=== PATIENT | female | born 2000 | race Caucasian/White ===

== ENCOUNTER 2022-11-22 10:01 | Outpatient (AMB) | payer BC, SELFPAY ==
--- NOTE | 2022-11-22 10:08 | A.OFFPC_ITS ---
Vital Signs 11/22/22 10:09 Height 5 ft 8 in Weight 186 lb BMI 28.3 BP 106/70 Blood Pressure Location Rt brachial Position Sitting Pulse 112 H Pulse Source Pulse Oximeter Pulse Oximetry (%) 98 Oxygen Delivery Method Room Air Intake Visit Reasons: npv/requesting phy Intake Note: Pt is here today as a New Patient to [facility] and for a PE Allergies No Known Allergies Allergy (Verified 11/22/22 10:24) Medication List - Last Reconciled 11/22/22 by Lisa Rodriguez MD clindamycin-benzoyl peroxide 1-5 % 1 appl topical QAM levonorgestrel-ethinyl estrad 0.15 mg-30 mcg (91) 1 tab PO DAILY Tobacco use date assessed: 11/22/22 Dental Screening Dental Screen Date: 11/22/22 Did you have a dental visit in the last 12 months?: Yes Did you have a dental problem in the last 6 months where you did not have access to dental care?: No Was dental information given to patient?: Patient has dentist HPI npv/requesting phy HPI Details 22-year-old lady, new to practice, here to establish care with new PCP and for physical exam. She currently is being seen by [facility], sees Phyllis Ashton who recently did some blood work, which showed elevated TSH at 4.73 IU per mL with normal free T4 at 1.16 ng/ dL, serum electrolytes were drawn with slightly elevation in her potassium at 5.4 , and CBC which showed normal hemoglobin/ hematocrit / WBC, but platelets are high at 523. Complains of feeling more tired than usual, has intermittent episodes of tingling in extremities , and intermittent palpitations. [facility] Medical History (Updated 11/25/22 @ 10:16 by Lisa Rodriguez MD) Chronic fatigue Family history of diabetes mellitus Family history of Rogers thyroiditis Hyperkalemia Intermittent palpitations Tingling in extremities Surgical History (Updated 11/22/22 @ 10:39 by Lisa Rodriguez MD) No pertinent past surgical history Family History (Updated 11/22/22 @ 10:41 by Lisa Rodriguez MD) Maternal Aunt Breast cancer Mother Hypothyroidism due to Rogers's thyroiditis Type 1 diabetes mellitus Social History Housing: House Patient Tobacco Use Status: Never used Tobacco e-Cigarette/Vaping Use: Never Used service: No Current occupational status: employed Cognitive needs: No Hearing needs: No Vision needs: No Female Reproductive History Menstrual Age of Menarche: 12 control method: pills Other: sees Melida Ashton Questionnaire PHQ-9 Over the last 2 weeks, how often have you been bothered by any of the following problems? 1. Little interest or pleasure in doing things: not at all 2. Feeling down, depressed, or hopeless: not at all 3. Trouble falling or staying asleep, or sleeping too much: several days 4. Feeling tired or having little energy: several days 5. Poor appetite or overeating: not at all 6. Feeling bad about yourself - or that you are a failure or have let yourself or your family down: not at all 7. Trouble concentrating on things, such as reading the newspaper or watching television: not at all 8. Moving or speaking so slowly that other people could have noticed. Or the opposite - being so fidgety or restless that you have been moving around a lot more than usual: not at all 9. Thoughts that you would be better off or of hurting yourself in some way: not at all Total score: 2 Depression Screening Interpretation: Negative 95265 - PHQ-9 Billing: Yes Source: Developed by Drs. Cal Trejo, Petrona Felix, Ranjit Guillory and colleagues, with an educational helder from [email or web address]. Thrive Questionnaire Date Thrive assessed: 11/22/22 I am a: Patient What is your living situation today?: I have a steady place to live Within the past 12 months, did the food you bought not last and you didn't have the money to get more?: Never true Within the past 12 months, did you worry whether your food would run out before you got money to buy more?: Never true Do you have trouble paying for medicines?: No Do you have trouble getting transportation to medical appointments?: No Do you have trouble paying your heating and electricity bill?: No Do you have trouble taking care of your child, family member or friend?: No Do you have trouble with day-to-day activities such as bathing, preparing meals, shopping, managing finances, etc.?: No Are you currently unemployed and looking for a job?: No Are you interested in more education?: No AUDIT C Alcohol Use Questionnaire (AUDIT-C) 1. How often do you have a drink containing alcohol?: Monthly or less 2. How many drinks containing alcohol do you have on a typical day when you are drinking?: 1 or 2 3. How often do you have six or more drinks on one occasion?: Never Total Score: 1 Score Reviewed/Action Taken: Yes CRISTIANO-7 AMB Questionnaire CRISTIANO-7 Date CRISTIANO - 7 assessed: 11/22/22 Feeling nervous, anxious, or on edge: 1 = Several days Not being able to stop or control worryin = Not at all Worrying too much about different things: 0 = Not at all Trouble relaxin = Not at all Being so restless that it is hard to sit still: 0 = Not at all Becoming easily annoyed or irritable: 0 = Not at all Feeling afraid as if something awful might happen: 0 = Not at all Total CRISTIANO-7 score (0-4 normal; 5-9 mild; 10-14 moderate; 15-21 severe): 1 Source: Developed by Drs. Cal Trejo, Petrona Felix, Ranjit Guillory and colleagues, with an educational helder from [email or web address]. CRISTIANO-7 Assessment Billing CRISTIANO-7 Assessment Tool: CRISTIANO-7 Assessment 30696 Review of Systems Const Reports as per HPI, Reports fatigue, Denies fever(s), Denies headache(s) and Denies weakness Eyes Denies change in vision, Denies eye discharge and Denies itchy eyes ENT Reports as per HPI, Reports Normal hearing present, Reports dizziness (intermittent ), Denies headache(s), Denies nasal congestion, Denies nasal discharge, Denies sinus pain and Denies sore throat Card Denies chest pain, Denies chest pain with activity, Reports syncope (history of syncope , seen and evaluated by cardiology, echo/holter negative), Denies irreg ular heart rhythm and Denies dyspnea Resp Denies chest congestion, Denies cough, Denies dyspnea and Denies wheezing GI Denies abdominal pain, Denies bloating, Denies hematochezia, Denies change in bowel habits and Denies heartburn Details: Has dysmenorrhea Denies hematuria, Denies urinary frequency, Denies dysuria and Denies urinary urgency Musc Details: Chronic low back pain, sees a chiropractor for adjustment. Been seen at [facility] and received physical therapy with minimal relief Skin/Breast Denies breast pain, Denies breast mass, Denies lesions, Denies nail changes, Denies rash and Denies unusual bruising Neuro Reports as per HPI, Reports Normal hearing present, Reports dizziness (intermittent ), Reports syncope (history of syncope , seen and evaluated by cardiology, echo/holter negative), Denies headache(s) and Denies weakness Psych Reports no additional complaints Endo Reports fatigue, Denies polydipsia and Denies polyuria Des/Lymph Reports no additional complaints and Denies easy bruising Aller/Immun Reports no additional complaints, Denies itchy eyes, Denies seasonal rhinorrhea and Denies wheezing Physical exam (Primary Care) Vital Signs: Last Vital Signs Pulse 112 H 11/22/22 10:09 BP 106/70 11/22/22 10:09 Pulse Ox 98 11/22/22 10:09 Oxygen Delivery Method Room Air 11/22/22 10:09 BMI result Body Mass Index 28.3 Tobacco/Smoking Status: Tobacco use Status Tobacco use date assessed 11/22/22 11/22/22 10:13 Patient Tobacco Use Status Never used Tobacco 11/22/22 10:13 e-Cigarette/Vaping Use Never Used 11/22/22 10:13 PHQ-9: PHQ-9 Score PHQ-9: Total score 2 11/22/22 10:50 Depression Screening Interpretation: Negative Thrive Assessment: Date of Thrive Assessment Date Thrive assessed 11/22/22 11/22/22 10:50 Const General: comfortable, no acute distress, alert and Physically active Nutritional Appearance: overweight Orientation/consciousness: patient oriented x3 Limitations: no limitations HENMT Head: Yes normocephalic Ears: hearing grossly normal bilaterally, external ears normal, TM's normal bilaterally and EAC's normal General nose exam: Normal external nose present Face and sinus: Yes face symmetric Mouth: Normal oral and palatal mucosa present, tongue normal, oropharynx normal and moist mucous membranes Eyes General: appearance normal, both eyes and all related structures Alignment and Position: alignment normal Periorbital: periorbital findings normal Eyelids: Yes eyelids normal Conjunctivae: conjunctivae normal Sclerae: sclerae normal Pupils: Equal, round and reactive pupils present EOM: EOMs intact bilaterally Neck Neck: Yes full ROM, Yes no lymphadenopathy and Yes supple Thyroid: other (Nonpalpable thyroid gland) Chest Chest palpation & inspection: normal inspection of the chest and normal palpation of entire chest wall Breast/axilla palpation: normal palpation of the breasts Resp Effort & Inspection: normal respiratory effort and able to speak in complete sentences Auscultation: clear to auscultation bilaterally Cardio Rate: tachycardic Heart sounds: S1 normal heart sound present and S2 normal heart sound present GI Palpation (GI): Soft to palpation, nontender, no guarding and no masses Auscultation: normal bowel sounds General: Yes no CVA tenderness and Yes deferred (Currently sees [facility]) Back/Spine/Pelvis Back: no CVA tenderness and No back tenderness Skin General skin exam: no rashes or lesions noted Neuro General: patient oriented x3, gait normal, moves all extremities, Normal light touch and pain sensation, no focal motor deficits and CN's II-XI intact bilaterally Cranial nerves: Yes CN's II-XII intact bilaterally, Yes Equal, round and reactive pupils present and Yes Normal hearing present Gait exam (Neuro): Normal gait present Extrem General: Yes normal to inspection, Yes full ROM, Yes no joint enlargement, Yes no clubbing, cyanosis or edema and Yes normal gait Psych Appearance: grossly normal Speech and movement: Normal speech and movement present Affect: normal affect Attitude: cooperative Thought process: Normal thought process present Thought content: Normal thought content present Assessment and Plan Assessment & Plan (1) Intermittent palpitations: Code(s): R00.2 - Palpitations (2) Fatigue: Code(s): R53.83 - Other fatigue (3) Family history of diabetes mellitus: Code(s): Z83.3 - Family history of diabetes mellitus (4) Family history of Rogers thyroiditis: Code(s): Z83.49 - Family history of other endocrine, nutritional and metabolic diseases (5) Annual visit for general adult medical examination with abnormal findings: Code(s): Z00.01 - Encounter for general adult medical examination with abnormal findings Plan: Will check appropriate labs. Recommended dental visit every 6 months and regular eye exams, at least every 2 years. Take adequate calcium in diet and vitamin-D 3 at 2000 IU per cap once a day, in addition to weight-bearing exercises to help maintain good muscle tone and weight control. Instructed to do self-breast exam, and get yearly mammogram, starting at age 40. She is up-to-date with all her vaccinations including her COVID bivalent booster (6) Tingling in extremities: Code(s): R20.2 - Paresthesia of skin (7) Hyperkalemia: Code(s): E87.5 - Hyperkalemia Orders: Orders Vitamin B12 and Folate 11/22/22 E87.5 - Hyperkalemia, R00.2 - Palpitations, R20.2 - Paresthesia of skin, R53.83 - Other fatigue, Z00.01 - Encounter for general adult medical examination with abnormal findings, Z83.3 - Family history of diabetes mellitus, Z83.49 - Family history of other endocrine, nutritional and metabolic diseases Glucose Fasting 11/22/22 E87.5 - Hyperkalemia, R00.2 - Palpitations, R20.2 - Paresthesia of skin, R53.83 - Other fatigue, Z00.01 - Encounter for general adult medical examination with abnormal findings, Z83.3 - Family history of diabetes mellitus, Z83.49 - Family history of other endocrine, nutritional and metabolic diseases Potassium 11/22/22 E87.5 - Hyperkalemia, R00.2 - Palpitations, R20.2 - Paresthesia of skin, R53.83 - Other fatigue, Z00.01 - Encounter for general adult medical examination with abnormal findings, Z83.3 - Family history of diabetes mellitus, Z83.49 - Family history of other endocrine, nutritional and metabolic diseases Magnesium 11/22/22 E87.5 - Hyperkalemia, R00.2 - Palpitations, R20.2 - Paresthesia of skin, R53.83 - Other fatigue, Z00.01 - Encounter for general adult medical examination with abnormal findings, Z83.3 - Family history of diabetes mellitus, Z83.49 - Family history of other endocrine, nutritional and metabolic diseases TSH reflex Free T4 11/22/22 E87.5 - Hyperkalemia, R00.2 - Palpitations, R20.2 - Paresthesia of skin, R53.83 - Other fatigue, Z00.01 - Encounter for general adult medical examination with abnormal findings, Z83.3 - Family history of diabetes mellitus, Z83.49 - Family history of other endocrine, nutritional and metabolic diseases Vitamin D 25-OH Total 11/22/22 E87.5 - Hyperkalemia, R00.2 - Palpitations, R20.2 - Paresthesia of skin, R53.83 - Other fatigue, Z00.01 - Encounter for general adult medical examination with abnormal findings, Z83.3 - Family history of diabetes mellitus, Z83.49 - Family history of other endocrine, nutritional and metabolic diseases Thyroid Peroxidase Antibodies 11/22/22 E87.5 - Hyperkalemia, R00.2 - Palpitations, R20.2 - Paresthesia of skin, R53.83 - Other fatigue, Z00.01 - Encounter for general adult medical examination with abnormal findings, Z83.3 - Family history of diabetes mellitus, Z83.49 - Family history of other endocrine, nutritional and metabolic diseases Coding Level of Care Code New Pt Prev Care 18-39yr([id number] Diagnoses Intermittent palpitations R00.2 Fatigue R53.83 Family history of diabetes mellitus Z83.3 Family history of Rogers thyroiditis Z83.49 Annual visit for general adult medical examination with abnormal findings Z00.01 Tingling in extremities R20.2 Hyperkalemia E87.5 Additional Codes CRISTIANO-7 Assessment Billing - CRISTIANO-7 Assessment Tool: CRISTIANO-7 Assessment 64759 ([id number])
[2022-11-22 10:09] VITALS: BP 106/70; PULSE 112; O2SAT 98; BMI 28.3
== END 2022-11-22 10:52 | disposition home or self-care (01) ==
PROVIDERS: PCP Hospitalist; Visit Provider Internal Medicine
DX: Z00.01 Encounter for general adult medical examination with abnormal findings (principal); Z83.3 Family history of diabetes mellitus; Z83.49 Family history of other endocrine, nutritional and metabolic diseases; R00.2 Palpitations; R53.83 Other fatigue; R20.2 Paresthesia of skin; E87.5 Hyperkalemia
CPT/HCPCS: 99385

== ENCOUNTER 2022-11-22 10:52 | Outpatient (REF) | payer BC, SELFPAY ==
[2022-11-22 14:18] LABS: Glucose Fasting 92 mg/dL (60-99); Magnesium 1.9 mg/dL (1.6-2.6)
[2022-11-22 14:35] LABS: TSH reflex Free T4 2.94 uIU/mL (0.32-4.0); Vitamin D 25-OH Total 54.2 ng/mL (>30)
[2022-11-22 14:39] LABS: Folate 9.9 ng/mL (> or = 4.0); Vitamin B12 212 pg/mL (200-900)
[2022-11-23 10:02] LABS: Thyroid Peroxidase Antibodies 640 IU/mL (<9)
== END 2022-11-22 10:53 | disposition home or self-care (01) ==
LOC: HO.HMGCLDS 10:52
PROVIDERS: PCP Internal Medicine; Visit Provider Internal Medicine
DX: Z00.01 Encounter for general adult medical examination with abnormal findings (principal); E87.5 Hyperkalemia; R00.2 Palpitations; R20.2 Paresthesia of skin; R53.83 Other fatigue; Z83.3 Family history of diabetes mellitus; Z83.49 Family history of other endocrine, nutritional and metabolic diseases
CPT/HCPCS: 36415; 82306; 82607; 82746; 82947; 83735; 84132; 84443; 86376

== ENCOUNTER 2022-11-25 10:24 | Outpatient (REF) | payer BC, SELFPAY ==
[2022-11-25 13:29] LABS: MANUAL DIFF FLAG NO
[2022-11-25 13:47] LABS: Basophils Absolute Auto 0.1 X10*3/uL (0.0-0.2); Basophils Percent Auto 0.7 % (0-2); Eosinophils Absolute Auto 0.1 X10*3/uL (0.0-0.4); Eosinophils Percent Auto 1.8 % (0-4); Hematocrit 39.8 % (37.0-47.0); Hemoglobin 13.2 g/dl (12.0-16.0); Imm Gran Abs Auto 0.02 X10*3/uL (0.00-0.03); Imm Gran Pct Auto 0.3 % (0.0-0.4); Lymphocytes Percent Auto 28.3 % (20-40); Mean Corpuscular HGB Conc 33.2 g/dl (31.0-35.0); Mean Corpuscular Hemoglobin 27.9 pg (27.0-33.0); Mean Corpuscular Volume 84.1 fL (80.0-98.0); Mean Platelet Volume 9.2 fL (9.4-12.3); Monocytes Absolute Auto 0.4 X10*3/uL (0.1-1.2); Monocytes Percent Auto 5.9 % (2-11); Neutrophils Absolute Auto 4.5 x10*3/uL (2.0-8.3); Platelet Count 493 X10*3/uL (160-400); Red Blood Count 4.73 X10*6/uL (4.20-5.50); Red Cell Distribution Width 13.5 % (11.0-16.0); White Blood Count 7.1 X10*3/uL (4.8-10.8)
== END 2022-11-25 10:25 | disposition home or self-care (01) ==
LOC: HO.HMGCLDS 10:24
PROVIDERS: PCP Internal Medicine; Visit Provider Internal Medicine
DX: R53.82 Chronic fatigue, unspecified (principal)
CPT/HCPCS: 36415; 84481; 85025

== ENCOUNTER 2023-02-18 11:16 | Outpatient (REF) | payer BC, SELFPAY ==
[2023-02-18 13:33] LABS: Hematocrit 37.5 % (37.0-47.0); Hemoglobin 12.5 g/dl (12.0-16.0); Mean Corpuscular HGB Conc 33.3 g/dl (31.0-35.0); Mean Corpuscular Hemoglobin 27.7 pg (27.0-33.0); Mean Corpuscular Volume 83.1 fL (80.0-98.0); Mean Platelet Volume 8.9 fL (9.4-12.3); Platelet Count 513 X10*3/uL (160-400); Red Blood Count 4.51 X10*6/uL (4.20-5.50); Red Cell Distribution Width 13.6 % (11.0-16.0); White Blood Count 6.7 X10*3/uL (4.8-10.8)
[2023-02-18 13:59] LABS: Thyroid Stimulating Hormone 2.98 uIU/mL (0.32-4.0)
[2023-02-18 14:04] LABS: Vitamin B12 355 pg/mL (200-900)
[2023-02-19 17:28] LABS: Triiodothyronine T3 Free 3.5 pg/mL (2.3-4.2)
[2023-02-21 20:28] LABS: Thyroid Peroxidase Antibodies 825 IU/mL (<9)
== END 2023-02-18 11:17 | disposition home or self-care (01) ==
LOC: HO.HMGCLDS 11:16
PROVIDERS: PCP Internal Medicine; Visit Provider Internal Medicine
DX: E06.3 Autoimmune thyroiditis (principal); R53.82 Chronic fatigue, unspecified; R00.2 Palpitations; E03.9 Hypothyroidism, unspecified; Z83.49 Family history of other endocrine, nutritional and metabolic diseases
CPT/HCPCS: 36415; 82607; 84439; 84443; 84481; 85027; 86376

== ENCOUNTER 2023-07-30 09:11 | Outpatient (AMB) | payer OTHER, BC, SELFPAY ==
[2023-07-30 09:46] VITALS: BP 110/66; PULSE 91; O2SAT 99; BMI 26.8
--- NOTE | 2023-07-30 09:46 | AM.OFFWIN_ITS ---
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 Patient Tobacco Use Status: Never used Tobacco Accompanied by: Mother Allergies No Known Allergies Allergy (Verified 07/30/23 09:49) Medication List - Last Reconciled 07/30/23 by Kei Martino MD clindamycin-benzoyl peroxide 1-5 % 1 appl topical QAM levonorgestrel-ethinyl estrad 0.15 mg-30 mcg (91) 1 tab PO DAILY magnesium 250 mg PO DAILY Do you need a note to return to daycare/school/sports/work: No HPI EP Fell back injury WC HPI Details Patient fell back/sat back from a standing position onto buttocks and felt severe pain at left lower back. Having difficulty standing and walking due to pain.. No bowel or bladder dysfunction. No weakness at foot or ankle. [facility] Medical History (Updated 07/30/23 @ 10:36 by Kei Martino MD) Rogers's disease Chronic fatigue Hyperkalemia Tingling in extremities Family history of Rogers thyroiditis Family history of diabetes mellitus Intermittent palpitations Surgical History (Updated 11/22/22 @ 10:39 by Lisa Rodriguez MD) No pertinent past surgical history Family History (Updated 11/22/22 @ 10:41 by Lisa Rodriguez MD) Maternal Aunt Breast cancer Mother Hypothyroidism due to Rogers's thyroiditis Type 1 diabetes mellitus Social History Housing: House Patient Tobacco Use Status: Never used Tobacco e-Cigarette/Vaping Use: Never Used service: No Current occupational status: employed Cognitive needs: No Hearing needs: No Vision needs: No Female Reproductive History Menstrual Age of Menarche: 12 Review of Systems Const Denies chills, Denies fatigue, Denies fever(s), Denies headache(s) and Denies weakness ENT Denies dizziness and Denies headache(s) Card Denies chest pain, Denies lightheadedness, Denies dyspnea and Denies other (Palpitations) Resp Denies cough, Denies dyspnea, Denies wheezing and Denies other ( shortness of breath) Musc Details: Moderately severe pain at left lower back and upper posterior pelvis. Denies numbness and Denies tingling Neuro Denies dizziness, Denies headache(s), Denies numbness, Denies tingling, Denies paresthesias and Denies weakness Psych Denies anxiety and Denies depression Endo Denies fatigue Aller/Immun Denies wheezing Physical Exam Vital Signs: Last Vital Signs Pulse 91 07/30/23 09:46 BP 110/66 07/30/23 09:46 Pulse Ox 99 07/30/23 09:46 Oxygen Delivery Method Room Air 07/30/23 09:46 BMI result Body Mass Index 26.8 Const Other: Patient appears in moderately severe pain. General: no acute distress and well developed Nutritional Appearance: well nourished Orientation/consciousness: patient oriented x3 HEENT Head: Yes normocephalic and Yes atraumatic Eyes General: appearance normal, both eyes and all related structures Pupils: Equal, round and reactive pupils present EOM: EOMs intact bilaterally Resp Effort & Inspection: normal respiratory effort Auscultation: clear to auscultation bilaterally Cardio Rate: regular rate Rhythm: regular rhythm Heart sounds: S1 normal heart sound present, S2 normal heart sound present, no gallops, no murmurs and no rubs Back/Spine/Pelvis Other: Mild tenderness at left lower back and left posterior pelvis. Pain in back at straight leg raise beyond 15 degrees bilaterally. Pain with standing straight and walking. Neuro Other: Normal dorsiflexion and plantar flexion of bilateral feet. Patellar tendon Reflexes 1+ bilaterally - patient says this is always the case for her and baseline. General: patient oriented x3 and gait normal Cranial nerves: Yes Equal, round and reactive pupils present Psych Affect: normal affect Assessment & Plan Assessment & Plan (1) Back pain: Code(s): M54.9 - Dorsalgia, unspecified Plan: Moderately severe back pain X-ray of lumbar spine and pelvis: Reviewed myself and I do not see any disc height changes, fractures or deformities. Likely severe contusion and muscle strain. Will give her a note to be out of work for the next 10 days. Pain control with Meloxicam and Percocet b.i.d. p.r.n. x3 days for severe pain. Will also give her a muscle relaxant ice/heat Risks/benefits of medication were discussed with the patient. Go to the ED if pain is worsening despite above treatment. Go to the ED if unable to walk or for any bowel or bladder dysfunction or numbness. Or for any other new, concerning symptoms. Orders: Orders XR pelvis 1-2V Today M54.9 - Dorsalgia, unspecified XR lumbar spine 2-3V Today M54.9 - Dorsalgia, unspecified Coding Level of Care Code Est Pt Level 4 (71077) Diagnoses Back pain M54.9
== END 2023-07-30 11:59 | disposition home or self-care (01) ==
PROVIDERS: PCP Internal Medicine; Visit Provider Family Medicine
DX: M54.9 Dorsalgia, unspecified (principal)
CPT/HCPCS: 99214

== ENCOUNTER 2023-07-30 10:38 | Outpatient (REF) | payer BC, SELFPAY ==
--- NOTE | ~2023-07-30 | XR_ITS ---
EXAMINATION: XR PELVIS CLINICAL INFORMATION: Pain COMPARISON: None available. TECHNIQUE: AP view of the pelvis. FINDINGS: No fracture. Hip joint spaces are maintained. Alignment is anatomic. Sacroiliac joints and pubic symphysis are normal. No abnormal soft tissue calcifications. Excess amount of stool in the colon suggests possible constipation. XR/XR pelvis 1-2V IMPRESSION: Excess amount of stool in the colon possible constipation otherwise Normal radiograph.
--- NOTE | ~2023-07-30 | XR_ITS ---
EXAMINATION: XR LUMBAR SPINE CLINICAL INFORMATION: Reason for Exam M54.9 - Dorsalgia, unspecified COMPARISON: None TECHNIQUE: Frontal lateral and coned-down L5-S1 frontal lateral, total of 3 views FINDINGS: Five [id number] lumbar vertebrae were identified maintaining normal height and alignments. Narrowing of disc space at L1-L2 suggest possible underlying degenerative disc disease. Paravertebral soft tissues are unremarkable. There are radiolucencies, most likely superimposed bowel gas.. No radiographic evidence of osteolytic or osteoblastic lesions. XR/XR lumbar spine 2-3V IMPRESSION: 1. No fracture. 2. Bone alignments are satisfactory. 3. Narrowing of intervertebral disc space at L1-L2 suggest underlying degenerative disc disease.
== END 2023-07-30 10:39 | disposition home or self-care (01) ==
LOC: HO.HMGCX 10:38
PROVIDERS: PCP Internal Medicine; Visit Provider Family Medicine
DX: M48.061 Spinal stenosis, lumbar region without neurogenic claudication (principal)
CPT/HCPCS: 72100; 72170

== ENCOUNTER 2023-08-04 08:08 | Outpatient (AMB) | payer BC, SELFPAY ==
[2023-08-04 09:00] VITALS: BP 120/78; PULSE 103; TEMP 36.3; O2SAT 98; BMI 27.4
--- NOTE | 2023-08-04 09:00 | AM.OFFWIN_ITS ---
Intake Vital Signs 08/04/23 09:00 Height 5 ft 8 in Weight 180 lb BMI 27.4 BP 120/78 Blood Pressure Location Lt brachial Position Sitting Pulse 103 H Pulse Source Pulse Oximeter Temp 97.3 F Temp Source Temporal Artery Scan Pulse Oximetry (%) 98 Oxygen Delivery Method Room Air Intake Visit Reasons: EP lower lft back pain Intake Note: pt is here today for lower lft back pain started tuesday Patient Tobacco Use Status: Never used Tobacco Allergies No Known Allergies Allergy (Verified 08/04/23 09:11) Do you need a note to return to daycare/school/sports/work: No HPI HPI Comments History of Present Illness Details 22 y/o female patient who presents to [facility] in clinic with c/o left sided back pain(Lumbar region) since Tuesday. Pt was seen and evaluated at [facility] then, Xrays WNL. [facility] Medical History (Updated 08/04/23 @ 09:19 by Isela Bishop NP) Rogers's disease Chronic fatigue Hyperkalemia Tingling in extremities Family history of Rogers thyroiditis Family history of diabetes mellitus Intermittent palpitations Surgical History (Updated 11/22/22 @ 10:39 by Lisa Rodriguez MD) No pertinent past surgical history Family History (Updated 11/22/22 @ 10:41 by Lisa Rodriguez MD) Maternal Aunt Breast cancer Mother Hypothyroidism due to Rogers's thyroiditis Type 1 diabetes mellitus Social History Housing: House Patient Tobacco Use Status: Never used Tobacco e-Cigarette/Vaping Use: Never Used service: No Current occupational status: employed Cognitive needs: No Hearing needs: No Vision needs: No Female Reproductive History Menstrual Age of Menarche: 12 Review of Systems Const All systems reviewed & are unremarkable except as noted in HPI and below Physical Exam Vital Signs: Last Vital Signs Temp 97.3 F 08/04/23 09:00 Pulse 103 H 08/04/23 09:00 BP 120/78 08/04/23 09:00 Pulse Ox 98 08/04/23 09:00 Oxygen Delivery Method Room Air 08/04/23 09:00 BMI result Body Mass Index 27.4 Const General: comfortable Orientation/consciousness: patient oriented x3 Back/Spine/Pelvis Back: back tenderness Cervical Spine: normal cervical lordosis and cervical ROM normal Thoracic/Lumbar Spine: thoraco-lumbar ROM normal and lumbar spinal tenderness at L5 Neuro General: patient oriented x3, gait normal and moves all extremities Psych Speech and movement: Normal speech and movement present Results AMB Urinalysis, Automated UA Leukoctes 0 Nori/uL Last Edit by Tez Mcgrath CMA on 08/04/23 09:36 UA Nitrite Negative Last Edit by Tez Mcgrath CMA on 08/04/23 09:36 UA Urobilinogen 0.2 mg/dL Last Edit by Tez Mcgrath CMA on 08/04/23 09 :36 UA Protein 0 mg/dL Last Edit by Tez Mcgrath CMA on 08/04/23 09:36 UA pH 6.0 Last Edit by Tez Mcgrath CMA on 08/04/23 09:36 UA Blood 25 Carlos/uL Last Edit by Tez Mcgrath CMA on 08/04/23 09:36 UA Specific Troy 1.025 Last Edit by Tez Mcgrath CMA on 08/04/23 09:36 UA Ketone Negative Last Edit by Tez Mcgrath CMA on 08/04/23 09:36 UA Bilirubin 0 mg/dL Last Edit by Tez Mcgrath CMA on 08/04/23 09:36 UA Glucose 0 mg/dL Last Edit by Tez Mcgrath CMA on 08/04/23 09:36 Results Reviewed Results Reviewed: Laboratory Last Values Urine pH (Auto) 6.0 08/04/23 09:36 Specific Troy (Auto) 1.025 08/04/23 09:36 Urine Protein (Auto) 0 mg/dL 08/04/23 09:36 Glucose (UA)(Auto) 0 mg/dL 08/04/23 09:36 Urine Ketones (Auto) Negative 08/04/23 09:36 Urine Blood (Auto) 25 Carlos/uL 08/04/23 09:36 Urine Nitrite (Auto) Negative 08/04/23 09:36 Urine Bilirubin (Auto) 0 mg/dL 08/04/23 09:36 Urine Urobilinogen (Auto) 0.2 mg/dL 08/04/23 09:36 Leukocyte Esterase (Auto) 0 Nori/uL 08/04/23 09:36 Assessment & Plan Assessment & Plan (1) Back pain: Code(s): M54.9 - Dorsalgia, unspecified Qualifiers: Back pain laterality: left Back pain location: low back pain Chronicity: acute Sciatica presence: without sciatica Qualified Code(s): M54.50 - Low back pain, unspecified Plan: - Continue on meds prescribed - F/U with PCP - ED visit if pain continues to be worse. Orders: Orders AMB Urinalysis Automated Today Z13.9 - Encounter for screening, unspecified Coding Level of Care Code Est Pt Level 3 (46581) Diagnoses Acute left-sided low back pain without sciatica M54.50 Back pain laterality: left Back pain location: low back pain Chronicity: acute Sciatica presence: without sciatica Time Spent (min) 15
== END 2023-08-04 11:21 | disposition home or self-care (01) ==
PROVIDERS: PCP Internal Medicine; Visit Provider Nurse Practitioner Family
DX: M54.50 Low back pain, unspecified (principal)
CPT/HCPCS: 81003; 99213

== ENCOUNTER 2023-08-11 08:22 | Outpatient (AMB) | payer BC, SELFPAY ==
[2023-08-11 08:32] VITALS: BP 104/62; PULSE 98; O2SAT 99; BMI 27.2
--- NOTE | 2023-08-11 08:32 | A.OFFPC_ITS ---
Vital Signs 08/11/23 08:32 Height 5 ft 8 in Weight 179 lb BMI 27.2 BP 104/62 Blood Pressure Location Rt brachial Position Sitting Pulse 98 Pulse Source Pulse Oximeter Pulse Oximetry (%) 99 Oxygen Delivery Method Room Air Intake Visit Reasons: F/u Back Injury/an ok Return to work Allergies No Known Allergies Allergy (Verified 08/11/23 08:33) Tobacco use date assessed: 08/11/23 Dental Screening Dental Screen Date: 08/11/23 Did you have a dental visit in the last 12 months?: Yes Did you have a dental problem in the last 6 months where you did not have access to dental care?: No Was dental information given to patient?: Patient has dentist HPI HPI Comments History of Present Illness Details Patient is a 22-year-old female in today for a follow-up for lower back injury. 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 She was seen in our walk-in clinic 12 days prior to this appointment, she had lumbar and pelvis x-ray. Lumbar x-ray demonstrated degenerative disc disease, pelvis x-ray demonstrated constipation. Patient was given meloxicam and cyclobenzaprine, she states that has given her mild to moderate relief. Patient states she is no longer having issues with constipation. But she is still feeling discomfort in her lower back. Most notably she has limitations to range of movement with flexion and extension. Denies radiculopathy. Denies any saddle numbness. Denies any chest pain shortness a breath. She states she did go to the chiropractor which gave moderate relief. Patient has no C-spine or L-spine tenderness, however on physical exam she does have limited range of motion to flexion extension. Patient is able to flex forward no more than 45 degrees. Will give patient referral to physical therapy. Will also give patient Salonpas in addition to her current regimen of cyclobenzaprine and meloxicam. [facility] Medical History Rogers's disease Chronic fatigue Hyperkalemia Tingling in extremities Family history of Rogers thyroiditis Family history of diabetes mellitus Intermittent palpitations Surgical History No pertinent past surgical history Family History Maternal Aunt Breast cancer Mother Hypothyroidism due to Rogers's thyroiditis Type 1 diabetes mellitus Social History Housing: House Patient Tobacco Use Status: Never used Tobacco e-Cigarette/Vaping Use: Never Used service: No Current occupational status: employed Cognitive needs: No Hearing needs: No Vision needs: No Female Reproductive History Menstrual Age of Menarche: 12 Questionnaire PHQ-9 Over the last 2 weeks, how often have you been bothered by any of the following problems? 1. Little interest or pleasure in doing things: not at all 2. Feeling down, depressed, or hopeless: not at all 3. Trouble falling or staying asleep, or sleeping too much: not at all 4. Feeling tired or having little energy: not at all 5. Poor appetite or overeating: not at all 6. Feeling bad about yourself - or that you are a failure or have let yourself or your family down: not at all 7. Trouble concentrating on things, such as reading the newspaper or watching television: not at all 8. Moving or speaking so slowly that other people could have noticed. Or the opposite - being so fidgety or restless that you have been moving around a lot more than usual: not at all 9. Thoughts that you would be better off or of hurting yourself in some way: not at all Total score: 0 Depression Screening Interpretation: Negative Depression Screening Done: Yes 69502 - PHQ-9 Billing: Yes Source: Developed by Drs. Cal Trejo, Petrona Felix, Ranjit Guillory and colleagues, with an educational helder from [employer]. Thrive Questionnaire Date Thrive assessed: 08/11/23 I am a: Patient What is your living situation today?: I have a steady place to live Within the past 12 months, did the food you bought not last and you didn't have the money to get more?: Never true Within the past 12 months, did you worry whether your food would run out before you got money to buy more?: Never true Do you have trouble paying for medicines?: No Do you have trouble getting transportation to medical appointments?: No Do you have trouble paying your heating and electricity bill?: No Do you have trouble taking care of your child, family member or friend?: No Do you have trouble with day-to-day activities such as bathing, preparing meals, shopping, managing finances, etc.?: No Are you currently unemployed and looking for a job?: Yes Are you interested in more education?: No Please select the resources that you would like help with: None Currently or been in a relationship where the following occur: no concerns rep orted THRIVE Score: 0 AUDIT C Alcohol Use Questionnaire (AUDIT-C) 1. How often do you have a drink containing alcohol?: Monthly or less 2. How many drinks containing alcohol do you have on a typical day when you are drinking?: 1 or 2 3. How often do you have six or more drinks on one occasion?: Never Total Score: 1 CRISTIANO-7 AMB Questionnaire CRISTIANO-7 Date CRISTIANO - 7 assessed: 11/22/22 Feeling nervous, anxious, or on edge: 0 = Not at all Not being able to stop or control worryin = Not at all Worrying too much about different things: 0 = Not at all Trouble relaxin = Not at all Being so restless that it is hard to sit still: 0 = Not at all Becoming easily annoyed or irritable: 0 = Not at all Feeling afraid as if something awful might happen: 0 = Not at all Total CRISTIANO-7 score (0-4 normal; 5-9 mild; 10-14 moderate; 15-21 severe): 0 Source: Developed by Drs. Cal Trejo, Petrona Felix, Ranjit Guillory and colleagues, with an educational helder from [employer]. CRISTIANO-7 Assessment Billing CRISTIANO-7 Assessment Tool: CRISTIANO-7 Assessment 04011 Review of Systems Const All systems reviewed & are unremarkable except as noted in HPI and below ENT Denies dizziness and Denies disequilibrium Card Denies chest pain and Denies dyspnea Resp Denies dyspnea GI Denies change in bowel habits, Denies diarrhea, Denies nausea and Denies vomiting Musc Reports back pain (lower back), Denies numbness and Denies radiating pain into limb Skin/Breast Denies wounds Neuro Denies dizziness, Denies numbness and Denies disequilibrium Physical exam (Primary Care) Vital Signs: Last Vital Signs Pulse 98 08/11/23 08:32 BP 104/62 08/11/23 08:32 Pulse Ox 99 08/11/23 08:32 Oxygen Delivery Method Room Air 08/11/23 08:32 Care Plan Goal for BP management: Patient's blood pressure under control. BMI result Body Mass Index 27.2 Tobacco/Smoking Status: Tobacco use Status Tobacco use date assessed 08/11/23 08/11/23 08:37 Patient Tobacco Use Status Never used Tobacco 08/11/23 08:37 e-Cigarette/Vaping Use Never Used 08/11/23 08:37 PHQ-9: PHQ-9 Score PHQ-9: Total score 0 08/11/23 09:16 Depression Screening Interpretation: Negative Thrive Assessment: Date of Thrive Assessment Date Thrive assessed 11/22/22 08/11/23 08:37 Currently or been in a relationship where the following occur: no concerns reported Const Other: Appearance: Alert.? Oriented X3.? No acute distress.? Head: Normocephalic, atraumatic Neck: Normal inspection.? Neck supple.? CVS: Normal heart rate and rhythm.? Pulses normal.? Respiratory: No respiratory distress.? Breath sounds normal.? Back: No midline tenderness, no C-spine tenderness, Limited range of motion to flexion and extesnion, no CVA tenderness bilaterally Neuro: Oriented X 3.? Results Reviewed Results Reviewed: XR/XR lumbar spine 2-3V IMPRESSION: 1. No fracture. 2. Bone alignments are satisfactory. 3. Narrowing of intervertebral disc space at L1-L2 suggest underlying degenerative disc disease. Assessment and Plan Assessment & Plan (1) Lumbar pain: Comment: Patient has been educated to continue her regimen of meloxicam cyclobenzaprine. She has also been educated that she can start using Salonpas directly over the area of discomfort. Will refer patient to physical therapy. Code(s): M54.50 - Low back pain, unspecified Plan: Take your medications as prescribed. If you were prescribed antibiotics today, it is important that you take your medication to their entirety, do not skip any doses, do not finish them early. Follow-up with your primary care provider. Return to the emergency department with new or worsening symptoms. Such as fevers, chills, chest pain, shortness of breath, nausea, vomiting, dizziness, headache, vision changes, lethargy In case of emergency call 911 Orders: Orders PT Evaluation and Treatment Today M54.50 - Low back pain, unspecified Coding Level of Care Code Est Pt Level 3 (69970) Diagnoses Lumbar pain M54.50 Additional Codes CRISTIANO-7 Assessment Billing - CRISTIANO-7 Assessment Tool: CRISTIANO-7 Assessment 52841 ([id number]) Time Spent (min) 22
== END 2023-08-11 09:49 | disposition home or self-care (01) ==
PROVIDERS: PCP Internal Medicine; Visit Provider Nurse Practitioner Primary Care
DX: M54.50 Low back pain, unspecified (principal)
CPT/HCPCS: 99213

== ENCOUNTER 2023-10-26 13:00 | Outpatient (RCR) | payer BC, SELFPAY ==
--- NOTE | 2023-08-29 12:32 | MHC.PT.EP ---
[facility] [place] [facility] [place] Office [place] Office [address] Katiuska Delgado [address] [phone] F: [phone] F: [phone] F: [phone] F: [phone] Physical Therapy Plan of Care Date of Evaluation: 08/29/23 Date of Surgery: n/a Diagnosis: Low back pain Assessment: Patient is a 22 year old female presenting to PT with complaints of pain in her low back. Pt reports onset of pain began about 1 month ago due to landing on her buttocks when demonstrating gymnastics move. She presents today with impairments in pain, lumbar ROM, hip strength, posture. 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 Pt expresses alf goal of reducing pain, and is motivated to work towards this in PT. Clinical presentation today is most consistent with signs and sx associated with low back pain and pt will benefit from skilled PT 2 week x 4 weeks to address the following problems and impairments noted upon evaluation: pain, lumbar ROM, hip strength, posture. These problems limit the patient with the following functional activities: sitting, lifting, ADLs, work, ambulating . The prescribed treatment plan of care is medically necessary. Co-morbidities of none were identified and taken into considerations of plan of care. Pt was educated on HEP, role of PT, prognosis, POC. Frequency and Duration: The patient will be seen 2 x week x 4 weeks Short Term Goals: Pt will demonstrate no pain at rest in 2 weeks. Pt will demonstrate ability to move through lumber ROM with min to no pain in 2 weeks. Pt will demonstrate improved hip MMT strength to at least 4/5 in 4 weeks for improved lumbopelvic stability. Music Supervisor Goals: Pt will demonstrate improved Carlos score by 9 points in 4 weeks for improved functional mobility. Pt will demonstrate ability to complete all ADLs with min to no pain in 4 weeks for return to PLOF. Pt will demonstrate ability to bend and lift with min to no pain in 4 weeks for return to PLOF. Treatment Plan: Modalities to reduce pain, spasms and effusion. Manual therapy to restore motion and function. Therapeutic exercise to improve strength and flexibility. Neuromuscular re-education for posture and balance. Therapeutic activities to return to functional activities of daily living. Electronically signed by: Lis Remy PT, DPT, ATC Please sign and return to therapist. Thank you for your referral.
--- NOTE | 2023-10-26 13:58 | MHC.PT.DC ---
[facility] [place] Office [place] Office [place] Office [address] [phone] F: [phone] F: [phone] F: [phone] F: [phone] Physical Therapy Discharge Report Diagnosis: Low back pain Date of Surgery: n/a Date of Evaluation: 08/29/23 Date of Discharge: 10/26/23 Treatments to Date: 18 Cancellations to Date: 0 No Shows to Date: 0 Discharge Status: Improved Function Independent with HEP Discharge Summary: 10/26/2023: Pt is demonstrating some improvements in her pain since start of care. She is able to move with less hesitation however she does still get pain when doing certain activities like lifting or sitting in a position for too long. At this point we have maximized skilled PT and it is no longer indicted to continue. Advise pt if pain continues to limit her then I would recommend following up with her provider for more imaging and evaluation. She is in agreement with d/c today and plan. Electronically signed by: Lis Remy, PT, DPT, ATC Please sign and return to therapist. Thank you for your referral.
== END 2023-10-26 13:58 | disposition home or self-care (01) ==
LOC: HO.PTCHIC 13:00
PROVIDERS: PCP Internal Medicine; Visit Provider Nurse Practitioner Primary Care
DX: M54.50 Low back pain, unspecified (principal)
CPT/HCPCS: 97110; 97140; 97161

== ENCOUNTER 2023-12-13 17:52 | Outpatient (REF) | payer BC, SELFPAY ==
--- NOTE | ~2023-12-13 | MR_ITS ---
EXAMINATION: MR LUMBAR SPINE WITHOUT CONTRAST CLINICAL INFORMATION: Back pain. COMPARISON: None. TECHNIQUE: Multiplanar, multisequence imaging was obtained. FINDINGS: VERTEBRAL BODIES AND PARASPINAL STRUCTURES: The marrow signal is homogeneous. There is reduced intradiscal signal L5-S1 level with mild disc space narrowing. No compression fractures or subluxations are identified. The paraspinal soft tissues appear normal. CONUS MEDULLARIS AND CAUDA EQUINE: The distal cord, conus tip, and cauda equina nerve roots are normal. SPINAL LEVELS: L1-L2, L2-L3, and L3-L4: Well-hydrated normal appearance of the discs without central canal stenosis or foraminal narrowing. L4-L5: Very mild disc bulge and mild hypertrophic facet arthropathy without central canal stenosis or foraminal narrowing. L5-S1: Reduced intradiscal signal and broad-based central to left subarticular zone disc protrusion distorts the ventral thecal sac and mildly impresses upon the left S1 nerve root. Hypertrophic facet arthropathy without central canal stenosis. Very mild left foraminal narrowing. MR/MR lumbar spine wo con IMPRESSION: Broad-based central to left subarticular zone disc protrusion and disc degeneration at the L5-S1 level with mild mass effect upon the left S1 nerve root. Electronically signed by: Nilson Jama MD 12/21/2023 02:43 PM EDT
== END 2023-12-13 17:53 | disposition home or self-care (01) ==
LOC: HO.MRI 17:52
PROVIDERS: PCP Internal Medicine; Visit Provider Internal Medicine
DX: M54.50 Low back pain, unspecified (principal); G89.29 Other chronic pain
CPT/HCPCS: 72148

== ENCOUNTER 2023-12-28 09:51 | Outpatient (AMB) | payer BC, SELFPAY ==
[2023-12-28 10:01] VITALS: BP 102/60; PULSE 94; O2SAT 98; BMI 28.0
--- NOTE | 2023-12-28 10:01 | A.OFFPC_ITS ---
Vital Signs 12/28/23 10:01 Height 5 ft 8 in Weight 184 lb BMI 28.0 BP 102/60 Blood Pressure Location Rt brachial Position Sitting Pulse 94 Pulse Source Pulse Oximeter Pulse Oximetry (%) 98 Oxygen Delivery Method Room Air Intake Visit Reasons: Annual Physical Appt Re 12/22 Intake Note: Pt is here today for her PE Allergies No Known Allergies Allergy (Verified 12/28/23 10:28) Medication List - Last Reconciled 12/28/23 by Lisa Rodriguez MD B.coagulans-digestive enzym 10 2 billion cell (Digestive Advantage Probiotics Plus Gas) caps PO clindamycin-benzoyl peroxide 1-5 % 1 appl topical QAM levonorgestrel-ethinyl estrad 0.15 mg-30 mcg (91) 1 tab PO DAILY magnesium 250 mg PO DAILY Tobacco use date assessed: 12/28/23 Dental Screening Dental Screen Date: 12/28/23 Did you have a dental visit in the last 12 months?: Yes Did you have a dental problem in the last 6 months where you did not have access to dental care?: No Was dental information given to patient?: Patient has dentist HPI Annual Physical Appt Re 12/22 HPI Details 23-year-old lady here today for physical exam. She has been seeing Dr. Franklyn Almeida, diagnosed with Rogers's thyroiditis with subclinical hypothyroidism, and she sees [facility], Phyllis Ashton for her routine Pap and pelvic exam. She has been feeling but has been having recurrent pain and stiffness in her right hamstrings, would like a referral back again to [facility] who she has seen in the past Also complaining of pain in her lower back accompanied by numbness tingling going down legs. This occurred after she fell and landed on her buttocks several months ago. She had an MRI of the lumbar spine done 12/13/2023 which showed Broad-based central to left subarticular zone disc protrusion and disc , degeneration at the L5-S1 level with mild mass effect upon the left S1 nerve root.. She has tried physical therapy, taken [id number] NSAIDs and even chiropractic adjustments which has afforded only temporary relief [facility] Medical History (Updated 12/28/23 @ 10:53 by Lisa Rodriguez MD) Uses control Rogers's thyroiditis Protrusion of intervertebral disc of lumbosacral region Hamstring muscle strain Chronic lumbosacral pain Chronic fatigue Hyperkalemia Tingling in extremities Family history of Rogers thyroiditis Family history of diabetes mellitus Intermittent palpitations Surgical History No pertinent past surgical history Family History Maternal Aunt Breast cancer Mother Hypothyroidism due to Rogers's thyroiditis Type 1 diabetes mellitus Social History Housing: House Patient Tobacco Use Status: Never used Tobacco e-Cigarette/Vaping Use: Never Used service: No Current occupational status: employed Cognitive needs: No Hearing needs: No Vision needs: No Female Reproductive History Menstrual Age of Menarche: 12 Questionnaire PHQ-9 Over the last 2 weeks, how often have you been bothered by any of the following problems? 1. Little interest or pleasure in doing things: not at all 2. Feeling down, depressed, or hopeless: not at all 3. Trouble falling or staying asleep, or sleeping too much: not at all 4. Feeling tired or having little energy: not at all 5. Poor appetite or overeating: not at all 6. Feeling bad about yourself - or that you are a failure or have let yourself or your family down: not at all 7. Trouble concentrating on things, such as reading the newspaper or watching television: not at all 8. Moving or speaking so slowly that other people could have noticed. Or the opposite - being so fidgety or restless that you have been moving around a lot more than usual: not at all 9. Thoughts that you would be better off or of hurting yourself in some way: not at all Total score: 0 Depression Screening Interpretation: Negative Depression Screening Done: Yes 94657 - PHQ-9 Billing: Yes Source: Developed by Drs. Cal Trejo, Petrona Felix, Ranjit Guillory and colleagues, with an educational helder from [employer]. Thrive Questionnaire Date Thrive assessed: 12/28/23 I am a: Patient What is your living situation today?: I have a steady place to live Within the past 12 months, did the food you bought not last and you didn't have the money to get more?: Never true Within the past 12 months, did you worry whether your food would run out before you got money to buy more?: Never true Do you have trouble paying for medicines?: No Do you have trouble getting transportation to medical appointments?: No Do you have trouble paying your heating and electricity bill?: No Do you have trouble taking care of your child, family member or friend?: No Do you have trouble with day-to-day activities such as bathing, preparing meals, shopping, managing finances, etc.?: No Are you currently unemployed and looking for a job?: No Are you interested in more education?: No Please select the resources that you would like help with: None Currently or been in a relationship where the following occur: No concerns reported THRIVE Score: 0 CRISTIANO-7 AMB Questionnaire CRISTIANO-7 Date CRISTIANO - 7 assessed: 12/28/23 Feeling nervous, anxious, or on edge: 0 = Not at all Not being able to stop or control worryin = Not at all Worrying too much about different things: 0 = Not at all Trouble relaxin = Not at all Being so restless that it is hard to sit still: 0 = Not at all Becoming easily annoyed or irritable: 0 = Not at all Feeling afraid as if something awful might happen: 0 = Not at all Total CRISTIANO-7 score (0-4 normal; 5-9 mild; 10-14 moderate; 15-21 severe): 0 Source: Developed by Drs. Cal Trejo, Petrona Felix, Ranjit Guillory and colleagues, with an educational helder from [employer]. CRISTIANO-7 Assessment Billing CRISTIANO-7 Assessment Tool: CRISTIANO-7 Assessment 14103 Review of Systems Const All systems reviewed & are unremarkable except as noted in HPI and below Eyes Denies change in vision ENT Reports Normal hearing present, Denies dizziness and Denies disequilibrium Card Denies chest pain and Denies dyspnea Resp Denies dyspnea GI Denies change in bowel habits, Denies diarrhea, Denies nausea and Denies vomiting Reports no additional complaints Musc Reports back pain (lower back), Denies numbness and Denies radiating pain into limb Skin/Breast Denies wounds Neuro Reports Normal hearing present, Denies dizziness, Denies numbness and Denies disequilibrium Psych Reports no additional complaints Endo Reports no additional complaints Des/Lymph Reports no additional complaints Aller/Immun Reports no additional complaints Physical exam (Primary Care) Vital Signs: Last Vital Signs Pulse 94 12/28/23 10:01 BP 102/60 12/28/23 10:01 Pulse Ox 98 12/28/23 10:01 Oxygen Delivery Method Room Air 12/28/23 10:01 BMI result Body Mass Index 28.0 Tobacco/Smoking Status: Tobacco use Status Tobacco use date assessed 12/28/23 12/28/23 10:02 Patient Tobacco Use Status Never used Tobacco 12/28/23 10:02 e-Cigarette/Vaping Use Never Used 12/28/23 10:02 PHQ-9: PHQ-9 Score PHQ-9: Total score 0 12/28/23 10:31 Depression Screening Interpretation: Negative Thrive Assessment: Date of Thrive Assessment Date Thrive assessed 12/28/23 12/28/23 10:02 Currently or been in a relationship where the following occur: No concerns reported Advance Care Planning discussion: Completed/Scanned Date of discussion: 12/28/23 Who was present: Patient Forms completed: Health Care Proxy Time spent: 16-45 minutes Actual minutes spent: 16 Const General: no acute distress, alert and Physically active Nutritional Appearance: overweight Orientation/consciousness: patient oriented x3 HENMT Head: Yes normocephalic Ears: hearing grossly normal bilaterally, external ears normal, TM's normal bilaterally and EAC's normal General nose exam: Normal external nose present Face and sinus: Yes face symmetric Mouth: Normal oral and palatal mucosa present, tongue normal, oropharynx normal and moist mucous membranes Eyes General: appearance normal, both eyes and all related structures Alignment and Position: alignment normal Periorbital: periorbital findings normal Eyelids: Yes eyelids normal Conjunctivae: conjunctivae normal Sclerae: sclerae normal Pupils: Equal, round and reactive pupils present EOM: EOMs intact bilaterally Neck Neck: Yes full ROM, Yes no lymphadenopathy and Yes supple Thyroid: other (Nonpalpable thyroid gland) Chest Chest palpation & inspection: normal inspection of the chest and normal palpation of entire chest wall Breast/axilla palpation: normal palpation of the breasts Resp Effort & Inspection: normal respiratory effort and able to speak in complete sentences Auscultation: clear to auscultation bilaterally Cardio Rate: tachycardic Heart sounds: S1 normal heart sound present and S2 normal heart sound present GI Palpation (GI): Soft to palpation, nontender, no guarding and no masses Auscultation: normal bowel sounds General: Yes no CVA tenderness and Yes deferred (Currently sees [facility]) Back/Spine/Pelvis Back: no CVA tenderness Thoracic/Lumbar Spine: straight leg raise negative bilaterally and paraspinal muscle tenderness bilaterally in the lower lumbar Skin General skin exam: no rashes or lesions noted Neuro General: patient oriented x3, gait normal, moves all extremities, Normal light touch and pain sensation, no focal motor deficits and CN's II-XI intact bilaterally Cranial nerves: Yes CN's II-XII intact bilaterally, Yes Equal, round and reactive pupils present and Yes Normal hearing present Gait exam (Neuro): Normal gait present Extrem General: Yes normal to inspection, Yes full ROM, Yes no joint enlargement, Yes no clubbing, cyanosis or edema and Yes normal gait Psych Appearance: grossly normal Speech and movement: Normal speech and movement present Affect: normal affect Attitude: cooperative Thought process: Normal thought process present Thought content: Normal thought content present Assessment and Plan Assessment & Plan (1) Annual visit for general adult medical examination with abnormal findings: Code(s): Z00.01 - Encounter for general adult medical examination with abnormal findings Plan: Will check appropriate labs. Recommended dental visit every 6 months and regular eye exams, at least every 2 years. Take adequate calcium in diet and vitamin-D 3 at 2000 IU per cap once a day, in addition to weight-bearing exercises to help maintain good muscle tone and weight control. Instructed to do self-breast exam, and recommended to get yearly mammogram, starting at age 40.. Reminded to get her yearly flu shot and COVID booster. (2) Hamstring muscle strain: Comment: Had treatment at [facility] approximately 3 years ago, for right hamstring strain Code(s): S76.319A - Strain of muscle, fascia and tendon of the posterior muscle group at thigh level, unspecified thigh, initial encounter Plan: Referral ordered for her to see [facility] for further treatment (3) Chronic lumbosacral pain: Comment: Since she fell and landed on her buttocks in 07/2023 Code(s): M54.50 - Low back pain, unspecified; G89.29 - Other chronic pain Plan: Neurospine referral ordered (4) Protrusion of intervertebral disc of lumbosacral region: Code(s): M51.27 - Other intervertebral disc displacement, lumbosacral region Plan: Neurospine referral ordered (5) Rogers's thyroiditis: Comment: Followed by chief of party, Dr. Almeida Code(s): E06.3 - Autoimmune thyroiditis Plan: Followed by endocrine clinic (6) Uses control: Comment: Sees Phyllis Ashton at [facility] Code(s): Z78.9 - Other specified health status Plan: Currently followed by her OBGYN at [facility] (7) Advanced directives, counseling/discussion: Code(s): Z71.89 - Other specified counseling Plan: Initiated the conversation about Advanced Directives. Advanced Directives help patients prepare for current and future decisions about their medical treatment and place of care. Discussed with patient that it is a process where a patients current condition and prognosis are reviewed, their wishes for information regarding their illness are elicited, and likely medical dilemmas are presented and options discussed. Healthcare proxy form completed The form can be amended as needed, reviewed yearly and make changes as needed Orders: Orders Vitamin D 25-OH Total 12/29/23 E06.3 - Autoimmune thyroiditis, Z13.1 - Encounter for screening for diabetes mellitus, Z13.220 - Encounter for screening for lipoid disorders Glucose Fasting 12/29/23 E06.3 - Autoimmune thyroiditis, Z13.1 - Encounter for screening for diabetes mellitus, Z13.220 - Encounter for screening for lipoid disorders Alanine Aminotransferase 12/29/23 E06.3 - Autoimmune thyroiditis, Z13.1 - Encounter for screening for diabetes mellitus, Z13.220 - Encounter for screening for lipoid disorders Aspartate Amino Transferase 12/29/23 E06.3 - Autoimmune thyroiditis, Z13.1 - Encounter for screening for diabetes mellitus, Z13.220 - Encounter for screening for lipoid disorders Lipid Panel 12/29/23 E06.3 - Autoimmune thyroiditis, Z13.1 - Encounter for screening for diabetes mellitus, Z13.220 - Encounter for screening for lipoid disorders Referrals Orthopedics Referral S76.319A - Strain of muscle, fascia and tendon of the posterior muscle group at thigh level, unspecified thigh, initial encounter Neuro Spine Referral G89.29 - Other chronic pain, M51.27 - Other intervertebral disc displacement, lumbosacral region, M54.50 - Low back pain, unspecified Coding Level of Care Code Est Pt Prev Care 18-39y(57640) Diagnoses Annual visit for general adult medical examination with abnormal findings Z00.01 Hamstring muscle strain S76.319A Chronic lumbosacral pain M54.50; G89.29 Protrusion of intervertebral disc of lumbosacral region M51.27 Rogers's thyroiditis E06.3 Uses control Z78.9 Advanced directives, counseling/discussion Z71.89 Additional Codes CRISTIANO-7 Assessment Billing - CRISTIANO-7 Assessment Tool: CRISTIANO-7 Assessment 19427 ([id number]) Vital Signs *Quality* - Advance Care Planning discussion: Completed/Scanned ([id number]) Vital Signs *Quality* - Time spent: 16-45 minutes ([id number])
== END 2023-12-28 10:57 | disposition home or self-care (01) ==
PROVIDERS: PCP Internal Medicine; Visit Provider Internal Medicine
DX: Z00.01 Encounter for general adult medical examination with abnormal findings (principal); S76.319A Strain of muscle, fascia and tendon of the posterior muscle group at thigh level, unspecified thigh, initial encounter; M54.50 Low back pain, unspecified; G89.29 Other chronic pain; M51.27 Other intervertebral disc displacement, lumbosacral region; E06.3 Autoimmune thyroiditis; Z78.9 Other specified health status; Z71.89 Other specified counseling; Z00.00 Encounter for general adult medical examination without abnormal findings

== ENCOUNTER → 2023-12-28 09:51 | Outpatient (BNVA) | payer BC, SELFPAY | PROVIDERS: PCP Internal Medicine; Visit Provider Internal Medicine | DX: Z00.01 Encounter for general adult medical examination with abnormal findings (principal); S76.311D Strain of muscle, fascia and tendon of the posterior muscle group at thigh level, right thigh, subsequent encounter; G89.29 Other chronic pain; M51.27 Other intervertebral disc displacement, lumbosacral region; E06.3 Autoimmune thyroiditis; Z71.89 Other specified counseling | CPT/HCPCS: 96127 ==

== ENCOUNTER 2023-12-29 10:48 | Outpatient (REF) | payer BC, SELFPAY ==
[2023-12-29 14:00] LABS: Alanine Aminotransferase 10 U/L (0-31); Aspartate Amino Transferase 13 U/L (5-31); Cholesterol 160 mg/dL (<200); Glucose Fasting 91 mg/dL (60-99); HDL Cholesterol 44 mg/dL (>40); LDL Cholesterol Calculated 107 mg/dL (<100); Triglycerides 49 mg/dL (<150)
[2023-12-29 14:19] LABS: Vitamin D 25-OH Total 57.1 ng/mL (>30)
== END 2023-12-29 10:49 | disposition home or self-care (01) ==
LOC: HO.HMGCLDS 10:48
PROVIDERS: PCP Internal Medicine; Visit Provider Internal Medicine
DX: E06.3 Autoimmune thyroiditis (principal); Z13.1 Encounter for screening for diabetes mellitus; Z13.220 Encounter for screening for lipoid disorders
CPT/HCPCS: 36415; 80061; 82306; 82947; 84450; 84460

== ENCOUNTER 2024-01-09 12:45 | Outpatient (AMB) | payer BC, SELFPAY ==
--- NOTE | 2024-01-09 12:57 | HO.SPINEOV ---
Intake Visit Reasons: LBP Intake Note: Ms. Garvey is here today c/o low back pain. Weeder Thinner Required: No Allergies No Known Allergies Allergy (Verified 12/28/23 10:28) Assessment & Plan Assessment & Plan (1) Lumbar radiculopathy: Code(s): M54.16 - Radiculopathy, lumbar region Category: Medical Plan Dear Dr. Rodriguez, Thank you for referring Essence to our office today. She is a pleasant 23-year-old female who comes in today with a chief complaint of predominantly low back pain. She does report a history of left-sided leg pain that was fleeting directly after a gymnastics injury back in July. 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 Since the incident she has had persistent low back pain. She felt her was beginning to improve shortly around the time that she completed physical therapy in September, however she feels as though she may have re-injured doing exercises / at home stretching. Now she is to the point where she has daily low back pain but predominantly has been utilizing at-home stretching/walking to help alleviate the pain. She denies any numbness/tingling/weakness associated with the pain. She has tried seeing a chiropractor but has not been evaluated for cortisone injections. PMH: None reported. Social hx: Patient does not smoke, reports no substance use. Medications: Estrogen based contraceptive. Allergies: NKDA. Physical exam: The patient has 5/5 strength in her upper and lower extremities. She has no sensational deficits on exam. Her reflexes are 1+ hypoactive in the bilateral patella, but are 2+ elsewhere. She reports this is her baseline. She is able to ambulate well and rises from a seated position without difficulty. She walks without an antalgic gait. (-) bilateral straight leg raise, (-) Lewis's, (-) clonus. Imaging review: MRI of the lumbar spine completed here at [facility] shows a small left-sided L5-S1 paracentral disc herniation causing mass effect on the left-sided S1 nerve root. Impression: Essence is a pleasant 23-year-old female who comes in today with a chief complaint of low back pain that is longstanding after a disc herniation back in July. Based on the history she provided it sounds like she may have had some resorption of a acute disc herniation, which may have become exacerbated by continued activity as her symptoms began to subside. She has no concerning signs/symptoms for anything cauda equina related. There is no evidence of a significant nerve root impingement on examination. Her back pain is likely due to the paracentral nature of the herniation. 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 If her back pain intensifies or persists beyond the next 3-6 months, or she develops any new neurological symptoms I encouraged her to make a follow-up appointment with our office. We discussed red flag symptoms of disc herniations which she is aware of. Thank you for allowing us to care for your patient. The total time spent with this visit with this patient was 45 minutes reviewing history, physical exam, MRI imaging review, and implementation of treatment plan or further diagnostic testing Jan Rajan MD,PhD [facility] Coding Level of Care Code New Pt Level 4 (30108) Diagnoses Lumbar radiculopathy M54.16
== END 2024-01-09 13:25 | disposition home or self-care (01) ==
PROVIDERS: PCP Internal Medicine; Referring Provider Internal Medicine; Visit Provider Physician Assistant
DX: M54.16 Radiculopathy, lumbar region (principal)
CPT/HCPCS: 99204

== ENCOUNTER → 2024-01-09 12:45 | Outpatient (BNVA) | payer BC, SELFPAY | PROVIDERS: PCP Internal Medicine; Visit Provider Physician Assistant ==

== ENCOUNTER 2024-05-24 10:21 | Outpatient (AMB) | payer BC, SELFPAY ==
[2024-05-24 10:33] VITALS: BP 104/60; PULSE 108; TEMP 37.7; O2SAT 98
--- NOTE | 2024-05-24 10:33 | AM.OFFWIN_ITS ---
Intake Vital Signs 05/24/24 10:33 Weight 171 lb BP 104/60 Blood Pressure Location Lt brachial Position Sitting Pulse 108 H Pulse Source Pulse Oximeter Temp 99.8 F Temp Source Oral Pulse Oximetry (%) 98 Oxygen Delivery Method Room Air Intake Visit Reasons: EP flu symptoms Intake Note: Patient here for headache, body aches, difficulty swallowing and cough that started Tuesday. Patient Tobacco Use Status: Never used Tobacco Allergies No Known Allergies Allergy (Verified 05/24/24 10:39) Do you need a note to return to daycare/school/sports/work: No HPI HPI Comments History of Present Illness Details History - The patient is a 23-year-old female pr esenting with symptoms of sore throat. - One week history of sore throat and ma laise without fever or respiratory distress. - No history of asthma; denies nausea, v omiting, or diarrhea. - Home treatment attempted under the ass umption of flu; no flu vaccination this year. - Reports fatigue, without sinus or ear pain. - Taking tylenol at home Physical Exam General: Cooperative, healthy appearing, comfortable and no acute distress Orientation/consciousness: Patient oriented x3 Limitations: No limitations Head: Normal to inspection Ears: Hearing grossly normal bilaterally, external ears normal and TM's normal bilaterally Nose: Normal external nose present, Normal nares present and No nasal discharge present Face and sinus: Normal facial exam and Yes sinuses nontender Mouth: Normal oral and palatal mucosa present and moist mucous membranes Throat: Yes tonsils normal, Yes uvula midline. Posterior oropharynx erythema, looks red but no exudates Eyes: Appearance normal, both eyes and all related structures Neck: Normal visual inspection Respiratory: Clear to auscultation bilaterally. Normal respiratory effort, able to speak in complete sentences, Actively coughing, no respiratory distress, not tachypneic, no tripod positioning and no use of accessory muscles Cardiovascular: Tachycardic rate andregular rhythm. Normal S1 and S2 Skin: No rashes or lesions noted Neuro: Patient oriented x3 Extremities: Normal to inspection and Yes no clubbing, cyanosis or edema [facility] Medical History (Updated 05/24/24 @ 11:00 by Katarina Gallegos PA-C) Uses control Rogers's thyroiditis Protrusion of intervertebral disc of lumbosacral region Hamstring muscle strain Chronic lumbosacral pain Chronic fatigue Hyperkalemia Tingling in extremities Family history of Rogers thyroiditis Family history of diabetes mellitus Intermittent palpitations Surgical History No pertinent past surgical history Family History Maternal Aunt Breast cancer Mother Hypothyroidism due to Rogers's thyroiditis Type 1 diabetes mellitus Social History Housing: House Patient Tobacco Use Status: Never used Tobacco e-Cigarette/Vaping Use: Never Used service: No Current occupational status: employed Cognitive needs: No Hearing needs: No Vision needs: No Female Reproductive History Menstrual Age of Menarche: 12 Review of Systems Const All systems reviewed & are unremarkable except as noted in HPI and below Physical Exam Vital Signs: Last Vital Signs Temp 99.8 F 05/24/24 10:33 Pulse 108 H 05/24/24 10:33 BP 104/60 05/24/24 10:33 Pulse Ox 98 05/24/24 10:33 Oxygen Delivery Method Room Air 05/24/24 10:33 Assessment & Plan Assessment & Plan (1) URI, acute: Code(s): J06.9 - Acute upper respiratory infection, unspecified Plan: Testing for influenza, COVID-19, and RSV is conducted to identify the underlying cause of the symptoms. Increased fluid intake is advised to address potential dehydration, which may contribute to the observed tachycardia. No immediate antibiotic use is warranted as there is no evidence of bacterial pharyngitis. The patient will be updated with the test results and is advised to monitor symptom evolution with specific attention to hydration and any symptom progression. Patient was informed and verbally consented to the use of an ambient scribe for clinic note documentation during this visit Orders: Orders SARS-CoV2/FLU/RSV Today J06.9 - Acute upper respiratory infection, unspecified Coding Level of Care Code Est Pt Level 3 (66371) Diagnoses URI, acute J06.9
--- OUTSIDE RECORDS SUMMARY | 2024-05-24 11:06 | XMS_ITS | Encounter Summary ---
Author Organization [facility] Address [address] [place] [address] Phone Care Team Providers Care Furniture Designer Name Role Phone Provider, Danette BEST Primary Care Provider [phone] Encounter Details Date Type Department Care Team (Late st Contact Info) Description 06/07/2016 Documentation [facility] [address] [place] [address] Family Medicine, Physician [address] [place], [place] [id number] Social History Tobacco Use Types Packs/Day Years Used Date Smoking Tobacco: Never Assessed Comments Unknown Sex and Gender Information Value Date Recorded Sex Assigned at Female 10/28/2019 11:22 PM EDT Legal Sex Female 5:21 PM EDT Gender Identity Female 10/28/2019 11:22 PM EDT Sexual Orientation Straight 10/28/2019 11 :22 PM EDT documented as of this encounter Plan of Treatment Not on file documented as of this encounter Visit Diagnoses Not on filedocumented in this encounter Care Teams Furniture Designer Relationship Specialty Start Date End Date Provider, MD Danette [address] [place] [phone] PCP - General Pediatrics 10/22/21 08/15/22 documented as of this encounter
--- OUTSIDE RECORDS SUMMARY | 2024-05-24 11:06 | XMS_ITS ---
Author Name [facility] Organization Unknown Problems Problem Status Onset Date Problem Type Date of Resoluti on Source Sore throat active EncounterDiagnosisAct HHCCT Viral URI active EncounterDiagnosisAct CCT
--- OUTSIDE RECORDS SUMMARY | 2024-05-24 11:06 | XMS_ITS | Encounter Summary ---
Author Organization [facility] Address [address] [place] [address] Phone Care Team Providers Care Test Center Administrator Name Role Phone Provider, Danette BEST Primary Care Provider [phone] Encounter Details Date Type Department Care Team (Late st Contact Info) Description 11/25/2016 Conversion Encounter [facility] [address] [id number] Social History Tobacco Use Types Packs/Day Years Used Date Smoking Tobacco: Never Comments:Never smoker Comments Unknown Sex and Gender Information Value [...] on filedocumented in this encounter Care Teams Test Center Administrator Relationship Specialty Start Date End Date Provider, MD Danette [address] [place] [address] PCP - General Pediatrics 10/22/21 08/15/22 documented as of this encounter
--- OUTSIDE RECORDS SUMMARY | 2024-05-24 11:06 | XMS_ITS | Encounter Summary ---
Author Organization [facility] Address [address] [place] [address] Phone Care Team Providers Care Mud Car Worker Name Role Phone Provider, Danette BEST Primary Care Provider [phone] Reason for Visit * Reason Comments Med Refill Encounter Details Date Type Department Care Team (Late st Contact Info) Description 07/23/2017 Refill [facility] - [address] [address] Dalila Suárez NP Encounter for other contraceptive management (Primary Dx) Social History Tobacco Use Types Packs/Day Years Used Date Smoking Tobacco: Never Comments:Never smoker Comments Unknown Sex and Gender Information Value Date Recorded Sex Assigned at Female 10/28/2019 11:22 PM EDT Legal Sex Female 5:21 PM EDT Gender Identity Female 10/28/2019 11:22 PM EDT Sexual Orientation Straight 10/28/2019 11 :22 PM EDT documented as of this encounter Miscellaneous Notes * Telephone Encounter - Dalila Suárez NP - 07/26/2017 7:02 PM EDT Thank you - JMT * Telephone Encounter - Hilda Johnson MA - 07/25/2017 6:22 PM EDT Sasha stone has an apt for PE at the end of September. * Telephone Encounter - Dalila Suárez NP - 07/24/2017 12:29 PM EDT Hilda - can you call the family to schedule a PE 10/2017 if this is not already scheduled, I refilled the OCPs (mom is aware she is on these). - JMT * Telephone Encounter - Dalila Suárez NP - 07/24/2017 12:26 PM EDT I did a chart review because at my last visit with Essence I had written that ASSISTANT MANAGER TRAINEE was writing her OCPs - but in speaking with the pharmacist at [facility] we have been prescribing her OCPs. Last visit with ASSISTANT MANAGER TRAINEE was 03/2017 - they discussed longer cycling of pills likely to cause breakthrough bleeding, recommended better pain management for menses dysmenorrhea. No new Rx for OCPs from that visit noted. Pharmacy reports that they have been filling Rx from our office for apri, with sig to take 1 tab daily without any special directions to skip any pills or inactive weeks. Pt is able to get 2 months at a time through her insurance. Will Refill rx for Apri, 1 tab daily, refill 2 packs/time (56 tabs) and plan to have pt seen for PEover the summer - due 10/2017. If this has not yet been booked, please call family to schedule - thanks - GUILHERME * Telephone Encounter - Hilda Johnson MA - 07/24/2017 10:50 AM EDT PE current. Will need a PE in October. Has not had a BC check. No noted follow up plan in the last PE. documented in this encounter Plan of Treatment Not on file documented as of this encounter Visit Diagnoses Diagnosis Encounter for other contraceptive management- Primary documented in this encounter Care Teams Mud Car Worker Relationship Specialty Start Date End Date Provider, MD Danette [address] [place] [address] PCP - General Pediatrics 10/22/21 08/15/22 documented as of this encounter
--- OUTSIDE RECORDS SUMMARY | 2024-05-24 11:06 | XMS_ITS | Encounter Summary ---
Author Organization [facility] Address [address] [place] [address] Phone Care Team Providers Care Tunnel Kiln Repairer Name Role Phone Provider, Danette BEST Primary Care Provider [phone] Encounter Details Date Type Department Care Team (Late st Contact Info) Description 06/03/2016 Documentation [facility] [place] [facility] [address] [place] [address] Family Medicine, Physician [address] [place], [place] [id number] Social History Tobacco Use Types Packs/Day Years [...] on filedocumented in this encounter Care Teams Tunnel Kiln Repairer Relationship Specialty Start Date End Date Provider, MD Danette [address] [place] [phone] PCP - General Pediatrics 10/22/21 08/15/22 documented as of this encounter
--- OUTSIDE RECORDS SUMMARY | 2024-05-24 11:06 | XMS_ITS | Clinical Summary ---
Author Organization [facility] Address [address] [place] [address] Care Team Providers Care Hemodialysis Technician Name Role Phone Lisa Rodriguez MD Primary Care Provider Allergies No known active allergies Medications No known medications Active Problems No known active problems Social History Tobacco Use Types Packs/Day Years Used Date Smoking Tobacco: Never Assessed Sex and Gender Information Value Date Recorded Sex Assigned at Not on file Gender Identity Not on file Sexual Orientation Not on file Last Filed Vital Signs Vital Sign Reading Time Taken Comments Blood Pressure 126/78 03/04/2023 2:44 PM EST Pulse 100 03/04/2023 2:44 PM EST Temperature 36.7 ??C (98 ??F) 03/04/2023 2:44 PM EST Respiratory Rate - - Oxygen Saturation 100% 03/04/2023 2:44 PM EST Inhaled Oxygen Concentration - - Weight 81.6 kg (180 lb) 03/04/2023 2:44 PM EST Height 172.7 cm (5' 8 ) 03/04/2023 2:44 PM EST Body Mass Index 27.37 03/04/2023 2:44 PM EST Plan of Treatment Health Maintenance Due Date Last Done Comments Hepatitis C Virus Screening 2000 HIV Screening 2013 HPV Vaccines (1 - 3-dose series) 10/02/2015 DTaP/Tdap/Td Vaccines (1 - Tdap) 10/02/2019 Hepatitis B Vaccines (1 of 3 - 19+ 3-dose series) 10/02/2019 Pap Smear (Ages 21-65) 2021 Influenza Vaccine 11/10/2023 COVID-19 Vaccine ( - 2023-2 5 season) 2023 Pneumococcal Vaccine: Pediat chasidy (0-5 Years) and At-Risk Patients (6 to 49 Years) Aged Out No longer eligible b ased on patient's age to complete this topic Care Teams Hemodialysis Technician Relationship Specialty Start Date End Date Lisa Rodriguez MD [address] [place] [address] PCP - General Internal Medicine 03/04/23
--- OUTSIDE RECORDS SUMMARY | 2024-05-24 11:06 | XMS_ITS | Encounter Summary ---
Author Organization [facility] Address [address] [place] [address] Phone Care Team Providers Care Tablet Tester Name Role Phone Provider, Danette BEST Primary Care Provider [phone] Encounter Details Date Type Department Care Team (Late st Contact Info) Description 07/25/2009 Documentation [facility] [place] [facility] [address] [place] [address] Family Medicine, Physician [address] [place], [place] [phone] Social History Tobacco Use Types Packs/Day Years [...] on filedocumented in this encounter Care Teams Tablet Tester Relationship Specialty Start Date End Date Provider, MD Danette [address] [place] [phone] PCP - General Pediatrics 10/22/21 08/15/22 documented as of this encounter
--- OUTSIDE RECORDS SUMMARY | 2024-05-24 11:06 | XMS_ITS | Clinical Summary ---
Author Organization [facility] Address [address] [place] [address] Phone Care Team Providers Care Social Science Teacher Name Role Phone Unavailable Primary Care Provider Unavailabl e Allergies No known active allergies Medications loratadine (CLARITIN) 10 MG tabletIndicatio ns:Allergic reaction, initial encounter Take 1 tablet (10 mg total) by mouth daily. 30 tablet 5 02/01/2019 Active levonorgestrel- ethinyl estradiol 0.15-0.03 MG per tablet 09/25/2020 Active clindamycin-ramon zoyl peroxide 1-5% gelIndications: Acne vulgaris APPLY TO AFFECTED AREA EVERY DAY 50 g 6 10/04/2021 Active ibuprofen 600 MG tablet Take 600 mg by mouth as needed in the morning and 600 mg as needed at noon and 600 mg as needed in the evening. 10/07/2021 Active Probiotic Product (PROBIOTIC-10 PO) Take by mouth. Active Active Problems Problem Noted Date Diagnosed Date Dizziness 10/28/2021 Overview (12/04/2021): And palpitations Seeing Cards/[facility] 2021 Last FU - KardiaMobile ordered, consider meds; FU 3w 7d Holter OK Assessment & Plan (10/29/2021 9:54 AM EDT): She still c/o intermittent dizzy spells FH POTS- mom just learned of this Will contact Cards to discuss Palpitations 08/03/2021 Overview (10/27/2021): Saw Cards/[facility] 2021 7d Holter OK Last FU - palp better; no FU unless worse again Acne vulgaris 10/04/2017 Overview (10/02/2020): On benzaclin and OCPs, doing well overall but noticing more acne along jawline and upper back, asking what she can add in or do differently for this change. Assessment & Plan (10/02/2020 6:48 PM EDT): Continue on OCPs, on benzaclin, and add in spironolactone to see if it will better address the new acne along jawline/back - proper use and stressed need to be on OCPs at the same time, not SA but important still, and if not improving consider use of retin-A as well in these areas. Assessment & Plan (10/28/2019 11:13 PM EDT): Refilled benzaclin, routine skin care reviewed. Assessment & Plan (10/05/2018 7:02 PM EDT): Continue on benzaclin and OCPs, topical refilled, OCPs prescribed by DIGITAL SPECIALIST. Assessment & Plan (10/04/2017 4:40 PM EDT): Improved on OCPs and with benzaclin, refilled with proper use reviewed, follow up with additional changes or concerns. Not SA, no risky behaviors, follow up with additional changes or concerns. Axillary hyperhidrosis 10/04/2017 Overview (10/02/2020): On hypercare (as drysol was hard to find) doing well - Uses it every other night. No other concerns. 09/2020 - uses it every other day or so because if using too often it cortez, but would like to stay on this. No other concerns with this. Assessment & Plan (10/02/2020 9:06 AM EDT): Will refill hypercare 15% solution as this has been helpful, proper use reviewed, when to follow up PRN. Assessment & Plan (10/28/2019 8:54 AM EDT): Continue use of the hypercare, Rx refilled. Assessment & Plan (10/05/2018 7:02 PM EDT): Refilled drysol, f/u if sx change/worsen. Assessment & Plan (10/04/2017 4:40 PM EDT): Refilled today, proper use reviewed, f/u as needed. Chronic seasonal allergic rhinitis due to pollen 10/04/2017 Overview (10/02/2020): Did not need flonase spring 2017 or 2018 - but has used in the past. No issues in the spring of 2019, has had years that were bad but this was not one of them, did not use loratadine. Nothing concerning at 10/2019 - spring, winter and fall allergies in the last year - so stayed on the medication, when tried to come off was sneezing and other sx so went back with good effect, plans to continue Assessment & Plan (10/02/2020 9:08 AM EDT): Use OTC loratadine year round if it helps, and occ using a nasal spray in the fall and spring. When to follow up PRN. Assessment & Plan (10/28/2019 8:53 AM EDT): Use PRN if having symptoms, f/u if not helpful or with other concerns. Assessment & Plan (10/05/2018 7:05 PM EDT): Proper use reviewed, f/u PRN with concerns that OTC meds not helping with. Assessment & Plan (10/04/2017 4:41 PM EDT): Can use OTC allergy medications if needed, proper use reviewed if needed in the future. Dysmenorrhea treated with oral contraceptive Overview (10/29/2021): Followed by adult DIGITAL SPECIALIST Pt with hx of severe cramping and long menses treated successfully after several OCP attempts and visit to DIGITAL SPECIALIST with long cycling apri (spitting 1st and 2nd inactive weeks) with improvement in cramping and normally no breakthrough bleeding. Continue f/u with DIGITAL SPECIALIST. Followed by adult DIGITAL SPECIALIST. Pt was put on refrigerated probiotic that was about $100/3 mo supply Stopped taking it once sx resolved Wondering if she should take it proactively - DIGITAL SPECIALIST hadn't specifically said Assessment & Plan (10/29/2021 9:57 AM EDT): Seeing Domestic Violence Counselor now- on OCP Assessment & Plan (10/28/2019 11:13 PM EDT): Continue to follow with DIGITAL SPECIALIST Did not repeat urine GC/Chlamydia testing today due to recent testing at DIGITAL SPECIALIST Not SA so low risk Discussed could try another refrigerated probiotic, typically I recommend a single organism Follow up with DIGITAL SPECIALIST if needed if any issues with menses/discharge Assessment & Plan (10/04/2017 4:41 PM EDT): Refilled with the prolonged cycling, proper use, no risky behaviors, no further testing needed. Resolved Problems Problem Noted Date Diagnosed Date Resolved Date Vaginal discharge 03/12/2020 10/27/2021 Overview (03/12/2020): Chronic complaints, pt has been treated for BV and then had ongoing concerns with neg vag swab. Was referred to DIGITAL SPECIALIST for further evaluation after 10/2018 recurrent sx Has been pt of [facility] and at last visit (virtual) they recommended Boric Acid 600mg per vagina nightly x 3 weeks, then f/u with [facility] for recheck. Cough 03/30/2018 10/28/2019 Assessment & Plan (04/07/2018 12:55 PM EST): Cough for 2.[address] Seen at [facility] and had Neg strept and neg mono. CXR ordered today. Discussed trial of daily zyrtec 10. Occasional sinus pain. Not bad today. Can also try sinus rinse available over the counter. Ibuprofen every 6 hrs for pain. Immunizations Immunization Administration Dates Next Due COVID-19 Pfizer, monovalent, 12+ years 1 DTaP 5 10/15/2004, 3,03/31/2001,01/27,2000 H1N1 04/25/2009,02/07/2009 HPV Vaccine 9 Valent 04/07/2016,12/05/2015,10/06 Hep A, ped/adol 05/06/2015,10/08/2014 Hep B, ped/adol 10/05/2018, 2,2000,10/02 Hib (PRP-T) 01/12/2002, 1,01/27/2001,11/25 IPV 10/15/2004, 1,01/27/2001,11/25 Influenza, injectable, MDCK, preservative free, quadrivalent 04/08/2022 Influenza, injectable, quadr ivalent, preservative free 02/17/2021,02/12/2020,01/05/2019,01/23,01/20/2017,12/05/2015,01/02/2015 Influenza, injectable, trivalent 03/05/2009,1109/2007,03/24/2006 Influenza, intranasal, quadrivalent 01/15/2014,1 Influenza, intranasal, trivalent 01/18/2012,01/10,01/07/2010 MMR 10/15/2004,10/06/2001 Meningococcal B Trumenba 04/10/2019,10/05/2018 Meningococcal Conj (Menactra) MCV4P 10/14/2016,0 10/05/2011 Pneumococcal Conjugate 10/02/2002,2000,01/27/2001,11/25 Tdap 10/28/2021,10/05/2011 Varicella 10/05/2007,01/12/2002 Family History Medical History Relation Name Comments Diabetes Mother Donna Relation Name Status Comments Brother Alive Brother: Alive and well Father Alive Father: Multipl e sclerosis Mother Donna Alive type 1 Other No family histo ry of Thrombophilia, No family history of Sudden /ID under age 55, No family history of Dental caries, No family history of CVA (Stroke) Paternal Grandmother Paterna l aunt: Asthma Social History Tobacco Use Types Packs/Day Years Used Date Smoking Tobacco: Never Smokeless Tobacco: Never Tobacco Cessation:Counseling Given: Yes Comments:Never smoker Alcohol Use Standard Drinks/Week Comments No 0 (1 standard drink = 0.6 oz pur e alcohol) Hunger/Food Answer Date Recorded In the last 12 months, did y ou or your family ever eat less than you felt you should because there wasn't enough money for food? No 10/28/2021 Stable Housing Answer Date Recorded Are you worried that in the next 2 months you may not have stable housing? No 10/28/2021 Transportation Concerns Answer Date Rec orded In the last 12 months, have you or your family ever had to go without healthcare because you didn't have a way to get there? No 10/28/2021 Hazards in Home Answer Date Recorded Think about the place you li ve. Do you have problems with any of the following? Pests (mice or roaches), mold, no/not working smoke detectors, water leaks, no window guards. No 2021 Financing Utilities Answer Date Recorde d In the last 12 months, has t he electric, gas, oil, or water company threatened to shut off your services in your home? No 10/28/2021 Safety at Home Answer Date Recorded Are you or your family worried about feeling saf e in your home? No 10/28/2021 Outside Support Answer Date Recorded Do you feel that you need mo re support from other people or programs to help you care for yourself or your family? No 10/28/2021 Understanding Health Concerns Answer Da te Recorded Do you need help understandi ng your or your child's healthcare needs (diagnosis, medications, plan, etc.)? No 10/28/2021 Financing Health Concerns Answer Date R ecorded In the last 12 months, was t here a time when your child needed to see a doctor or get medications or supplies but could not because of cost? No 10/28/2021 Missing School or Work Answer Date Elias rded Did you or your child miss s chool or work because of a health problem that could have been avoided? No 10/28/2021 Comments No Sex and Gender Information Value Date Recorded Sex Assigned at Female 10/28/2019 11:22 PM EDT Legal Sex Female 5:21 PM EDT Gender Identity Female 10/28/2019 11:22 PM EDT Sexual Orientation Straight 10/28/2019 11 :22 PM EDT Last Filed Vital Signs Vital Sign Reading Time Taken Comments Blood Pressure 118/76 05/10/2022 4:31 PM EST Pulse 84 05/10/2022 4:31 PM EST Temperature 36.8 ??C (98.3 ??F) 05/10/2022 4:31 PM ES T Respiratory Rate 16 02/22/2019 8:54 AM EST Oxygen Saturation 99% 09/01/2012 12:00 AM EDT Inhaled Oxygen Concentration - - Weight 82.1 kg (181 lb) 05/10/2022 4:31 PM EST Height 172.7 cm (5' 8 ) 10/28/2021 1:49 PM EDT Body Mass Index 27.52 10/28/2021 1:49 PM EDT Plan of Treatment Health Maintenance Due Date Last Done Comments Influenza Vaccines (#1) 2023 04/08/20, 02/17/2021, 02/12/2020, Additional history exists COVID-19 Vaccine (5 - 2023-2 5 season) 2023 04/15/2021, 08/22/2020, 08/01/2020, Additional history exists DTaP,Tdap,and Td Vaccines (8 - Td or Tdap) 10/29/2031 10/28/2021, 10/05/2011, 10/15/2004, Additional history exists HIB Vaccines Completed 01/12/2002, 03/12, 01/27/2001, Additional history exists Pneumococcal Vaccine Completed 10/02/2002, 03/31/2001, 01/27/2001, Additional history exists IPV Vaccines Completed 10/15/2004, 03/12, 01/27/2001, Additional history exists MMR Vaccines Completed 10/15/2004, 10/06/2001 Varicella Vaccines Completed 10/05/2007, 01/12/2002 Hepatitis A Vaccines Completed 05/06/2015, 10/09/19 15 HPV Vaccines Completed 04/07/2016, 11/10, 10/07/2015 Meningococcal Vaccine Completed 10/14/2016, 012 Hepatitis B Vaccines Completed 10/05/2018, 06/30/2001, 2000, Additional history exists Men B Vaccine Completed 04/10/2019, 10/05/2018 Procedures * Due to [facility] law, this organization might not be sharing sensitive test results. Procedure Name Priority Date/Time Associated Diagnosis Comments CHLAMYDIA AND GONORRHEA, AMPLIFIED Routine 10/28/2021 1:51 PM EDT Encounter for screening examination for chlamydial infection from Last 3 Months or Most Recently Relevant to Health Maintenance Results * Due to [facility] law, this organization might not be sharing sensitive test results. * Chlamydia and Gonorrhoea, Amplified (10/28/2021 1:51 PM EDT) Chlamydia Trachomatis, DNA Probe NEGATIVE (NEG) [facility] Comment: No Chlamydia Trachomatis RNA detected in this patient's sample ? (REFERENCE RANGE/NORMAL VALUE: NOT DETECTED) ? Note: This test uses bark skinner- mediated amplification method to detect rRNA from C. Trachomatis URINE GC AMP PROBE NEGATIVE (NEG) [facility] Comment: No Neisseria Gonorrhoeae RNA detected in this patient's sample ? (REFERENCE RANGE/NORMAL VALUE: NOT DETECTED) ? NOTE: This test uses bark skinner-mediated amplification method to detect rRNA from N.Gonorrhoeae. A negative result does not preclude infection. In the case of a negative urine result, testing of an endocervical(female) or urethral (male) specimen is recommended if there is high clinical suspicion of infection. Due to very high sensitivity of Nucleic Acid Amplification Test, false positive results may occur. Therefore, specimen handling is extremely important. In patients in whom the disease is unlikely, additional sample for testing should be considered after an initial positive result. The performance characteristics of this test have not been evaluated in children. The Aptima Combo2 assay is not intended for the evaluation of suspected sexual abuse or for other medico-legal indications. The ordering provider should assess if the patient had consensual sex without risk of sexual abuse. Consult the [facility] if needed. Contact phone number . Therapeutic failure or success cannot be determined with the Aptima Combo2 assay since nucleic acid may persist following appropriate antimicrobial therapy. The Centers for Disease Control and Prevention (CDC) recommends confirmatory retesting using culture or a different nucleic acid amplification test when positive results occur, if indicated. Testing performed or reported by [facility], a Service of [facility], [address], [place] [address] Javier Garcia MD, Beauty Culturist Apprentice [facility]# [id number] Urine (Urine) 10/28/2021 1:5 1 PM EDT 10/28/2021 10:22 PM EDT us Anni Zavaleta DO LAB MICROBIOLOGY - GENERAL ORDER EMILY Final Result [facility] from Last 3 Months or Most Recently Relevant to Health Maintenance
== END 2024-05-24 11:11 | disposition home or self-care (01) ==
PROVIDERS: PCP Internal Medicine; Visit Provider Physician Assistant
DX: J06.9 Acute upper respiratory infection, unspecified (principal)

== ENCOUNTER 2024-05-24 10:21 | Outpatient (REF) | payer BC, SELFPAY ==
--- OUTSIDE RECORDS SUMMARY | 2024-05-24 11:42 | XMS_ITS | Clinical Summary ---
Author Organization [facility] Address [address] [place] [address] Care Team Providers Care Automatic Teller Machine Servicer Name Role Phone Lisa Rodriguez MD Primary Care Provider [phone] Allergies No known active allergies Medications No [...] age to complete this topic Care Teams Automatic Teller Machine Servicer Relationship Specialty Start Date End Date Lisa Rodriguez MD [address] [place] [address] PCP - General Internal Medicine 03/04/23
--- OUTSIDE RECORDS SUMMARY | 2024-05-24 11:42 | XMS_ITS | Encounter Summary ---
Author Organization [facility] Address [address] [place] [address] Phone Care Team Providers Care Research Nurse Practitioner Name Role Phone Provider, Danette BEST Primary Care Provider [phone] Encounter Details Date Type Department Care Team (Late st Contact Info) Description 06/07/[address] [facility] [place] Family Medicine [address] [place] [address] Family Medicine, Physician [address] [place], [place] [phone] Social History Tobacco Use Types Packs/Day Years [...] on filedocumented in this encounter Care Teams Research Nurse Practitioner Relationship Specialty Start Date End Date Provider, MD Danette [address] [place] [phone] PCP - General Pediatrics 10/22/21 08/15/22 documented as of this encounter
--- OUTSIDE RECORDS SUMMARY | 2024-05-24 11:42 | XMS_ITS | Encounter Summary ---
Author Organization [facility] Address [address] [place] [address] Phone Care Team Providers Care Adult Psychiatrist Name Role Phone Provider, Danette BEST Primary Care Provider [phone] Encounter Details Date Type Department Care Team (Late st Contact Info) Description 11/25/2016 Conversion Encounter [facility] [address] [phone] Social History Tobacco Use Types Packs/Day Years [...] on filedocumented in this encounter Care Teams Adult Psychiatrist Relationship Specialty Start Date End Date Provider, MD Danette [address] [place] [phone] PCP - General Pediatrics 10/22/21 08/15/22 documented as of this encounter
--- OUTSIDE RECORDS SUMMARY | 2024-05-24 11:42 | XMS_ITS | Clinical Summary ---
Author Organization [facility] Address [address] [place] [address] Phone Care Team Providers Care Cryptanalyst Name Role Phone Unavailable Primary Care Provider [...] and OCPs, topical refilled, OCPs prescribed by GROUP WORK PROGRAM DIRECTOR. Assessment & Plan (10/04/2017 4:40 PM EDT): [...] oral contraceptive Overview (10/29/2021): Followed by adult GROUP WORK PROGRAM DIRECTOR Pt with hx of severe cramping and long menses treated successfully after several OCP attempts and visit to GROUP WORK PROGRAM DIRECTOR with long cycling apri (spitting 1st and 2nd inactive weeks) with improvement in cramping and normally no breakthrough bleeding. Continue f/u with GROUP WORK PROGRAM DIRECTOR. Followed by adult GROUP WORK PROGRAM DIRECTOR. Pt was put on refrigerated probiotic that was about $100/3 mo supply Stopped taking it once sx resolved Wondering if she should take it proactively - GROUP WORK PROGRAM DIRECTOR hadn't specifically said Assessment & Plan (10/29/2021 9:57 AM EDT): Seeing Fire Hydrant Operator now- on OCP Assessment & Plan (10/28/2019 11:13 PM EDT): Continue to follow with GROUP WORK PROGRAM DIRECTOR Did not repeat urine GC/Chlamydia testing today due to recent testing at GROUP WORK PROGRAM DIRECTOR Not SA so low risk Discussed could try another refrigerated probiotic, typically I recommend a single organism Follow up with GROUP WORK PROGRAM DIRECTOR if needed if any issues with menses/discharge Assessment & Plan (10/04/2017 4:41 PM EDT): Refilled with the prolonged cycling, proper use, no risky behaviors, no further testing needed. Resolved Problems Problem Noted Date Diagnosed Date Resolved Date Vaginal discharge 03/12/2020 10/27/2021 Overview (03/12/2020): Chronic complaints, pt has been treated for BV and then had ongoing concerns with neg vag swab. Was referred to GROUP WORK PROGRAM DIRECTOR for further evaluation after 10/2018 recurrent sx Has been pt of [facility] and at last visit (virtual) they recommended Boric Acid 600mg per vagina nightly x 3 weeks, then f/u with [facility] for recheck. Cough 03/30/2018 10/28/2019 Assessment & Plan (04/07/2018 12:55 PM EST): Cough for 2.[address] Seen at [facility] [employer] and had Neg strept and neg mono. [...] of Thrombophilia, No family history of Sudden /DC under age 55, No family history of [...] Completed 04/10/2019, 10/05/2018 Procedures * Due to [facility] law, this organization might not be sharing sensitive test results. Procedure Name Priority Date/Time Associated Diagnosis Comments CHLAMYDIA AND GONORRHEA, AMPLIFIED Routine 10/28/2021 1:51 PM EDT Encounter for screening examination for chlamydial infection from Last 3 Months or Most Recently Relevant to Health Maintenance Results * Due to [facility] law, this organization might not be sharing sensitive test results. * Chlamydia and Gonorrhoea, Amplified (10/28/2021 1:51 PM EDT) Chlamydia Trachomatis, DNA Probe NEGATIVE (NEG) [facility] Comment: No Chlamydia Trachomatis RNA detected in this patient's sample ? (REFERENCE RANGE/NORMAL VALUE: NOT DETECTED) ? Note: This test uses assistant fitness manager- mediated amplification method to detect rRNA from C. Trachomatis URINE GC AMP PROBE NEGATIVE (NEG) [facility] Comment: No Neisseria Gonorrhoeae RNA detected in this patient's sample ? (REFERENCE RANGE/NORMAL VALUE: NOT DETECTED) ? NOTE: This test uses assistant fitness manager-mediated amplification method to detect rRNA from N.Gonorrhoeae. [...] without risk of sexual abuse. Consult the [facility] if needed. Contact phone number . Therapeutic failure or success cannot be determined with the Aptima Combo2 assay since nucleic acid may persist following appropriate antimicrobial therapy. The Centers for Disease Control and Prevention (CDC) recommends confirmatory retesting using culture or a different nucleic acid amplification test when positive results occur, if indicated. Testing performed or reported by [facility], a Service of [facility], [address], [place] [address] Javier Garcia MD, Foot Specialist [facility]# [id number] Urine (Urine) 10/28/2021 1:5 1 PM EDT 10/28/2021 10:22 PM EDT us Anni Zavaleta DO LAB MICROBIOLOGY - GENERAL ORDER EMILY Final Result [facility] from Last 3 Months or Most Recently Relevant to Health Maintenance
--- OUTSIDE RECORDS SUMMARY | 2024-05-24 11:42 | XMS_ITS | Encounter Summary ---
Author Organization [facility] Address [address] [place] [address] Phone Care Team Providers Care High School Academic Coach Name Role Phone Provider, Danette BEST Primary Care Provider [phone] Reason for Visit * Reason Comments Med Refill Encounter Details Date Type Department Care Team (Late st Contact Info) Description 07/23/2017 Refill [facility] - [address] [address] Dalila Suárez NP Encounter for other contraceptive [...] visit with Essence I had written that FINANCIAL INVESTMENT ADVISER was writing her OCPs - but in speaking with the pharmacist at [facility] we have been prescribing her OCPs. Last visit with FINANCIAL INVESTMENT ADVISER was 03/2017 - they discussed longer cycling [...] Primary documented in this encounter Care Teams High School Academic Coach Relationship Specialty Start Date End Date Provider, MD Danette [address] [place] [address] PCP - General Pediatrics 10/22/21 08/15/22 documented as of this encounter
--- OUTSIDE RECORDS SUMMARY | 2024-05-24 11:42 | XMS_ITS | Encounter Summary ---
Author Organization [facility] Address [address] [place] [address] Phone Care Team Providers Care Securities Dealer Name Role Phone Provider, Danette BEST Primary Care Provider [phone] Encounter Details Date Type Department Care Team (Late st Contact Info) Description 06/03/2016 Documentation [facility] [place] Family Medicine [address] [place] [address] Family Medicine, Physician [address] [place], [place] [phone] Social History Tobacco Use Types Packs/Day Years [...] on filedocumented in this encounter Care Teams Securities Dealer Relationship Specialty Start Date End Date Provider, MD [place]ette [address] [place] [phone] PCP - General Pediatrics 10/22/21 08/15/22 documented as of this encounter
--- OUTSIDE RECORDS SUMMARY | 2024-05-24 11:42 | XMS_ITS | Encounter Summary ---
Author Organization [facility] Address [address] [place] [address] Phone Care Team Providers Care Ends Breakage Clerk Name Role Phone Provider, Danette BEST Primary Care Provider [phone] Encounter Details Date Type Department Care Team (Late st Contact Info) Description 07/25/2009 Documentation [facility] Family Medicine [address] [place] [address] Family Medicine, Physician [address] [place], [place] [phone] Social History Tobacco Use Types Packs/Day Years [...] on filedocumented in this encounter Care Teams Ends Breakage Clerk Relationship Specialty Start Date End Date Provider, MD [place]ette [address] [place] [phone] PCP - General Pediatrics 10/22/21 08/15/22 documented as of this encounter
[2024-05-24 14:18] LABS: Influenza A PCR POSITIVE (Negative); Influenza B PCR NEGATIVE (Negative); Resp Syncy Virus RNA Qual PCR NEGATIVE (Negative); SARS COV2 PCR INHOUSE NEGATIVE (Negative)
== END 2024-05-24 10:22 | disposition home or self-care (01) ==
LOC: HO.LAB 10:21
PROVIDERS: PCP Internal Medicine; Visit Provider Physician Assistant
DX: J06.9 Acute upper respiratory infection, unspecified (principal)
CPT/HCPCS: 0241U

== ENCOUNTER 2024-07-24 10:37 | Outpatient (AMB) | payer BC, SELFPAY ==
--- NOTE | 2024-07-24 12:09 | MHC.PC.OV ---
Vital Signs 07/24/24 12:11 Height 5 ft 8 in Weight 166 lb BMI 25.2 BP 100/70 Blood Pressure Location Rt brachial Position Sitting Respiration 16 Pulse 119 H Pulse Source Pulse Oximeter Temp 98.8 F Temp Source Oral Pulse Oximetry (%) 99 Oxygen Delivery Method Room Air Intake Visit Reasons: request referral oncology/hematology Allergies No Known Allergies Allergy (Verified 08/05/24 18:14) Medication List - Last Reconciled 08/05/24 by Lisa Rodriguez MD drospirenone (contraceptive) (Slynd) 4 mg PO DAILY rivaroxaban (Xarelto) 20 mg PO DAILY Tobacco use date assessed: 07/24/24 Dental Screening Dental Screen Date: 07/24/24 Did you have a dental visit in the last 12 months?: Yes Did you have a dental problem in the last 6 months where you did not have access to dental care?: No Was dental information given to patient?: Patient has dentist HPI request referral oncology/hematology HPI Details 23-year-old lady with 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 She has been feeling well, but has been having intermittent episodes of palpitations and feeling lightheaded , swelling and pain in right leg has diminished. Recently seen by her [facility], for evaluation and treatment of dysmenorrhea and was started on Slynd which she has estrogen free. [facility] Medical History (Updated 07/24/24 @ 12:41 by iLsa Rodriguez MD) Syncope and collapse History of pulmonary embolus (PE) History of DVT (deep vein thrombosis) Uses control Rogers's thyroiditis Protrusion of intervertebral disc of lumbosacral region Hamstring muscle strain Chronic lumbosacral pain Chronic fatigue Hyperkalemia Tingling in extremities Family history of Rogers thyroiditis Family history of diabetes mellitus Intermittent palpitations Surgical History No pertinent past surgical history Family History Maternal Aunt Breast cancer Mother Hypothyroidism due to Rogers's thyroiditis Type 1 diabetes mellitus Social History Housing: House Patient Tobacco Use Status: Never used Tobacco e-Cigarette/Vaping Use: Never Used service: No Current occupational status: employed Cognitive needs: No Hearing needs: No Vision needs: No Female Reproductive History Menstrual Age of Menarche: 12 Questionnaire Thrive Questionnaire Date Thrive assessed: 12/18/23 CRISTIANO-7 AMB Questionnaire CRISTIANO-7 Date CRISTIANO - 7 assessed: 12/28/23 Source: Developed by Drs. Cal Trejo, Petrona Felix, Ranjit Guillory and colleagues, with an educational helder from [employer]. Review of Systems Const All systems reviewed & are unremarkable except as noted in HPI and below ENT Reports Normal hearing present Neuro Details: Has had episodes of near-syncope in the past Reports Normal hearing present Physical exam (Primary Care) Vital Signs: Last Vital Signs Temp 98.8 F 07/24/24 12:11 Pulse 119 H 07/24/24 12:11 Resp 16 07/24/24 12:11 BP 100/70 07/24/24 12:11 Pulse Ox 99 07/24/24 12:11 Oxygen Delivery Method Room Air 07/24/24 12:11 BMI result Body Mass Index 25.2 Tobacco/Smoking Status: Tobacco use Status Tobacco use date assessed 07/24/24 07/24/24 12:17 Patient Tobacco Use Status Never used Tobacco 07/24/24 12:17 e-Cigarette/Vaping Use Never Used 07/24/24 12:17 Thrive Assessment: Date of Thrive Assessment Date Thrive assessed 12/18/23 07/24/24 12:17 Const General: no acute distress Nutritional Appearance: overweight Orientation/consciousness: patient oriented x3 HENMT Head: Yes normocephalic Ears: external ears normal General nose exam: Normal external nose present Face and sinus: Yes face symmetric Mouth: Normal oral and palatal mucosa present and moist mucous membranes Eyes General: appearance normal, both eyes and all related structures Neck Neck: Yes full ROM, Yes no lymphadenopathy and Yes supple Thyroid: other (Nonpalpable thyroid gland) Resp Effort & Inspection: normal respiratory effort and able to speak in complete sentences Auscultation: clear to auscultation bilaterally Cardio Rate: tachycardic Heart sounds: S1 normal heart sound present and S2 normal heart sound present GI Palpation (GI): Soft to palpation, nontender, no guarding and no masses Auscultation: normal bowel sounds General: Yes no CVA tenderness and Yes deferred (Currently sees [facility]) Back/Spine/Pelvis Back: no CVA tenderness Skin General skin exam: no rashes or lesions noted Neuro General: patient oriented x3, gait normal, moves all extremities, Normal light touch and pain sensation, no focal motor deficits and CN's II-XI intact bilaterally Cranial nerves: Yes CN's II-XII intact bilaterally and Yes Normal hearing present Gait exam (Neuro): Normal gait present Extrem General: Yes normal to inspection, Yes full ROM, Yes no joint enlargement, Yes no clubbing, cyanosis or edema and Yes normal gait Coding Level of Care Code Est Pt Level 4 (64920) Complex EM visit Add On G2211 Diagnoses Syncope and collapse R55 History of pulmonary embolus (PE) Z86.711 History of DVT (deep vein thrombosis) Z86.718 Assessment & Plan Assessment & Plan (1) Syncope and collapse: Code(s): R55 - Syncope and collapse Category: Medical Plan: Patient also with intermittent episodes of tachycardia,? POTS, referred to cardiology for further evaluation and management (2) History of pulmonary embolus (PE): Code(s): Z86.711 - Personal history of pulmonary embolism Category: Medical Plan: Continued on rivaroxaban 20 mg daily, referred to hematology oncology for further evaluation management (3) History of DVT (deep vein thrombosis): Code(s): Z86.718 - Personal history of other venous thrombosis and embolism Category: Medical Plan: Continued on rivaroxaban Orders: Referrals Cardiology Referral R55 - Syncope and collapse, Z86.711 - Personal history of pulmonary embolism, Z86.718 - Personal history of other venous thrombosis and embolism Pulmonology Referral Z86.711 - Personal history of pulmonary embolism, Z86.718 - Personal history of other venous thrombosis and embolism
[2024-07-24 12:11] VITALS: BP 100/70; PULSE 119; RESP 16; TEMP 37.1; O2SAT 99; BMI 25.2
--- OUTSIDE RECORDS SUMMARY | 2024-07-24 12:48 | XMS_ITS | Encounter Summary ---
Author Organization [facility] Address [address] [place] [address] Phone Care Team Providers Care Computer Forensics Investigator Name Role Phone Provider, Danette BEST Primary Care Provider [phone] Encounter Details Date Type Department Care Team (Late st Contact Info) Description 06/03/2016 Documentation [facility] [place] Family Medicine [address] [place] [address] Family Medicine, Physician [address] [place], [place] [phone] Social History Tobacco Use Types Packs/Day Years [...] on filedocumented in this encounter Care Teams Computer Forensics Investigator Relationship Specialty Start Date End Date Provider, MD Danette [address] [place] [phone] PCP - General Pediatrics 10/22/21 08/15/22 documented as of this encounter
--- OUTSIDE RECORDS SUMMARY | 2024-07-24 12:48 | XMS_ITS | Clinical Summary ---
Author Organization [facility] Address [address] [place] [address] Phone Care Team Providers Care Ocular Care Technician Name Role Phone Unavailable Primary Care Provider [...] and OCPs, topical refilled, OCPs prescribed by LEAD WELDER. Assessment & Plan (10/04/2017 4:40 PM EDT): [...] oral contraceptive Overview (10/29/2021): Followed by adult LEAD WELDER Pt with hx of severe cramping and long menses treated successfully after several OCP attempts and visit to LEAD WELDER with long cycling apri (spitting 1st and 2nd inactive weeks) with improvement in cramping and normally no breakthrough bleeding. Continue f/u with LEAD WELDER. Followed by adult LEAD WELDER. Pt was put on refrigerated probiotic that was about $100/3 mo supply Stopped taking it once sx resolved Wondering if she should take it proactively - LEAD WELDER hadn't specifically said Assessment & Plan (10/29/2021 9:57 AM EDT): Seeing Military Personnel Specialist now- on OCP Assessment & Plan (10/28/2019 11:13 PM EDT): Continue to follow with LEAD WELDER Did not repeat urine GC/Chlamydia testing today due to recent testing at LEAD WELDER Not SA so low risk Discussed could try another refrigerated probiotic, typically I recommend a single organism Follow up with LEAD WELDER if needed if any issues with menses/discharge Assessment & Plan (10/04/2017 4:41 PM EDT): Refilled with the prolonged cycling, proper use, no risky behaviors, no further testing needed. Resolved Problems Problem Noted Date Diagnosed Date Resolved Date Vaginal discharge 03/12/2020 10/27/2021 Overview (03/12/2020): Chronic complaints, pt has been treated for BV and then had ongoing concerns with neg vag swab. Was referred to LEAD WELDER for further evaluation after 10/2018 recurrent sx Has been pt of [facility] and at last visit (virtual) they recommended Boric Acid 600mg per vagina nightly x 3 weeks, then f/u with [facility] for recheck. Cough 03/30/2018 10/28/2019 Assessment & Plan (04/07/2018 12:55 PM EST): Cough for 2.[address] Seen at [facility] and had Neg strept and neg mono. [...] of Thrombophilia, No family history of Sudden /VT under age 55, No family history of [...] Completed 04/10/2019, 10/05/2018 Procedures * Due to [facility] law, this organization might not be sharing sensitive test results. Procedure Name Priority Date/Time Associated Diagnosis Comments CHLAMYDIA AND GONORRHEA, AMPLIFIED Routine 10/28/2021 1:51 PM EDT Encounter for screening examination for chlamydial infection from Last 3 Months or Most Recently Relevant to Health Maintenance Results * Due to [facility] law, this organization might not be sharing sensitive test results. * Chlamydia and Gonorrhoea, Amplified (10/28/2021 1:51 PM EDT) Chlamydia Trachomatis, DNA Probe NEGATIVE (NEG) [facility] Comment: No Chlamydia Trachomatis RNA detected in this patient's sample ? (REFERENCE RANGE/NORMAL VALUE: NOT DETECTED) ? Note: This test uses semiconductor wafers etch operator- mediated amplification method to detect rRNA from C. Trachomatis URINE GC AMP PROBE NEGATIVE (NEG) [facility] Comment: No Neisseria Gonorrhoeae RNA detected in this patient's sample ? (REFERENCE RANGE/NORMAL VALUE: NOT DETECTED) ? NOTE: This test uses semiconductor wafers etch operator-mediated amplification method to detect rRNA from N.Gonorrhoeae. [...] without risk of sexual abuse. Consult the [facility] if needed. Contact phone number . Therapeutic failure or success cannot be determined with the Aptima Combo2 assay since nucleic acid may persist following appropriate antimicrobial therapy. The Centers for Disease Control and Prevention (CDC) recommends confirmatory retesting using culture or a different nucleic acid amplification test when positive results occur, if indicated. Testing performed or reported by [facility], a Service of [facility], [address], [place] [address] Javier Garcia MD, Cryolite Recovery Operator [facility]# [id number] Urine (Urine) 10/28/2021 1:5 1 PM EDT 10/28/2021 10:22 PM EDT us Anni Zavaleta DO LAB MICROBIOLOGY - GENERAL ORDER EMILY Final Result [facility] from Last 3 Months or Most Recently Relevant to Health Maintenance
--- OUTSIDE RECORDS SUMMARY | 2024-07-24 12:48 | XMS_ITS | Continuity of Care Document ---
Author Organization [facility] [address] [place] [address] Phone [phone] Care Team Providers Care Director Of Cardiac Cath Lab Name Role Phone Lisa Rodriguez Care Team Information Content Administrator [phone] Problems Active Problems Provider Date Rogers thyroiditis Cl Almeida M.D. On set: 02/28/2023 Hypothyroidism Cl Almeida M.D. Onset: 1 04/30/2022 Social History Type Date Description Comments Sex Unknown Tobacco Use Start: Unknown Never Smoked Cigarettes Smoking Status Reviewed: 02/28/23 Never Smoked Cigaret viviane ETOH Use Occasionally consumes alcoho l Allergies and adverse reactions Description No Known Drug Allergies Medications Active Medications SIG Qnty Indications Ordering Provider Date Levonorgestrel/Ethinyl Estradiol0.15-0.03mg Tablets Take 1 Tablet By Mouth Every Day Melida Ashton Vital Signs Date Vital Result Comment 02/29/2024 9:25am BP Systolic 120 mmHg BP Diastolic 80 mmHg Heart Rate 72 /min Height 68 inches 5'8 Weight 175.00 lb BMI (Body Mass Index) 26.6 kg/m2 Results Test Acquired Date Facility Test Result H/L Range N ote TSH Rfx on Abnormal to Free T4 02/29/2024 [facility] TSH Rfx on Abnormal to Free T4 3.470 uIU/mL 0.450-4.50 0 TSH+Free T4 08/25/2023 [facility] TSH 3.400 uIU/mL 0.450-4.50 0 T4,Free(Direc t) 1.41 ng/dL 0.82-1.77 TSH With Reflex To FT4 02/28/2023 [facility] TSH With Reflex To FT4 3.65 uIU/mL (0.4-4.2) Cortisol 02/28/2023 [facility] Cortisol 26.0 g /dL 1 1 Reference Range: 6-10 am: 6.0-18.4 ug/dL 4-8 pm: 2.7-10.5 ug/dL Medical Devices Description No Information Available Encounters Type Date Location Provider Dx Diagnosis Office Visit 02/29/2024 9:15a Main Office Cl Almeida M.D. 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 02/29/2024 E02 Subclinical hypothyroidism Mindi Almeida M.D. Plan of Treatment Future Appointment(s):* 02/28/2025 10:00 am - Cl Almeida M.D. 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 Created [address] [place] [address] [address] [place] [phone] Cl Almeida M.D. Closed [address] [place] [address] [address] [place] [phone] Cl Almeida M.D. Closed [address] [place] [address] [address] [place] [phone]
--- OUTSIDE RECORDS SUMMARY | 2024-07-24 12:48 | XMS_ITS | Encounter Summary ---
Author Organization [facility] Address [address] [place] [address] Phone Care Team Providers Care Gas Producer Name Role Phone Provider, Danette BEST Primary Care Provider Encounter Details Date Type Department Care Team (Late st Contact Info) Description 06/07/2016 Documentation [facility] [address] [place] [address] Family Medicine, Physician [address] [place], [place] [phone] Social History Tobacco Use Types Packs/Day Years [...] on filedocumented in this encounter Care Teams Gas Producer Relationship Specialty Start Date End Date Provider, MD Danette [address] [place] [phone] PCP - General Pediatrics 10/22/21 08/15/22 documented as of this encounter
--- OUTSIDE RECORDS SUMMARY | 2024-07-24 12:48 | XMS_ITS | Encounter Summary ---
Author Organization [facility] Address [address] [place] [address] Phone Care Team Providers Care Membership Secretary Name Role Phone Provider, Danette BEST Primary Care Provider [phone] Encounter Details Date Type Department Care Team (Late st Contact Info) Description 07/25/2009 Documentation [facility] [place] [address] [place] [address] Family Medicine, Physician [address] [place], [place] [phone] Social History Tobacco Use Types Packs/Day Years [...] on filedocumented in this encounter Care Teams Membership Secretary Relationship Specialty Start Date End Date Provider, MD Danette [address] [place] [phone] PCP - General Pediatrics 10/22/21 08/15/22 documented as of this encounter
--- OUTSIDE RECORDS SUMMARY | 2024-07-24 12:48 | XMS_ITS | Clinical Summary ---
Author Organization [facility] Address [address] [place] [address] Care Team Providers Care Home Energy Rater Name Role Phone Lisa Rodriguez MD Primary [...] age to complete this topic Care Teams Home Energy Rater Relationship Specialty Start Date End Date Lisa Rodriguez MD [address] [place] [address] PCP - General Internal Medicine 03/04/23
--- OUTSIDE RECORDS SUMMARY | 2024-07-24 12:48 | XMS_ITS | Encounter Summary ---
Author Organization [facility] Address [address] [place] [address] Phone Care Team Providers Care Senior Manager Quality Assurance Name Role Phone Provider, Danette BEST Primary Care Provider [phone] Encounter Details Date Type Department Care Team (Late st Contact Info) Description 11/25/2016 Conversion Encounter [facility] [address] [id number] Social History Tobacco Use Types Packs/Day Years [...] on filedocumented in this encounter Care Teams Senior Manager Quality Assurance Relationship Specialty Start Date End Date Provider, MD Danette [address] [place] [address] PCP - General Pediatrics 10/22/21 08/15/22 documented as of this encounter
--- OUTSIDE RECORDS SUMMARY | 2024-07-24 12:48 | XMS_ITS | Encounter Summary ---
Author Organization [facility] Address [address] [place] [id number] Phone Care Team Providers Care Sound Installation Worker Name Role Phone Provider, Danette BEST Primary Care Provider [phone] Reason for Visit * Reason Comments Med Refill Encounter Details Date Type Department Care Team (Late st Contact Info) Description 07/23/2017 Refill [facility] - [address] [address] Dalila Suárez NP Encounter for other contraceptive [...] visit with Essence I had written that DISTRIBUTION ESTIMATOR was writing her OCPs - but in speaking with the pharmacist at [facility] we have been prescribing her OCPs. Last visit with DISTRIBUTION ESTIMATOR was 03/2017 - they discussed longer cycling [...] Primary documented in this encounter Care Teams Sound Installation Worker Relationship Specialty Start Date End Date Provider, MD Danette [address] [place] [address] PCP - General Pediatrics 10/22/21 08/15/22 documented as of this encounter
--- OUTSIDE RECORDS SUMMARY | 2024-07-24 12:49 | XMS_ITS | Encounter Summary ---
Author Organization [facility] Address [address] [place] [address] Care Team Providers Care Clinic Office Coordinator Name Role Phone Lisa Rodriguez MD Primary Care Provider [phone] Reason for Visit * Reason Comments Syncope Patient comes from [facility] with two syncopal episodes + head/facial strike + thinners. C-collar applied, denies neck pain at this time. Patient states she had hip surgery on july 09, with complcations of a PE, recently admitted for pr, heparin drip. * Auth/Cert (Routine) Specialty Diagnoses / Procedures Referred By Nichol hutchinson Referred To Contact Diagnoses Syncope and collapse Procedures [facility]BS CARE ADMIT/DISCHARGE SAME DATE MODERATE LEVEL . Esteban Lara MD [address] [place] [address] Phone: tel: fax: [facility] [address] [place] [address] Phone: tel: Referral ID Status Reason Start Date Expiration Date Visits Re quested Visits Authorized [id number] 1 1 Encounter Details Date Type Department Care Team (Latest Contact Info) Description 07/22/2024 7:43 AM EDT - 07/23/2024 1:44 PM EDT Hospital Encounter [facility] [address] [place] [address] Esteban Lara MD [address] [place] [address] Carlos Delaney MD [address] [place] [address] Lj Rodney MD [address] [place] [address] Syncope and collapse (Primary Dx) Discharge Disposition: Home or Self Care Social History Tobacco Use Types Packs/Day Years Used Date Smoking Tobacco: Never Smokeless Tobacco: Never Alcohol Use Standard Drinks/Week Comments Yes 0 (1 standard drink = 0.6 oz pur e alcohol) rare Interpersonal Safety Answer Date Record ed Physical Abuse 07/22/2024 Verbal Abuse 07/22/2024 Comments Unknown Sex and Gender Information Value Date Recorded Sex Assigned at Female 07/11/2024 11:06 AM EDT Legal Sex Female 10:12 AM EDT Gender Identity Female 07/11/2024 11:06 AM EDT Sexual Orientation Straight 07/11/2024 11 :06 AM EDT documented as of this encounter Last Filed Vital Signs Vital Sign Reading Time Taken Comments Blood Pressure 118/79 07/23/2024 10:33 AM EDT Pulse 140 07/23/2024 10:33 AM EDT Temperature 36.7 ??C (98 ??F) 07/23/2024 8:06 AM EDT Respiratory Rate 16 07/23/2024 8:06 AM EDT Oxygen Saturation 100% 07/23/2024 10:31 AM EDT Inhaled Oxygen Concentration - - Weight 75.8 kg (167 lb) 07/22/2024 8:19 AM EDT Height 167.6 cm (5' 6 ) 07/22/2024 8:19 AM EDT Body Mass Index 26.95 07/22/2024 8:19 AM EDT documented in this encounter Discharge Summaries * Lj Rodney MD - 07/23/2024 12:38 PM EDT Images from the original note were not included. [facility] DISCHARGE SUMMARY Patient Information Essence Garvey : 2000 [23 y.o.] Admitting Provider Esteban Lara MD Discharge Provider Lj Rodney MD, Lj Rodney MD Primary Care Physician Lisa Rodriguez MD Admission Date 07/22/2024 Discharge Date 07/23/2024 Primary/Secondary Diagnosis Syncope Possible vasovagal syncope versus POTS Elevated TSH Recent diagnosis of PE Hospital Course Summary 23-year-old female with recent right hip labrum surgery on June 21. Postoperatively patient was oncouple weeks of prophylaxis with aspirin but still developed DVT and PE. She was admitted with dyspnea and diagnosed with VTE. Patient was started on Xarelto and discharged in stable condition. She does not smoke cigarettes and her OCP had been changed to progressed around only. Now patient presents with 2 episodes of syncope. At night she wanted to go to the bathroom and was going fast and woke up on the floor. She believes that she passed out before she even started to urinate. Then she was having nausea and was sweating and clammy. Did not develop any chest pain or obvious palpitations butshe ended up passing out the second time. Then she called for help and was brought to the hospital.She remembers that when EMS checked on her her blood pressure was in 70s. In the ED she was no longer hypotensive but reportedly her heart rate was in 140s. She was given IV fluids. CT brain and maxillofacial CT demonstrated no fractures. CT chest demonstrated resolution of PE. EKG demonstrated no ischemic changes and high sensitive troponin was less than 3 x2. - Syncope See presentation above. Patient passed out twice at home. Etiology could be vasovagal syncope but POTS also high on the differential. She had multiple bags of IV fluids and when checked today she is not orthostatic in terms of BP butheart rate still goes to 140s when she stands up. Nevertheless she is asymptomatic and denies dizziness, palpitations, chest pain or lightheadedness although reports that she is aware that heart ratemay be going fast when she stands up. On further questioning appears that this is longstanding issue and she has had lightheadedness and tachycardia with standing for a while and had even seen pediatric registered nurse at [place] couple years ago. At the time no specific diagnosis was made as per patient and her mother. Vasovagal syncope is possible considering nausea and diaphoresis before second syncopal episode although first episode was not preceded by any symptoms. No preceding RVR vomiting, fevers or chills orpoor oral intake either. At this time patient is hemodynamically stable and asymptomatic. Her heart rate goes to 130s and 140s when up and walking but once again with no symptoms. Echocardiogram obtained and demonstrates normal findings including normal EF. No acute abnormalities on echo to account for syncope or tachycardia. There is no bleeding and hemoglobin was 13.3 on admission. She has mild pyuria with urine WBCs 13 and few bacteria but she does not have any urinary symptoms. She may have asymptomatic bacteriuriaand cultures are pending but no indication for antibiotics as she has no symptoms. TSH also elevated at 9.8 although FT3 is slightly high at 455 with normal FT4 1.45. Patient is followed by endocrinol ogist and there is no indication for thyroid replacement treatment at this time. Suggested to follow-up with thyroid function test in 4 to 6 weeks. In any rate she is not hyperthyroid to account for tachycardia. Suggested compression stockings, hydration and salt tablets (prescribed) as well as to follow-up with PCP and get referral to specialist for the possibility of POTS syndrome. Findings and recommendations were discussed with patient and her mother at bedside. They both voiced understanding and she will be discharged home in a stable condition. - Recent diagnosis of VTE. Remains on Xarelto and CT chest demonstrates resolution of PE. Patient does not have any new leg swelling or pain issues. She still has limited weightbearing in right lower extremity and to some degree deconditioned whichcould be contributing to tachycardia with minimal exertion. See other details above. >30 min spent on DC Follow-Up Instructions and Recommendations PCP in 1 week Follow Ups: No follow-up provider specified. Urine cultures pending. Keep in mind that if no symptoms this could be asymptomatic bacteriuria. TSH elevated at 9.8. Will need follow-up thyroid function test in 4 to 6 weeks. Test Results Pending At Discharge: Pending Labs Order Current Status Culture urine Preliminary result Discharge Medications Medication List TAKE these medications rivaroxaban starter pack Commonly known as: XARELTO Take 1 tablet (15 mg) by mouth 2 (two) times a day with meals for 21 days. Then take 1 tablet (20 mg) by mouth 1 (one) time each day with dinner. Slynd 4 mg (28) tablet Generic drug: drospirenone (contraceptive) Take 1 tablet by mouth 1 (one) time each day. sodium chloride 1 gram tablet Take 1 tablet (1 g total) by mouth 3 (three) times a day with meals. Physical Exam at time of Discharge General: Awake and alert. NAD Psychiatric: Mood stable. CVS: S1-S2 no tachycardia while at rest Pulmonary: No wheezes or crackles Extremity: No pedal edema Skin: Mild bruising in left posterior lower thoracic area. No crepitation Right hip area with stitches out and there is no redness or signs of infection Vitals Vitals: 07/23/24 1033 BP: 118/79 Pulse: (!) 140 Resp: Temp: SpO2: HEMATOLOGY Lab Results Component Value Date WBC 11.1 (H) 07/22/2024 HGB 13.3 07/22/2024 HCT 40.4 07/22/2024 MCV 84.7 07/22/2024 PLT 601 (H) 07/22/2024 INR 1.1 07/22/2024 CHEMISTRY Lab Results Component Value Date GLUCOSE 119 (H) 07/22/2024 NA 140 07/22/2024 K 4.8 07/22/2024 CO2 27 07/22/2024 CL 109 07/22/2024 BUN 16 07/22/2024 CREATININE 0.81 07/22/2024 EGFR 105 07/22/2024 CALCIUM 10.0 07/22/2024 MG 2.1 07/11/2024 ANIONGAP 4 07/22/2024 Transthoracic echocardiogram (TTE) complete with PRN contrast, bubble, strain, and 3D order panel Result Date: 07/23/2024 Technically difficult study Left ventricle cavity size is normal. Left ventricular systolic function is in the normal range with an ejection fraction of 55-60%. No regional LV wall motion abnormalities noted. Right ventricle cavity is normal. Right ventricular systolic function is normal. No significant valvular disease. Of note, the patient had apparent episodes of tachycardia during the study. CT Angio Chest wo and/or w Contrast Result Date: 07/22/2024 PROCEDURE: CT pulmonary angiogram. HISTORY: PE suspected, high prob syncope in the setting of knownPE. TECHNIQUE: CT of the chest with intravenous contrast administration with pulmonary angiogram protocol. Coronal and sagittal reformats and MIP reconstructions were created. Dose length product: Total for all concurrently acquired exams was 1806 mGy-cm. Contrast dose: 90 mL [id number]. COMPARISON: FINDINGS: LUNGS/PLEURA: The central airways are clear normal in caliber. There are triangular and linear opacities in the posterior lower lobes consistent with atelectasis and/or scarring, similar to the previous study. No pleural effusion or pneumothorax. MEDIASTINUM/FAHAD: Heterogeneous appearance of the thyroid gland with suggestion of multiple small nodules. The thyroid could be further evaluated with ultrasound. No mass or lymphadenopathy. VASCULATURE: Normal caliber pulmonary arteries. Previously demonstrated bilateral segmental pulmonary emboli have resolved. Normal appearance of the great vessels. CARDIAC: Normal heart size. No coronary artery calcification. CHEST WALL: No axillary or supraclavicular lymphadenopathy. LIMITED ABDOMEN: Unremarkable. BONES: Mild degenerative changes of the spine. Interval resolution of bilateral segmental pulmonary emboli. -------- FINAL REPORT -------- Dictated By: Murray Pritchett Dictated Date: 07/22/2024 10:20 ET Assigned Physician: Murray Pritchett Reviewed and Electronically Signed By: Murray Pritchett Signed Date: 07/22/2024 10:30 ET Workstation ID: [id number] Transcribed By: Self Edit Transcribed Date: 07/22/2024 10:[address] Maxillofacial wo Contrast Result Date: 07/22/2024 PROCEDURE: CT of the face without intravenous contrast. HISTORY: trauma. COMPARISON: None. TECHNIQUE: Noncontrast CT of the face with coronal and sagittal reformats. Dose length product: Total for all concurrently acquired exams was 1806 mGy-cm. FINDINGS: Diffusely heterogeneous appearance of the th yroid gland with suggestion of multiple small nodules. The thyroid could be better evaluated with ultrasound. The visualized soft tissues of the upper neck are otherwise unremarkable. Streak artifactfrom the patient's earrings projects over the skull base. Small amount of debris in the left EAC. Mild mucosal thickening and a small amount of bubbly debris in the anterior-inferior left sphenoid sinus. Minimal mucosal thickening along the floor of both maxillary antra. There is mild rightward bowing of the lower nasal septum with a small apical septal spur. No acute fracture. No suspicious bonylesion. No facial fracture. -------- FINAL REPORT -------- Dictated By: Murray Pritchett Dictated Date: 07/22/2024 10:15 ET Assigned Physician: Murray Pritchett Reviewed and Electronically Signed By: Murray Pritchett Signed Date: 07/22/2024 10:20 ET Workstation ID: [id number] Transcribed By: Self Edit Transcribed Date: 07/22/2024 10:[address] Head wo Contrast Result Date: 07/22/2024 PROCEDURE: Noncontrast head CT. HISTORY: syncope. COMPARISON: None. TECHNIQUE: Noncontrast head CT with coronal and sagittal reformats. Dose length product: Total for all concurrently acquired exams was 1806 mGy-cm. FINDINGS: There is prominent streak artifact from the patient's earrings which partially obscures the inferior portions of the brain. BRAIN: No hemorrhage, edema, mass, or extra-axialfluid collection. No CT evidence of an acute large vessel infarct. Ventricles and sulci are age commensurate. ORBITS: Normal. SINUSES/MASTOIDS: Normal. CALVARIUM: Normal. OTHER: The skull base soft tissues are normal. Evaluation limited by streak artifact from the patient's earrings. No visible abnormality. --------FINAL REPORT -------- Dictated By: Murray Pritchett Dictated Date: 07/22/2024 10:09 ET Assigned Physician: Murray Pritchett Reviewed and Electronically Signed By: Murray Pritchett Signed Date: 07/22/2024 10:15 ET Workstation ID: [id number] Transcribed By: Self Edit Transcribed Date: 07/22/2024 10:09 ET XR Chest 2 Views Result Date: 07/22/2024 PROCEDURE: PA and lateral radiographs of the chest. HISTORY: syncope. COMPARISON: Chest CT 07/11/2024. FINDINGS: The heart, mediastinum, lungs, pleural spaces, and bony thorax are normal. Normal chest radiographs. -------- FINAL REPORT -------- Dictated By: Murray Pritchett Dictated Date: 07/22/2024 09:31 ET Assigned Physician: Murray Pritchett Reviewed and Electronically Signed By: Murray Pritchett Signed Date: 07/22/2024 09:31 ET Workstation ID: [id number] Transcribed By: Self Edit Transcribed Date: 07/22/2024 09:31 ET documented in this encounter Discharge Instructions * Discharge Instructions* Lj Rodnye MD - 07/23/2024 12:29 PM EDT Keep yourself well-hydrated. Increase activity slowly/ gradually. Use compression stockings and take salt tablets as prescribed. Recommend to follow-up with primary care physician and get referral to specialist for the possibility of POTS. documented in this encounter Medications at Time of Discharge drospirenone, contraceptive, (Slynd) 4 mg (28) tablet Take 1 tablet by mouth 1 (one) time each day. sodium chloride 1 gram tablet Take 1 tablet (1 g total) by mouth 3 (three) times a day with meals. 90 each 07/23/2024 rivaroxaban (XARELTO) starter pack Take 1 tablet (15 mg) by mouth 2 (two) times a day with meals for 21 days. Then take 1 tablet (20 mg) by mouth 1 (one) time each day with dinner. 07/12/2024 documented as of this encounter Ordered Prescriptions Prescription Sig Dispense Quantity Refills Last Filled Start Date End Date sodium chloride 1 gram tablet Take 1 tablet (1 g total) by mouth 3 (three) times a day with meals. 90 each 07/23/2024 documented in this encounter Discharge Disposition Disposition Code Departure Means Destination Home or Self Care documented in this encounter Progress Notes * Mulu Bowie RN - 07/23/2024 1:04 PM EDT Goals: Identify possible barriers to meeting goals/advancing plan of care: Stability of the patient: Moderately Stable - Low risk of patient condition declining or worsening End of Shift Summary: * Paradise Champion RN - 07/23/2024 11:39 AM EDT 07/23/24 1139 Initial Transition Plan Initial Transition Plan Home Discharge Planning Living Arrangements Family members Type of Residence Private residence Assistive Devices Crutches Support Systems Parent Medication Coverage Has Med Coverage Under Insurance Plan Yes Medication Affordability No concerns related to payment for meds MALATHI: 07/24-07/25 Barrier: echo results pending, HR 150s with ambulation Plan: home self-care * Mulu Bowie RN - 07/22/2024 4:32 PM EDT Goals: Identify possible barriers to meeting goals/advancing plan of care: Stability of the patient: Moderately Unstable - Medium risk of patient condition declining or worsening End of Shift Summary: * Toya Henderson RN - 07/22/2024 1:53 PM EDT ED RN HANDOFF (All Cabrera Below Must Be Completed) Reason/Diagnosis for Admission: Orthostatic Type of Admission: [] Medsurg, [x] Telemetry Already in a Hospital Bed: [] Yes / [x] No Room Considerations/Precautions (ex: fever, diarrhea, or any infectious concerns): [] Yes / [x] No Engineering Team Supervisor: [] Yes / [] No If YES, Cardiac Rhythm: [x] NSR, [] SB, [] ST, [] A-FIB, [] A-Flutter, [] Pacemaker, [] 1st Degree HB, [] 2nd Degree HB, [] 3rd Degree HB Reason for Engineering Team Supervisor: VS: Visit Vitals BP 106/62 (BP Location: Left arm, Patient Position: Lying) Pulse 90 Temp 37.1 ??C (98.7 ??F) (Oral) Resp 16 Ht 1.676 m (66 ) Wt 75.8 kg (167 lb) SpO2 99% BMI 26.95 kg/m?? Smoking Status Never BSA 1.85 m?? Current Mental Status: A/O x [x]4, []3, []2, []1 Current Ambulation Status: IV Access: [x] Yes / [] No Field IV present: [] Yes / [x] No Hx of Violence: [] Yes / [x] No / [] Unknown Fall Risk:[x] Yes / [] No Yellow Bracelet Applied [x] Yes / [] No Yellow Socks Applied [x] Yes / [] No Patient Belongings inventoried and BL completed: [x] Yes / [] No Patient belongings stored in the security closet: [] Yes (If Yes please supply Security bag #): [] No Patient Medications stored in Pharmacy: [] Yes (If Yes please supply Medication Security bag #): [] No ED Summary of Care: Essence Garvey. This is a 23-year-old female who underwent right hip labrum surgery on June 21of this year. She was taking aspirin twice a day for a couple of weeks. She developed right leg pain on the lateral aspect which became severe. She was found to have a right lower extremity occlusiveperoneal DVT. Grade she then developed shortness of breath and chest pain and was referred to the ED. Chest CT showed bilateral segmental PEs. She was started on a heparin drip at that time. She has been doing well since then is currently on Xarelto. She was on OCPs, she has been switched over to aprogesterone only OCP. She does not smoke. Today she was at home and woke up to use the bathroom. Upon walking to the bathroom she felt lightheaded, dizzy and had a syncopal event. When she woke up she was in her bathtub and she was incontinent. When she got up from the bathtub she had another syncopal event. There was head strike. CT imaging reviewed and reassuring including repeat chest CT which shows resolving Pes. She was orthostatic on arrival with a heart rate in the 140s upon standing. She is received 3 L of fluid, the orthostasis persists Although improved. Submitted by and Phone Extension: [phone] * Toya Henderson RN - 07/22/2024 7:58 AM EDT Patient comes from home with two syncopal episodes + head/facial strike + thinners. C-collar applied, denies neck pain at this time. Patient states she had hip surgery on july 09, with complcations of a PE, recently admitted for pr, heparin drip. documented in this encounter H&P Notes * Esteban Lara MD - 07/22/2024 12:20 PM EDT Images from the original note were not included. [facility] HISTORY AND PHYSICAL Please contact author [Esteban Lara MD] via [employer]. Patient: Essence Garvey Admission Date/Time: 07/22/2024 7:43 AM : 2000 [23 y.o.] Patient's PCP: Lisa Rodriguez MD Attending Provider: Esteban Lara MD CHIEF COMPLAINT Syncopal episode HISTORY OF PRESENT ILLNESS Admission in bed 3. Essence Garvey. This is a 23-year-old female who underwent right hip labrum surgery on June 21 of this year. She was taking aspirin twice a day for a couple of weeks. She developed right leg pain on the lateral aspect which became severe. She was found to have a right lowerextremity occlusive peroneal DVT. Grade she then developed shortness of breath and chest pain and was referred to the ED. Chest CT showed bilateral segmental PEs. She was started on a heparin drip atthat time. She has been doing well since then is currently on Xarelto. She was on OCPs, she has been switched over to a progesterone only OCP. She does not smoke. Today she was at home and woke up to use the bathroom. Upon walking to the bathroom she felt lightheaded, dizzy and had a syncopal event. When she woke up she was in her bathtub and she was incontinent. When she got up from the bathtub she had another syncopal event. There was head strike. CT imaging reviewed and reassuring including repeat chest CT which shows resolving Pes. She was orthostatic on arrival with a heart rate in the 140s upon standing. She is received 2 L of fluid, the orthostasis persists Although improved. On repeat CT of the chest that I have reviewed personally those pulmonary emboli are not visible anymore. Functional status prior to presentation: Independent. Review of Systems Review of Systems Review of systems is positive for some dizziness and lightheadedness on exertion. The symptoms are not present at rest. No chest pain no palpitations no headache no focal neurological deficits. No fever no chills. All other systems reviewed and negative. MEDICAL HISTORY Past Medical History Recent hip surgery on June 21 Right leg DVT Pulmonary embolism Past Surgical History As above. Social History reports that she has never smoked. She has never used smokeless tobacco. She reports current alcohol use. She reports that she does not currently use drugs. Family History Family history of DVT or cardiac problems Allergies has No Known Allergies. Home Medications No current facility-administered medications on file prior to encounter. Current Outpatient Medications on File Prior to Encounter Medication Sig Dispense Refill rivaroxaban (XARELTO) starter pack Take 1 tablet (15 mg) by mouth 2 (two) times a day with meals for 21 days. Then take 1 tablet (20 mg) by mouth 1 (one) time each day with dinner. [DISCONTINUED] meloxicam (MOBIC) 15 mg tablet Take 1 tablet (15 mg total) by mouth 1 (one) time each day if needed for mild pain or moderate pain. [DISCONTINUED] norelgestromin-ethinyl estradiol (ORTHO EVRA) 150-35 mcg/[address] 1 patch on the skin 1 (one) time per week. OBJECTIVE Vitals Visit Vitals BP 106/62 (BP Location: Left arm, Patient Position: Lying) Pulse 90 Temp 37.1 ??C (98.7 ??F) (Oral) Resp 16 Temp (24hrs), Av ??C (98.6 ??F), Min:36.9 ??C (98.4 ??F), Max:37.1 ??C (98.7 ??F) Body mass index is 26.95 kg/m??. No results found for: PTWT , PTHT Physical Examination Physical Exam On physical exam she is a young female currently no apparent distress alert and oriented to person place and time in no focal neurological deficits. Skin is clear with no lesions or rashes. HEENT exam reveals equal pupils reactive to light and accommodation. There is no scleral icterus orconjunctival injections. Oral mucosa is moist and without any oral lesions. Neck is supple with no JVDs or lymphadenopathy Lungs are clear to auscultation on both sides Heart exam reveals S1-S2 with regular rate rhythm no murmurs rubs gallops Abdomen soft nontender nondistended with normal bowel sounds and without any masses Extremities well-perfused. ECG: Personally reviewed and interpreted EKG which shows normal sinus rhythm with no ST segment elevations depressions or QTc prolongation. LAB RESULTS (most recent) HEMATOLOGY Lab Results Component Value Date WBC 11.1 (H) 07/22/2024 HGB 13.3 07/22/2024 HCT 40.4 07/22/2024 MCV 84.7 07/22/2024 PLT 601 (H) 07/22/2024 CHEMISTRY Lab Results Component Value Date GLUCOSE 119 (H) 07/22/2024 NA 140 07/22/2024 K 4.8 07/22/2024 CO2 27 07/22/2024 CL 109 07/22/2024 BUN 16 07/22/2024 CREATININE 0.81 07/22/2024 EGFR 105 07/22/2024 CALCIUM 10.0 07/22/2024 MG 2.1 07/11/2024 ANIONGAP 4 07/22/[address] Head wo Contrast Final Result Evaluation limited by streak artifact from the patient's earrings. No visible abnormality. -------- FINAL REPORT -------- Dictated By: Murray Pritchett Dictated Date: 07/22/2024 10:09 ET Assigned Physician: Murray Pritchett Reviewed and Electronically Signed By: Murray Pritchett Signed Date: 07/22/2024 10:15 ET Workstation ID: [id number] Transcribed By: Self Edit Transcribed Date: 07/22/2024 10:[address] Angio Chest wo and/or w Contrast Final Result Interval resolution of bilateral segmental pulmonary emboli. -------- FINAL REPORT -------- Dictated By: Murray Pritchett Dictated Date: 07/22/2024 10:20 ET Assigned Physician: Murray Pritchett Reviewed and Electronically Signed By: Murray Pritchett Signed Date: 07/22/2024 10:30 ET Workstation ID: [id number] Transcribed By: Self Edit Transcribed Date: 07/22/2024 10:[address] Maxillofacial wo Contrast Final Result No facial fracture. -------- FINAL REPORT -------- Dictated By: Murray Pritchett Dictated Date: 07/22/2024 10:15 ET Assigned Physician: Murray Pritchett Reviewed and Electronically Signed By: Murray Pritchett Signed Date: 07/22/2024 10:20 ET Workstation ID: [id number] Transcribed By: Self Edit Transcribed Date: 07/22/2024 10:16 ET XR Chest 2 Views Final Result Normal chest radiographs. -------- FINAL REPORT -------- Dictated By: Murray Pritchett Dictated Date: 07/22/2024 09:31 ET Assigned Physician: Murray Pritchett Reviewed and Electronically Signed By: Murray Pritchett Signed Date: 07/22/2024 09:31 ET Workstation ID: [id number] Transcribed By: Self Edit Transcribed Date: 07/22/2024 09:31 ET ASSESSMENT & PLAN This is a 23-year-old female with recent diagnosis of DVT and PE currently presenting with 2 syncopal episodes. The patient is also found to be orthostatic and syncope is likely you were caused by orthostasis. 2. Orthostasis is a combination of probable poor p.o. intake as well as side effects from meloxicambut also possibly from Xarelto. Patient will be taken off meloxicam. TSH will be added to her previous labs as well as cortisol levels. She will get an echocardiogram to look for possible decrease in left ventricular systolic function due to previous pulmonary emboli even though this is very unlikely problem. IV fluids will be continued until tomorrow. Orthostatics will be rechecked 1 more time. 3. DVT PE. PE has resolved. She will continue her Xarelto 15 mg p.o. twice daily for now. Admission checklist [] Code status: Full Code - Default [] VTE Prophylaxis: Xarelto [] Diet order on admission: Dietary Orders (From admission, onward) Start Ordered 07/22/24 1221 Adult diet [facility]; General; Regular Diet effective now Question Answer Comment Location [facility] Diet Type (req) General General Diet Regular 07/22/24 1220 [] Lines, tubes, drains: [] Medication reconciliation Health Care proxy with Phone number Alternate [employer] Type [employer]isher Dorothy Garvey (Mother) documented in this encounter Plan of Treatment Not on file documented as of this encounter Procedures Procedure Name Priority Date/Time Associated Diagnosis Comments TRANSTHORACIC ECHOCARDIOGRAM (TTE) COMPLETE W/ CONTRAST Routine 07/23/2024 9:19 AM EDT Syncope and collapse ECG ANNOTATED 07/23/2024 CT ANGIO CHEST WO AND/OR W CONTRAST STAT 07/22/2024 9:57 AM EDT Syncope and collapse CT MAXILLOFACIAL WO CONTRAST STAT 07/22/2024 9:[address] HEAD WO CONTRAST STAT 07/22/2024 9 :57 AM EDT TROPONIN I HIGH SENSITIVITY STAT 07/22/2024 9:45 AM EDT XR CHEST 2 VIEWS STAT 07/22/2024 9:16 AM EDT POC , URINE DIAGNOSTIC STAT 07/22/2024 9:03 AM EDT URINALYSIS WITH REFLEX MICROSCOPIC AND CULTURE STAT 07/22/2024 8:58 AM EDT RICHARD URINE CULTURE TUBE STAT 07/23/19 8:58 AM EDT URINALYSIS WITH REFLEX MICROSCOPIC AND CULTURE STAT 07/22/2024 8:58 AM EDT CULTURE URINE STAT 07/22/2024 8:58 AM EDT ECG 12-LEAD STAT 07/22/2024 8:43 AM EDT TROPONIN I HIGH SENSITIVITY STAT 07/22/2024 8:27 AM EDT THYROID STIMULATING HORMONE WITH REFLEX TO FREE T4 AND FREE T3 Add-On 07/22/2024 8:27 AM EDT FREE THYROXINE WITH REFLEX TO FREE TRIIODOTHYRONINE Routine 07/22/2024 8:27 AM EDT CBC WITH AUTO DIFFERENTIAL STAT 07/22/2024 8:27 AM EDT PROTHROMBIN TIME WITH INR STAT 07/22/2024 8:27 AM EDT CBC AND DIFFERENTIAL STAT 07/22/2024 8:27 AM EDT TRIIODOTHYRONINE FREE Routine 07/22/2024 8:27 AM EDT THYROID STIMULATING HORMONE STAT 07/22/2024 8:27 AM EDT CORTISOL Add-On 07/22/2024 8:27 AM EDT COMPREHENSIVE METABOLIC PANEL STAT 07/22/2024 8:27 AM EDT documented in this encounter Results * TRANSTHORACIC ECHOCARDIOGRAM (TTE) COMPLETE W/ CONTRAST (07/23/2024 9:19 AM EDT) Left Atrium Minor [place] 4.3 cm CV PACS Left Atrium Major [place] 3.6 cm CV PACS LA Area Sys (A2C) 12 cm2 CV PACS LA Area Sys (A4C) 11 cm2 CV PACS LA Volume (BP) 27 mL CV PACS RA Area 9.5 cm2 CV PACS RA 2D Volume 20 mL CV PACS AV Mean Gradient 5 mmHg CV PACS Ao VTI 21.9 cm CV PACS AV Peak Cash 1.6 m/s CV PACS AV Peak Gradient 10 mmHg CV PACS AV Area Continuity Equation 2.9 cm2 CV PACS AV Area Peak Velocity 2.8 cm2 CV PACS Aortic Sinus Valsalva 2.9 cm CV PACS Ascending Aorta 2.7 cm CV PACS IVC Proximal 1.0 cm CV PACS IVSD 0.7 0.6 - 0.9 cm CV PACS LVIDD 4.7 3.8 - 5.2 cm CV PACS LVIDS 2.9 2.2 - 3.5 cm CV PACS LVOT Diameter 2.0 cm CV PACS LVOT Mean Cash 0.9 m/s CV PACS LVOT Mean Grad 4 mmHg CV PACS LVOT Peak VTI 20.0 cm CV PACS LVOT Peak Cash 1.4 m/s CV PACS LVOT Peak Gradient 8 mmHg CV PACS LVPWD 0.7 0.6 - 0.9 cm CV PACS LVOT Area 3.1 cm2 CV PACS LVOT Stroke Volume 63 mL CV PACS PV Acceleration Time 148 ms CV PACS PV Peak Velocity 1.4 m/s CV PACS PV Peak Gradient 7 mmHg CV PACS RV Diastolic Basal Dimension 2.8 2.5 - 4.1 cm CV PACS RV S' 19 cm/s CV PACS TAPSE 17 mm CV PACS LVOT Stroke Index 34 mL/m2 CV PACS Relative Wall Thickness ratio 0.30 CV PACS LVOT:AV VTI Index 0.91 CV PACS FS 38 % CV PACS LV Mass 2D 103 g CV PACS Ascending Aorta Index 1.46 cm/m2 CV PACS LVOT flow 283 mL/s CV PACS RA 2D Volume Index 11 mL/m2 CV PACS MERON Index (VTI) 1.55 cm2/m2 CV PACS MERON Index (Pk Cash) 1.51 cm2/m2 CV PACS LVIDD Index 2.54 cm/m2 CV PACS LVIDS Index 1.57 cm/m2 CV PACS AV Velocity Ratio 0.88 CV PACS LA Volume Index (BP) 15 mL/m2 CV PACS LV Mass Index 2D 56 g/m2 CV PACS BSA 1.88 m2 CV PACS Est. RA Pressure 3 mmHg CV PACS Anatomical Region Laterality Modality Ultrasound Narrative 07/23/2024 10:18 AM EDT ?Technically difficult study ?Left ventricle cavity size is normal. Left ventricular systolic function is in the normal range with an ejection fraction of 55-60%. ?No regional LV wall motion abnormalities noted. ?Right ventricle cavity is normal. Right ventricular systolic function is normal. ?No significant valvular disease. ?Of note, the patient had apparent episodes of tachycardia during the study. Left Ventricle Left ventricle cavity size is normal. Wall thickness is normal. Systolic function is normal with an ejection fraction of 55-60%. There are no regional LV wall motion abnormalities. There is no diastolic dysfunction. Right Ventricle Right ventricle cavity appears normal. Systolic function is normal. Left Atrium Left atrium cavity size is normal. Right Atrium Right atrium cavity is normal. IVC/SVC RA pressures is estimated to be 3 mmHg (IVC diameter <21 mm and decreases >50% during inspiration). Mitral Valve The leaflets are mildly thickened and exhibit normal excursion. There is trace regurgitation. There is no evidence of mitral valve stenosis. Tricuspid Valve The leaflets exhibit normal excursion. There is trace regurgitation. There is no evidence of tricuspid valve stenosis. Cannot assess RVSP. Aortic Valve The aortic valve is trileaflet. There is no regurgitation or stenosis. Pulmonic Valve Visualized portions of the pulmonic valve appear normal. There is trace pulmonic valve regurgitation. There is no evidence of pulmonic valve stenosis. Ascending Aorta The aorta appears normal in size. Pericardium Pericardium appears normal. There is no pericardial effusion. Study Details Overall the study quality was technically difficult. Definity contrast was given to enhance imaging. Study was difficult due to: poor endocardial visualization. Esteban Lara MD CV ECHO PROCEDURES Final Resul t * ECG-Annotated (07/23/2024) us Provider Onbase ECG ORDERABLES Final Result * CT Maxillofacial wo Contrast (07/22/2024 9:57 AM EDT) Anatomical Region Laterality Modality Head and Neck Computed Tomogra phy 07/22/2024 10:1 5 AM EDT Impressions 07/22/2024 10:20 AM EDT No facial fracture. -------- FINAL REPORT -------- Dictated By: Murray Pritchett Dictated Date: 07/22/2024 10:15 ET Assigned Physician: Murray Pritchett Reviewed and Electronically Signed By: Murray Pritchett Signed Date: 07/22/2024 10:20 ET Workstation ID: [id number] Transcribed By: Self Edit Transcribed Date: 07/22/2024 10:16 ET Narrative 07/22/2024 10:20 AM EDT PROCEDURE: CT of the face without intravenous contrast. HISTORY: trauma. COMPARISON: None. TECHNIQUE: Noncontrast CT of the face with coronal and sagittal reformats. Dose length product: ??Total for all concurrently acquired exams was 1806 mGy- cm. FINDINGS: Diffusely heterogeneous appearance of the thyroid gland with suggestion of multiple small nodules. ??The thyroid could be better evaluated with ultrasound. ??The visualized soft tissues of the upper neck are otherwise unremarkable. Streak artifact from the patient's earrings projects over the skull base. ??Small amount of debris in the left EAC. ??Mild mucosal thickening and a small amount of bubbly debris in the anterior-inferior left sphenoid sinus. ??Minimal mucosal thickening along the floor of both maxillary antra. ??There is mild rightward bowing of the lower nasal septum with a small apical septal spur. No acute fracture. ??No suspicious bony lesion. Procedure Note Murray Pritchett MD - 07/22/2024 PROCEDURE: CT of the face without intravenous contrast. HISTORY: trauma. COMPARISON: None. TECHNIQUE: Noncontrast CT of the face with coronal and sagittalreformats. Dose length product: Total for all concurrently acquired exams was 1806mGy-cm. FINDINGS: Diffusely heterogeneous appearance of the thyroid gland with suggestion ofmultiple small nodules. The thyroid could be better evaluated withultrasound. The visualized soft tissues of the upper neck are otherwiseunremarkable. Streak artifact from the patient's earrings projects over the skull base.Small amount of debris in the left EAC. Mild mucosal thickening and asmall amount of bubbly debris in the anterior-inferior left sphenoidsinus. Minimal mucosal thickening along the floor of both maxillaryantra. There is mild rightward bowing of the lower nasal septum with asmall apical septal spur. No acute fracture. No suspicious bony lesion. IMPRESSION: No facial fracture. -------- FINAL REPORT -------- Dictated By: Murray Pritchett Dictated Date: 07/22/2024 10:15 ET Assigned Physician: Murray Pritchett Reviewed and Electronically Signed By: Murray Pritchett Signed Date: 07/22/2024 10:20 ET Workstation ID: [id number] Transcribed By: Self Edit Transcribed Date: 07/22/2024 10:16 ET Felipa PALMA IMRandy CT PROCEDURES Final Resul t * CT Angio Chest wo and/or w Contrast (07/22/2024 9:57 AM EDT) Anatomical Region Laterality Modality Body Computed Tomogra phy 07/22/2024 10:2 0 AM EDT Impressions 07/22/2024 10:30 AM EDT Interval resolution of bilateral segmental pulmonary emboli. -------- FINAL REPORT -------- Dictated By: Murray Pritchett Dictated Date: 07/22/2024 10:20 ET Assigned Physician: Murray Pritchett Reviewed and Electronically Signed By: Murray Pritchett Signed Date: 07/22/2024 10:30 ET Workstation ID: [id number] Transcribed By: Self Edit Transcribed Date: 07/22/2024 10:22 ET Narrative 07/22/2024 10:30 AM EDT PROCEDURE: CT pulmonary angiogram. HISTORY: PE suspected, high prob syncope in the setting of known PE. TECHNIQUE: CT of the chest with intravenous contrast administration with pulmonary angiogram protocol. ??Coronal and sagittal reformats and MIP reconstructions were created. Dose length product: ??Total for all concurrently acquired exams was 1806 mGy- cm. Contrast dose: 90 mL ISOVUE-370. COMPARISON: FINDINGS: LUNGS/PLEURA: The central airways are clear normal in caliber. ??There are triangular and linear opacities in the posterior lower lobes consistent with atelectasis and/or scarring, similar to the previous study. ??No pleural effusion or pneumothorax. MEDIASTINUM/FAHAD: Heterogeneous appearance of the thyroid gland with suggestion of multiple small nodules. ??The thyroid could be further evaluated with ultrasound. ??No mass or lymphadenopathy. ?? VASCULATURE: Normal caliber pulmonary arteries. ??Previously demonstrated bilateral segmental pulmonary emboli have resolved. ??Normal appearance of the great vessels. CARDIAC: Normal heart size. ??No coronary artery calcification. CHEST WALL: No axillary or supraclavicular lymphadenopathy. LIMITED ABDOMEN: Unremarkable. BONES: Mild degenerative changes of the spine. Procedure Note Murray Pritchett MD - 07/22/2024 PROCEDURE: CT pulmonary angiogram. HISTORY: PE suspected, high prob syncope in the setting of known PE. TECHNIQUE: CT of the chest with intravenous contrast administration withpulmonary angiogram protocol. Coronal and sagittal reformats and MIPreconstructions were created. Dose length product: Total for all concurrently acquired exams was 1806mGy-cm. Contrast dose: 90 mL ISOVUE-370. COMPARISON: FINDINGS: LUNGS/PLEURA: The central airways are clear normal in caliber. There aretriangular and linear opacities in the posterior lower lobes consistentwith atelectasis and/or scarring, similar to the previous study. Nopleural effusion or pneumothorax. MEDIASTINUM/FAHAD: Heterogeneous appearance of the thyroid gland withsuggestion of multiple small nodules. The thyroid could be furtherevaluated with ultrasound. No mass or lymphadenopathy. VASCULATURE: Normal caliber pulmonary arteries. Previously demonstratedbilateral segmental pulmonary emboli have resolved. Normal appearance ofthe great vessels. CARDIAC: Normal heart size. No coronary artery calcification. CHEST WALL: No axillary or supraclavicular lymphadenopathy. LIMITED ABDOMEN: Unremarkable. BONES: Mild degenerative changes of the spine. IMPRESSION: Interval resolution of bilateral segmental pulmonary emboli. -------- FINAL REPORT -------- Dictated By: Murray Pritchett Dictated Date: 07/22/2024 10:20 ET Assigned Physician: Murray Pritchett Reviewed and Electronically Signed By: Murray Pritchett Signed Date: 07/22/2024 10:30 ET Workstation ID: [id number] Transcribed By: Self Edit Transcribed Date: 07/22/2024 10:22 ET Felipa PALMA IMG CT PROCEDURES Final Resul t * CT Head wo Contrast (07/22/2024 9:57 AM EDT) Anatomical Region Laterality Modality Head and Neck Computed Tomogra phy 07/22/2024 10:0 9 AM EDT Impressions 07/22/2024 10:15 AM EDT Evaluation limited by streak artifact from the patient's earrings. ??No visible abnormality. -------- FINAL REPORT -------- Dictated By: Murray Pritchett Dictated Date: 07/22/2024 10:09 ET Assigned Physician: Murray Pritchett Reviewed and Electronically Signed By: Murray Pritchett Signed Date: 07/22/2024 10:15 ET Workstation ID: [id number] Transcribed By: Self Edit Transcribed Date: 07/22/2024 10:09 ET Narrative 07/22/2024 10:15 AM EDT PROCEDURE: Noncontrast head CT. HISTORY: syncope. COMPARISON: None. TECHNIQUE: Noncontrast head CT with coronal and sagittal reformats. Dose length product: Total for all concurrently acquired exams was 1806 mGy-cm. FINDINGS: There is prominent streak artifact from the patient's earrings which partially obscures the inferior portions of the brain. BRAIN: No hemorrhage, edema, mass, or extra-axial fluid collection. ??No CT evidence of an acute large vessel infarct. ??Ventricles and sulci are age commensurate. ORBITS: Normal. SINUSES/MASTOIDS: Normal. CALVARIUM: Normal. OTHER: The skull base soft tissues are normal. Procedure Note Murray Pritchett MD - 07/22/2024 PROCEDURE: Noncontrast head CT. HISTORY: syncope. COMPARISON: None. TECHNIQUE: Noncontrast head CT with coronal and sagittal reformats. Dose length product: Total for all concurrently acquired exams was 1806mGy-cm. FINDINGS: There is prominent streak artifact from the patient's earrings whichpartially obscures the inferior portions of the brain. BRAIN: No hemorrhage, edema, mass, or extra-axial fluid collection. No CTevidence of an acute large vessel infarct. Ventricles and sulci are agecommensurate. ORBITS: Normal. SINUSES/MASTOIDS: Normal. CALVARIUM: Normal. OTHER: The skull base soft tissues are normal. IMPRESSION: Evaluation limited by streak artifact from the patient's earrings. Novisible abnormality. -------- FINAL REPORT -------- Dictated By: Murray Pritchett Dictated Date: 07/22/2024 10:09 ET Assigned Physician: Murray Pritchett Reviewed and Electronically Signed By: Murray Pritchett Signed Date: 07/22/2024 10:15 ET Workstation ID: [id number] Transcribed By: Self Edit Transcribed Date: 07/22/2024 10:09 ET us Felipa PALMA IMG CT PROCEDURES Final Resul t * Troponin I high sensitivity (07/22/2024 9:45 AM EDT) [facility] High Sensitivity Troponin I <3 <=54 ng/L LAB CHEMISTRY METHOD 07/22/2024 10:22 AM EDT [facility] Blood Venous blood specimen / Unknown Venipuncture / Unknown 07/22/2024 9:45 AM EDT 07/22/2024 9:50 AM EDT Narrative [facility] - 07/22/2024 10:22 AM EDT High levels of biotin in samples may falsely decrease hsTroponin values. ??Use caution when interpreting hsTroponin results in patients taking biotin who exhibit renal impairment (eGFR <60) or in patients taking more than 20 mg/day of biotin. us Felipa PALMA LAB BLOOD ORDERABLES Final Re sult [facility] [address] [place] [address], [place] [phone] * XR Chest 2 Views (07/22/2024 9:16 AM EDT) Anatomical Region Laterality Modality Body Radiographic Carmen ging 07/22/2024 9:31 AM EDT Impressions 07/22/2024 9:31 AM EDT Normal chest radiographs. -------- FINAL REPORT -------- Dictated By: Murray Pritchett Dictated Date: 07/22/2024 09:31 ET Assigned Physician: Murray Pritchett Reviewed and Electronically Signed By: Murray Pritchett Signed Date: 07/22/2024 09:31 ET Workstation ID: [id number] Transcribed By: Self Edit Transcribed Date: 07/22/2024 09:31 ET Narrative 07/22/2024 9:31 AM EDT PROCEDURE: PA and lateral radiographs of the chest. HISTORY: syncope. COMPARISON: Chest CT 07/11/2024. FINDINGS: The heart, mediastinum, lungs, pleural spaces, and bony thorax are normal. Procedure Note Murray Pritchett MD - 07/22/2024 PROCEDURE: PA and lateral radiographs of the chest. HISTORY: syncope. COMPARISON: Chest CT 07/11/2024. FINDINGS: The heart, mediastinum, lungs, pleural spaces, and bony thorax arenormal. IMPRESSION: Normal chest radiographs. -------- FINAL REPORT -------- Dictated By: Murray Pritchett Dictated Date: 07/22/2024 09:31 ET Assigned Physician: Murray Pritchett Reviewed and Electronically Signed By: Murray Pritchett Signed Date: 07/22/2024 09:31 ET Workstation ID: [id number] Transcribed By: Self Edit Transcribed Date: 07/22/2024 09:31 ET us Felipa PALMA IMG XR PROCEDURES Final Resul t * POC , urine manually resulted (07/22/2024 9:03 AM EDT) HCG, Ur POC Negative Negative POC hCG Int QC Pass? Yes Yes Urine Urine specimen obtained by clean catch procedure / Unknown 07/22/2024 9:03 AM EDT us Felipa PALMA POINT OF CARE TEST ENTER/EDIT ORDERABLES Final Result * Culture urine (07/22/2024 8:58 AM EDT) Culture, Urine >100,000 CFU/mL Mixed urogenital marko, no uropathogens present. Suggest repeat specimen if clinically indicated. 07/24/2024 10:50 AM EDT [facility] Urine Urine specimen obtained by clean catch procedure / Unknown Non-blood Collection / Unknown 07/22/2024 8:58 AM EDT 07/22/2024 9:35 AM EDT us Felipa PALMA LAB MICROBIOLOGY - GENERAL OR DERABLES Final Result Performing Organization Address City/[facility]/ZIP Co de Phone Number [facility] [address] [place] [address], [place] [phone] * Richard urine culture tube (07/22/2024 8:58 AM EDT) Pathologist [facility] Extra Tube Hold for add-ons. 07/22/2024 11:01 AM EDT [facility] Comment:Auto resulted. Urine Urine specimen obtained by clean catch procedure / Unknown Non-blood Collection / Unknown 07/22/2024 8:58 AM EDT 07/22/2024 9:13 AM EDT us Felipa PALMA LAB URINE ORDERABLES Final Re sult [facility] [address] [place] [address], [place] [phone] * (ABNORMAL) Urinalysis with reflex microscopic and culture (07/22/2024 8:58 AM EDT) Specific [place] Urine 1.031(H) 1.003 - 1.030 LAB URINALYSIS - AUTOMATED METHOD 07/22/2024 9:35 AM [facility] pH, Urine 6.0 5.0 - 8.0 pH LAB URINALYSIS - AUTOMATED METHOD 07/22/2024 9:35 AM [facility] Leukocytes, Urine Trace(A) Negative LAB URINALYSIS - AUTOMATED METHOD 07/22/2024 9:35 AM [facility] Nitrite, Urine Negative Negative LAB URINALYSIS - AUTOMATED METHOD 07/22/2024 9:35 AM [facility] Protein, Urine 100(A) <=Trace mg/dL LAB URINALYSIS - AUTOMATED METHOD 07/22/2024 9:35 AM [facility] Glucose, Urine Negative Negative mg/dL LAB URINALYSIS - AUTOMATED METHOD 07/22/2024 9:35 AM [facility] Ketones, Urine Trace(A) Negative mg/dL LAB URINALYSIS - AUTOMATED METHOD 07/22/2024 9:35 AM [facility] Urobilinogen , Urine 1.0 0.2 - 1.0 mg/dL LAB URINALYSIS - AUTOMATED METHOD 07/22/2024 9:35 AM [facility] Bilirubin, Urine Small(A) Negative LAB URINALYSIS - AUTOMATED METHOD 07/22/2024 9:35 AM [facility] Blood, Urine Negative Negative LAB URINALYSIS - AUTOMATED METHOD 07/22/2024 9:35 AM [facility] RBC, Urine 1.0 0 - 4 /HPF LAB URINALYSIS - AUTOMATED METHOD 07/22/2024 9:35 AM [facility] WBC, Urine 13.5(H) 0 - 4 /HPF LAB URINALYSIS - AUTOMATED METHOD 07/22/2024 9:35 AM [facility] Squamous Epithelial, Urine >100(H) 0 - 60 /LPF LAB URINALYSIS - AUTOMATED METHOD 07/22/2024 9:35 AM EDT [facility] Crystals, Urine MOD CALCIUM OXALATE /LPF LAB URINALYSIS - AUTOMATED METHOD 07/22/2024 9:35 AM EDT [facility] Bacteria, Urine Few(A) Negative /HPF LAB URINALYSIS - AUTOMATED METHOD 07/22/2024 9:35 AM EDT [facility] Hyaline Casts, Urine 3.0 0 - 3 /LPF LAB URINALYSIS - AUTOMATED METHOD 07/22/2024 9:35 AM EDT [facility] Mucus, Urine Moderate None /HPF LAB URINALYSIS - AUTOMATED METHOD 07/22/2024 9:35 AM EDT [facility] Urine Urine specimen obtained by clean catch procedure / Unknown Non-blood Collection / Unknown 07/22/2024 8:58 AM EDT 07/22/2024 9:13 AM EDT Felipa PALMA LAB URINE ORDERABLES Final Re sult [facility] [address] [place] [address], * ECG 12 lead (07/22/2024 8:43 AM EDT) Ventricular Rate ECG 81 BPM GEMUSE Atrial Rate 81 BPM GEMUSE P-R Interval 160 ms GEMUSE QRS Duration 96 ms GEMUSE Q-T Interval 388 ms GEMUSE QTc 450 ms GEMUSE P Wave [place] 56 degrees GEMUSE R [place] 63 degrees GEMUSE T [place] 34 degrees GEMUSE ECG Interpretation Normal sinus rhythm Normal ECG When compared with ECG of 11-JUL-2024 11:39, No significant change was found Confirmed by Jun SORIA JOHN ([id number]) on 07/23/2024 4:05:10 PM GEMUSE 07/22/2024 8:43 AM EDT 07/23/2024 4:05 PM EDT us Felipa PALMA ECG ORDERABLES Final Result GEMUSE * (ABNORMAL) Triiodothyronine free (07/22/2024 8:27 AM EDT) T3, Free 455(H) 230 - 420 pcg/dL LAB CHEMISTRY METHOD 07/22/2024 2:42 PM EDT [facility] Blood Venous blood specimen / Unknown Venipuncture / Unknown 07/22/2024 8:27 AM EDT 07/22/2024 8:47 AM EDT Esteban Lara MD LAB BLOOD ORDERABLES Final Res ult Performing Organization Address [facility] Co de Phone Number [facility] [address] [place] [address], [place] [phone] * Free thyroxine with reflex to free triiodothyronine (07/22/2024 8:27 AM EDT) Free T4 1.45 0.70 - 1.80 ng/dL LAB CHEMISTRY METHOD 07/22/2024 2:19 PM EDT [facility] Blood Venous blood specimen / Unknown Venipuncture / Unknown 07/22/2024 8:27 AM EDT 07/22/2024 8:47 AM EDT Esteban Lara MD LAB BLOOD ORDERABLES Final Res ult Performing Organization Address City/[facility]/ZIP Co de Phone Number [facility] [address] [place] [address], [place] [phone] * Cortisol (07/22/2024 8:27 AM EDT) Cortisol 42.7 mcg/dL LAB CHEMISTRY METHOD 07/22/2024 1:23 PM EDT [facility] Blood Venous blood specimen / Unknown Venipuncture / Unknown 07/22/2024 8:27 AM EDT 07/22/2024 8:47 AM EDT Narrative [facility] - 07/22/2024 1:23 PM EDT CORTISOL REFERENCE RANGE ?? 8 AM SPEC: ??5.0-23.0 mcg/dL ?? 4 PM SPEC: ??3.0-16.0 mcg/dL ?? 8 PM SPEC: ??<5.0 mcg/dL Esteban Lara MD LAB BLOOD ORDERABLES Final Res ult Performing Organization Address [facility]/ZIP Co de Phone Number [facility] [address] [place] [address], [place] [phone] * (ABNORMAL) Thyroid stimulating hormone with reflex to free t4 and free t3 (07/22/2024 8:27 AM EDT) TSH 9.75(H) 0.40 - 4.00 mcIU/mL LAB CHEMISTRY METHOD 07/22/2024 1:24 PM EDT [facility] Blood Venous blood specimen / Unknown Venipuncture / Unknown 07/22/2024 8:27 AM EDT 07/22/2024 8:47 AM EDT Esteban Lara MD LAB BLOOD ORDERABLES Final Res ult Performing Organization Address [facility]/ZIP Co de Phone Number [facility] [address] [place] [address], [place] [phone] * (ABNORMAL) CBC auto differential (07/22/2024 8:27 AM EDT) WBC 11.1(H) 4.8 - 10.8 K/[facility] LAB HEMETOLOGY METHOD 07/22/2024 9:06 AM EDT [facility] RBC 4.80 3.80 - 4.80 M/[facility] LAB HEMETOLOGY METHOD 07/22/2024 9:06 AM EDT [facility] Hemoglobin 13.3 11.5 - 16.0 g/dL LAB HEMETOLOGY METHOD 07/22/2024 9:06 AM [facility] Hematocrit 40.4 35.0 - 47.0 % LAB HEMETOLOGY METHOD 07/22/2024 9:06 AM [facility] MCV 84.7 79.0 - 98.0 FL LAB HEMETOLOGY METHOD 07/22/2024 9:06 AM [facility] MCH 27.9 27.0 - 32.0 pcg LAB HEMETOLOGY METHOD 07/22/2024 9:06 AM [facility] MCHC 32.9 32.0 - 37.0 g/dL LAB HEMETOLOGY METHOD 07/22/2024 9:06 AM [facility] RDW 13.6 11.0 - 15.0 % LAB HEMETOLOGY METHOD 07/22/2024 9:06 AM [facility] Platelets 601(H) 130 - 400 K/mcL LAB HEMETOLOGY METHOD 07/22/2024 9:06 AM [facility] MPV 8.3 7.0 - 11.0 FL LAB HEMETOLOGY METHOD 07/22/2024 9:06 AM [facility] NRBC 0.0 <1.0 % LAB HEMETOLOGY METHOD 07/22/2024 9:06 AM [facility] NRBC Absolute 0.00 <0.10 K/mcL LAB HEMETOLOGY METHOD 07/22/2024 9:06 AM [facility] Neutrophils Relative 79.4 % LAB HEMETOLOGY METHOD 07/22/2024 9:06 AM [facility] Lymphocytes Relative 15.6 % LAB HEMETOLOGY METHOD 07/22/2024 9:06 AM [facility] Monocytes Relative 3.0 % LAB HEMETOLOGY METHOD 07/22/2024 9:06 AM EDT [facility] Eosinophils Relative 1.1 % LAB HEMETOLOGY METHOD 07/22/2024 9:06 AM [facility] Basophils Relative 0.5 % LAB HEMETOLOGY METHOD 07/22/2024 9:06 AM [facility] Immature Granulocytes Relative 0.4 % LAB HEMETOLOGY METHOD 07/22/2024 9:06 [facility] Neutrophils Absolute 8.78(H) 1.50 - 7.00 K/mcL LAB HEMETOLOGY METHOD 07/22/2024 9:06 AM [facility] Lymphocytes Absolute 1.72 1.00 - 5.00 K/mcL LAB HEMETOLOGY METHOD 07/22/2024 9:06 AM [facility] Monocytes Absolute 0.33 0.20 - 1.00 K/mcL LAB HEMETOLOGY METHOD 07/22/2024 9:[facility] Eosinophils Absolute 0.12 0.00 - 0.50 K/mcL LAB HEMETOLOGY METHOD 07/22/2024 9:06 AM [facility] Basophils Absolute 0.06 0.00 - 0.20 K/mcL LAB HEMETOLOGY METHOD 07/22/2024 9:06 AM [facility] Immature Granulocytes Absolute 0.04(H) 0.00 - 0.03 K/mcL LAB HEMETOLOGY METHOD 07/22/2024 9:06 AM [facility] Blood Venous blood specimen / Unknown Venipuncture / Unknown 07/22/2024 8:27 AM EDT 07/22/2024 8:47 AM EDT us Felipa PALMA LAB BLOOD ORDERABLES Final Re sult [facility] [address] [place] [address], [place] [phone] * Troponin I high sensitivity (07/22/2024 8:27 AM EDT) [facility] High Sensitivity Troponin I <3 <=54 ng/L LAB CHEMISTRY METHOD 07/22/2024 9:32 AM EDT [facility] Blood Venous blood specimen / Unknown Venipuncture / Unknown 07/22/2024 8:27 AM EDT 07/22/2024 8:47 AM EDT Narrative [facility] - 07/22/2024 9:32 AM EDT High levels of biotin in samples may falsely decrease hsTroponin values. ??Use caution when interpreting hsTroponin results in patients taking biotin who exhibit renal impairment (eGFR <60) or in patients taking more than 20 mg/day of biotin. us Felipa PALMA LAB BLOOD ORDERABLES Final Re sult [facility] [address] [place] [address], [place] [phone] * Prothrombin time with INR (07/22/2024 8:27 AM EDT) [facility] Protime 13.6 10.6 - 13.9 sec LAB COAGULATION METHOD 07/22/2024 9:21 AM EDT [facility] INR 1.1 LAB COAGULATION METHOD 07/22/2024 9:21 AM EDT [facility] Blood Venous blood specimen / Unknown Venipuncture / Unknown 07/22/2024 8:27 AM EDT 07/22/2024 8:47 AM EDT us Felipa PALMA LAB BLOOD ORDERABLES Final Re sult [facility] [address] [place] [address], [place] [phone] * (ABNORMAL) Thyroid stimulating hormone (TSH) (07/22/2024 8:27 AM EDT) [facility] TSH 9.83(H) 0.40 - 4.00 mcIU/mL LAB CHEMISTRY METHOD 07/22/2024 10:27 AM [facility] Blood Venous blood specimen / Unknown Venipuncture / Unknown 07/22/2024 8:27 AM EDT 07/22/2024 8:47 AM EDT Felipa PALMA LAB BLOOD ORDERABLES Final Re sult [facility] [address] [place] [address], [place] [phone] * (ABNORMAL) Comprehensive metabolic panel (07/22/2024 8:27 AM EDT) [facility] Sodium 140 133 - 145 mmol/L LAB CHEMISTRY METHOD 07/22/2024 9:34 AM [facility] Potassium 4.8 3.5 - 5.5 mmol/L LAB CHEMISTRY METHOD 07/22/2024 9:34 AM [facility] Chloride 109 96 - 110 mmol/L LAB CHEMISTRY METHOD 07/22/2024 9:34 AM [facility] CO2 27 21 - 32 mmol/L LAB CHEMISTRY METHOD 07/22/2024 9:34 AM [facility] Anion Gap 4 3 - 11 LAB CHEMISTRY METHOD 07/22/2024 9:34 AM [facility] Glucose 119(H) 70 - 100 mg/dL LAB CHEMISTRY METHOD 07/22/2024 9:34 AM [facility] BUN 16 5 - 25 mg/dL LAB CHEMISTRY METHOD 07/22/2024 9:34 AM [facility] Creatinine 0.81 0.50 - 1.10 mg/dL LAB CHEMISTRY METHOD 07/22/2024 9:34 AM [facility] eGFR 105 >=60 mL/min/1. 73m2 LAB CHEMISTRY METHOD 07/22/2024 9:34 AM [facility] Comment:Calculation based on the??Chronic Kidney Disease Epidemiology Collaboration (CKD-EPI) equation refit??without adjustment for race. BUN/Creatinine Ratio 19.8 LAB CHEMISTRY METHOD 07/22/2024 9:34 AM [facility] Calcium 10.0 8.5 - 10.5 mg/dL LAB CHEMISTRY METHOD 07/22/2024 9:34 AM [facility] AST (SGOT) 15 10 - 42 unit/L LAB CHEMISTRY METHOD 07/22/2024 9:34 AM [facility] ALT (SGPT) 37 10 - 60 unit/L LAB CHEMISTRY METHOD 07/22/2024 9:34 AM [facility] Alkaline Phosphatase 94 42 - 121 unit/L LAB CHEMISTRY METHOD 07/22/2024 9:34 AM [facility] Total Protein 7.6 6.0 - 8.0 g/dL LAB CHEMISTRY METHOD 07/22/2024 9:34 AM [facility] Albumin 3.7 3.2 - 5.0 g/dL LAB CHEMISTRY METHOD 07/22/2024 9:34 AM [facility] Total Bilirubin 0.2 0.0 - 1.4 mg/dL LAB CHEMISTRY METHOD 07/22/2024 9:34 AM [facility] Blood Venous blood specimen / Unknown Venipuncture / Unknown 07/22/2024 8:27 AM EDT 07/22/2024 8:47 AM EDT us Felipa PALMA LAB BLOOD ORDERABLES Final Re sult [facility] [address] [place] [address], [place] [phone] documented in this encounter Visit Diagnoses Diagnosis Syncope and collapse- Primary Syncope and collapse documented in this encounter Admitting Diagnoses Diagnosis Syncope and collapse documented in this encounter Administered Medications Inactive Administered Medications - up to 3 most recent administrations Medication Order MAR Action Action Date Dose Rate Site acetaminophen (TYLENOL) tablet 650 mg 650 mg, oral, 4 times daily PRN, mild pain, Starting on Tue07/22/24 at 1802 Given 07/22/2024 6:41 PM EDT 650 mg iopamidoL (ISOVUE-370) 370 mg iodine /mL (76 %) injection 90 mL 90 mL, intravenous, Once in imaging, Starting on Tue07/22/24 at 0950, For 1 dose Given 07/22/2024 9:53 AM EDT 90 mL perflutren lipid microsphere (DEFINITY) 1.3 mL in sodium chloride 0.9% 8.7 mL injection 10 mL, intravenous, Administer over 10 Minutes, Once in imaging, Starting on Tue07/22/24 at 1433, For 1 dose, CV Medication Orders Given 07/23/2024 9:22 AM EDT 3 mL rivaroxaban (XARELTO) tablet 15 mg 15 mg, oral, 2 times daily with meals, First dose on Tue07/22/24 at 1700, Best administered with food or immediately before tube feedings. If ordered via NG or G-tube route, crush and mix with 50 mL water; give within 4 hours of mixing., Indication: VTE/PE Treatment Given 07/23/2024 7:21 AM EDT 15 mg Given 07/22/2024 5:57 PM EDT 15 mg sodium chloride 0.9 % bolus 1,000 mL 1,000 mL, intravenous, at 2,000 mL/hr, Administer over 30 Minutes, Once, On 07/22/24 at 0835, For 1 dose New Bag 07/22/2024 8:35 AM EDT 1,000 mL 2000 mL/hr sodium chloride 0.9 % bolus 1,000 mL 1,000 mL, intravenous, at 2,000 mL/hr, Administer over 30 Minutes, Once, On Tue07/22/24 at 1034, For 1 dose New Bag 07/22/2024 10:45 AM EDT 1,000 mL 2000 mL/hr sodium chloride 0.9 % flush 10 mL 10 mL, intravenous, Once, On 07/22/24 at 0951, For 1 dose Given 07/22/2024 9:53 AM EDT 10 mL sodium chloride 0.9 % infusion 125 mL/hr, intravenous, Continuous, Starting on 07/22/24 at 1221 New Bag 07/23/2024 7:21 AM EDT 125 mL/hr 125 mL/hr New Bag 07/22/2024 11:02 PM EDT 125 mL/hr 125 mL/hr New Bag 07/22/2024 3:39 PM EDT 125 mL/hr 125 mL/hr sodium chloride tablet 1 g 1 g, oral, 3 times daily with meals, First dose on 07/23/24 at 1245 documented in this encounter Discontinued Medications Medication Sig Discontinue Reason Start Date End Da te meloxicam (MOBIC) 15 mg tablet Take 1 tablet (15 mg total) by mouth 1 (one) time each day if needed for mild pain or moderate pain. Discontinued by another clinician 06/20/2024 07/22/2024 norelgestromin-ethiny l estradiol (ORTHO EVRA) 150-35 mcg/[address] 1 patch on the skin 1 (one) time per week. Discontinued by another clinician 03/24/2024 07/22/2024 documented as of this encounter Historical Medications * This list may reflect changes made after this encounter. drospirenone, contraceptive, (Slynd) 4 mg (28) tablet Take 1 tablet by mouth 1 (one) time each day. added in this encounter Active and Recently Administered Medications Times are shown in EDT. Scheduled Medication Order 07/21/2024 07/22/2024 07/23/2024 iopamidoL (ISOVUE-370) 370 mg iodine /mL (76 %) injection 90 mL (COMPLETED) 90 mL, intravenous, Once in imaging, Starting on 07/22/24 at 0950, For 1 dose 0953 (Given - Provider: Dalila Jules) perflutren lipid microsphere (DEFINITY) 1.3 mL in sodium chloride 0.9% 8.7 mL injection (COMPLETED) 10 mL, intravenous, Administer over 10 Minutes, Once in imaging, Starting on 07/22/24 at 1433, For 1 dose, CV Medication Orders 0922 (Given - Provid er: Krystina Osorio) rivaroxaban (XARELTO) tablet 15 mg 15 mg, oral, 2 times daily with meals, First dose on Tue07/22/24 at 1700, Best administered with food or immediately before tube feedings. If ordered via NG or G-tube route, crush and mix with 50 mL water; give within 4 hours of mixing., Indication: VTE/PE Treatment 1757 (Given - Provider: Mulu Bowie RN) 0721 (Given - Provider: Siria Lew RN) sodium chloride 0.9 % bolus 1,000 mL (COMPLETED) 1,000 mL, intravenous, at 2,000 mL/hr, Administer over 30 Minutes, Once, On 07/22/24 at 0835, For 1 dose 0835 (New Bag - Provider: Toya Henderson RN)0957 (Stopped - Provider: Toya Henderson RN) sodium chloride 0.9 % bolus 1,000 mL (COMPLETED) 1,000 mL, intravenous, at 2,000 mL/hr, Administer over 30 Minutes, Once, On Tue07/22/24 at 1034, For 1 dose 1045 (New Bag - Provider: Toya Henderson RN)1152 (Stopped - Provider: Toya Henderson RN) sodium chloride 0.9 % flush 10 mL (COMPLETED) 10 mL, intravenous, Once, On Tue07/22/24 at 0951, For 1 dose 0953 (Given - Provider: Dalila Jules) sodium chloride tablet 1 g 1 g, oral, 3 times daily with meals, First dose on Tue07/23/24 at 1245 1245 (Canceled Entry - Provider: Automatic Discharge Provider - Comment: Automatically canceled at discontinue of medication order) Continuous Medication Order 07/21/2024 07/22/2024 07/23/2024 sodium chloride 0.9 % infusion 125 mL/hr, intravenous, Continuous, Starting on Tue07/22/24 at 1221 1242 (New Bag - Provider: Toya Henderson RN)1333 (Stopped - Provider: Toya Henderson RN)1539 (New Bag - Provider: Mulu Bowie RN)2302 (New Bag - Provider: Siria Lew RN) 0721 (New Bag - Provider: Siria Lew RN)1545 (Due: Stopped) PRN Medication Order 07/21/2024 07/22/2024 07/23/2024 acetaminophen (TYLENOL) tablet 650 mg 650 mg, oral, 4 times daily PRN, mild pain, Starting on 07/22/24 at 1802 1841 (Given - Provider: Kay Bowie RN) documented in this encounter Orders Medications Ordered That Santi ht Not Have Been Administered Count Last Ordered Date First Ordered Date sodium chloride tablet 1 g 1 07/23/2024 Admission Count Last Ordered Date First Orde red Date INITIATE OBSERVATION STATUS 1 07/22/2024 Transfer Count Last Ordered Date First Orde red Date ED TO FLOOR BED REQUEST 1 07/22/2024 Discharge Count Last Ordered Date First Orde red Date DISCHARGE PATIENT 1 07/23/2024 CORE MEASURES Count Last Ordered Date First Ord ered Date REASON FOR NO VTE PROPHYLAXI S - HOSPITAL ADMISSION - MEDICATIONS 1 07/22/2024 documented in this encounter Care Teams Clinic Office Coordinator Relationship Specialty Start Date End Date Lisa Rodriguez MD [address] [place] [address] PCP - General Internal Medicine 07/11/24 documented as of this encounter
--- OUTSIDE RECORDS SUMMARY | 2024-07-24 12:49 | XMS_ITS | Clinical Summary ---
Author Organization [facility] Address [address] [place] [phone] Phone Care Team Providers Care Recycling Program Manager Name Role Phone Lisa Rodriguez MD Primary Care Provider Allergies No known active allergies Medications rivaroxaban (XARELTO) starter pack Take 1 tablet (15 mg) by mouth 2 (two) times a day with meals for 21 days. Then take 1 tablet (20 mg) by mouth 1 (one) time each day with dinner. 5 Active drospirenone, contraceptive, (Slynd) 4 mg (28) tablet Take 1 tablet by mouth 1 (one) time each day. Active sodium chloride 1 gram tablet Take 1 tablet (1 g total) by mouth 3 (three) times a day with meals. 90 each 5 Active meloxicam (MOBIC) 15 mg tablet Take 1 tablet (15 mg total) by mouth 1 (one) time each day if needed for mild pain or moderate pain. 5 07/23/19 25 Discontinue d(Discontin ued by another clinician) norelgestromin- ethinyl estradiol (ORTHO EVRA) 150-35 mcg/[address] 1 patch on the skin 1 (one) time per week. 4 07/23/19 25 Discontinue d(Discontin ued by another clinician) rivaroxaban (XARELTO) 15 mg tablet Take 1 tablet (15 mg total) by mouth 1 (one) time. Take with food. 07/13/19 25 Discontinue d(Stop Taking at Discharge) Active Problems Problem Noted Date Diagnosed Date Syncope and collapse 07/22/2024 Multiple subsegmental pulmon mily emboli without acute cor pulmonale ([facility] V24, [facility] V28) 07/11/2024 Encounters Date Type Department Care Team Description 07/22/2024 7:43 AM EDT - 07/23/2024 1:44 PM EDT Hospital Encounter [facility]mediate [facility] [address] [place] [address] Esteban Lara MD Kela, Kashyap Devendrabhai, MD Kokosadze, Estate, MD Syncope and collapse (Primary Dx) Discharge Disposition: Home or Self Care 07/11/2024 10:41 AM EDT - 07/12/2024 11:56 AM EDT Hospital Encounter [facility] Medical Surgical Unit [address] [place] [address] Esteban Lara MD Kokosadze, Estate, MD Multiple subsegmental pulmonary emboli without acute cor pulmonale ([facility] V24, [facility] V28) (Primary Dx); Tachycardia Discharge Disposition: Home or Self Care from Last 3 Months Surgical History Surgery Date Site/Laterality Comments HIP ARTHROSCOPY W/ LABRAL REPAIR Right Medical History Medical History Date Comments Labral tear of right hip joint Social History Tobacco Use Types Packs/Day Years Used Date Smoking Tobacco: Never Smokeless Tobacco: Never Tobacco Cessation:Counseling Given: Not Answered Alcohol Use Standard Drinks/Week Comments Yes 0 [...] Orientation Straight 07/11/2024 11 :06 AM EDT Obstetrics History Last Filed Vital Signs Vital Sign Reading [...] Mass Index 26.95 07/22/2024 8:19 AM EDT Plan of Treatment Health Maintenance Due Date Last Done Comments Gonorrhea/Chlamydia Screening 2000 Cervical Cancer Screening: Pap Smear 2021 COVID-19 Vaccine ( season) 2023 04/07/2023, 04/08/2022, 04/15/2021, Additional history exists Depression Screening 07/11/2024 HIV Screening 07/11/2024 Hepatitis C Screening 07/11/2024 Social Influencers of Health Screening 07/11/2024 Influenza Vaccine (Season Ended) 2024 04/07/2023, 04/08/2022, 02/17/2021, Additional history exists DTaP,Tdap,and Td Vaccines (8 - Td or Tdap) 10/29/2031 10/28/2021, 10/05/2011, 10/15/2004, Additional history exists HIB Vaccines Completed 01/12/2002, 03/12, 01/27/2001, Additional history exists Pneumococcal Vaccine: Pediatrics (0 to 5 Years) and At-Risk Patients (6 to 64 Years) Completed 10/02/2002, 03/31/2001, 01/27/2001, Additional history exists IPV Vaccines Completed 10/15/2004, 03/12, 01/27/2001, Additional history exists MMR Vaccines Completed 10/15/2004, 10/06/2001 Varicella Vaccines Completed 10/05/2007, 01/12/2002 Hepatitis A Vaccines Completed 05/06/2015, 10/09/19 15 HPV Vaccines Completed 04/07/2016, 11/10, 10/07/2015 Meningococcal ACWY Vaccine Completed 10/14/2016, Hepatitis B Vaccines Completed 10/05/2018, 06/30/2001, 2000, Additional history exists Meningococcal B Vaccine Completed 04/10/2019, 10/05 RSV Immunization Patients Under 20 months Aged Out No longer eligible based on patient's age to complete this topic Procedures Procedure Name Priority Date/Time Associated Diagnosis [...] URINE DIAGNOSTIC STAT 07/22/2024 9:03 AM EDT RICHARD URINE CULTURE TUBE STAT 07/23/19 8:58 AM EDT URINALYSIS WITH REFLEX MICROSCOPIC AND CULTURE STAT 07/22/2024 8:58 AM EDT URINALYSIS WITH REFLEX MICROSCOPIC AND CULTURE STAT 07/22/2024 8:58 AM EDT CULTURE URINE STAT 07/22/2024 8:58 AM EDT ECG 12-LEAD STAT 07/22/2024 8:43 AM EDT TRIIODOTHYRONINE FREE Routine 07/22/2024 8:27 AM EDT FREE THYROXINE WITH REFLEX TO FREE TRIIODOTHYRONINE Routine 07/22/2024 8:27 AM EDT CORTISOL Add-On 07/22/2024 8:27 AM EDT THYROID STIMULATING HORMONE WITH REFLEX TO FREE T4 AND FREE T3 Add-On 07/22/2024 8:27 AM EDT CBC WITH AUTO DIFFERENTIAL STAT 07/22/2024 8:27 AM EDT TROPONIN I HIGH SENSITIVITY STAT 07/22/2024 8:27 AM EDT PROTHROMBIN TIME WITH INR STAT 07/22/2024 8:27 AM EDT THYROID STIMULATING HORMONE STAT 07/22/2024 8:27 AM EDT COMPREHENSIVE METABOLIC PANEL STAT 07/22/2024 8:27 AM EDT CBC AND DIFFERENTIAL STAT 07/22/2024 8:27 AM EDT ECG ANNOTATED 07/13/2024 HEPARIN ANTI XA STAT 07/12/2024 8:55 AM EDT ACTIVATED PARTIAL THROMBOPLASTIN TIME Timed 07/12/2024 6:41 AM EDT COMPLETE BLOOD COUNT Routine 07/12/2024 6:41 AM EDT BASIC METABOLIC PANEL Routine 07/12/2024 6:41 AM EDT HEPARIN ANTI XA STAT 07/12/2024 2:54 AM EDT ACTIVATED PARTIAL THROMBOPLASTIN TIME Routine 07/12/2024 12:17 AM EDT ACTIVATED PARTIAL THROMBOPLASTIN TIME Routine 07/11/2024 11:15 PM EDT ACTIVATED PARTIAL THROMBOPLASTIN TIME Timed 07/11/2024 9:01 PM EDT HEPARIN ANTI XA STAT 07/11/2024 9:01 PM EDT VAS US DUPLEX LOWER EXT VENOUS BILAT STAT 07/11/2024 4:04 PM EDT Multiple subsegmental pulmonary emboli without acute cor pulmonale (CMS/HCC V24, CMS/HCC V28) HEPARIN ANTI XA STAT 07/11/2024 2:56 PM EDT ACTIVATED PARTIAL THROMBOPLASTIN TIME STAT 07/11/2024 2:56 PM EDT PROTHROMBIN TIME WITH INR STAT 07/11/2024 2:[address] ANGIO CHEST WO AND/OR W CONTRAST STAT 07/11/2024 1:29 PM EDT Tachycardia ECG 12-LEAD STAT 07/11/2024 11:39 AM EDT HCG, SERUM, QUALITATIVE STAT 07/12/19 11:30 AM EDT TROPONIN I HIGH SENSITIVITY STAT 07/11/2024 11:30 AM EDT ECG 12-LEAD STAT 07/11/2024 10:42 AM EDT CBC WITH AUTO DIFFERENTIAL STAT 07/11/2024 10:37 AM EDT MAGNESIUM STAT 07/11/2024 10:37 AM EDT LIPASE STAT 07/11/2024 10:37 AM EDT COMPREHENSIVE METABOLIC PANEL STAT 07/11/2024 10:37 AM EDT CBC AND DIFFERENTIAL STAT 07/11/2024 10:37 AM EDT TROPONIN I HIGH SENSITIVITY STAT 07/11/2024 10:37 AM EDT from Last 3 Months Results * TRANSTHORACIC ECHOCARDIOGRAM (TTE) COMPLETE W/ CONTRAST (07/23/2024 9:19 AM EDT) Left Atrium Minor [place] 4.3 cm CV PACS Left Atrium Major [place] 3.6 cm CV PACS LA Area Sys [...] was difficult due to: poor endocardial visualization. us Esteban Lara MD CV ECHO PROCEDURES Final Resul t * ECG-Annotated (07/23/2024) Only the most recent of2 resultswithin the time period is included. us Provider Onbase ECG ORDERABLES Final Result * CT Angio Chest wo and/or w Contrast (07/22/2024 9:57 AM EDT) Only the most recent of2 resultswithin the time period is included. Anatomical Region Laterality Modality Body Computed Tomogra phy 07/22/2024 10:2 0 AM EDT Impressions 07/22/2024 10:30 AM EDT Interval resolution of bilateral segmental pulmonary emboli. -------- FINAL REPORT -------- Dictated By: Murray Pritchett Dictated Date: 07/22/2024 10:20 ET Assigned Physician: Murray Pritchett Reviewed and Electronically Signed By: Murray Pritchett Signed Date: 07/22/2024 10:30 ET Workstation ID: [id number] Transcribed By: Self Edit Transcribed Date: 07/22/2024 [...] Signed Date: 07/22/2024 10:30 ET Workstation ID: [id number] Transcribed By: Self Edit Transcribed Date: 07/22/2024 10:22 ET us Felipa PALMA IMG CT PROCEDURES Final Resul t * CT Maxillofacial wo Contrast (07/22/2024 9:57 AM EDT) Anatomical Region Laterality Modality Head and Neck Computed Tomogra phy 07/22/2024 10:1 5 AM EDT Impressions 07/22/2024 10:20 AM EDT No facial fracture. -------- FINAL REPORT -------- Dictated By: Murray Pritchett Dictated Date: 07/22/2024 10:15 ET Assigned Physician: Murray Pritchett Reviewed and Electronically Signed By: Murray Pritchett Signed Date: 07/22/2024 10:20 ET Workstation ID: [id number] Transcribed By: Self Edit Transcribed Date: 07/22/2024 [...] Signed Date: 07/22/2024 10:20 ET Workstation ID: [id number] Transcribed By: Self Edit Transcribed Date: 07/22/2024 [...] Signed Date: 07/22/2024 10:15 ET Workstation ID: [id number] Transcribed By: Self Edit Transcribed Date: 07/22/2024 [...] Signed Date: 07/22/2024 10:15 ET Workstation ID: [id number] Transcribed By: Self Edit Transcribed Date: 07/22/2024 10:09 ET us Felipa PALMA IMG CT PROCEDURES Final Resul t * Troponin I high sensitivity (07/22/2024 9:45 AM EDT) Only the most recent of4 resultswithin the time period is included. [facility] High Sensitivity Troponin I <3 <=54 ng/L LAB CHEMISTRY METHOD 07/22/2024 10:22 AM EDT [facility] Blood Venous blood specimen / Unknown Venipuncture / Unknown 07/22/2024 9:45 AM EDT 07/22/2024 9:50 AM EDT Narrative [facility] ([facility]) [facility] - 07/22/2024 10:22 AM EDT High levels of biotin in samples may falsely decrease hsTroponin values. ??Use caution when interpreting hsTroponin results in patients taking biotin who exhibit renal impairment (eGFR <60) or in patients taking more than 20 mg/day of biotin. us Felipa PALMA LAB BLOOD ORDERABLES Final Re sult [facility] ([facility]) [facility] [address] [place] [address], * XR Chest 2 Views (07/22/2024 9:16 AM EDT) Anatomical Region Laterality Modality Body Radiographic Carmen ging 07/22/2024 9:31 AM EDT Impressions 07/22/2024 9:31 AM EDT Normal chest radiographs. -------- FINAL REPORT -------- Dictated By: Murray Pritchett Dictated Date: 07/22/2024 09:31 ET Assigned Physician: Murray Pritchett Reviewed and Electronically Signed By: Murray Pritchett Signed Date: 07/22/2024 09:31 ET Workstation ID: [id number] Transcribed By: Self Edit Transcribed Date: 07/22/2024 [...] Signed Date: 07/22/2024 09:31 ET Workstation ID: [id number] Transcribed By: Self Edit Transcribed Date: 07/22/2024 09:31 ET us Felipa PALMA IMG XR PROCEDURES Final Resul t * POC , urine manually resulted (07/22/2024 9:03 AM EDT) [facility] HCG, Ur POC Negative Negative POC hCG Int QC Pass? Yes Yes Urine Urine specimen obtained by clean catch procedure / Unknown 07/22/2024 9:03 AM EDT us Felipa PALMA POINT OF CARE TEST ENTER/EDIT ORDERABLES Final Result * (ABNORMAL) Urinalysis with reflex microscopic and culture (07/22/2024 8:58 AM EDT) [facility] Specific [place] Urine 1.031(H) 1.003 - 1.030 LAB URINALYSIS - AUTOMATED METHOD 07/22/2024 9:35 AM [facility] pH, Urine 6.0 5.0 - 8.0 pH LAB URINALYSIS - AUTOMATED METHOD 07/22/2024 9:35 AM [facility] Leukocytes, Urine Trace(A) Negative LAB URINALYSIS - AUTOMATED METHOD 07/22/2024 9:35 AM [facility] Nitrite, Urine Negative Negative LAB URINALYSIS - AUTOMATED METHOD 07/22/2024 9:35 AM [facility] Protein, Urine 100(A) <=Trace mg/dL LAB URINALYSIS - AUTOMATED METHOD 07/22/2024 9:35 AM [facility] Glucose, Urine Negative Negative mg/dL LAB URINALYSIS - AUTOMATED METHOD 07/22/2024 9:35 AM [facility] Ketones, Urine Trace(A) Negative mg/dL LAB URINALYSIS - AUTOMATED METHOD 07/22/2024 9:35 AM [facility] Urobilinogen , Urine 1.0 0.2 - 1.0 mg/dL LAB URINALYSIS - AUTOMATED METHOD 07/22/2024 9:35 AM [facility] Bilirubin, Urine Small(A) Negative LAB URINALYSIS - AUTOMATED METHOD 07/22/2024 9:35 AM [facility] Blood, Urine Negative Negative LAB URINALYSIS - AUTOMATED METHOD 07/22/2024 9:35 AM [facility] RBC, Urine 1.0 0 - 4 /HPF LAB URINALYSIS - AUTOMATED METHOD 07/22/2024 9:35 AM [facility] WBC, Urine 13.5(H) 0 - 4 /HPF LAB URINALYSIS - AUTOMATED METHOD 07/22/2024 9:35 AM [facility] Squamous Epithelial, Urine >100(H) 0 - 60 /LPF LAB URINALYSIS - AUTOMATED METHOD 07/22/2024 9:35 AM [facility] Crystals, Urine MOD CALCIUM OXALATE /LPF LAB URINALYSIS - AUTOMATED METHOD 07/22/2024 9:35 AM [facility] Bacteria, Urine Few(A) Negative /HPF LAB URINALYSIS - AUTOMATED METHOD 07/22/2024 9:35 AM [facility] Hyaline Casts, Urine 3.0 0 - 3 /LPF LAB URINALYSIS - AUTOMATED METHOD 07/22/2024 9:35 AM [facility] Mucus, Urine Moderate None /HPF LAB URINALYSIS - AUTOMATED METHOD 07/22/2024 9:35 AM [facility] Urine Urine specimen obtained by clean catch procedure / Unknown Non-blood Collection / Unknown 07/22/2024 8:58 AM EDT 07/22/2024 9:13 AM EDT us Felipa PALMA LAB URINE ORDERABLES Final Re sult Performing Organization Address [facility]/ZIP Co de Phone Number [facility] [address] [place] [address], [place] [phone] * Richard urine culture tube (07/22/2024 8:58 AM EDT) Extra Tube Hold for add-ons. 07/22/2024 11:01 AM EDT [facility] Comment:Auto resulted. Urine Urine specimen obtained by clean catch procedure / Unknown Non-blood Collection / Unknown 07/22/2024 8:58 AM EDT 07/22/2024 9:13 AM EDT us Felipa PALMA LAB URINE ORDERABLES Final Re sult Performing Organization Address [facility] Co de Phone Number [facility] [address] [place] [address], [place] [phone] * Culture urine (07/22/2024 8:58 AM EDT) Culture, Urine >100,000 CFU/mL Mixed urogenital marko, no uropathogens present. Suggest repeat specimen if clinically indicated. 07/24/2024 10:50 AM EDT [facility] Urine Urine specimen obtained by clean catch procedure / Unknown Non-blood Collection / Unknown 07/22/2024 8:58 AM EDT 07/22/2024 9:35 AM EDT us Felipa PALMA LAB MICROBIOLOGY - GENERAL OR DERABLES Final Result Performing Organization Address [facility]/ZIP Co de Phone Number [facility] [address] [place] [address], [place] [phone] * ECG 12 lead (07/22/2024 8:43 AM EDT) Only the most recent of3 resultswithin the time period is included. Ventricular Rate ECG 81 BPM GEM[facility] Atrial Rate 81 BPM GEM[facility] P-R Interval 160 ms GEMUSE QRS Duration 96 ms GEM[facility] Q-T Interval 388 ms GEMUSE QTc 450 ms GEMUSE P Wave De Witt 56 degrees GEMUSE R [place] 63 degrees GEMUSE T [place] 34 degrees GEMUSE ECG Interpretation Normal sinus rhythm Normal ECG When compared with ECG of 11-JUL-2024 11:39, No significant change was found Confirmed by Jun SORIA JOHN ([id number]) on 07/23/2024 4:05:10 PM GEMUSE 07/22/2024 8:43 AM EDT 07/23/2024 4:05 PM EDT Felipa PALMA ECG ORDERABLES Final Result Performing Organization Address City/[facility]/ZIP Co de Phone Number GEMUSE * (ABNORMAL) Thyroid stimulating hormone with reflex to free t4 and free t3 (07/22/2024 8:27 AM EDT) Pathologist [facility] TSH 9.75(H) 0.40 - 4.00 mcIU/mL LAB CHEMISTRY METHOD 07/22/2024 1:24 PM EDT [facility] Blood Venous blood specimen / Unknown Venipuncture / Unknown 07/22/2024 8:27 AM EDT 07/22/2024 8:47 AM EDT Esteban Lara MD LAB BLOOD ORDERABLES Final Res ult [facility] [address] [place] [address], [place] [phone] * Free thyroxine with reflex to free triiodothyronine (07/22/2024 8:27 AM EDT) Pathologist [facility] Free T4 1.45 0.70 - 1.80 ng/dL LAB CHEMISTRY METHOD 07/22/2024 2:19 PM EDT [facility] Blood Venous blood specimen / Unknown Venipuncture / Unknown 07/22/2024 8:27 AM EDT 07/22/2024 8:47 AM EDT us Esteban Lara MD LAB BLOOD ORDERABLES Final Res ult [facility] [address] [place] [address], [place] [phone] * (ABNORMAL) CBC auto differential (07/22/2024 8:27 AM EDT) Only the most recent of2 resultswithin the time period is included. WBC 11.1(H) 4.8 - 10.8 K/mcL LAB HEMETOLOGY METHOD 07/22/2024 9:06 AM [facility] RBC 4.80 3.80 - 4.80 M/mcL LAB HEMETOLOGY METHOD 07/22/2024 9:06 AM [facility] Hemoglobin 13.3 11.5 - 16.0 g/dL LAB HEMETOLOGY METHOD 07/22/2024 9:06 AM [facility] Hematocrit 40.4 35.0 - 47.0 % LAB HEMETOLOGY METHOD 07/22/2024 9:06 AM [facility] MCV 84.7 79.0 - 98.0 FL LAB HEMETOLOGY METHOD 07/22/2024 9:06 AM [facility] MCH 27.9 27.0 - 32.0 pcg LAB HEMETOLOGY METHOD 07/22/2024 9:06 AM [facility] MCHC 32.9 32.0 - 37.0 g/dL LAB HEMETOLOGY METHOD 07/22/2024 9:06 AM [facility] RDW 13.6 11.0 - 15.0 % LAB HEMETOLOGY METHOD 07/22/2024 9:06 AM [facility] Platelets 601(H) 130 - 400 K/mcL LAB HEMETOLOGY METHOD 07/22/2024 9:06 AM [facility] MPV 8.3 7.0 - 11.0 FL LAB HEMETOLOGY METHOD 07/22/2024 9:06 AM [facility] NRBC 0.0 <1.0 % LAB HEMETOLOGY METHOD 07/22/2024 9:06 AM [facility] NRBC Absolute 0.00 <0.10 K/mcL LAB HEMETOLOGY METHOD 07/22/2024 9:06 AM [facility] Neutrophils Relative 79.4 % LAB HEMETOLOGY METHOD 07/22/2024 9:06 AM [facility] Lymphocytes Relative 15.6 % LAB HEMETOLOGY METHOD 07/22/2024 9:06 AM [facility] Monocytes Relative 3.0 % LAB HEMETOLOGY METHOD 07/22/2024 9:06 AM [facility] Eosinophils Relative 1.1 % LAB HEMETOLOGY METHOD 07/22/2024 9:06 AM [facility] Basophils Relative 0.5 % LAB HEMETOLOGY METHOD 07/22/2024 9:06 AM [facility] Immature Granulocytes Relative 0.4 % LAB HEMETOLOGY METHOD 07/22/2024 9:06 AM [facility] Neutrophils Absolute 8.78(H) 1.50 - 7.00 K/mcL LAB HEMETOLOGY METHOD 07/22/2024 9:06 AM [facility] Lymphocytes Absolute 1.72 1.00 - 5.00 K/mcL LAB HEMETOLOGY METHOD 07/22/2024 9:06 AM [facility] Monocytes Absolute 0.33 0.20 - 1.00 K/mcL LAB HEMETOLOGY METHOD 07/22/2024 9:06 AM EDT [facility] Eosinophils Absolute 0.12 0.00 - 0.50 K/[facility] LAB HEMETOLOGY METHOD 07/22/2024 9:06 AM EDT [facility] Basophils Absolute 0.06 0.00 - 0.20 K/[facility] LAB HEMETOLOGY METHOD 07/22/2024 9:06 AM EDT [facility] Immature Granulocytes Absolute 0.04(H) 0.00 - 0.03 K/mcL LAB HEMETOLOGY METHOD 07/22/2024 9:06 AM EDT [facility] Blood Venous blood specimen / Unknown Venipuncture / Unknown 07/22/2024 8:27 AM EDT 07/22/2024 8:47 AM EDT us Felipa PALMA LAB BLOOD ORDERABLES Final Re sult Performing Organization Address City/[facility]/ZIP Co de Phone Number [facility] [address] [place] [address], [place] [phone] * Prothrombin time with INR (07/22/2024 8:27 AM EDT) Only the most recent of2 resultswithin the time period is included. Protime 13.6 10.6 - 13.9 sec LAB COAGULATION METHOD 07/22/2024 9:21 AM EDT [facility] INR 1.1 LAB COAGULATION METHOD 07/22/2024 9:21 AM EDT [facility] Blood Venous blood specimen / Unknown Venipuncture / Unknown 07/22/2024 8:27 AM EDT 07/22/2024 8:47 AM EDT us Felipa PALMA LAB BLOOD ORDERABLES Final Re sult [facility] [address] [place] [address], * (ABNORMAL) Triiodothyronine free (07/22/2024 8:27 AM EDT) T3, Free 455(H) 230 - 420 pcg/dL LAB CHEMISTRY METHOD 07/22/2024 2:42 PM EDT [facility] Blood Venous blood specimen / Unknown Venipuncture / Unknown 07/22/2024 8:27 AM EDT 07/22/2024 8:47 AM EDT Esteban Lara MD LAB BLOOD ORDERABLES Final Res ult Performing Organization Address [facility] Co de Phone Number [facility] [address] [place] [address], * (ABNORMAL) Thyroid stimulating hormone (TSH) (07/22/2024 8:27 AM EDT) TSH 9.83(H) 0.40 - 4.00 mcIU/mL LAB CHEMISTRY METHOD 07/22/2024 10:27 AM EDT [facility] Blood Venous blood specimen / Unknown Venipuncture / Unknown 07/22/2024 8:27 AM EDT 07/22/2024 8:47 AM EDT Felipa PALMA LAB BLOOD ORDERABLES Final Re sult Performing Organization Address [facility] Co de Phone Number [facility] [address] [place] [address], * Cortisol (07/22/2024 8:27 AM EDT) Cortisol 42.7 mcg/dL LAB CHEMISTRY METHOD 07/22/2024 1:23 PM EDT [facility] Blood Venous blood specimen / Unknown Venipuncture / Unknown 07/22/2024 8:27 AM EDT 07/22/2024 8:47 AM EDT Narrative [facility] - 07/22/2024 1:23 PM EDT CORTISOL REFERENCE RANGE ?? 8 AM SPEC: ??5.0-23.0 mcg/dL ?? 4 PM SPEC: ??3.0-16.0 mcg/dL ?? 8 PM SPEC: ??<5.0 mcg/dL us Esteban Lara MD LAB BLOOD ORDERABLES Final Res ult [facility] [address] [place] [address], [place] [phone] * (ABNORMAL) Comprehensive metabolic panel (07/22/2024 8:27 AM EDT) Only the most recent of2 resultswithin the time period is included. Sodium 140 133 - 145 mmol/L LAB CHEMISTRY METHOD 07/22/2024 9:34 AM [facility] Potassium 4.8 3.5 - 5.5 mmol/L LAB CHEMISTRY METHOD 07/22/2024 9:34 AM [facility] Chloride 109 96 - 110 mmol/L LAB CHEMISTRY METHOD 07/22/2024 9:34 AM [facility] CO2 27 21 - 32 mmol/L LAB CHEMISTRY METHOD 07/22/2024 9:34 AM [facility] Anion Gap 4 3 - 11 LAB CHEMISTRY METHOD 07/22/2024 9:34 AM [facility] Glucose 119(H) 70 - 100 mg/dL LAB CHEMISTRY METHOD 07/22/2024 9:34 AM [facility] BUN 16 5 - 25 mg/dL LAB CHEMISTRY METHOD 07/22/2024 9:34 AM [facility] Creatinine 0.81 0.50 - 1.10 mg/dL LAB CHEMISTRY METHOD 07/22/2024 9:34 AM [facility] eGFR 105 >=60 mL/min/1. 73m2 LAB CHEMISTRY METHOD 07/22/2024 9:34 AM [facility] Comment:Calculation based on the??Chronic Kidney Disease Epidemiology Collaboration (CKD-EPI) equation refit??without adjustment for race. BUN/Creatinine Ratio 19.8 LAB CHEMISTRY METHOD 07/22/2024 9:34 AM [facility] Calcium 10.0 8.5 - 10.5 mg/dL LAB CHEMISTRY METHOD 07/22/2024 9:34 AM [facility] AST (SGOT) 15 10 - 42 unit/L LAB CHEMISTRY METHOD 07/22/2024 9:34 AM [facility] ALT (SGPT) 37 10 - 60 unit/L LAB CHEMISTRY METHOD 07/22/2024 9:34 AM [facility] Alkaline Phosphatase 94 42 - 121 unit/L LAB CHEMISTRY METHOD 07/22/2024 9:34 AM [facility] Total Protein 7.6 6.0 - 8.0 g/dL LAB CHEMISTRY METHOD 07/22/2024 9:34 AM [facility] Albumin 3.7 3.2 - 5.0 g/dL LAB CHEMISTRY METHOD 07/22/2024 9:34 AM [facility] Total Bilirubin 0.2 0.0 - 1.4 mg/dL LAB CHEMISTRY METHOD 07/22/2024 9:34 AM [facility] Blood Venous blood specimen / Unknown Venipuncture / Unknown 07/22/2024 8:27 AM EDT 07/22/2024 8:47 AM EDT us [facility] LAB BLOOD ORDERABLES Final Re sult [facility] [address] [place] [address], [place] [phone] * Anti-Xa - Every 6 Hours (07/12/2024 8:55 AM EDT) Only the most recent of4 resultswithin the time period is included. Heparin Anti-Xa 0.42 0.30 - 0.70 I Unit/mL LAB COAGULATION METHOD 07/12/2024 9:18 AM EDT [facility] Blood Venous blood specimen / Unknown Venipuncture / Unknown 07/12/2024 8:55 AM EDT 07/12/2024 9:07 AM EDT Narrative [facility] - 07/12/2024 9:18 AM EDT Therapeutic range listed is for Unfractionated Heparin. LMW Heparin therapeutic range: 0.50-1.20 IU/mL us Esteban Lara MD LAB BLOOD ORDERABLES Final Res ult Performing Organization Address City/[facility]/ZIP Co de Phone Number [facility] [address] [place] [address], [place] [phone] * (ABNORMAL) Activated Partial Thromboplastin Time - Every 6 Hours (07/12/2024 6:41 AM EDT) Only the most recent of5 resultswithin the time period is included. aPTT 63.0(H) 24.1 - 39.3 sec LAB COAGULATION METHOD 07/12/2024 7:53 AM EDT [facility] Blood Venous blood specimen / Unknown Venipuncture / Unknown 07/12/2024 6:41 AM EDT 07/12/2024 7:15 AM EDT us Esteban Lara MD LAB BLOOD ORDERABLES Final Res ult [facility] [address] [place] [address], [place] [phone] * (ABNORMAL) Complete blood count (07/12/2024 6:41 AM EDT) [facility] WBC 11.1(H) 4.8 - 10.8 K/mcL LAB HEMETOLOGY METHOD 07/12/2024 7:33 AM [facility] RBC 4.40 3.80 - 4.80 M/mcL LAB HEMETOLOGY METHOD 07/12/2024 7:33 AM [facility] Hemoglobin 12.3 11.5 - 16.0 g/dL LAB HEMETOLOGY METHOD 07/12[facility]2024 7:[facility] Hematocrit 36.8 35.0 - 47.0 % LAB HEMETOLOGY METHOD 07/12/2024 7:33 AM [facility] MCV 83.8 79.0 - 98.0 FL LAB HEMETOLOGY METHOD 07/12/2024 7:33 AM [facility] MCH 28.0 27.0 - 32.0 pcg LAB HEMETOLOGY METHOD 07/12/2024 7:33 AM [facility] MCHC 33.4 32.0 - 37.0 g/dL LAB HEMETOLOGY METHOD 07/12/2024 7:33 AM [facility] RDW 13.2 11.0 - 15.0 % LAB HEMETOLOGY METHOD 07/12/2024 7:33 AM [facility] Platelets 499(H) 130 - 400 K/mcL LAB HEMETOLOGY METHOD 07/12/2024 7:33 AM [facility] MPV 8.5 7.0 - 11.0 FL LAB HEMETOLOGY METHOD 07/12/2024 7:33 AM [facility] NRBC 0.0 <1.0 % LAB HEMETOLOGY METHOD 07/12/2024 7:33 AM [facility] NRBC Absolute 0.00 <0.10 K/mcL LAB HEMETOLOGY METHOD 07/12/2024 7:33 AM [facility] Blood Venous blood specimen / Unknown Venipuncture / Unknown 07/12/2024 6:41 AM EDT 07/12/2024 7:32 AM EDT us Esteban Lara MD LAB BLOOD ORDERABLES Final Res ult [facility] [address] [place] [address], [place] [phone] * Basic metabolic panel (07/12/2024 6:41 AM EDT) Sodium 138 133 - 145 mmol/L LAB CHEMISTRY METHOD 07/12/2024 7:47 AM [facility] Potassium 4.4 3.5 - 5.5 mmol/L LAB CHEMISTRY METHOD 07/12/2024 7:47 AM [facility] Chloride 106 96 - 110 mmol/L LAB CHEMISTRY METHOD 07/12/2024 7:47 AM [facility] CO2 26 21 - 32 mmol/L LAB CHEMISTRY METHOD 07/12/2024 7:47 AM [facility] Anion Gap 6 3 - 11 LAB CHEMISTRY METHOD 07/12/2024 7:47 AM [facility] Glucose 93 70 - 100 mg/dL LAB CHEMISTRY METHOD 07/12/2024 7:47 AM [facility] BUN 11 5 - 25 mg/dL LAB CHEMISTRY METHOD 07/12/2024 7:47 AM [facility] Creatinine 0.67 0.50 - 1.10 mg/dL LAB CHEMISTRY METHOD 07/12/2024 7:47 AM [facility] eGFR 126 >=60 mL/min/1. 73m2 LAB CHEMISTRY METHOD 07/12/2024 7:47 AM [facility] Comment:Calculation based on the??Chronic Kidney Disease Epidemiology Collaboration (CKD-EPI) equation refit??without adjustment for race. BUN/Creatinine Ratio 16.4 LAB CHEMISTRY METHOD 07/12/2024 7:47 AM EDT [facility] Calcium 9.7 8.5 - 10.5 mg/dL LAB CHEMISTRY METHOD 07/12/2024 7:47 AM EDT [facility] Blood Venous blood specimen / Unknown Venipuncture / Unknown 07/12/2024 6:41 AM EDT 07/12/2024 7:15 AM EDT us Esteban Lara MD LAB BLOOD ORDERABLES Final Res ult [facility] [address] [place] [address], [place] [phone] * Vascular US Duplex Lower Extremity Venous Bilateral (07/11/2024 4:04 PM EDT) Anatomical Region Laterality Modality Vascular, Abdomen Ultrasound 07/11/2024 4:32 PM EDT Impressions 07/11/2024 4:33 PM EDT OCCLUSIVE THROMBUS WITHIN THE RIGHT PERONEAL VEIN. ??NO PROXIMAL DEEP VEIN THROMBOSIS IN EITHER LOWER EXTREMITY. -------- FINAL REPORT -------- Dictated By: Manav Tran Dictated Date: 07/11/2024 16:32 ET Assigned Physician: Manav Tran Reviewed and Electronically Signed By: Manav Tran Signed Date: 07/11/2024 16:33 ET Workstation ID: [id number] Transcribed By: Self Edit Transcribed Date: 07/11/2024 16:32 ET Narrative 07/11/2024 4:33 PM EDT PROCEDURE: VAS US DUPLEX LOWER EXT VENOUS BILAT INDICATION: pain swelling TECHNIQUE: 2-D and color Doppler imaging of the lower extremity venous vasculature with compression and augmentation maneuvers. COMPARISON: No priors available. FINDINGS: RIGHT: There is normal flow, compression, and augmentation from the common femoral through the popliteal vein. ??Occlusive thrombus within the peroneal vein. LEFT: There is normal flow, compression, and augmentation from the common femoral through the popliteal vein. Visualized calf veins unremarkable. Procedure Note Manav Tran MD - 07/11/2024 PROCEDURE: VAS US DUPLEX LOWER EXT VENOUS BILAT INDICATION: pain swelling TECHNIQUE: 2-D and color Doppler imaging of the lower extremity venousvasculature with compression and augmentation maneuvers. COMPARISON: No priors available. FINDINGS: RIGHT: There is normal flow, compression, and augmentation from the commonfemoral through the popliteal vein. Occlusive thrombus within theperoneal vein. LEFT: There is normal flow, compression, and augmentation from the commonfemoral through the popliteal vein. Visualized calf veins unremarkable. IMPRESSION: OCCLUSIVE THROMBUS WITHIN THE RIGHT PERONEAL VEIN. NO PROXIMAL DEEP VEINTHROMBOSIS IN EITHER LOWER EXTREMITY. -------- FINAL REPORT -------- Dictated By: Manav Tran Dictated Date: 07/11/2024 16:32 ET Assigned Physician: Manav Tran Reviewed and Electronically Signed By: Manav Tran Signed Date: 07/11/2024 16:33 ET Workstation ID: [id number] Transcribed By: Self Edit Transcribed Date: 07/11/2024 16:32 ET Gil PALMA CV VASCULAR PROCEDURES Final Result * hCG, serum, qualitative (07/11/2024 11:30 AM EDT) Pathologist [facility] hCG Qual Negative Negative 07/11/2024 12:18 PM EDT [facility] Blood Venous blood specimen / Unknown Venipuncture / Unknown 07/11/2024 11:30 AM EDT 07/11/2024 11:55 AM EDT Gil PALMA LAB BLOOD ORDERABLES Final Re sult [facility] [address] [place] [address], [place] [phone] * Magnesium (07/11/2024 10:37 AM EDT) Pathologist [facility] Magnesium 2.1 1.9 - 2.6 mg/dL LAB CHEMISTRY METHOD 07/11/2024 11:56 AM EDT [facility] Blood Venous blood specimen / Unknown Venipuncture / Unknown 07/11/2024 10:37 AM EDT 07/11/2024 11:26 AM EDT us Franklyn Benitez MD LAB BLOOD ORDERABLES Final Resu lt Performing Organization Address [facility]/ZIP Co de Phone Number [facility] [address] [place] [address], [place] [phone] * Lipase (07/11/2024 10:37 AM EDT) Lipase 34 13 - 75 unit/L LAB CHEMISTRY METHOD 07/11/2024 11:56 AM EDT [facility] Blood Venous blood specimen / Unknown Venipuncture / Unknown 07/11/2024 10:37 AM EDT 07/11/2024 11:26 AM EDT us Franklyn Benitez MD LAB BLOOD ORDERABLES Final Resu lt Performing Organization Address [facility] Co de Phone Number [facility] [address] [place] [address], [place] [phone] from Last 3 Months Insurance [facility] Advance Directives * Full Code - Default (Latest Code Status on File) Date Activated Date Inactivated Comments 07/22/2024 12:20 PM 07/23/2024 3:50 PM This is ord er is used when code status has not been discussed with the patient, or code status is otherwise unknown/unconfirmed To update the patient's code status, place a code status order. Do not modify or discontinue any currently active code status orders. * Full Code - Default Date Activated Date Inactivated Comments 07/11/2024 3:03 PM 07/12/2024 2:07 PM This is order is used when code status has not been discussed with the patient, or code status is otherwise unknown/unconfirmed To update the patient's code status, place a code status order. Do not modify or discontinue any currently active code status orders. Healthcare Agents on File Name Relationship Healthcare Agent [facility] Communication Dorothy Garvey [facility] Care Agent Care Teams Recycling Program Manager Relationship Specialty Start Date End Date Lisa Rodriguez MD [address] [place] [address] PCP - General Internal Medicine 07/11/24
== END 2024-07-24 12:55 | disposition home or self-care (01) ==
LOC: HO.HMCC 10:37
PROVIDERS: PCP Internal Medicine; Visit Provider Internal Medicine
DX: R55 Syncope and collapse (principal); Z86.711 Personal history of pulmonary embolism; Z86.718 Personal history of other venous thrombosis and embolism

== ENCOUNTER → 2024-07-24 10:37 | Outpatient (BNVA) | payer BC, SELFPAY | PROVIDERS: PCP Internal Medicine; Visit Provider Internal Medicine | DX: Z13.89 Encounter for screening for other disorder (principal) ==

== ENCOUNTER 2024-08-15 12:55 | Outpatient (AMB) | payer BC, SELFPAY ==
--- NOTE | 2024-08-15 12:59 | MHC.OFFVIS ---
Vital Signs 08/15/24 13:03 Height 5 ft 8 in Weight 169 lb 8 oz BMI 25.8 BP 112/74 Blood Pressure Location Rt brachial Position Sitting Pulse 85 Pulse Source Pulse Oximeter Pulse Oximetry (%) 98 Oxygen Delivery Method Room Air Intake Visit Reasons: Pulmonary embolism Allergies No Known Allergies Allergy (Verified 08/15/24 13:06) HPI HPI Pulmonary embolism: Details: Essence is a pleasant 23 year old female, never smoker, with recent history of provoked DVT/PE on Xarelto 20 mg QD. She was referred by PCP/vascular for pulmonary evaluation. She underwent right arthroscopic labral repair, femoroplasty, acetabuloplasty on 06/21/2024, placed on ASA for DVT prophylaxis. She started to develop intermittent chest pain ultimately calling surgeon when she developed worsening right calf pain a few days later, underwent RLE US revealing DVT and sent to ED from vascular. She was evaluated at [facility] ED on 07/11 diagnosed with acute DVT in peroneal and posterior tibial veins on the right, bilateral segmental PE with borderline right heart strain, no echo performed per patient. Patient was placed on Xarelto which she has been consistently taking, she denies prior h/o hypercoaguble concerns or personal/family h/o DVT/PE. At the time she was on estrogen based OCP, now switched to progestin. Since her initial diagnosis she did return to ED on 07/27 after a fall and had repeat CTA which revealed resolution of PE. She also reports having echo with [facility] for ongoing tachycardia/dizziness getting worked up for POTS. She currently denies any respiratory symptoms. She reports intermittent RLE discomfort, updated US RLE revealed chronic DVT. [facility] Medical History (Updated 07/24/24 @ 12:41 by Lisa Rodriguez MD) Syncope and collapse History of pulmonary embolus (PE) History of DVT (deep vein thrombosis) Uses control Rogers's thyroiditis Protrusion of intervertebral disc of lumbosacral region Hamstring muscle strain Chronic lumbosacral pain Chronic fatigue Hyperkalemia Tingling in extremities Family history of Rogers thyroiditis Family history of diabetes mellitus Intermittent palpitations Surgical History No pertinent past surgical history Family History Maternal Aunt Breast cancer Mother Hypothyroidism due to Rogers's thyroiditis Type 1 diabetes mellitus Social History Housing: House Patient Tobacco Use Status: Never used Tobacco e-Cigarette/Vaping Use: Never Used service: No Current occupational status: employed Cognitive needs: No Hearing needs: No Vision needs: No Female Reproductive History Menstrual Age of Menarche: 12 Review of Systems Const Denies chills, Denies excessive sweating, Denies fever(s), Denies headache(s) and Denies night sweats Eyes Denies dry eyes, Denies irritation and Denies itchy eyes ENT Reports Normal hearing present, Denies headache(s), Denies nasal congestion, Denies nasal discharge, Denies post nasal drip and Denies sore throat Card Denies chest pain, Denies chest pain at rest, Denies chest pain with activity, Denies claudication, Denies leg edema, Denies dyspnea, Denies dyspnea on exertion, Denies orthopnea and Denies paroxysmal nocturnal dyspnea Resp Denies chest congestion, Denies cough, Denies excessive phlegm production, Denies pain on inspiration, Denies pain with cough, Denies dyspnea, Denies dyspnea on exertion, Denies stridor and Denies wheezing Musc Denies myalgias Neuro Reports Normal hearing present and Denies headache(s) Endo Denies excessive sweating Des/Lymph Denies lymphadenopathy Aller/Immun Denies itchy eyes, Denies seasonal rhinorrhea and Denies wheezing Physical Exam Vital Signs: Last Vital Signs Pulse 85 08/15/24 13:03 BP 112/74 08/15/24 13:03 Pulse Ox 98 08/15/24 13:03 Oxygen Delivery Method Room Air 08/15/24 13:03 BMI result Body Mass Index 25.8 Const General: cooperative, healthy appearing, comfortable, no acute distress, well developed and alert Orientation/consciousness: patient oriented x3 Limitations: no limitations HEENT Head: Yes normal to inspection, Yes normocephalic and Yes atraumatic Ears: hearing grossly normal bilaterally and external ears normal Eyes General: appearance normal, both eyes and all related structures Eyelids: Yes eyelids normal Sclerae: sclerae normal EOM: EOMs intact bilaterally Neck Neck: Yes normal visual inspection and Yes no lymphadenopathy Lymphatic: no lymphadenopathy noted Chest Chest palpation & inspection: normal inspection of the chest Resp Effort & Inspection: normal respiratory effort, able to speak in complete sentences, no audible wheezes, no cough, no stridor, not tachypneic, no tripod positioning and no use of accessory muscles Auscultation: clear to auscultation bilaterally Cardio Jugular venous distension: no JVD Rate: regular rate Rhythm: regular rhythm Skin Other: warm, dry General skin exam: no rashes or lesions noted Neuro General: patient oriented x3 Cranial nerves: Yes Normal hearing present Cognition (Neuro): normal cognition Gait exam (Neuro): Normal gait present Extrem General: Yes normal to inspection, Yes capillary refill normal, Yes no clubbing, cyanosis or edema and Yes no pedal edema Psych Appearance: grossly normal and well kempt Speech and movement: Normal speech and movement present and Clear speech present Affect: normal affect Attitude: cooperative Thought process: Normal thought process present Thought content: Normal thought content present Insight: Good insight present (Psych) Judgement: Good judgement present (Psych) Results Reviewed Results Reviewed: Assessment & Plan Assessment & Plan (1) History of pulmonary embolus (PE): Code(s): Z86.711 - Personal history of pulmonary embolism Category: Medical (2) History of DVT (deep vein thrombosis): Code(s): Z86.718 - Personal history of other venous thrombosis and embolism Category: Medical Plan Essence presents for pulmonary evaluation for provoked DVT/PE after right hip surgery. She has been compliant with Xarelto and has upcoming appt with hematology for hypercoag workup. Repeat CTA 07/22 revealed resolution of PE, repeat US RLE revealed chronic RLE DVT of peroneal vein, resolution of tibial DVTs. Recent echo from [facility] revealed normal RV size and function. Will obtain images from [facility] to assess bibasilar opacities found of both CTAs, likely atelectasis. All questions were answered and patient is in agreement of plan. Will follow up to review results or sooner if needed. Coding Level of Care Code New Pt Level 4 (57738) Diagnoses History of pulmonary embolus (PE) Z86.711 History of DVT (deep vein thrombosis) Z86.718
[2024-08-15 13:03] VITALS: BP 112/74; PULSE 85; O2SAT 98; BMI 25.8
--- OUTSIDE RECORDS SUMMARY | 2024-08-15 14:03 | XMS_ITS | Encounter Summary ---
Author Organization [facility] Address [address] [place] [address] Phone Care Team Providers Care Control Systems Engineer Name Role Phone Provider, Danette BEST Primary Care Provider [phone] Encounter Details Date Type Department Care Team (Late st Contact Info) Description 06/07/2016 Documentation [facility] Family Medicine [address] [place] [address] Family Medicine, Physician [address] [place], [place] [id number] Social History Tobacco Use Types Packs/Day Years [...] on filedocumented in this encounter Care Teams Control Systems Engineer Relationship Specialty Start Date End Date Provider, MD Danette [address] [place] [phone] PCP - General Pediatrics 10/22/21 08/15/22 documented as of this encounter
--- OUTSIDE RECORDS SUMMARY | 2024-08-15 14:03 | XMS_ITS | Encounter Summary ---
Author Organization [facility] Address [address] [place] [address] Phone Care Team Providers Care Laborer [employer]crete [employer] Name Role Phone Provider, Danette BEST Primary Care Provider [phone] Encounter Details Date Type Department Care Team (Late st Contact Info) Description 06/03/2016 Documentation [facility] Family Medicine [address] [place] [address] Family Medicine, Physician [address] [place], [place] [id number] Social History Tobacco Use Types Packs/Day Years [...] on filedocumented in this encounter Care Teams Laborer [employer]crete [employer] Relationship Specialty Start Date End Date Provider, MD Danette [address] [place] [phone] PCP - General Pediatrics 10/22/21 08/15/22 documented as of this encounter
--- OUTSIDE RECORDS SUMMARY | 2024-08-15 14:03 | XMS_ITS | Clinical Summary ---
Author Organization [facility] Address [address] [place] [id number] Phone Care Team Providers Care Husbandry Person Name Role Phone Lisa Rodriguez MD Primary [...] 25 Discontinue d(Discontin ued by another clinician) Active Problems Problem Noted Date Diagnosed Date Syncope and collapse 07/22/2024 Multiple subsegmental pulmon mily emboli without acute cor pulmonale ([facility] V24, [facility] V28) 07/11/2024 Encounters Date Type Department Care Team Description 08/03/2024 2:35 PM EDT - 08/03/2024 6:59 PM EDT Emergency [facility] Emergency [address] [place] [address] Syncope and collapse (Primary Dx) Discharge Disposition: Home or Self Care 07/22/2024 7:43 AM EDT - 07/23/2024 1:44 PM EDT Hospital Encounter [facility] Intermediate Care Unit B [address] [place] [phone] Esteban Lara MD Kela, Kashyap Devendrabhai, MD Kokosadze, Estate, MD Syncope and collapse (Primary Dx) Discharge Disposition: Home or Self Care 07/11/2024 10:41 AM EDT - 07/12/2024 11:56 AM EDT Hospital Encounter [facility] Medical Surgical Unit [address] [place] [address] Esteban Lara MD Kokosadze, Estate, MD Multiple subsegmental pulmonary emboli without acute cor pulmonale ([facility] V24, [facility] V28) (Primary Dx); Tachycardia Discharge Disposition: Home [...] Sign Reading Time Taken Comments Blood Pressure 121/72 08/03/2024 6:44 PM EDT Pulse 88 08/03/2024 6:44 PM EDT Temperature 36.8 ??C (98.3 ??F) 08/03/2024 3:01 PM ED T Respiratory Rate 15 08/03/2024 6:44 PM EDT Oxygen Saturation 98% 08/03/2024 6:44 PM EDT Inhaled Oxygen Concentration - - Weight 75.8 kg (167 lb) 08/03/2024 3:01 PM EDT Height 172.7 cm (5' 8 ) 08/03/2024 3:01 PM EDT Body Mass Index 25.39 08/03/2024 3:01 PM EDT Plan of Treatment Health Maintenance [...] 05/06/2015, 10/09/19 15 HPV Vaccines Completed 04/07/2016, 08/09/2015, 10/07/2015 Meningococcal ACWY Vaccine Completed 10/14/2016, Hepatitis B Vaccines Completed 10/05/2018, 06/30/2001, 2000, Additional history exists Meningococcal B Vaccine Completed 04/10/2019, 10/05 RSV Immunization Patients Under 20 months Aged Out No longer eligible based on patient's age to complete this topic Procedures Procedure Name Priority Date/Time Associated Diagnosis Comments ECG 12-LEAD STAT 08/03/2024 3:50 PM EDT HCG, SERUM, QUALITATIVE STAT Add-on 08/04/19 3:00 PM EDT TYPE AND SCREEN STAT 08/03/2024 3:00 PM EDT ACTIVATED PARTIAL THROMBOPLASTIN TIME STAT 08/03/2024 3:00 PM EDT PROTHROMBIN TIME WITH INR STAT 08/03/2024 3:00 PM EDT TROPONIN I HIGH SENSITIVITY STAT 08/03/2024 3:00 PM EDT CBC WITH AUTO DIFFERENTIAL STAT 08/03/2024 3:00 PM EDT MAGNESIUM STAT 08/03/2024 3:00 PM EDT BASIC METABOLIC PANEL STAT 08/03/2024 3:00 PM EDT CBC AND DIFFERENTIAL STAT 08/03/2024 3:00 PM EDT TRANSTHORACIC ECHOCARDIOGRAM (TTE) COMPLETE W/ CONTRAST Routine [...] EDT from Last 3 Months Results * ECG 12 lead (08/03/2024 3:50 PM EDT) Only the most recent of4 resultswithin the time period is included. Ventricular Rate ECG 73 BPM GEMUSE Atrial Rate 73 BPM GEMUSE P-R Interval 136 ms GEMUSE QRS Duration 98 ms GEMUSE Q-T Interval 408 ms GEMUSE QTc 449 ms GEMUSE P Wave Washington 54 degrees GEMUSE R [place] 68 degrees GEMUSE T [place] 37 degrees GEMUSE ECG Interpretation Normal sinus rhythm Normal ECG When compared with ECG of 22-JUL-2024 08:43, No significant change was found Confirmed by MD Xavier, Nima ([id number]) on 08/04/2024 11:56:24 PM GEMUSE 08/03/2024 3:50 PM EDT 08/04/2024 11:56 PM EDT Adriel Cuadra MD ECG ORDERABLES Final Resul t Performing Organization Address [facility] de Phone Number GEMUSE * Troponin I high sensitivity (08/03/2024 3:00 PM EDT) Only the most recent of5 resultswithin the time period is included. [facility] High Sensitivity Troponin I <3 <=54 ng/L LAB CHEMISTRY METHOD 08/03/2024 4:22 PM EDT [facility] Blood Venous blood specimen / Unknown Venipuncture / Unknown 08/03/2024 3:00 PM EDT 08/03/2024 3:47 PM EDT Narrative [facility] - 08/03/2024 4:22 PM EDT High levels of biotin in samples may falsely decrease hsTroponin values. ??Use caution when interpreting hsTroponin results in patients taking biotin who exhibit renal impairment (eGFR <60) or in patients taking more than 20 mg/day of biotin. Adriel Cuadra MD LAB BLOOD ORDERABLES Final Result Performing Organization Address [facility] de Phone Number [facility] [address] [place] [address], [place] [phone] * (ABNORMAL) CBC auto differential (08/03/2024 3:00 PM EDT) Only the most recent of3 resultswithin the time period is included. [facility] WBC 9.4 4.8 - 10.8 K/mcL LAB HEMETOLOGY METHOD 08/03/2024 3:52 PM EDT [facility] RBC 4.50 3.80 - 4.80 M/mcL LAB HEMETOLOGY METHOD 08/03/2024 3:52 PM EDT [facility] Hemoglobin 12.9 11.5 - 16.0 g/dL LAB HEMETOLOGY METHOD 08/03/2024 3:52 PM EDT [facility] Hematocrit 39.0 35.0 - 47.0 % LAB HEMETOLOGY METHOD 08/03/2024 3:52 PM EDT [facility] MCV 85.9 79.0 - 98.0 FL LAB HEMETOLOGY METHOD 08/03/2024 3:[facility] MCH 28.4 27.0 - 32.0 pcg LAB HEMETOLOGY METHOD 08/03/2024 3:52 PM EDT [facility] MCHC 33.1 32.0 - 37.0 g/dL LAB HEMETOLOGY METHOD 08/03/2024 3:52 PM [facility] RDW 13.7 11.0 - 15.0 % LAB HEMETOLOGY METHOD 08/03/2024 3:52 PM [facility] Platelets 499(H) 130 - 400 K/mcL LAB HEMETOLOGY METHOD 08/03/2024 3:52 PM EDT [facility] MPV 8.4 7.0 - 11.0 FL LAB HEMETOLOGY METHOD 08/03/2024 3:52 PM [facility] NRBC 0.0 <1.0 % LAB HEMETOLOGY METHOD 08/03/2024 3:52 PM [facility] NRBC Absolute 0.00 <0.10 K/mcL LAB HEMETOLOGY METHOD 08/03/2024 3:52 PM [facility] Neutrophils Relative 66.2 % LAB HEMETOLOGY METHOD 08/03/2024 3:52 PM EDT [facility] Lymphocytes Relative 26.8 % LAB HEMETOLOGY METHOD 08/03/2024 3:52 PM [facility] Monocytes Relative 4.8 % LAB HEMETOLOGY METHOD 08/03/2024 3:52 PM EDT [facility] Eosinophils Relative 1.3 % LAB HEMETOLOGY METHOD 08/03/2024 3:52 PM EDT [facility] Basophils Relative 0.6 % LAB HEMETOLOGY METHOD 08/03/2024 3:52 PM EDT [facility] Immature Granulocytes Relative 0.3 % LAB HEMETOLOGY METHOD 08/03/2024 3:52 PM EDT [facility] Neutrophils Absolute 6.24 1.50 - 7.00 K/mcL LAB HEMETOLOGY METHOD 08/03/2024 3:52 PM EDT [facility] Lymphocytes Absolute 2.52 1.00 - 5.00 K/mcL LAB HEMETOLOGY METHOD 08/03/2024 3:52 PM EDT [facility] Monocytes Absolute 0.45 0.20 - 1.00 K/mcL LAB HEMETOLOGY METHOD 08/03/2024 3:52 PM EDT [facility] Eosinophils Absolute 0.12 0.00 - 0.50 K/mcL LAB HEMETOLOGY METHOD 08/03/2024 3:52 PM EDT [facility] Basophils Absolute 0.06 0.00 - 0.20 K/mcL LAB HEMETOLOGY METHOD 08/03/2024 3:52 PM EDT [facility] Immature Granulocytes Absolute 0.03 0.00 - 0.03 K/mcL LAB HEMETOLOGY METHOD 08/03/2024 3:52 PM EDT [facility] Blood Venous blood specimen / Unknown Venipuncture / Unknown 08/03/2024 3:00 PM EDT 08/03/2024 3:47 PM EDT us Adriel Cuadra MD LAB BLOOD ORDERABLES Final Result [facility] [address] [place] [address], * APTT (08/03/2024 3:00 PM EDT) Only the most recent of6 resultswithin the time period is included. aPTT 33.1 24.1 - 39.3 sec LAB COAGULATION METHOD 08/03/2024 4:06 PM EDT [facility] Blood Venous blood specimen / Unknown Venipuncture / Unknown 08/03/2024 3:00 PM EDT 08/03/2024 3:47 PM EDT Adriel Cuadra MD LAB BLOOD ORDERABLES Final Result Performing Organization Address [facility]/ZIP Co de Phone Number [facility] [address] [place] [address], [place] [phone] * Prothrombin time with INR (08/03/2024 3:00 PM EDT) Only the most recent of3 resultswithin the time period is included. Pathologist [facility] Protime 13.1 10.6 - 13.9 sec LAB COAGULATION METHOD 08/03/2024 4:06 PM EDT [facility] INR 1.0 LAB COAGULATION METHOD 08/03/2024 4:06 PM EDT [facility] Blood Venous blood specimen / Unknown Venipuncture / Unknown 08/03/2024 3:00 PM EDT 08/03/2024 3:47 PM EDT Adriel Cuadra MD LAB BLOOD ORDERABLES Final Result [facility] [address] [place] [address], [place] [phone] * Type and screen (08/03/2024 3:00 PM EDT) ABO Group A 08/03/2024 4:36 PM EDT [facility] Rh Type Positive 08/03/2024 4:36 PM EDT [facility] Antibody Screen Negative 08/03/2024 4:36 PM EDT [facility] Blood Venous blood specimen / Unknown Venipuncture / Unknown 08/03/2024 3:00 PM EDT 08/03/2024 3:47 PM EDT Adriel Caudra MD LAB BLOOD BANK TEST ORDERAB LES Final Result Performing Organization Address City/[facility]/ZIP Co de Phone Number [facility] [address] [place] [address], [place] [phone] * hCG, serum, qualitative (08/03/2024 3:00 PM EDT) Only the most recent of2 resultswithin the time period is included. hCG Qual Negative Negative 08/03/2024 4:40 PM EDT [facility] Blood Venous blood specimen / Unknown Venipuncture / Unknown 08/03/2024 3:00 PM EDT 08/03/2024 3:47 PM EDT Gil PALMA LAB BLOOD ORDERABLES Final Re sult Performing Organization Address [facility] de Phone Number [facility] [address] [place] [address], [place] [phone] * Magnesium (08/03/2024 3:00 PM EDT) Only the most recent of2 resultswithin the time period is included. Magnesium 2.2 1.9 - 2.6 mg/dL LAB CHEMISTRY METHOD 08/03/2024 4:20 PM EDT [facility] Blood Venous blood specimen / Unknown Venipuncture / Unknown 08/03/2024 3:00 PM EDT 08/03/2024 3:47 PM EDT Adriel Cuadra MD LAB BLOOD ORDERABLES Final Result [facility] [address] [place] [address], * (ABNORMAL) Basic metabolic panel (08/03/2024 3:00 PM EDT) Only the most recent of2 resultswithin the time period is included. Sodium 136 133 - 145 mmol/L LAB CHEMISTRY METHOD 08/03/2024 4:20 PM EDT [facility] Potassium 4.3 3.5 - 5.5 mmol/L LAB CHEMISTRY METHOD 08/03/2024 4:20 PM EDT [facility] Chloride 102 96 - 110 mmol/L LAB CHEMISTRY METHOD 08/03/2024 4:20 PM [facility] CO2 28 21 - 32 mmol/L LAB CHEMISTRY METHOD 08/03/2024 4:[facility] [address] [facility] Anion Gap 6 3 - 11 LAB CHEMISTRY METHOD 08/03/2024 4:20 PM [facility] Glucose 104(H) 70 - 100 mg/dL LAB CHEMISTRY METHOD 08/03/2024 4:20 PM [facility] BUN 14 5 - 25 mg/dL LAB CHEMISTRY METHOD 08/03/2024 4:20 PM [facility] Creatinine 0.84 0.50 - 1.10 mg/dL LAB CHEMISTRY METHOD 08/03/2024 4:20 [address] [facility] eGFR 100 >=60 mL/min/1. 73m2 LAB CHEMISTRY METHOD 08/03/2024 4:20 PM [facility] Comment:Calculation based on the??Chronic Kidney Disease Epidemiology Collaboration (CKD-EPI) equation refit??without adjustment for race. BUN/Creatinine Ratio 16.7 LAB CHEMISTRY METHOD 08/03/2024 4:20 PM [facility] Calcium 10.2 8.5 - 10.5 mg/dL LAB CHEMISTRY METHOD 08/03/2024 4:20 PM [facility] Blood Venous blood specimen / Unknown Venipuncture / Unknown 08/03/2024 3:00 PM EDT 08/03/2024 3:47 PM EDT us Adriel Cuadra MD LAB BLOOD ORDERABLES Final Result [facility] [address] [place] [address], [place] [phone] * TRANSTHORACIC ECHOCARDIOGRAM (TTE) COMPLETE W/ CONTRAST (07/23/2024 9:19 AM EDT) Left Atrium Minor [place] 4.3 cm CV PACS Left Atrium Major [place] 3.6 cm CV PACS LA Area Sys [...] Signed Date: 07/22/2024 10:30 ET Workstation ID: [id number] Transcribed By: Self Edit Transcribed Date: 07/22/2024 [...] Signed Date: 07/22/2024 10:30 ET Workstation ID: [id number] Transcribed By: Self Edit Transcribed Date: 07/22/2024 [...] Signed Date: 07/22/2024 10:20 ET Workstation ID: [id number] Transcribed By: Self Edit Transcribed Date: 07/22/2024 [...] Signed Date: 07/22/2024 10:20 ET Workstation ID: [id number] Transcribed By: Self Edit Transcribed Date: 07/22/2024 10:16 ET Felipa [facility]MA IMG CT PROCEDURES Final [...] Signed Date: 07/22/2024 10:15 ET Workstation ID: [id number] Transcribed By: Self Edit Transcribed Date: 07/22/2024 [...] Signed Date: 07/22/2024 10:15 ET Workstation ID: [id number] Transcribed By: Self Edit Transcribed Date: 07/22/2024 10:09 ET [facility] IMG CT PROCEDURES Final Resul t * XR Chest 2 Views (07/22/2024 9:16 AM EDT) Anatomical Region Laterality Modality Body Radiographic Carmen ging 07/22/2024 9:31 AM EDT Impressions 07/22/2024 9:31 AM EDT Normal chest radiographs. -------- FINAL REPORT -------- Dictated By: Murray Pritchett Dictated Date: 07/22/2024 09:31 ET Assigned Physician: Murray Pritchett Reviewed and Electronically Signed By: Murray Pritchett Signed Date: 07/22/2024 09:31 ET Workstation ID: [id number] Transcribed By: Self Edit Transcribed Date: 07/22/2024 [...] Signed Date: 07/22/2024 09:31 ET Workstation ID: [id number] Transcribed By: Self Edit Transcribed Date: 07/22/2024 09:31 ET Felipa [facility] IMG XR PROCEDURES Final Resul t * POC , urine manually resulted (07/22/2024 9:03 AM EDT) HCG, Ur POC Negative Negative POC hCG Int QC Pass? Yes Yes Urine Urine specimen obtained by clean catch procedure / Unknown 07/22/2024 9:03 AM EDT Felipa [facility] POINT OF CARE TEST ENTER/EDIT ORDERABLES Final Result * (ABNORMAL) Urinalysis with reflex microscopic and culture (07/22/2024 8:58 AM EDT) [facility] Specific Walls Urine 1.031(H) 1.003 - 1.030 LAB URINALYSIS - AUTOMATED METHOD 07/22/2024 9:35 AM [facility] pH, Urine 6.0 5.0 - 8.0 pH LAB URINALYSIS - AUTOMATED METHOD 07/22/2024 9:35 AM [facility] Leukocytes, Urine Trace(A) Negative LAB URINALYSIS - AUTOMATED METHOD 07/22/2024 9:35 AM [facility] Nitrite, Urine Negative Negative LAB URINALYSIS - AUTOMATED METHOD 07/22/2024 9:35 AM [facility] Protein, Urine 100(A) <=Trace mg/dL LAB URINALYSIS - AUTOMATED METHOD 07/22/2024 9:35 AM [facility] Glucose, Urine Negative Negative mg/dL LAB URINALYSIS - AUTOMATED METHOD 07/22/2024 9:35 AM [facility] Ketones, Urine Trace(A) Negative mg/dL LAB URINALYSIS - AUTOMATED METHOD 07/22/2024 9:35 AM [facility] Urobilinogen , Urine 1.0 0.2 - 1.0 mg/dL LAB URINALYSIS - AUTOMATED METHOD 07/22/2024 9:35 AM [facility] Bilirubin, Urine Small(A) Negative LAB URINALYSIS - AUTOMATED METHOD 07/22/2024 9:35 AM [facility] Blood, Urine Negative Negative LAB URINALYSIS - AUTOMATED METHOD 07/22/2024 9:35 AM [facility] RBC, Urine 1.0 0 - 4 /HPF LAB URINALYSIS - AUTOMATED METHOD 07/22/2024 9:35 AM [facility] WBC, Urine 13.5(H) 0 - 4 /HPF LAB URINALYSIS - AUTOMATED METHOD 07/22/2024 9:35 AM [facility] Squamous Epithelial, Urine >100(H) 0 - 60 /LPF LAB URINALYSIS - AUTOMATED METHOD 07/22/2024 9:35 AM [facility] Crystals, Urine MOD CALCIUM OXALATE /LPF LAB URINALYSIS - AUTOMATED METHOD 07/22/2024 9:35 AM [facility] Bacteria, Urine Few(A) Negative /HPF LAB URINALYSIS - AUTOMATED METHOD 07/22/2024 9:35 AM [facility] Hyaline Casts, Urine 3.0 0 - 3 /LPF LAB URINALYSIS - AUTOMATED METHOD 07/22/2024 9:35 AM [facility] Mucus, Urine Moderate None /HPF LAB URINALYSIS - AUTOMATED METHOD 07/22/2024 9:35 AM [facility] Urine Urine specimen obtained by clean catch procedure / Unknown Non-blood Collection / Unknown 07/22/2024 8:58 AM EDT 07/22/2024 9:13 AM EDT us Felipa PALMA LAB URINE ORDERABLES Final Re sult [facility] [address] [place] [address], * Richard urine culture tube (07/22/2024 8:58 AM EDT) Extra Tube Hold for add-ons. 07/22/2024 11:01 AM T [facility] Comment:Auto resulted. Urine Urine specimen obtained by clean catch procedure / Unknown Non-blood Collection / Unknown 07/22/2024 8:58 AM EDT 07/22/2024 9:13 AM EDT Felipa [facility] LAB URINE ORDERABLES Final Re sult Performing Organization Address [facility]/ZIP Co de Phone Number [facility] [address] [place] [address], [place] [phone] * Culture urine (07/22/2024 8:58 AM EDT) Culture, Urine >100,000 CFU/mL Mixed urogenital marko, no uropathogens present. Suggest repeat specimen if clinically indicated. 07/24/2024 10:50 AM EDT [facility] Urine Urine specimen obtained by clean catch procedure / Unknown Non-blood Collection / Unknown 07/22/2024 8:58 AM EDT 07/22/2024 9:35 AM EDT Felipa [facility] LAB MICROBIOLOGY - GENERAL OR DERABLES Final Result Performing Organization Address [facility] Co de Phone Number [facility] [address] [place] [address], [place] [phone] * (ABNORMAL) Thyroid stimulating hormone with reflex to free t4 and free t3 (07/22/2024 8:27 AM EDT) TSH 9.75(H) 0.40 - 4.00 mcIU/mL LAB CHEMISTRY METHOD 07/22/2024 1:24 PM EDT [facility] Blood Venous blood specimen / Unknown Venipuncture / Unknown 07/22/2024 8:27 AM EDT 07/22/2024 8:47 AM EDT Esteban Lara MD LAB BLOOD ORDERABLES Final Res ult [facility] [address] [place] [address], [place] [phone] * Free thyroxine with reflex to free triiodothyronine (07/22/2024 8:27 AM EDT) Free T4 1.45 0.70 - 1.80 ng/dL LAB CHEMISTRY METHOD 07/22/2024 2:19 PM EDT [facility] Blood Venous blood specimen / Unknown Venipuncture / Unknown 07/22/2024 8:27 AM EDT 07/22/2024 8:47 AM EDT Esteban Lara MD LAB BLOOD ORDERABLES Final Res ult Performing Organization Address [facility] Co de Phone Number [facility] [address] [place] [address], [place] [phone] * (ABNORMAL) Triiodothyronine free (07/22/2024 8:27 AM EDT) T3, Free 455(H) 230 - 420 pcg/dL LAB CHEMISTRY METHOD 07/22/2024 2:42 PM EDT [facility] Blood Venous blood specimen / Unknown Venipuncture / Unknown 07/22/2024 8:27 AM EDT 07/22/2024 8:47 AM EDT Esteban Lara MD LAB BLOOD ORDERABLES Final Res ult Performing Organization Address [facility] Co de Phone Number [facility] [address] [place] [address], [place] [phone] * (ABNORMAL) Thyroid stimulating hormone (TSH) (07/22/2024 8:27 AM EDT) TSH 9.83(H) 0.40 - 4.00 mcIU/mL LAB CHEMISTRY METHOD 07/22/2024 10:27 AM EDT [facility] Blood Venous blood specimen / Unknown Venipuncture / Unknown 07/22/2024 8:27 AM EDT 07/22/2024 8:47 AM EDT Felipa PALMA LAB BLOOD ORDERABLES Final Re sult Performing Organization Address [facility]/ZIP Co de Phone Number [facility] [address] [place] [address], * Cortisol (07/22/2024 8:27 AM EDT) Cortisol 42.7 mcg/dL LAB CHEMISTRY METHOD 07/22/2024 1:23 PM EDT [facility] Blood Venous blood specimen / Unknown Venipuncture / Unknown 07/22/2024 8:27 AM EDT 07/22/2024 8:47 AM EDT Narrative [facility] - 07/22/2024 1:23 PM EDT CORTISOL REFERENCE RANGE ?? 8 AM SPEC: ??5.0-23.0 mcg/dL ?? 4 PM SPEC: ??3.0-16.0 mcg/dL ?? 8 PM SPEC: ??<5.0 mcg/dL Esteban Lara MD LAB BLOOD ORDERABLES Final Res ult Performing Organization Address [facility] Co de Phone Number [facility] [address] [place] [address], * (ABNORMAL) Comprehensive metabolic panel (07/22/2024 8:27 AM EDT) Only the most recent of2 resultswithin the time period is included. Sodium 140 133 - 145 mmol/L LAB CHEMISTRY METHOD 07/22/2024 9:34 AM EDT [facility] Potassium 4.8 3.5 - 5.5 mmol/L LAB CHEMISTRY METHOD 07/22/2024 9:34 AM EDT [facility] Chloride 109 96 - 110 mmol/L LAB CHEMISTRY METHOD 07/22/2024 9:34 AM [facility] CO2 27 21 - 32 mmol/L LAB CHEMISTRY METHOD 07/22/2024 9:34 AM [facility] Anion Gap 4 3 - 11 LAB CHEMISTRY METHOD 07/22/2024 9:34 AM [facility] Glucose 119(H) 70 - 100 mg/dL LAB CHEMISTRY METHOD 07/22/2024 9:34 AM [facility] BUN 16 5 - 25 mg/dL LAB CHEMISTRY METHOD 07/22/2024 9:34 AM [facility] Creatinine 0.81 0.50 - 1.10 mg/dL LAB CHEMISTRY METHOD 07/22/2024 9:34 AM [facility] eGFR 105 >=60 mL/min/1. 73m2 LAB CHEMISTRY METHOD 07/22/2024 9:34 AM [facility] Comment:Calculation based on the??Chronic Kidney Disease Epidemiology Collaboration (CKD-EPI) equation refit??without adjustment for race. BUN/Creatinine Ratio 19.8 LAB CHEMISTRY METHOD 07/22/2024 9:34 AM [facility] Calcium 10.0 8.5 - 10.5 mg/dL LAB CHEMISTRY METHOD 07/22/2024 9:34 AM [facility] AST (SGOT) 15 10 - 42 unit/L LAB CHEMISTRY METHOD 07/22/2024 9:34 AM [facility] ALT (SGPT) 37 10 - 60 unit/L LAB CHEMISTRY METHOD 07/22/2024 9:34 AM [facility] Alkaline Phosphatase 94 42 - 121 unit/L LAB CHEMISTRY METHOD 07/22/2024 9:34 AM [facility] Total Protein 7.6 6.0 - 8.0 g/dL LAB CHEMISTRY METHOD 07/22/2024 9:34 AM EDT [facility] Albumin 3.7 3.2 - 5.0 g/dL LAB CHEMISTRY METHOD 07/22/2024 9:34 AM EDT [facility] Total Bilirubin 0.2 0.0 - 1.4 mg/dL LAB CHEMISTRY METHOD 07/22/2024 9:34 AM EDT [facility] Blood Venous blood specimen / Unknown Venipuncture / Unknown 07/22/2024 8:27 AM EDT 07/22/2024 8:47 AM EDT Felipa [facility]MA LAB BLOOD ORDERABLES Final Re sult Performing Organization Address [facility]/ZIP Co de Phone Number [facility] [address] [place] [address], [place] [phone] * Anti-Xa - Every 6 Hours (07/12/2024 8:55 AM EDT) Only the most recent of4 resultswithin the time period is included. Heparin Anti-Xa 0.42 0.30 - 0.70 I Unit/mL LAB COAGULATION METHOD 07/12/2024 9:18 AM EDT [facility] Blood Venous blood specimen / Unknown Venipuncture / Unknown 07/12/2024 8:55 AM EDT 07/12/2024 9:07 AM EDT Narrative [facility] - 07/12/2024 9:18 AM EDT Therapeutic range listed is for Unfractionated Heparin. LMW Heparin therapeutic range: 0.50-1.20 IU/mL Esteban Lara MD LAB BLOOD ORDERABLES Final Res ult Performing Organization Address City/[facility] [address]/ZIP Co de Phone Number [facility] [address] [place] [address], [place] [phone] * (ABNORMAL) Complete blood count (07/12/2024 6:41 AM EDT) WBC 11.1(H) 4.8 - 10.8 K/mcL LAB HEMETOLOGY METHOD 07/12/2024 7:33 AM [facility] RBC 4.40 3.80 - 4.80 M/mcL LAB HEMETOLOGY METHOD 07/12/2024 7:33 AM [facility] Hemoglobin 12.3 11.5 - 16.0 g/dL LAB HEMETOLOGY METHOD 07/12/2024 7:33 AM [facility] Hematocrit 36.8 35.0 - 47.0 % LAB HEMETOLOGY METHOD 07/12/2024 7:33 AM [facility] MCV 83.8 79.0 - 98.0 FL LAB HEMETOLOGY METHOD 07/12/2024 7:33 AM [facility] [facility] LAB MCH 28.0 27.0 - 32.0 pcg LAB HEMETOLOGY METHOD 07/12/2024 7:33 AM [facility] MCHC 33.4 32.0 - 37.0 g/dL LAB HEMETOLOGY METHOD 07/12/2024 7:33 AM [facility] RDW 13.2 11.0 - 15.0 % LAB HEMETOLOGY METHOD 07/12/2024 7:33 AM [facility] Platelets 499(H) 130 - 400 K/mcL LAB HEMETOLOGY METHOD 07/12/2024 7:33 AM [facility] MPV 8.5 7.0 - 11.0 FL LAB HEMETOLOGY METHOD 07/12/2024 7:33 AM [facility] NRBC 0.0 <1.0 % LAB HEMETOLOGY METHOD 07/12/2024 7:33 AM [facility] NRBC Absolute 0.00 <0.10 K/mcL LAB HEMETOLOGY METHOD 07/12/2024 7:33 AM [facility] Blood Venous blood specimen / Unknown Venipuncture / Unknown 07/12/2024 6:41 AM EDT 07/12/2024 7:32 AM EDT us Esteban Lara MD LAB BLOOD ORDERABLES Final Res ult [facility] [address] [place] [address], [place] [phone] * Vascular US Duplex Lower Extremity Venous [...] Signed Date: 07/11/2024 16:33 ET Workstation ID: [id number] Transcribed By: Self Edit Transcribed Date: 07/11/2024 [...] Signed Date: 07/11/2024 16:33 ET Workstation ID: [id number] Transcribed By: Self Edit Transcribed Date: 07/11/2024 16:32 ET Gil PALMA CV VASCULAR PROCEDURES Final Result * Lipase (07/11/2024 10:37 AM EDT) Lipase 34 13 - 75 unit/L LAB CHEMISTRY METHOD 07/11/2024 11:56 AM EDT [facility] Blood Venous blood specimen / Unknown Venipuncture / Unknown 07/11/2024 10:37 AM EDT 07/11/2024 11:26 AM EDT us Franklyn Benitez MD LAB BLOOD ORDERABLES Final Resu lt [facility] [address] [place] [address], [place] [phone] from Last 3 Months Insurance [address] [place] [address] [facility] Advance Directives * Full Code - Default [...] Agents on File Name Relationship Healthcare Agent [facility] p Communication Dorothy Garvey [facility] Health Care Agent Care Teams Husbandry Person Relationship Specialty Start Date End Date Lisa Rodriguez MD [address] [place] [address] PCP - General Internal Medicine 07/11/24
--- OUTSIDE RECORDS SUMMARY | 2024-08-15 14:03 | XMS_ITS | Encounter Summary ---
Author Organization [facility] Address [address] [place] [address] Phone Care Team Providers Care Electrical Power Station Technician Name Role Phone Provider, Danette BEST Primary Care Provider [phone] Reason for Visit * Reason Comments Med Refill Encounter Details Date Type Department Care Team (Late st Contact Info) Description 07/23/2017 Refill [facility] - [address] [address] Dalila Suárez NP Encounter for other contraceptive [...] visit with Essence I had written that BROACHING MACHINE SET UP OPERATOR was writing her OCPs - but in speaking with the pharmacist at [facility] we have been prescribing her OCPs. 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
--- OUTSIDE RECORDS SUMMARY | 2024-08-15 14:03 | XMS_ITS | Encounter Summary ---
Author Organization [facility] Address [address] [place] [address] Phone Care Team Providers Care Director Career Services Name Role Phone Provider, Danette BEST Primary Care Provider [phone] Encounter Details Date Type Department Care Team (Late st Contact Info) Description 07/25/2009 Documentation [facility] [place] [address] [place] [address] Family Medicine, Physician [address] [place], [place] [id number] Social History Tobacco Use Types Packs/Day Years [...] on filedocumented in this encounter Care Teams Director Career Services Relationship Specialty Start Date End Date Provider, MD Danette [address] [place] [phone] PCP - General Pediatrics 10/22/21 08/15/22 documented as of this encounter
--- OUTSIDE RECORDS SUMMARY | 2024-08-15 14:03 | XMS_ITS | Continuity of Care Document ---
Author Organization [facility] [address] [facility] [address] [place] [address] Phone [phone] Care Team Providers Care Postal Delivery Officer Name Role Phone Lisa Rodriguez Care Team Information Phone Counselor [phone] Problems Active Problems Provider Date Rogers thyroiditis [...] 0.82-1.77 TSH With Reflex To FT4 02/28/2023 [facility] TSH With Reflex To FT4 3.65 uIU/mL (0.4-4.2) Cortisol 02/28/2023 [facility] Cortisol 26.0 g /dL [...] Cl dominguez M.D. 02/29/2024 E02 Subclinical hypothyroidism Minid Almeida M.D. Plan of Treatment Future Appointment(s):* 02/28/2025 10:00 am - Cl Almeida M.D. 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 Created [address] [place] [address] Drive [address] [place] [phone] Cl Almeida M.D. Closed [address] [place] [address] [address] [place] [phone] Cl Almeida M.D. Closed [address] [place] [address] [address] [place] [phone]
--- OUTSIDE RECORDS SUMMARY | 2024-08-15 14:03 | XMS_ITS | Clinical Summary ---
Author Organization [facility] Address [address] [place] [address] Care Team Providers Care Commercial Drafter Name Role Phone Lisa Rodriguez MD Primary Care Provider Allergies No known active allergies Medications No known medications Active Problems No known active problems Social History Tobacco Use Types Packs/Day Years Used Date Smoking Tobacco: Never Assessed Comments Unknown Sex and Gender Information Value Date Recorded Sex Assigned at Not on file Legal Sex Female 7:00 PM EST Gender Identity Not on file Sexual Orientation [...] series) 10/02/2019 Pap Smear (Ages 21-65) 2021 COVID-19 Vaccine ( - 2023-2 5 season) 2023 Influenza Vaccine 11/09/2024 Pneumococcal Vaccine: Pediat chasidy (0-5 Years) and At-Risk Patients (6 to 49 Years) Aged Out No longer eligible b ased on patient's age to complete this topic Insurance [facility] Care Teams Commercial Drafter Relationship Specialty Start Date End Date Lisa Rodriguez MD [address] [place] [address] PCP - General Internal Medicine 03/04/23
--- OUTSIDE RECORDS SUMMARY | 2024-08-15 14:03 | XMS_ITS | Encounter Summary ---
Author Organization [facility] Address [address] [place] [address] Phone Care Team Providers Care Laboratory Secretary Name Role Phone Provider, Danette BEST Primary Care Provider [phone] Encounter Details Date Type Department Care Team (Late st Contact Info) Description 11/25/2016 Conversion Encounter [facility] [address] [id number] Social History Tobacco Use Types Packs/Day Years [...] on filedocumented in this encounter Care Teams Laboratory Secretary Relationship Specialty Start Date End Date Provider, MD Danette [address] [place] [address] PCP - General Pediatrics 10/22/21 08/15/22 documented as of this encounter
--- OUTSIDE RECORDS SUMMARY | 2024-08-15 14:03 | XMS_ITS | Clinical Summary ---
Author Organization [facility] Address [address] [place] [address] Phone Care Team Providers Care Lecturer Of Portuguese Name Role Phone Unavailable Primary Care Provider [...] and OCPs, topical refilled, OCPs prescribed by WELDING MACHINE SETTER. Assessment & Plan (10/04/2017 4:40 PM EDT): [...] oral contraceptive Overview (10/29/2021): Followed by adult WELDING MACHINE SETTER Pt with hx of severe cramping and long menses treated successfully after several OCP attempts and visit to WELDING MACHINE SETTER with long cycling apri (spitting 1st and 2nd inactive weeks) with improvement in cramping and normally no breakthrough bleeding. Continue f/u with WELDING MACHINE SETTER. Followed by adult WELDING MACHINE SETTER. Pt was put on refrigerated probiotic that was about $100/3 mo supply Stopped taking it once sx resolved Wondering if she should take it proactively - WELDING MACHINE SETTER hadn't specifically said Assessment & Plan (10/29/2021 9:57 AM EDT): Seeing Agricultural Chemist now- on OCP Assessment & Plan (10/28/2019 11:13 PM EDT): Continue to follow with WELDING MACHINE SETTER Did not repeat urine GC/Chlamydia testing today due to recent testing at WELDING MACHINE SETTER Not SA so low risk Discussed could try another refrigerated probiotic, typically I recommend a single organism Follow up with WELDING MACHINE SETTER if needed if any issues with menses/discharge Assessment & Plan (10/04/2017 4:41 PM EDT): Refilled with the prolonged cycling, proper use, no risky behaviors, no further testing needed. Resolved Problems Problem Noted Date Diagnosed Date Resolved Date Vaginal discharge 03/12/2020 10/27/2021 Overview (03/12/2020): Chronic complaints, pt has been treated for BV and then had ongoing concerns with neg vag swab. Was referred to WELDING MACHINE SETTER for further evaluation after 10/2018 recurrent sx Has been pt of [facility] and at last visit (virtual) they recommended Boric Acid 600mg per vagina nightly x 3 weeks, then f/u with [facility] for recheck. Cough 03/30/2018 10/28/2019 Assessment & Plan (04/07/2018 12:55 PM EST): Cough for 2.[address] Seen at [facility] and had Neg strept and neg mono. [...] of Thrombophilia, No family history of Sudden /[place] under age 55, No family history of [...] Completed 04/10/2019, 10/05/2018 Procedures * Due to [facility] law, this organization might not be sharing sensitive test results. Procedure Name Priority Date/Time Associated Diagnosis Comments CHLAMYDIA AND GONORRHEA, AMPLIFIED Routine 10/28/2021 1:51 PM EDT Encounter for screening examination for chlamydial infection from Last 3 Months or Most Recently Relevant to Health Maintenance Results * Due to [facility] law, this organization might not be sharing sensitive test results. * Chlamydia and Gonorrhoea, Amplified (10/28/2021 1:51 PM EDT) Chlamydia Trachomatis, DNA Probe NEGATIVE (NEG) [facility] Comment: No Chlamydia Trachomatis RNA detected in this patient's sample ? (REFERENCE RANGE/NORMAL VALUE: NOT DETECTED) ? Note: This test uses logger all round- mediated amplification method to detect rRNA from C. Trachomatis URINE GC AMP PROBE NEGATIVE (NEG) [facility] Comment: No Neisseria Gonorrhoeae RNA detected in this patient's sample ? (REFERENCE RANGE/NORMAL VALUE: NOT DETECTED) ? NOTE: This test uses logger all round-mediated amplification method to detect rRNA from N.Gonorrhoeae. [...] without risk of sexual abuse. Consult the [facility] if needed. Contact phone number . Therapeutic failure or success cannot be determined with the Aptima Combo2 assay since nucleic acid may persist following appropriate antimicrobial therapy. The Centers for Disease Control and Prevention (CDC) recommends confirmatory retesting using culture or a different nucleic acid amplification test when positive results occur, if indicated. Testing performed or reported by [facility], a Service of [facility], [address], [place] [address] Javier Gracia MD, Salesperson Men'S Furnishings [facility]# [id number] Urine (Urine) 10/28/2021 1:5 1 PM EDT 10/28/2021 10:22 PM EDT us Anni Zavaleta DO LAB MICROBIOLOGY - GENERAL ORDER EMILY Final Result [facility] from Last 3 Months or Most Recently Relevant to Health Maintenance
== END 2024-08-15 14:04 | disposition home or self-care (01) ==
LOC: HO.HPSW 12:55
PROVIDERS: PCP Internal Medicine; Visit Provider Nurse Practitioner Family
DX: Z86.711 Personal history of pulmonary embolism (principal); Z86.718 Personal history of other venous thrombosis and embolism
CPT/HCPCS: 99204

== ENCOUNTER 2024-12-04 09:05 | Outpatient (REF) | payer BC, SELFPAY ==
--- NOTE | ~2024-12-04 | US_ITS ---
EXAMINATION: US THYROID HISTORY: E06.3 - Autoimmune thyroiditis TECHNIQUE: Real-time grayscale ultrasound imaging was performed and images were reviewed. COMPARISON: Correlation is made with a chest CT from [facility] dated 07/22/2024. FINDINGS: SIZE: The right thyroid lobe measures 5.2 x 2.2 x 2.0 cm. The left thyroid lobe measures 5.3 x 2.1 x 2.0 cm. The isthmus measures 3 mm. FLOW: Flow to the gland is increased. ECHOGENICITY: The echotexture of the gland is markedly heterogeneous. NODULES: No discrete nodules are identified. US/US thyroid IMPRESSION: Markedly heterogeneous, hypervascular thyroid gland without evidence of discrete nodules. ACR TI-RADS Guidelines TR1 (0 points): Benign. No follow-up or biopsy required TR2 (2 points): Not Suspicious. No biopsy or follow up indicated TR3 (3 points): Mildly Suspicious. FNA if >= 2.5 cm, Follow if >= 1.5 cm TR4 (4-6 points): Moderately Suspicious. FNA if >= 1.5 cm, Follow if >= 1.0 cm TR5 (>=7 points): Highly Suspicious. FNA if >= 1.0 cm, Follow if >= 0.5 cm Electronically signed by: Cal Villarreal MD 12/04/2024 10:34 AM EDT
--- OUTSIDE RECORDS SUMMARY | 2024-12-04 09:28 | XMS_ITS | Encounter Summary ---
Author Organization [facility] Address [address] [place] [address] Phone Care Team Providers Care Case Resolution Specialist Name Role Phone Provider, Danette BEST Primary Care Provider [phone] Encounter Details Date Type Department Care Team (Late st Contact Info) Description 11/25/2016 Conversion Encounter [facility] [address] [phone] Social History Tobacco Use Types Packs/Day Years [...] on filedocumented in this encounter Care Teams Case Resolution Specialist Relationship Specialty Start Date End Date Provider, MD Danette [address] [place] [address] PCP - General Pediatrics 10/22/21 08/15/22 documented as of this encounter
--- OUTSIDE RECORDS SUMMARY | 2024-12-04 09:28 | XMS_ITS | Continuity of Care Document ---
Author Organization [facility] [address] [facility] [address] [place] [address] Phone [phone] Care Team Providers Care Electrical/Instrument Technician Name Role Phone Lisa Rodriguez Care Team Information Landscaping And Groundskeeping Laborer [phone] Problems Active Problems Provider Date Rogers thyroiditis Cl Almeida M.D. On set: 02/28/2023 Hypothyroidism Cl Almeida M.D. Onset: 1 04/30/2022 Social History Type Date Description Comments Sex Female Sex Unknown Tobacco Use Start: Unknown Never [...] 0.82-1.77 TSH With Reflex To FT4 02/28/2023 [facility] TSH With Reflex To FT4 3.65 uIU/mL (0.4-4.2) Cortisol 02/28/2023 [facility] Cortisol 26.0 g/dL 1 1 Reference Range: 6-10 am: 6.0-18.4 [...] Description No Information Available Referrals Refer to Dr Reason for Referral Status Appt Cl Brar M.D. Created [address] [place] [address] Drive [address] [place] [address] [phone] Cl Almeida M.D. Closed [address] [place] [address] [address] [place] [phone] Cl Almeida M.D. Closed [address] [place] [address] Drive [address] [place] [address] [phone]
--- OUTSIDE RECORDS SUMMARY | 2024-12-04 09:28 | XMS_ITS | Clinical Summary ---
Author Organization [facility] Address [address] [place] [phone] Phone Care Team Providers Care Food And Nutrition Teacher Name Role Phone Unavailable Primary Care [...] and OCPs, topical refilled, OCPs prescribed by PAPER COATING MACHINE OPERATOR. Assessment & Plan (10/04/2017 4:40 PM EDT): [...] oral contraceptive Overview (10/29/2021): Followed by adult PAPER COATING MACHINE OPERATOR Pt with hx of severe cramping and long menses treated successfully after several OCP attempts and visit to PAPER COATING MACHINE OPERATOR with long cycling apri (spitting 1st and 2nd inactive weeks) with improvement in cramping and normally no breakthrough bleeding. Continue f/u with PAPER COATING MACHINE OPERATOR. Followed by adult PAPER COATING MACHINE OPERATOR. Pt was put on refrigerated probiotic that was about $100/3 mo supply Stopped taking it once sx resolved Wondering if she should take it proactively - PAPER COATING MACHINE OPERATOR hadn't specifically said Assessment & Plan (10/29/2021 9:57 AM EDT): Seeing Visual Education Teacher now- on OCP Assessment & Plan (10/28/2019 11:13 PM EDT): Continue to follow with PAPER COATING MACHINE OPERATOR Did not repeat urine GC/Chlamydia testing today due to recent testing at PAPER COATING MACHINE OPERATOR Not SA so low risk Discussed could try another refrigerated probiotic, typically I recommend a single organism Follow up with PAPER COATING MACHINE OPERATOR if needed if any issues with menses/discharge Assessment & Plan (10/04/2017 4:41 PM EDT): Refilled with the prolonged cycling, proper use, no risky behaviors, no further testing needed. Resolved Problems Problem Noted Date Diagnosed Date Resolved Date Vaginal discharge 03/12/2020 10/27/2021 Overview (03/12/2020): Chronic complaints, pt has been treated for BV and then had ongoing concerns with neg vag swab. Was referred to PAPER COATING MACHINE OPERATOR for further evaluation after 10/2018 recurrent sx Has been pt of [facility] and at last visit (virtual) they recommended Boric Acid 600mg per vagina nightly x 3 weeks, then f/u with [facility] for recheck. Cough 03/30/2018 10/28/2019 Assessment & Plan (04/07/2018 12:55 PM EST): Cough for 2.[address] Seen at [facility] and had Neg strept and neg mono. [...] of Thrombophilia, No family history of Sudden /[place] under age 55, No family history of [...] 84 05/10/2022 4:31 PM EST Temperature 36.8 C (98.3 F) 05/10/2022 4:31 PM EST Respiratory Rate 16 02/22/2019 8:54 AM EST Oxygen Saturation 99% 09/01/2012 12:00 AM EDT Inhaled Oxygen Concentration - - Weight 82.1 kg (181 lb) 05/10/2022 4:31 PM EST Height 172.7 cm (5' 8 ) 10/28/2021 1:49 PM EDT Body Mass Index 27.52 10/28/2021 1:49 PM EDT Plan of Treatment Health Maintenance Due Date Last Done Comments COVID-19 Vaccine (5 - 2023-2 5 season) 2023 04/15/2021, 08/22/2020, 08/01/2020, Additional history exists Influenza Vaccines (#1) 2024 04/08/20, 02/17/2021, 02/12/2020, Additional history exists DTaP,Tdap,and Td Vaccines (8 [...] Completed 04/10/2019, 10/05/2018 Procedures * Due to [facility] law, this organization might not be sharing sensitive test results. Procedure Name Priority Date/Time Associated Diagnosis Comments CHLAMYDIA AND GONORRHEA, AMPLIFIED Routine 10/28/2021 1:51 PM EDT Encounter for screening examination for chlamydial infection from Last 3 Months or Most Recently Relevant to Health Maintenance Results * Due to [facility] law, this organization might not be sharing sensitive test results. * Chlamydia and Gonorrhoea, Amplified (10/28/2021 1:51 PM EDT) Chlamydia Trachomatis, DNA Probe NEGATIVE (NEG) [facility] Comment: No Chlamydia Trachomatis RNA detected in this patient's sample (REFERENCE RANGE/NORMAL VALUE: NOT DETECTED) Note: This test uses speech language assistant- mediated amplification method to detect rRNA from C. Trachomatis URINE GC AMP PROBE NEGATIVE (NEG) [facility] Comment: No Neisseria Gonorrhoeae RNA detected in this patient's sample (REFERENCE RANGE/NORMAL VALUE: NOT DETECTED) NOTE: This test uses speech language assistant-mediated amplification method to detect rRNA from N.Gonorrhoeae. [...] risk of sexual abuse. Consult the [facility] if needed. Contact phone number . Therapeutic failure or success cannot be determined with the Aptima Combo2 assay since nucleic acid may persist following appropriate antimicrobial therapy. The Centers for Disease Control and Prevention (CDC) recommends confirmatory retesting using culture or a different nucleic acid amplification test when positive results occur, if indicated. Testing performed or reported by [facility], a Service of [facility], [address] [place] [address] Javier Garcia MD, Precipitator Operator [facility]# [id number] Urine (Urine) 10/28/2021 1:5 1 PM EDT 10/28/2021 10:22 PM EDT us Anni Zavaleta DO LAB MICROBIOLOGY - GENERAL ORDER EMILY Final Result [facility] from Last 3 Months or Most Recently Relevant to Health Maintenance
--- OUTSIDE RECORDS SUMMARY | 2024-12-04 09:28 | XMS_ITS | Encounter Summary ---
Author Organization [facility] Address [address] [place] [address] Phone Care Team Providers Care Chemical Treatment Operator Name Role Phone Provider, Danette BEST Primary Care Provider [phone] Encounter Details Date Type Department Care Team (Late st Contact Info) Description 06/03/2016 Documentation [facility] [place] [address] [place] [address] Family Medicine, Physician [address] [place], [place] [phone] Social History Tobacco Use Types Packs/Day Years [...] on filedocumented in this encounter Care Teams Chemical Treatment Operator Relationship Specialty Start Date End Date Provider, MD Danette [address] [place] [phone] PCP - General Pediatrics 10/22/21 08/15/22 documented as of this encounter
--- OUTSIDE RECORDS SUMMARY | 2024-12-04 09:28 | XMS_ITS | Clinical Summary ---
Author Organization [facility] Address [address] [place] [phone] Phone Care Team Providers Care Sewing Machines Salesperson Name Role Phone Lisa Rodriguez MD Primary Care Provider Allergies No known active allergies Medications levonorgestrel and ethynyl estradiol (SEASONIQUE) 0.15 mg-30 mcg (84)/10 mcg (7) 3MPk Take 1 tablet by mouth daily. Active lactobacillus rhamnosus GG-inulin (CULTURELLE PROBIOTIC) 10 billion cell -200 mg CpSP Take 200 mg by mouth daily. Active XARELTO 20 mg Tab TAKE 1 TABLET BY MOUTH ONCE DAILY FOR 60 DAYS Active drospirenone (SLYND) 4 mg tablet Take 1 tablet by mouth. Active midodrine (PROAMATINE) 5 MG tablet Take 1 tablet (5 mg total) by mouth 3 (three) times a day. 90 tablet 3 5 Active sodium chloride 1,000 mg tablet TAKE 1 TABLET (1,000 MG TOTAL) BY MOUTH 3 (THREE) TIMES A DAY WITH MEALS. 100 tablet 3 5 Active sodium chloride 1,000 mg tablet Take 1 tablet (1,000 mg total) by mouth 3 (three) times a day with meals. 180 tablet 1 5 11/22/19 25 Discontinued Active Problems Problem Noted Date Diagnosed Date POTS (postural orthostatic tachycardia syndrome) 08/14/2024 Assessment & Plan (08/14/2024 11:58 AM EDT): She has had presyncopal episodes but had an echo and a 7-day monitor not showing any significant abnormalities we are going to increase water ingestion however maintain the high amount of salt that she is ingesting and adding midodrine. In addition she is going to wear compression stockings I will follow-up with her in 4 months time Arrhythmia 08/14/2024 Assessment & Plan (08/14/2024 11:58 AM EDT): I reviewed her 7-day MCT monitor which showed no evidence of significant arrhythmia. Encounters Date Type Department Care Team Description 11/21/2024 Refill [facility] [address], [address] [place], [place] [id number] Tatum Miller, NIXON Medication Refill from Last 3 Months Social History Tobacco Use Types Packs/Day Years Used Date Smoking Tobacco: Never Assessed Education Answer Date Recorded Are you interested in more education? Not on mikel e 08/07/2022 Are you concerned about learning? Not on file 08/07/2022 No 08/07/2022 No 08/07/2022 Digital Access Answer Date Recorded No 09/07/2022 No 09/07/2022 Reliable internet access at home? Not on file 09/07/2022 Device with a working camera? Not on file Comments Unknown Sex and Gender Information Value Date Recorded Sex Assigned at Female 01/20/2022 3:27 PM EDT Legal Sex Female 3:25 PM EDT Gender Identity Female 01/20/2022 3:27 PM EDT Sexual Orientation Straight 01/20/2022 3: 27 PM EDT Last Filed Vital Signs Vital Sign Reading Time Taken Comments Blood Pressure 124/90 08/14/2024 11:38 AM EDT Pulse 118 08/14/2024 11:38 AM EDT Temperature - - Respiratory Rate - - Oxygen Saturation 99% 08/14/2024 11:38 AM EDT Inhaled Oxygen Concentration - - Weight 75.8 kg (167 lb) 08/14/2024 11:38 AM EDT Height 173 cm (5' 8.11 ) 08/14/2024 11:38 AM EDT Body Mass Index 25.31 08/14/2024 11:38 AM EDT Plan of Treatment Upcoming Encounters Date Type Department Care Team (Late st Contact Info) Description 12/25/2024 12:00 PM EDT Office Visit [facility] [address] [facility] [address], [address] [place] [address] Gavino Rice DO [address] [facility] [address] [place] [address] .MyDROBE Health Maintenance Due Date Last Done Comments CREATININE LEVEL 2000 DEPRESSION SCREENING 2012 SMOKING Hx and SMOKELESS TOBACCO SCREENING 2013 HPV VACCINES (1 - 3-dose series) 10/02/2015 CHLAMYDIA SCREENING 2016 HEPATITIS C SCREENING 2018 HIV ONE-TIME SCREENING (18-6 5 YEARS) 2018 PAP SMEAR 2021 COVID-19 VACCINE (2023-2 5 season) 2023 Adult Td,Tdap Booster 10/29/2031 10/28/2021 , 10/05/2011 HEPATITIS A VACCINES Aged Out No long er eligible based on patient's age to complete this topic HIB VACCINES Aged Out No longer eligi ble based on patient's age to complete this topic MENINGOCOCCAL VACCINES (ACWY) Aged Out No longer eligible based on patient's age to complete this topic MENINGOCOCCAL VACCINES (B) Aged Out N o longer eligible based on patient's age to complete this topic PNEUMOCOCCAL VACCINES (0-49 years) Aged Out No longer eligible b ased on patient's age to complete this topic Medical Devices Not on file Insurance [facility] [address] [address] [place] [address] [place] [address] [place] [id number] [facility] Care Teams Sewing Machines Salesperson Relationship Specialty Start Date End Date Lisa Rodriguez MD [address] [place] [address] PCP - General Internal Medicine 07/23/24 Additional Source Comments The information contained in this document represents components of the legal health record. It is not the complete legal health record.[facility]
--- OUTSIDE RECORDS SUMMARY | 2024-12-04 09:28 | XMS_ITS | Encounter Summary ---
Author Organization [facility] Address [address] [place] [address] Phone Care Team Providers Care Sea Captain Name Role Phone Provider, Danette BEST Primary Care Provider [phone] Encounter Details Date Type Department Care Team (Late st Contact Info) Description 06/07/2016 Documentation [facility] Family Medicine [address] [place] [address] Family Medicine, Physician [address] [place], [place] [id number] Social History Tobacco Use Types Packs/Day Years [...] on filedocumented in this encounter Care Teams Sea Captain Relationship Specialty Start Date End Date Provider, MD Danette [address] [place] [phone] PCP - General Pediatrics 10/22/21 08/15/22 documented as of this encounter
--- OUTSIDE RECORDS SUMMARY | 2024-12-04 09:28 | XMS_ITS | Clinical Summary ---
Author Organization [facility] Address [address] [place] [address] Care Team Providers Care Crnp Name Role Phone Lisa Rodriguez MD Primary Care Provider [phone] Allergies No known active allergies Medications No [...] 100 03/04/2023 2:44 PM EST Temperature 36.7 C (98 F) 03/04/2023 2:44 PM EST Respiratory Rate - [...] patient's age to complete this topic Insurance [facility] - HMO Care Teams Crnp Relationship Specialty Start Date End Date Lisa Rodriguez MD [address] [place] [address] PCP - General Internal Medicine 03/04/23
--- OUTSIDE RECORDS SUMMARY | 2024-12-04 09:28 | XMS_ITS | Encounter Summary ---
Author Organization [facility] Address [address] [place] [phone] Phone Care Team Providers Care Coil Shaper Name Role Phone Provider, Danette BEST Primary Care Provider [phone] Reason for Visit * Reason Comments Med Refill Encounter Details Date Type Department Care Team (Late st Contact Info) Description 07/23/2017 Refill [facility] - [address] [address] Dalila Suárez NP Encounter for other contraceptive [...] visit with Essence I had written that [facility] [employer] [facility] was writing her OCPs - but in speaking with the pharmacist at [facility] we have been prescribing her OCPs. Last visit with [employer]IT TOOL [employer]TER was 03/2017 - they discussed longer cycling [...] Primary documented in this encounter Care Teams Coil Shaper Relationship Specialty Start Date End Date Provider, MD Danette [address] [place] [phone] PCP - General Pediatrics 10/22/21 08/15/22 documented as of this encounter
--- OUTSIDE RECORDS SUMMARY | 2024-12-04 09:28 | XMS_ITS | Clinical Summary ---
Author Organization [facility] Address [address] [place] [phone] Phone Care Team Providers Care Timber Surveyor Name Role Phone Lisa Rodriguez MD Primary Care Provider Allergies No known active allergies Medications rivaroxaban (XARELTO) starter pack Take 1 tablet (15 mg) by mouth 2 (two) times a day with meals for 21 days. Then take 1 tablet (20 mg) by mouth 1 (one) time each day with dinner. 07/12/2024 Active drospirenone, contraceptive, (Slynd) 4 mg (28) tablet Take 1 tablet by mouth 1 (one) time each day. Active sodium chloride 1 gram tablet Take 1 tablet (1 g total) by mouth 3 (three) times a day with meals. 90 each 07/23/2024 Active Active Problems Problem Noted Date Diagnosed Date Syncope and collapse 07/22/2024 Multiple subsegmental pulmon mily emboli without acute cor pulmonale (CMS/HCC V24, CMS/HCC V28) 07/11/2024 Surgical History Surgery Date Site/Laterality Comments HIP [...] 88 08/03/2024 6:44 PM EDT Temperature 36.8 C (98.3 F) 08/03/2024 3:01 PM EDT Respiratory Rate 15 08/03/2024 6:44 PM EDT [...] 04/08/2022, 04/15/2021, Additional history exists Depression Screening 04/11/2024 HIV Screening 07/11/2024 Hepatitis C Screening 07/11/2024 Social Influencers of Health Screening 07/11/2024 Influenza Vaccine (#1) 2024 , 04/08/2022, 02/17/2021, Additional history exists DTaP,Tdap,and Td Vaccines (8 - Td or Tdap) 10/29/2031 10/28/2021, 10/05/2011, 10/15/2004, Additional history exists HIB Vaccines Completed 01/12/2002, 03/12, 01/27/2001, Additional history exists Pneumococcal Vaccine: Pediatrics (0 to 5 Years) and At-Risk Patients (6 to 49 Years) Completed 10/02/2002, 03/31/2001, 01/27/2001, Additional history [...] patient's age to complete this topic Insurance [facility] Advance Directives * Full Code - [...] Agents on File Name Relationship Healthcare Agent [facility] Communication Dorothy Garvey [facility] Care Agent Care Teams Timber Surveyor Relationship Specialty Start Date End Date Lisa Rodriguez MD [address] [place] [address] PCP - General Internal Medicine 07/11/24
--- OUTSIDE RECORDS SUMMARY | 2024-12-04 09:28 | XMS_ITS ---
Author Name [facility] Organization Unknown Problems Problem Status Onset Date Problem Type Date of Resoluti on Source Viral URI active EncounterDiagnosisAct CCT Sore throat active EncounterDiagnosisAct CCT Encounters Encounter Type Encounter Reason Primary Diagnosis Location Date Ambulatory Acute upper respiratory infection, unspecified Acute upper respiratory infection, unspecified [id number] 03/04/2023 Care Team Organization Name Specialty Phone Email Start Date End Da te Reading [employer] 05/01/2023 [facility] CASSANDRA WILSON Primary Care 03/04/20232024 [facility] CASSANDRA WILSON Primary Care 03/04/20232022
--- OUTSIDE RECORDS SUMMARY | 2024-12-04 09:28 | XMS_ITS | Encounter Summary ---
Author Organization [facility] Address [address] [place] [address] Phone Care Team Providers Care Manufacturing Assembler Name Role Phone Provider, Danette BEST Primary Care Provider [phone] Encounter Details Date Type Department Care Team (Late st Contact Info) Description 07/25/2009 Documentation [facility] [place] Medicine [address] [place] [address] Family Medicine, Physician [address] [place], [place] [phone] Social History Tobacco Use Types Packs/Day Years [...] on filedocumented in this encounter Care Teams Manufacturing Assembler Relationship Specialty Start Date End Date Provider, MD Danette [address] [place] [phone] PCP - General Pediatrics 10/22/21 08/15/22 documented as of this encounter
== END 2024-12-04 09:06 | disposition home or self-care (01) ==
LOC: HO.HMGCX 09:05
PROVIDERS: PCP Internal Medicine; Visit Provider Internal Medicine
DX: E06.3 Autoimmune thyroiditis (principal); E04.1 Nontoxic single thyroid nodule
CPT/HCPCS: 76536

== ENCOUNTER → 2024-12-04 09:25 | Outpatient (BNV) | payer BC, SELFPAY | PROVIDERS: PCP Internal Medicine; Visit Provider Radiology Diagnostic Radiology | DX: E06.3 Autoimmune thyroiditis (principal) | CPT/HCPCS: 76536 ==

== ENCOUNTER 2024-12-20 18:17 | Emergency (ER) | payer BC, SELFPAY ==
[2024-12-20] VITALS (8 sets, daily range): BP systolic 100–126; BP diastolic 56–67; PULSE 69–105; RESP 13–23; TEMP 36.4–37.1; O2SAT 97–100; BMI 26.5
--- NOTE | ~2024-12-20 | XR_ITS ---
CLINICAL HISTORY: left knee pain 1 view left knee Comparison: None provided Findings: Single lateral view only was submitted for review demonstrating abnormal patellofemoral articulation consistent with a dislocation. No acute fracture is evident. No joint effusion. No radiopaque foreign body. IMPRESSION: Single lateral view only was submitted for review demonstrating abnormal patellofemoral articulation consistent with a dislocation. This document has been electronically signed by: Trina García DO on 12/20/2024 19:26:57
--- NOTE | ~2024-12-20 | XR_ITS ---
CLINICAL HISTORY: post reduction 1 view left knee Comparison: CR - XR KNEE LT 4V - 12/20/24 18:53 EDT Findings: At the discretion of the ordering provider, a single AP view only was obtained portably. Limited assessment of the patellofemoral articulation without a true lateral view. No acute fractures evident. IMPRESSION: 1. At the discretion of the ordering provider, a single AP view only was obtained. 2. Limited assessment of the patellofemoral articulation without a true lateral view. The patella appears grossly satisfactory in position. Recommend correlation with the physical examination or a follow-up lateral view. This document has been electronically signed by: Trina García DO on 12/20/2024 19:57:08
--- NOTE | 2024-12-20 18:37 | ED.LOWEXIN ---
HPI - Extremity Injury (Lower) General Chief Complaint: Extremity Injury, Lower Stated Complaint: Gymnast: dislocated knee, deformity Time Seen by Provider: 12/20/24 18:19 Source: patient Mode of arrival: ambulatory Limitations: no limitations History of Present Illness ED Provider: MINERVA Kate HPI Narrative: 24-year-old female recent history of hip surgery complicated by DVT and PE currently anticoagulated on Xarelto presents with 10/10 left knee pain status post kicking a mat while at gymnastics practice. She reports after she kicked them out she immediately heard a pop in her left knee in her kneecap seem to be dislocated. She was given fentanyl 75 mcg EN route. She is extremely uncomfortable. This has never happened to her before. Denies numbness, tingling. No recent falls or traumas. Related Data Home Medications ?Medication ?Instructions ?Recorded ?Confirmed drospirenone (contraceptive) 4 mg 4 mg PO DAILY 08/05/24 08/05/24 (28) tablet (Slynd) rivaroxaban 20 mg tablet (Xarelto) 20 mg PO DAILY 08/05/24 08/05/24 sodium chloride 1,000 mg soluble 1,000 mg PO TID 08/15/24 tablet Previous Rx's ?Medication ?Instructions ?Recorded morphine 15 mg immediate release 15 mg PO Q6H PRN pain 5 days #10 12/20/24 tablet tabs naloxone 4 mg/actuation nasal 4 mg intranasal Q2M PRN opioid 12/20/24 spray (Narcan) overdose #2 ea Allergies Allergy/AdvReac Type Severity Reaction Status Date / Time No Known Allergies Allergy Verified 12/20/24 18:31 Review of Systems Review of Systems: Yes all other systems are reviewed and are negative PMFSH Past Medical History Attestation statement: The following information was validated with the patient. 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 region Hamstring muscle strain Chronic lumbosacral pain Chronic fatigue Hyperkalemia Tingling in extremities Family history of Rogers thyroiditis Family history of diabetes mellitus Intermittent palpitations Surgical History No pertinent past surgical history Family History Family History Maternal Aunt Breast cancer Mother Hypothyroidism due to Rogers's thyroiditis Type 1 diabetes mellitus Social History Social History Housing: House Patient Tobacco Use Status: Never used Tobacco Smoked in Last 30 Days: No e-Cigarette/Vaping Use: Never Used Use of substances other than those prescribed or required for medical reasons: No Advance Directives: Yes Advance Directives on File: Yes Advance Directives Date on File: 12/28/23 Patient : No service: No Current occupational status: employed Cognitive needs: No Hearing needs: No Vision needs: No Physical Exam Exam: Exam: Appearance: Alert.? Oriented X3.? No acute distress.? Head: Normocephalic, atraumatic, no step-offs or deformities Eyes: Pupils equal, round and reactive to light.? Neck: Normal inspection.? Neck supple.? CVS: Normal heart rate and rhythm.? Pulses normal.? Respiratory: No respiratory distress.? Breath sounds normal.? Abdomen: Soft and nontender.? Skin: Skin warm and dry.? Normal skin color.? Normal skin turgor.? Extremities: No lower extremity edema.? No calf ttp. 5/5 strength to bilateral upper and right lower extremity. Left lower extremity did not assess strength patient has an evident laterally displaced patella. She has palpable popliteal pulses bilaterally, DP,AT,PT normal distal sensation. Back: No midline tenderness, no C-spine tenderness, full range of motion, no CVA tenderness bilaterally Neuro: Oriented X 3.? No motor deficit.? No sensory deficit. CN 2-12 intact Vital Signs: Vital Signs: Last Vital Signs Temp 97.5 F 12/20/24 19:30 Pulse 95 12/20/24 20:26 Resp 13 12/20/24 20:26 BP 100/56 L 12/20/24 20:26 Pulse Ox 100 12/20/24 20:26 O2 Del Method Room Air 12/20/24 20:26 O2 Flow Rate 2 12/20/24 19:30 BMI result Body Mass Index 26.5 Course Reevaluation(s) Reevaluation #1: I did go over conscious sedation with patient, mother at the bedside. Patient was too anxious and had her mother signed the paperwork. They verbalized understanding of risks of reduction and sedation. Paperwork sign and verbal consent obtained. You can localize inpatient chart. Awaiting x-ray of left knee. Time: 18:40 Reevaluation #2: Patient was in a lot of pain therefore proceeded based off of clinical exam, had Dr. Reyes at the bedside. Conscious sedation with 80 mg of propofol given. Patient tolerated procedure well. No adverse effects. She was placed in a knee immobilizer. Postop films obtained. Patient being monitored. Still in severe pain Dilaudid will be given. Time: 19:14 Reevaluation #3: Patient doing well. Will watch her for another hour and discharge her when appropriate. Time: 20:05 Additional Reevaluation(s): Patient feeling better at this time will discharge home. Educated patient on diagnosis and treatment plan, answered all question, patient verbalizes understanding. At this time patient will be discharged home, advised to return with new or worsening symptoms. Educated on worrisome signs and symptoms and when to return. At this time I feel comfortable discharge home. Postreduction neurovascular status was checked and it is intact patient is able to wiggle her toes. Normal distal sensation. Palpable pulses. Medications Administered Discontinued Medications Generic Name Dose Route Start Last Admin Trade Name Sethq PRN Reason Stop Dose Admin Fentanyl 50 mcg 12/20/24 19:26 12/20/24 19:05 Fentanyl Citrate/Pf 100 Mcg/2 Ml Vial IVPUSH 12/20/24 19:27 50 mcg ONCE ONE Administration Protocol Hydromorphone HCl 1 mg 12/20/24 19:16 12/20/24 19:24 Hydromorphone Hcl 1 Mg/Ml Syringe IVPUSH 12/20/24 19:17 1 mg ONCE ONE Administration Protocol Propofol 100 mg 12/20/24 18:26 12/20/24 19:10 Propofol 200 Mg/20 Ml Vial IVPUSH 12/20/24 18:27 Not Given ONCE ONE Propofol 80 mg 12/20/24 19:27 12/20/24 19:06 Propofol 200 Mg/20 Ml Vial IVPUSH 12/20/24 19:28 80 mg ONCE ONE Administration Medical Decision Making Medical Decision Making MDM Narrative: 24-year-old female presents with suspected left patellar dislocation. Patient reports she was kicking him out in her knee popped and she noted it was displaced. Physical exam with laterally displaced patella. Normal neurovascular status. History and physical exam concerning for laterally dislocated patella unlikely underlying fraction due to mechanism. No signs of neurovascular compromise or acute threat to limb. Patient very anxious. Will give fentanyl for pain control. I plan on doing conscious sedation. My attending will be at the bedside and case needed. Differential Diagnosis Differential Diagnoses: The differential diagnosis associated with the presentation includes (History and physical exam concerning for laterally dislocated patella unlikely underlying fraction due to mechanism. No signs of neurovascular compromise or acute threat to limb.) Admission/Observation Consideration of admission/observation: Escalation of care including admission/observation considered Independent Interpretation I performed an independent interpretation of an: Plain X-Ray Attestation Attending Attestation: I was present for procedural sedation and reduction of left patella. Patient tolerated procedure well. Patella reduced. Placed in knee immobilizer. Patient will be discharged. Procedures Orthopedic Joint Reduction Joint #1: Joint Reduction Location: knee/patella Post-reduction neuro exam: intact Post-reduction vascular: intact Post Reduction X-Ray Obtained: Yes Post Reduction X-Ray Results: reduced Patient Tolerated Procedure: well and no complications Additional Comments: Procedural sedation with propofol. 80mg. Extended left leg with lateral to medial traction of patella bone. Patella bone reduced. Placed in Knee immobilizer Procedural Sedation Indication: fracture/dislocation reduction ASA Class: I Mallampati Class: I Preparation: groundwater monitoring technician applied, pulse oximeter, capnometry used, supplemental O2 applied, suction/airway equipment at bedside and IV secured IV Propofol dose (mg): 80 Patient Tolerated Procedure: well and no complications Complications: none Critical Care Time Critical Care Time Critical Care Time: Yes Total Critical Care Time: 45 Attestation: I attest to this time spent taking care of the patient, obtaining history, physical, reviewing labs, imaging, treatment of patients condition +/- specialist/hospitalist consult +/- procedure Discharge Plan Discharge Clinical Impression: Closed dislocation of left patella Patient Disposition: Home, Self-Care Instructions: Knee Dislocation (ED) Additional Instructions: Take your medications as prescribed. If you were prescribed antibiotics today, it is important that you take your medication to their entirety, do not skip any doses, do not finish them early. Follow-up with your primary care provider this week. Return to the emergency department with new or worsening symptoms. Such as fevers, chills, chest pain, shortness of breath, nausea, vomiting, dizziness, headache, vision changes, lethargy In case of emergency call 911 A narcotic has been sent to your pharmacy please take this as prescribed. Do not take more than the prescribed dose. Narcotic medications can cause addiction. Please do not mix them with alcohol. Do not take them while driving or operating machinery. Do not take them with any other narcotics. Do not share them with friends or family. They can cause constipation. Take them only for severe pain. You can take ibuprofen every 6 hours Tylenol every 4 as needed for pain or discomfort. For [id number] pain For severe pain morphine has been sent. Prescriptions: New morphine 15 mg tablet 15 mg PO Q6H PRN (Reason: pain) 5 Days Qty: 10 0RF Rx Instructions: Partial Fill upon patient request. naloxone [Narcan] 4 mg/actuation spray,non-aerosol 4 mg intranasal Q2M PRN (Reason: opioid overdose) Qty: 2 0RF Rx Instructions: spray 1 dose into ONE nostril; alternate nostrils w each dose until help arrives No Action Xarelto 20 mg tablet 20 mg PO DAILY Slynd 4 mg (28) tablet 4 mg PO DAILY sodium chloride 1,000 mg tablet,soluble 1,000 mg PO TID Referrals: [facility] [Provider Group] Lisa Rodriguez MD [Primary Care Provider, Internal Medicine] Stand Alone Forms: Work/School Release Print Language: Greenlandic
--- NOTE | 2024-12-20 19:32 | PC.NURSE ---
time out started for left knee reduction with Dr.Cheng MINERVA Dove, Mar Obregon RN, Noemi Castro RN. HR 87 CO2 23 BP 126/57 O2 100% 2L [address] Parker [address] Parker BP 108/62 100%2L NC CO2 22 HR [address] HR 56 CO2 20 BP 111/68 O2 100 2L 1909 XRAY taken hr 77 O2 98 2L BP 118/65
--- OUTSIDE RECORDS SUMMARY | 2024-12-20 19:56 | XMS_ITS | Encounter Summary ---
Author Organization [facility] Address [address] [place] [address] Phone Care Team Providers Care Modeling Teacher Name Role Phone Provider, Danette BEST Primary Care Provider [phone] Encounter Details Date Type Department Care Team (Late st Contact Info) Description 11/25/2016 Conversion Encounter [facility] [address] [id number] Social History Tobacco Use Types Packs/Day Years [...] on filedocumented in this encounter Care Teams Modeling Teacher Relationship Specialty Start Date End Date Provider, MD Danette [address] [place] [address] PCP - General Pediatrics 10/22/21 08/15/22 documented as of this encounter
--- OUTSIDE RECORDS SUMMARY | 2024-12-20 19:56 | XMS_ITS | Clinical Summary ---
Author Organization [facility] Address [address] [place] [address] Phone Care Team Providers Care Electric Detector Operator Name Role Phone Lisa Rodriguez MD Primary [...] Encounters Date Type Department Care Team Description 12/18/2024 Refill [facility] [address] Floor, [address] [place] [address] Gavino Rice, DO Medication Refill 11/21/2024 Refill [facility] [address] Floor, [address] [place] [address] Tatum Miller, NIXON Medication Refill from Last [...] Description 12/25/2024 12:00 PM EDT Office Visit [facility] [address] [facility] 3rd Floor, [address] [place] [address] Gavino Rice DO [address] [facility] [address] [place] [address] Health Maintenance Due Date Last Done Comments CREATININE LEVEL 2000 DEPRESSION SCREENING 2012 SMOKING Hx and SMOKELESS TOBACCO SCREENING 2013 HPV VACCINES (1 - 3-dose series) 10/02/2015 CHLAMYDIA SCREENING 2016 HEPATITIS C SCREENING 2018 HIV ONE-TIME SCREENING (18-6 5 YEARS) 2018 PAP SMEAR 2021 INFLUENZA VACCINE (#1) 2024 COVID-19 VACCINE (1 - 2023-2 5 season) 2024 Adult Td,Tdap Booster 10/29/2031 10/28/2021 , 10/05/2011 [...] topic Medical Devices Not on file [place] [address] [place] [address] [facility] Care Teams Electric Detector Operator Relationship Specialty Start Date End Date Lisa Rodriguez MD [address] [address] PCP - General Internal Medicine 07/23/24 Additional Source Comments The information contained in this document represents components of the legal health record. It is not the complete legal health record.[facility]
--- OUTSIDE RECORDS SUMMARY | 2024-12-20 19:56 | XMS_ITS | Encounter Summary ---
Author Organization [facility] Address [address] [place] [address] Phone Care Team Providers Care Automotive Heavy Mechanic Name Role Phone Provider, Danette BEST Primary Care Provider [phone] Encounter Details Date Type Department Care Team (Late st Contact Info) Description 06/03/2016 Documentation [facility] [place] [facility] [address] [place] [address] Family Medicine, Physician [address] [place], [place] [phone] Social History Tobacco Use Types Packs/Day Years [...] on filedocumented in this encounter Care Teams Automotive Heavy Mechanic Relationship Specialty Start Date End Date Provider, MD Danette [address] [place] [phone] PCP - General Pediatrics 10/22/21 08/15/22 documented as of this encounter
--- OUTSIDE RECORDS SUMMARY | 2024-12-20 19:56 | XMS_ITS | Encounter Summary ---
Author Organization [facility] Address [address] [facility] [address] [place] [address] Phone Care Team Providers Care Manager Mountain Name Role Phone Lisa Rodriguez MD Primary Care Provider Reason for Visit * Reason Comments Medication Refill Encounter Details Date Type Department Care Team (Late st Contact Info) Description 12/18/2024 [facility] [address] [facility] 3rd Floor, [address] [place] [address] Gavino Rice, [address] [facility] [address] [place] [address] [email or web address] Medication Refill Social History Tobacco Use Types Packs/Day Years [...] Orientation Straight 01/20/2022 3: 27 PM EDT documented as of this encounter Plan of Treatment Upcoming Encounters Date Type Department Care Team (Late st Contact Info) Description 12/25/2024 12:00 PM EDT Office Visit [facility] [address] [facility] 3rd Floor, [address] [place] [address] Gavino Rice, [address] [facility] [address] [place] [address] [email or web address] documented as of this encounter Visit Diagnoses Not on filedocumented in this encounter Care Teams Manager Mountain Relationship Specialty Start Date End Date Lisa Rodriguez MD [facility] [place] [address] PCP - General Internal Medicine 07/23/24 documented as of this encounter Additional Source Comments The information contained in this document represents components of the legal health record. It is not the complete legal health record.[facility]
--- OUTSIDE RECORDS SUMMARY | 2024-12-20 19:56 | XMS_ITS | Clinical Summary ---
Author Organization [facility] Address [address] [place] [address] Care Team Providers Care Manager Continuous Improvement Name Role Phone Lisa Rodriguez MD Primary [...] Pap Smear (Ages 21-65) 2021 Influenza Vaccine 11/09/2024 COVID-19 Vaccine ( - 2023-2 5 season) 2024 Pneumococcal Vaccine: Pediat chasidy (0-5 Years) and At-Risk Patients (6 to 49 Years) Aged Out No longer eligible b ased on patient's age to complete this topic Insurance [facility] - HMO Care Teams Manager Continuous Improvement Relationship Specialty Start Date End Date Lisa Rodriguez MD [address] [place] [address] PCP - General Internal Medicine 03/04/23
--- OUTSIDE RECORDS SUMMARY | 2024-12-20 19:56 | XMS_ITS | Continuity of Care Document ---
Author Organization [facility] [address] [facility] [address] [place] [address] Phone [phone] Care Team Providers Care Automation Driver Name Role Phone Lisa Rodriguez Care Team Information Fitness Technician [phone] Problems Active Problems Provider Date Rogers thyroiditis [...] To FT4 3.65 uIU/mL (0.4-4.2) Cortisol 02/28/2023 [facility] Cortisol 26.0 g/dL 1 [...] Referral Status Appt Cl Brar M.D. Created [address] [place] [address] Drive [address] [place] [address] [phone] Cl Almeida M.D. Closed [address] [place] [address] [address] [place] [phone] Cl Almeida M.D. Closed [address] [place] [address] Drive [address] [place] [address] [phone]
--- OUTSIDE RECORDS SUMMARY | 2024-12-20 19:56 | XMS_ITS | Encounter Summary ---
Author Organization [facility] Address [address] [place] [address] Phone Care Team Providers Care Lathing Supervisor Name Role Phone Provider, Danette BEST Primary Care Provider [phone] Encounter Details Date Type Department Care Team (Late st Contact Info) Description 06/07/2016 Documentation [facility] [place] [address] [place] [address] Family Medicine, Physician [address] [place], [place] [phone] Social History Tobacco Use Types Packs/Day Years [...] on filedocumented in this encounter Care Teams Lathing Supervisor Relationship Specialty Start Date End Date Provider, MD Danette [address] [place] [phone] PCP - General Pediatrics 10/22/21 08/15/22 documented as of this encounter
--- OUTSIDE RECORDS SUMMARY | 2024-12-20 19:56 | XMS_ITS | Encounter Summary ---
Author Organization [facility] Address [address] [place] [address] Phone Care Team Providers Care Bankruptcy Judge Name Role Phone Provider, Danette BEST Primary Care Provider [phone] Reason for Visit * Reason Comments Med Refill Encounter Details Date Type Department Care Team (Late st Contact Info) Description 07/23/2017 Refill [facility] - [address] [address] Dalila Suárez NP Encounter for other contraceptive [...] visit with [facility] I had written that HARP REG[facility]ATOR was writing her OCPs - but in speaking with the pharmacist at [facility] we have been prescribing her OCPs. Last visit with HARP REGULATOR was 03/2017 - they discussed longer cycling [...] Primary documented in this encounter Care Teams Bankruptcy Judge Relationship Specialty Start Date End Date Provider, MD Danette [address] [place] [address] PCP - General Pediatrics 10/22/21 08/15/22 documented as of this encounter
--- OUTSIDE RECORDS SUMMARY | 2024-12-20 19:56 | XMS_ITS | Encounter Summary ---
Author Organization [facility] Address [address] [place] [address] Phone Care Team Providers Care Distribution Operations Manager Name Role Phone Provider, Danette BEST Primary Care Provider [phone] Encounter Details Date Type Department Care Team (Late st Contact Info) Description 07/25/2009 Documentation [facility] [place] [address] [place] [address] Family Medicine, Physician [address] [place], [place] [phone] Social History Tobacco Use Types Packs/Day Years [...] on filedocumented in this encounter Care Teams Distribution Operations Manager Relationship Specialty Start Date End Date Provider, MD Danette [address] [place] [phone] PCP - General Pediatrics 10/22/21 08/15/22 documented as of this encounter
--- OUTSIDE RECORDS SUMMARY | 2024-12-20 19:56 | XMS_ITS | Clinical Summary ---
Author Organization [facility] Address [address] [place] [phone] Phone Care Team Providers Care Blasting Coal Miner Name Role Phone Unavailable Primary Care Provider [...] and OCPs, topical refilled, OCPs prescribed by [facility]. Assessment & Plan (10/04/2017 4:40 PM EDT): [...] oral contraceptive Overview (10/29/2021): Followed by adult [facility] Pt with hx of severe cramping and long menses treated successfully after several OCP attempts and visit to [facility] with long cycling apri (spitting 1st and 2nd inactive weeks) with improvement in cramping and normally no breakthrough bleeding. Continue f/u with [facility]. Followed by adult [facility]. Pt was put on refrigerated probiotic that was about $100/3 mo supply Stopped taking it once sx resolved Wondering if she should take it proactively - [facility] hadn't specifically said Assessment & Plan (10/29/2021 9:57 AM EDT): Seeing Insole Reinforcer now- on OCP Assessment & Plan (10/28/2019 11:13 PM EDT): Continue to follow with [facility] Did not repeat urine GC/Chlamydia testing today due to recent testing at [facility] Not SA so low risk Discussed could try another refrigerated probiotic, typically I recommend a single organism Follow up with [facility] if needed if any issues with menses/discharge Assessment & Plan (10/04/2017 4:41 PM EDT): Refilled with the prolonged cycling, proper use, no risky behaviors, no further testing needed. Resolved Problems Problem Noted Date Diagnosed Date Resolved Date Vaginal discharge 03/12/2020 10/27/2021 Overview (03/12/2020): Chronic complaints, pt has been treated for BV and then had ongoing concerns with neg vag swab. Was referred to [facility] for further evaluation after 10/2018 recurrent sx Has been pt of [facility] and at last visit (virtual) they recommended Boric Acid 600mg per vagina nightly x 3 weeks, then f/u with [facility] for recheck. Cough 03/30/2018 10/28/2019 Assessment & Plan (04/07/2018 12:55 PM EST): Cough for 2.[address] Seen at [facility] and had Neg strept and neg mono. [...] of Thrombophilia, No family history of Sudden /HI under age 55, No family history of [...] Date Last Done Comments Influenza Vaccines (#1) 2024 04/08/20, 02/17/2021, 02/12/2020, Additional history exists COVID-19 Vaccine ( - 2024-2 6 season) 2024 04/15/2021, 08/22/2020, 08/01/2020, Additional history exists DTaP,Tdap,and [...] Completed 04/10/2019, 10/05/2018 Procedures * Due to [facility] law, this organization might not be sharing sensitive test results. Procedure Name Priority Date/Time Associated Diagnosis Comments CHLAMYDIA AND GONORRHEA, AMPLIFIED Routine 10/28/2021 1:51 PM EDT Encounter for screening examination for chlamydial infection from Last 3 Months or Most Recently Relevant to Health Maintenance Results * Due to [facility] law, this organization might not be sharing sensitive test results. * Chlamydia and Gonorrhoea, Amplified (10/28/2021 1:51 PM EDT) Chlamydia Trachomatis, DNA Probe NEGATIVE (NEG) [facility] Comment: No Chlamydia Trachomatis RNA detected in this patient's sample (REFERENCE RANGE/NORMAL VALUE: NOT DETECTED) Note: This test uses fibre technologist- mediated amplification method to detect rRNA from C. Trachomatis URINE GC AMP PROBE NEGATIVE (NEG) [facility] Comment: No Neisseria Gonorrhoeae RNA detected in this patient's sample (REFERENCE RANGE/NORMAL VALUE: NOT DETECTED) NOTE: This test uses fibre technologist-mediated amplification method to detect rRNA from N.Gonorrhoeae. [...] if indicated. Testing performed or reported by [facility], a Service of [facility], [address] [place] [address] Javier Garcia MD, Sales Representative Public Utilities [facility]# [id number] Urine (Urine) 10/28/2021 1:5 1 PM EDT 10/28/2021 10:22 PM EDT us Anni Zavaleta DO LAB MICROBIOLOGY - GENERAL ORDER EMILY Final Result [facility] from Last 3 Months or Most Recently Relevant to Health Maintenance
== END 2024-12-20 21:55 | disposition home or self-care (01) ==
PROVIDERS: Emergency Provider Student in an Organized Health Care Education/Training Program; PCP Internal Medicine
DX: S83.005A Unspecified dislocation of left patella, initial encounter (principal); M25.562 Pain in left knee; X58.XXXA Exposure to other specified factors, initial encounter; Y93.9 Activity, unspecified; Y92.538 Other ambulatory health services establishments as the place of occurrence of the external cause; Y99.8 Other external cause status; Z86.718 Personal history of other venous thrombosis and embolism; Z86.711 Personal history of pulmonary embolism; Z79.01 Long term (current) use of anticoagulants; Z79.899 Other long term (current) drug therapy
CPT/HCPCS: 73560; 96374; 96375; 99284; 99285; J1171; J2704; J3010

== ENCOUNTER → 2024-12-20 18:23 | Outpatient (BNV) | payer BC, SELFPAY | PROVIDERS: Emergency Provider Student in an Organized Health Care Education/Training Program; PCP Internal Medicine; Visit Provider Radiology Diagnostic Radiology | DX: M25.562 Pain in left knee (principal) | CPT/HCPCS: 73560 ==

== ENCOUNTER 2025-01-03 15:58 | Outpatient (AMB) | payer BC, SELFPAY ==
[2025-01-03 16:07] VITALS: BP 90/60; PULSE 116; RESP 16; TEMP 36.9; O2SAT 97
--- NOTE | 2025-01-03 16:07 | MHC.PC.OV ---
Vital Signs 01/03/25 16:07 BMI Reason not done Patient refused/unable BP 90/60 Blood Pressure Location Rt brachial Position Sitting Respiration 16 Pulse 116 H Pulse Source Pulse Oximeter Temp 98.5 F Temp Source Oral Pulse Oximetry (%) 97 Oxygen Delivery Method Room Air Intake Visit Reasons: PE Intake Note: Pt is here today for her PE Building And Grounds Supervisor Required: No Allergies No Known Allergies Allergy (Verified 01/03/25 16:10) Tobacco use date assessed: 01/03/25 Dental Screening Dental Screen Date: 01/03/25 Did you have a dental visit in the last 12 months?: Yes Did you have a dental problem in the last 6 months where you did not have access to dental care?: No Was dental information given to patient?: Patient has dentist [facility] Medical History Right hip pain Syncope and collapse History of pulmonary embolus (PE) History of DVT (deep vein thrombosis) Uses control Rogers's thyroiditis Protrusion of intervertebral disc of lumbosacral region Hamstring muscle strain Chronic lumbosacral pain Chronic fatigue Hyperkalemia Tingling in extremities Family history of Rogers thyroiditis Family history of diabetes mellitus Intermittent palpitations Surgical History No pertinent past surgical history Family History (Updated 01/03/25 @ 16:36 by Lisa Rodriguez MD) Maternal Aunt Breast cancer Mother Hypothyroidism due to Rogers's thyroiditis Type 1 diabetes mellitus Other Ronda-Danlos syndrome Social History Housing: House Patient Tobacco Use Status: Never used Tobacco e-Cigarette/Vaping Use: Never Used Advance Directives Date on File: 12/28/23 service: No Current occupational status: employed Cognitive needs: No Hearing needs: No Vision needs: No Female Reproductive History Menstrual Age of Menarche: 12 Questionnaire PHQ-9 Over the last 2 weeks, how often have you been bothered by any of the following problems? 1. Little interest or pleasure in doing things: not at all 2. Feeling down, depressed, or hopeless: not at all 3. Trouble falling or staying asleep, or sleeping too much: not at all 4. Feeling tired or having little energy: not at all 5. Poor appetite or overeating: not at all 6. Feeling bad about yourself - or that you are a failure or have let yourself or your family down: not at all 7. Trouble concentrating on things, such as reading the newspaper or watching television: not at all 8. Moving or speaking so slowly that other people could have noticed. Or the opposite - being so fidgety or restless that you have been moving around a lot more than usual: not at all 9. Thoughts that you would be better off or of hurting yourself in some way: not at all Total score: 0 Source: Developed by Drs. Cal Trejo, Petrona Felix, Ranjit Guillory and colleagues, with an educational helder from [employer]. Thrive Questionnaire Date Thrive assessed: 12/27/24 I am a: Patient What is your living situation today?: I have a steady place to live Within the past 12 months, did the food you bought not last and you didn't have the money to get more?: Never true Within the past 12 months, did you worry whether your food would run out before you got money to buy more?: Never true Do you have trouble paying for medicines?: No Do you have trouble getting transportation to medical appointments?: No Do you have trouble paying your heating and electricity bill?: No Do you have trouble taking care of your child, family member or friend?: No Do you have trouble with day-to-day activities such as bathing, preparing meals, shopping, managing finances, etc.?: No Are you currently unemployed and looking for a job?: Yes Are you interested in more education?: No Please select the resources that you would like help with: None Currently or been in a relationship where the following occur: No concerns reported THRIVE Score: 0 AUDIT C Alcohol Use Questionnaire (AUDIT-C) 1. How often do you have a drink containing alcohol?: Monthly or less 2. How many drinks containing alcohol do you have on a typical day when you are drinking?: 1 or 2 3. How often do you have six or more drinks on one occasion?: Never Total Score: 1 CRISTIANO-7 AMB Questionnaire CRISTIANO-7 Date CRISTIANO - 7 assessed: 12/28/23 Feeling nervous, anxious, or on edge: 0 = Not at all Not being able to stop or control worryin = Not at all Worrying too much about different things: 0 = Not at all Trouble relaxin = Not at all Being so restless that it is hard to sit still: 0 = Not at all Becoming easily annoyed or irritable: 0 = Not at all Feeling afraid as if something awful might happen: 0 = Not at all Total CRISTIANO-7 score (0-4 normal; 5-9 mild; 10-14 moderate; 15-21 severe): 0 Source: Developed by Drs. Cal Trejo, Petrona Felix, Ranjit Guillory and colleagues, with an educational helder from [employer]. Physical exam (Primary Care) Vital Signs: Last Vital Signs Temp 98.5 F 01/03/25 16:07 Pulse 116 H 01/03/25 16:07 Resp 16 01/03/25 16:07 BP 90/60 01/03/25 16:07 Pulse Ox 97 01/03/25 16:07 Oxygen Delivery Method Room Air 01/03/25 16:07 Tobacco/Smoking Status: Tobacco use Status Tobacco use date assessed 01/03/25 01/03/25 16:11 Patient Tobacco Use Status Never used Tobacco 01/03/25 16:11 e-Cigarette/Vaping Use Never Used 01/03/25 16:11 PHQ-9: PHQ-9 Score PHQ-9: Total score 0 01/03/25 16:11 Thrive Assessment: Date of Thrive Assessment Date Thrive assessed 12/27/24 01/03/25 16:11 Currently or been in a relationship where the following occur: No concerns reported Office Procedures Flu Questionnaire Does the patient have a severe egg allergy?: No Does the patient have severe life threatening allergies?: No Does the patient have a fever or illness today?: No Has the patient ever had Guillain-Elmora Syndrome?: No Has the patient ever had any past reaction to a flu shot?: No Immunizations Fluarix [id number] (PF) 45 mcg (15 mcg x 3)/0.5 mL IM syringe Performing Provider: Lisa Rodriguez MD Performing Location: [facility] Adult [facility] Administered by: Veronica Lin CMA on 01/03/25 16:27 Dose Route Admin Location Dispensed Lot Number Expiration Date NDC Windows Migration Technician 0.5 mL IM Right Deltoid 0.5 mL [id number] 10/08/25 [id number] EV Connect VIS Given Date VIS Provided VIS Publication Date 01/03/25 Single Vaccine 24 Eligibility Eligibility Date Funding Source Not [facility] Eligible 01/03/25 Private Coding Diagnoses Dislocation of knee S83.106A Rogers's thyroiditis E06.3 History of DVT (deep vein thrombosis) Z86.718 History of pulmonary embolus (PE) Z86.711 POTS (postural orthostatic tachycardia syndrome) G90.A Assessment & Plan Assessment & Plan (1) Dislocation of knee: Code(s): S83.106A - Unspecified dislocation of unspecified knee, initial encounter (2) Rogers's thyroiditis: Comment: Followed by motor vehicle dispatcher, Dr. Almeida Code(s): E06.3 - Autoimmune thyroiditis Category: Medical (3) History of DVT (deep vein thrombosis): Code(s): Z86.718 - Personal history of other venous thrombosis and embolism Category: Medical (4) History of pulmonary embolus (PE): Code(s): Z86.711 - Personal history of pulmonary embolism Category: Medical (5) POTS (postural orthostatic tachycardia syndrome): Code(s): G90.A - Postural orthostatic tachycardia syndrome [POTS] Category: Medical Orders: Orders Alanine Aminotransferase Today E06.3 - Autoimmune thyroiditis, G90.A - Postural orthostatic tachycardia syndrome [POTS], Z86.711 - Personal history of pulmonary embolism, Z86.718 - Personal history of other venous thrombosis and embolism Basic Metabolic Panel Fasting Today E06.3 - Autoimmune thyroiditis, G90.A - Postural orthostatic tachycardia syndrome [POTS], Z86.711 - Personal history of pulmonary embolism, Z86.718 - Personal history of other venous thrombosis and embolism Lipid Panel Today E06.3 - Autoimmune thyroiditis, G90.A - Postural orthostatic tachycardia syndrome [POTS], Z86.711 - Personal history of pulmonary embolism, Z86.718 - Personal history of other venous thrombosis and embolism Thyroid Stimulating Hormone Today E06.3 - Autoimmune thyroiditis, G90.A - Postural orthostatic tachycardia syndrome [POTS], Z86.711 - Personal history of pulmonary embolism, Z86.718 - Personal history of other venous thrombosis and embolism Thyroid Peroxidase Antibodies Today E06.3 - Autoimmune thyroiditis, G90.A - Postural orthostatic tachycardia syndrome [POTS], Z86.711 - Personal history of pulmonary embolism, Z86.718 - Personal history of other venous thrombosis and embolism Influenza [id number] Immunization Today Z23 - Encounter for immunization Aspartate Amino Transferase Today E06.3 - Autoimmune thyroiditis, G90.A - Postural orthostatic tachycardia syndrome [POTS], Z86.711 - Personal history of pulmonary embolism, Z86.718 - Personal history of other venous thrombosis and embolism Complete Blood Count Auto Diff Today E06.3 - Autoimmune thyroiditis, G90.A - Postural orthostatic tachycardia syndrome [POTS], Z86.711 - Personal history of pulmonary embolism, Z86.718 - Personal history of other venous thrombosis and embolism Vitamin D 25-OH Total Today E06.3 - Autoimmune thyroiditis, G90.A - Postural orthostatic tachycardia syndrome [POTS], Z86.711 - Personal history of pulmonary embolism, Z86.718 - Personal history of other venous thrombosis and embolism Free T4 (Free Thyroxine) Today E06.3 - Autoimmune thyroiditis, G90.A - Postural orthostatic tachycardia syndrome [POTS], Z86.711 - Personal history of pulmonary embolism, Z86.718 - Personal history of other venous thrombosis and embolism Referrals Rheumatology Referral S83.106A - Unspecified dislocation of unspecified knee, initial encounter Endocrinology Referral E06.3 - Autoimmune thyroiditis
--- OUTSIDE RECORDS SUMMARY | 2025-01-03 19:51 | XMS_ITS | Encounter Summary ---
Author Organization [facility] Address [address] [place] [address] Phone Care Team Providers Care Rf Design Engineer Name Role Phone Provider, Danette BEST Primary Care Provider [phone] Encounter Details Date Type Department Care Team (Late st Contact Info) Description 06/03/2016 Documentation [facility] [place] Family Medicine [address] [place] [address] Family Medicine, Physician [address] [place], [place] [phone] Social History Tobacco Use Types Packs/Day Years [...] on filedocumented in this encounter Care Teams Rf Design Engineer Relationship Specialty Start Date End Date Provider, MD Danette [address] [place] [phone] PCP - General Pediatrics 10/22/21 08/15/22 documented as of this encounter
--- OUTSIDE RECORDS SUMMARY | 2025-01-03 19:51 | XMS_ITS | Encounter Summary ---
Author Organization [facility] Address [address] [place] [address] Phone Care Team Providers Care Cupola Hoist Operator Name Role Phone Provider, Danette BEST Primary Care Provider [phone] Encounter Details Date Type Department Care Team (Late st Contact Info) Description 11/25/2016 Conversion Encounter [facility] [address] [id number] Social History Tobacco Use Types Packs/Day Years [...] on filedocumented in this encounter Care Teams Cupola Hoist Operator Relationship Specialty Start Date End Date Provider, MD Danette [address] [place] [phone] PCP - General Pediatrics 10/22/21 08/15/22 documented as of this encounter
--- OUTSIDE RECORDS SUMMARY | 2025-01-03 19:51 | XMS_ITS | Clinical Summary ---
Author Organization [facility] Address [address] [place] [address] Care Team Providers Care Academic Computing Director Name Role Phone Lisa Rodriguez MD Primary [...] patient's age to complete this topic Insurance [facility] - HMO Care Teams Academic Computing Director Relationship Specialty Start Date End Date Lisa Rodriguez MD [address] [place] [address] PCP - General Internal Medicine 03/04/23
--- OUTSIDE RECORDS SUMMARY | 2025-01-03 19:51 | XMS_ITS | Encounter Summary ---
Author Organization [facility] Address [address] [place] [address] Phone Care Team Providers Care Registered Respiratory Technician Name Role Phone Provider, Danette BEST Primary Care Provider [phone] Encounter Details Date Type Department Care Team (Late st Contact Info) Description 06/07/2016 Documentation [facility] [place] [address] [place] [address] Family Medicine, Physician [address] [place], [place] [id number] Social History Tobacco Use Types Packs/Day Years [...] on filedocumented in this encounter Care Teams Registered Respiratory Technician Relationship Specialty Start Date End Date Provider, MD Danette [address] [place] [phone] PCP - General Pediatrics 10/22/21 08/15/22 documented as of this encounter
--- OUTSIDE RECORDS SUMMARY | 2025-01-03 19:51 | XMS_ITS | Clinical Summary ---
Author Organization [facility] Address [address] [place] [phone] Phone Care Team Providers Care Secondary Social Studies Teacher Name Role Phone Lisa Rodriguez MD Primary [...] (three) times a day. 90 tablet 3 08/14/2024 Active sodium chloride 1,000 mg tablet TAKE 1 TABLET (1,000 MG TOTAL) BY MOUTH 3 (THREE) TIMES A DAY WITH MEALS. 100 tablet 3 11/21/2024 Active Active Problems Problem Noted Date Diagnosed Date DVT (deep venous thrombosis) 12/25/2024 Assessment & Plan (12/25/2024 12:22 PM EDT): She had a DVT after an injury of the left lower extremity and is on Xarelto 20 mg daily which will stop next month. POTS (postural orthostatic tachycardia syndrome) 08/14/2024 Assessment & Plan (12/25/2024 12:21 PM EDT): This patient is doing relatively well on the small dose of midodrine currently she is taking 5 mg 3 times a day although I think in the last month they reduced it to twice a day which is fine I will follow-up with her in 9 months time Assessment & Plan (08/14/2024 11:58 AM EDT): [...] months time Arrhythmia 08/14/2024 Assessment & Plan (12/25/2024 12:21 PM EDT): She had a monitor showing no significant arrhythmias at all Assessment & Plan (08/14/2024 11:58 AM EDT): I reviewed her 7-day MCT monitor which showed no evidence of significant arrhythmia. Encounters Date Type Department Care Team Description 12/25/2024 12:00 PM EDT Office Visit [facility] [address], [address] [place], [place] [phone] Gavino Rice, POTS (postural orthostatic tachycardia syndrome) (Primary Dx); Ventricular premature depolarization; Deep vein thrombosis (DVT) of left lower extremity, unspecified chronicity, unspecified vein 12/18/2024 Refill [facility] [address], [address] [place], [place] [phone] Gavino Rice, Medication Refill 11/21/2024 Refill [facility] [address], [address] [place], [place] [phone] Tatum Miller, NIXON Medication Refill from Last [...] Sign Reading Time Taken Comments Blood Pressure 120/76 12/25/2024 12:01 PM EDT Pulse 88 12/25/2024 12:01 PM EDT Temperature - - Respiratory Rate - - Oxygen Saturation 95% 12/25/2024 12:01 PM EDT Inhaled Oxygen Concentration - - Weight 75.8 kg (167 lb) 08/14/2024 11:38 AM EDT Height 173 cm (5' 8.11 ) 12/25/2024 12:01 PM EDT Body Mass Index 25.31 08/14/2024 11:38 AM EDT Plan of Treatment Upcoming Encounters Date Type Department Care Team (Late st Contact Info) Description 09/24/2025 9:30 AM EDT Office Visit [facility] [address] [place] [address] [address] [facility], [address] [place] [address] Gavino Rice, [address] [place] [address] [place] [address] Health Maintenance Due Date Last Done Comments CREATININE LEVEL 2000 DEPRESSION SCREENING 2012 SMOKING Hx and SMOKELESS TOBACCO SCREENING 2013 HPV VACCINES (1 - 3-dose series) 10/02/2015 CHLAMYDIA SCREENING 2016 HEPATITIS C SCREENING 2018 HIV ONE-TIME SCREENING (18-6 5 YEARS) 2018 PAP SMEAR 2021 INFLUENZA VACCINE (#1) 2024 COVID-19 VACCINE (2023-2 5 season) 2024 Adult Td,Tdap Booster 10/29/2031 [...] topic Medical Devices Not on file [place] [address] [place] [address] [place] [address] [place] [address] [place] [address] [place] [address] [place] [address] Care Teams Secondary Social Studies Teacher Relationship Specialty Start Date End Date Lisa Rodriguez MD [address] [place] [address] PCP - General Internal Medicine 07/23/24 Additional Source Comments The information contained in this document represents components of the legal health record. It is not the complete legal health record.[facility]
--- OUTSIDE RECORDS SUMMARY | 2025-01-03 19:51 | XMS_ITS | Clinical Summary ---
Author Organization [facility] Address [address] [place] [phone] Phone Care Team Providers Care Product Communications Manager Name Role Phone Unavailable Primary Care Provider [...] and OCPs, topical refilled, OCPs prescribed by [facility]. Assessment & Plan (10/04/2017 4:40 PM EDT): [...] oral contraceptive Overview (10/29/2021): Followed by adult [facility]ILROAD CAR [facility] Pt with hx of severe cramping and long menses treated successfully after several OCP attempts and visit to [facility] with long cycling apri (spitting 1st and 2nd inactive weeks) with improvement in cramping and normally no breakthrough bleeding. Continue f/u with [facility]. Followed by adult [facility]. 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 Resolved Problems Problem Noted Date Diagnosed Date Resolved Date Vaginal discharge 03/12/2020 10/27/2021 Overview (03/12/2020): Chronic complaints, pt has been treated for BV and then had ongoing concerns with neg vag swab. Was referred to [facility] for further evaluation after 10/2018 recurrent sx Has been pt of [facility] and at last visit (virtual) they recommended Boric Acid 600mg per vagina nightly x 3 weeks, then f/u with [facility] for recheck. Cough 03/30/2018 10/28/2019 Assessment & Plan (04/07/2018 12:55 PM EST): Cough for 2.[address] Seen at [facility] and had Neg strept and neg mono. [...] of Thrombophilia, No family history of Sudden /TN under age 55, No family history of [...] Completed 04/10/2019, 10/05/2018 Procedures * Due to [facility] law, this organization might not be sharing sensitive test results. Procedure Name Priority Date/Time Associated Diagnosis Comments CHLAMYDIA AND GONORRHEA, AMPLIFIED Routine 10/28/2021 1:51 PM EDT Encounter for screening examination for chlamydial infection from Last 3 Months or Most Recently Relevant to Health Maintenance Results * Due to [facility] law, this organization might not be sharing sensitive test results. * Chlamydia and Gonorrhoea, Amplified (10/28/2021 1:51 PM EDT) Chlamydia Trachomatis, DNA Probe NEGATIVE (NEG) [facility] Comment: No Chlamydia Trachomatis RNA detected in this patient's sample (REFERENCE RANGE/NORMAL VALUE: NOT DETECTED) Note: This test uses loan reviewer- mediated amplification method to detect rRNA from C. Trachomatis URINE GC AMP PROBE NEGATIVE (NEG) [facility] Comment: No Neisseria Gonorrhoeae RNA detected in this patient's sample (REFERENCE RANGE/NORMAL VALUE: NOT DETECTED) NOTE: This test uses loan reviewer-mediated amplification method to detect rRNA from N.Gonorrhoeae. [...] without risk of sexual abuse. Consult the [facility] if needed. Contact phone number . Therapeutic failure or success cannot be determined with the Aptima Combo2 assay since nucleic acid may persist following appropriate antimicrobial therapy. The Centers for Disease Control and Prevention (CDC) recommends confirmatory retesting using culture or a different nucleic acid amplification test when positive results occur, if indicated. Testing performed or reported by [facility], a Service of [facility], [address] [place] [address] Javier Garcia MD, Reference Investigator [facility]# [id number] Urine (Urine) 10/28/2021 1:5 1 PM EDT 10/28/2021 10:22 PM EDT us Anni Zavaleta DO LAB MICROBIOLOGY - GENERAL ORDER EMILY Final Result [facility] from Last 3 Months or Most Recently Relevant to Health Maintenance
--- OUTSIDE RECORDS SUMMARY | 2025-01-03 19:51 | XMS_ITS | Data Portability ---
Author Organization JOHANA - Gus Valero [facility], [facility] Address [address] [place] [address] Care Team Providers Care Helmet Hat Brim Cutter Name Role Phone CASSANDRA WILSON Primary Care Provider Assessment No assessment recorded. Plan of Treatment Reminders Order Date Submit Date Provider Last Modified By Organization Details Last Modified Time Details Appointments None recorded. Lab None recorded. Referral None recorded. Procedures None recorded. Surgeries None recorded. Imaging XR, hip + pelvis, unilateral, 2 or 3 view - RIGHT HIP ARTHROSCOPY DR. KHAN PROTOCOL 202 2024 025 [id number] 7 [facility] Office, [address] [facility], [facility] [address], [place], [address], 5 11:11:42 Medication Orders None recorded. Patient TargetsNo targets recorded. Patient InstructionsNo instructions recorded. Reason for Referral None Reported. Results Created Date Observation Date Name Description Value Unit Range Abnormal Flag Note LastModifiedBy Organization Detail LastModifiedTime 06/23/1906/21/2024 XR, hip + pelvi s, unila teral , 2 or 3 view No observ ation record ed. [facility] (Scheduling) [address] [place], [address], 06/22/2024 09:22:16 06/27/1906/22/2024 XR, hip + pelvi s, unila teral , 2 or 3 view No observ ation record ed. [facility] (Scheduling) [address] [place], [address], 06/26/2024 11:53:22 07/07/19 25 07/06/2024 XR, hip + pelvi s, unila teral , 2 or 3 view http:/ [email or web address] ?Encry pted=s hAaTro YD8dLq bEUv6g %2BXZw aYqtaq 0bqfl% 2Fg9IQ a4ajBk vP9nXo QUaueC m3YtLR FvZlgJ JJ8mAn HZtai3 9l9779 AC0KqY nSFUqO mKiQtr MwF INTERFACE [facility] [address], [place], [address], 07/06/2024 14:02:38 07/07/19 25 07/06/2024 XR, hip + pelvi s, unila teral , 2 or 3 view http:/ [email or web address] ?Encry pted=s hAaTro YD8dLq bEUv6g %2BXZw aYqtaq 0bqfl% 2Fg9IQ a4ajBk vP9nXo QUaueC m3YtLR FvZlgJ JJ8mAn HZtai3 9f1736 AC0KqY nSFUqO mKiQtr MwF INTERFACE [facility] [address], [place], [address], 07/06/2024 14:02:40 07/12/19 25 07/11/2024 , martin mckeon [facility] mity No observ ation record ed. [facility] [address], [place], [address], 07/12/2024 16:36:32 08/14/19 25 08/09/2024 peg [place] venou [facility] mity No observ ation record ed. [facility] [address], [place], [address], 08/13/2024 13:22:20 Result Notes Documentation Provider Name and Address Organization Details Recorded Time Xr, Hip + Pelvis, Unilateral, 2 Or 3 View : [email or web address] Encrypted=wvDkAzxYA5tPhfK Uv6g%4BZYimRztbq5thjv%2Fg 5XOm6fiYvvQ4rRmQUholSx5Cr GODjVucYHF0eIpGLlbv11e457 4QM9CnLuDYBtUiRdOuhYsD Not Available [facility] 07/06/2024 14:02: 39 Xr, Hip + Pelvis, Unilateral, 2 Or 3 View : [email or web address] Encrypted=tpWuRguQK5hDgdH Uv6g%1KZNfrCzhhc3epop%2Fg 3AYr7uyAcoB3vWsGDzcdPn1Iv GPKzBtdCHB4wErFDnnw36g818 4GX9WoSpNLGfTgGnNokJhD Not Available [facility] 07/06/2024 14:02: 41 Problems Name Problem SNOMED Code Status Onset Date Resolution Date Notes Provider Name and Address Organization Details Recorded Time Hamstring injury 371026757 Active 2023 Sam Arias PA-C [address], [place], [address], [facility] 4 09:36:07 Acetabular labrum tear 770969472 Active 2023 Franklyn Yo PA-C [address], [place], [address], [facility] 5 07:45:14 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 Procedures Surgical History Date Name Laterality Status Provider Name and Address Organization Details Recorded Time arthroscopy of hip completed MOHAMUD RUPALI [facility] 08/07/2024 14:38:54 Hip Kenalog Injection, L/R w/US completed Sam Arias PA-C [address], [place], [address], [facility] 04/23/2024 13:26:35 Imaging Results None recorded. Procedure Notes None recorded. Medical Equipment None Reported. Allergies No known drug allergies Medications Name Sig Start Date Stop Date Status Note LastModified by Organization Details LastModified Time cyclobenzap rine 10 mg tablet TAKE 1 TABLET BY MOUTH THREE TIMES A DAY NEEDED FOR MUSCLE SPASMS 01/29 completed Not Available Not Available Not Available meloxicam 15 mg tablet TAKE 1 TABLET BY MOUTH EVERY DAY 08/09 completed Not Available Not Available Not Available midodrine 5 mg tablet TAKE 1 TABLET BY MOUTH THREE TIMES A DAY active Not Available Not Available No t Available clindamycin 1 %-benzoyl peroxide 5 % topical gel APPLY TOPICALLY ONCE DAILY IN THE MORNING 08/09 completed Not Available Not Available Not Available aspirin 81 mg tablet,oneyda yed release TAKE 1 TABLET TWICE A DAY BY ORAL ROUTE, FOR DVT PROPHYLAX IS. 08/09 completed Not Available Not Available Not Available oxycodone 5 mg tablet TAKE 1 TABLET EVERY 6 HOURS BY MOUTH NEEDED, FOR SEVERE POST OP PAIN. 08/09 completed Not Available Not Available Not Available norelgestro min 150 mcg-e.estra diol 35 mcg/24 hr weekly transderm patch APPLY 1 PATCH TRANSDERM ALLY ONCE PER WEEK, SKIP PATCH FREE WEEK EXCEPT EVERY 3 MOS 08/09 completed Not Available Not Available Not Available levonorgest rel 0.15 mg-ethinyl estradiol 30 mcg tablets,3 mos pack(91) TAKE 1 TABLET BY MOUTH EVERY DAY 04/05 completed Not Available Not Available Not Available sodium chloride 1,000 mg soluble tablet TAKE 1 TABLET (1,000 MG TOTAL) BY MOUTH 3 (THREE) TIMES A DAY WITH MEALS. active Not Available Not Available No t Available Xarelto 20 mg tablet TAKE 1 TABLET BY MOUTH ONCE DAILY FOR 60 DAYS active Not Available Not Available No t Available Slynd active Not Available Not Availa ble Not Available Vitals Date Recorded Body height Body mass index (BMI) Body weight Provider Name and Address Organization Details Last Updated DateTime 04/23/2024 172.72 cm 26.6 kg/m2 14015.66 g Sam Arias PA-C [address] [place] [address] [address], [place], [address], [facility] 04/23/2024 12:59:28 Date Recorded Body height Body mass index (BMI) Body weight Provider Name and Address Organization Details Last Updated DateTime 05/22/2024 172.72 cm 26.6 kg/m2 18648.66 g COLE L'HEUREUX [facility] 05/22/2024 09:58:55 Date Recorded Body height Body mass index (BMI) Body weight Provider Name and Address Organization Details Last Updated DateTime 07/06/2024 172.72 cm 26.6 kg/m2 73683.66 g Dalila Chris [facility] 07/06/2024 13:54:23 Date Recorded Body height Body mass index (BMI) Body weight Provider Name and Address Organization Details Last Updated DateTime 08/09/2024 172.72 cm 26.6 kg/m2 36177.66 g MOHAMUD ZAPIEN [facility] 08/09/2024 13:55:21 Date Recorded Body height Body mass index (BMI) Body weight Provider Name and Address Organization Details Last Updated DateTime 09/28/2024 172.72 cm 26.6 kg/m2 58557.66 g Dalila Chris [facility] 09/28/2024 11:39:09 Social History None recorded. Functional Status None recorded. Mental Status None recorded. Family History Nothing Reported. Medical History Condition Response Coronary Artery Disease N Anxiety/Depression N Emphysema N COPD N Pacemaker N Vascular Disease N Heart Trouble N Gastrointestinal Disease N Autoimmune disease N Inflammatory Joint disease N Orthotics N Arthritis N Blood Clot Y Acid Reflux (GERD) N Cancer N Stroke N Circulation Problems N Rheumatoid Arthritis N Arrhythmia N Headaches N Fibromyalgia N Allergies/Hayfever N Breathing or lung disorders N Nerve Disorders N Thyroid Problems N Kidney/Bladder Problems N Anemia N Heart Attack (CO) N Cholesterol N Diabetes N Bleeding Disorder N Seizures/Epilepsy N AIDS/HIV N Congestive Heart Failure (CHF) N Asthma N Peripheral Vascular Disease N Sleep Apnea N Hepatitis N Heart Disease N Pulmonary Embolism N Hypertension N Osteoporosis N Gynecological HistoryNo gynecological history recorded. Obstetrics History GPAL:G 0 P 0 0 0 0 Past Encounters Encounter ID Performer Location Encounter Start Date Encounter Closed Date Diagnosis/Indication Diagnosis SNOMED-CT Code Diagnosis ICD10 Code Diagnosis IMO Codes Diagnosis Note [id number] ANAIS Asher [address] [place] [address] 01/30/2024 08:52:50 02/16/2024 15:33:25 Hamstring injury 310361752 S76.301D [id number] ANAIS Asher [address] [place] [address] 02/22/2024 09:56:57 03/13/2024 11:03:01 Hamstring injury 391041415 S76.301D [id number] ANAIS Asher [address] [place] [address] 03/27/2024 13:50:18 04/20/2024 16:23:48 Acetabular labrum tear 850221479 S73.191A [id number] Elpidio Khan MD [facility] Clinical [address] [address] 04/12/2024 14:05:52 04/30/2024 11:43:30 Pain of right hip joint 1730719730 81019 M25.551 693027 Sprain of right hip 1178 601603 4467434 S73.191D [id number] ANAIS Asher [address] [place] [address] 04/23/2024 12:38:42 05/07/2024 13:31:38 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 3221878312 994374 M25.851 [id number] MD MAGALIS Cali [facility] on Clinical [address] [place] [address] 05/22/2024 09:55:26 06/11/2024 15:50:38 Acetabular labrum tear 367330727 S73.191D [id number] MD MAGALIS Cali [facility] [address] floor [address] [place] [address] 07/06/2024 13:14:14 07/24/2024 19:38:20 History of operative procedure on hip 318825943 Z98.890 [id number] ANAIS Hastings Lai [address] [place] [address] 08/09/2024 13:49:30 08/27/2024 11:05:52 Acetabular labrum tear 874607215 S73.191D [id number] MD MAGALIS Cali [facility] [address] [place] [address] [place] [address] 09/28/2024 11:09:19 10/16/2024 09:11:20 Sprain of right hip 6066581876 0563838 S73.191D [id number] Health Concerns Section Related Observation LastModified by Organization Detai ls LastModified Time None Recorded Concern Status LastModified by Organization Details LastModified Time None Recorded Advance Directives Directive None Recorded Payers Insurance Date Sequence Insurance Name Policy Number Policy Cat Covered Member ID Cat Member ID Guarantor Name 10/16/2024 1 [facility] [id number] Hernandez Garvey [id number] Essence Garvey Notes Date Note Type Note Provider Name and Address Organization Details Recorded Time 5 text/html I am seeing the patient today under the supervision of Dr. Dyer who was available but who did not see the patient. History: Patient returns today 23-year-old female with history of TEDDY. Clinical history outlined in my office note, he she had consultation with Dr. Khan who recommended diagnostic injection prior to discussing surgical options. PMH/PSH/MEDS/ALL/FMH/SOC HX/ ROS: All reviewed in detail per my medical intake sheet Mental Status: Alert and oriented x3. Normal insight, affect, and grooming DIAMOND FINISHING SUPERVISOR: Gross motor coordination is intact. No spasticity or clonus noted. Extremities: Calves are soft and nontender. Skin on lower extremities is intact. Palpable pedal pulses bilaterally Orthopedic Exam: Right hip exam demonstrates flexion to 90 with pain, external rotates 30 internal rotates 10 with pain, pain with passive logrolling maneuver, negative straight leg raise test, no palpable tenderness along the greater trochanter. X-rays deferred today. Assessment: Right hip TEDDY Plan: The patient was thoroughly counseled today regarding their hip condition, its natural history, and the treatment options including physical therapy, medication, and corticosteroid injection. The patient is interested in receiving an injection with corticosteroid. Considering her response to today's hip injection discussion going forward regarding potential candidacy for hip arthroscopy. Sam Arias PA-C [address] [place] [address] [address], [place], [address], [facility] 04/23/2024 13:27:02 5 text/html Chief complaint: Right hip painHPI: Patient is a 23-year-old female accompanied today with her mother for chief complaint of right hip pain. She reports symptoms have been present for several years. Pain localizes to the anterior aspect of her hip. Pain worsens with sitting, car rides, rising from a seated position. She has not had any mechanical symptoms. In addition to anterior hip pain she complains of chronic hamstring tightness/pain. She has done physical therapy initially for hamstring and more recently for her hip and core without significant improvement. She has been using cvwa-pyw-fhfdedz anti-inflammatories. Has not had any injections. Interval history May 22, 2024: Patient had right hip corticosteroid injection April 23, 2024. She estimates the injection provided 50% relief of her symptoms. She had less groin pain and definitely less hamstring pain. SIDE: Right HipAmbulates with a normal gaitINSPECTION: No swelling, No ecchymosis, No atrophyPALPATION: No TTP Hip Flexors, No TTP Trochanteric BursaROM:Hip Flexion: 110 degreesIR at 90 deg Flexion: 30 degreesER at 90 deg Flexion: 45 degreesSUBSPINE TEST: Mildly positiveFADIR: Mildly positiveFABER: NegativeAPPREHENSION/ANT ERIOR INSTABILITY: NegativeTHOMAS TEST: Negative X-rays 3 views Previously obtained and reviewed today: AP, false profile, and modified Tran view Right hip: Hip joint space preserved. No sclerosis or osteophyte formation. Lateral center edge angle 30 degrees, Alpha angle 54 degrees MRI right hip obtained on February 08, 2024: Anterior superior labral tear. Articular cartilage intact. Mild abductor tendon and hamstring tendinosis. Impression: Right hip labral tear, cam deformity-findings consistent with FAIPlan: Patient presenting with several year history of ongoing anterior hip pain despite treatment physical therapy. She reports pain localizes to the anterior hip and worsens with positions of hip flexion. She is unable to go on long car ride secondary to pain. Having difficulty exercising secondary to pain. MRI demonstrates anterior superior labral tear, does have small cam deformity with decreased head neck offset.Given ongoing symptoms despite physical therapy, activity modification, oral medication, and injection which did provide 50% relief of symptoms, have recommended surgery.Proposed procedure: Right hip arthroscopy, labral repair, femoroplasty, acetabuloplasty. Reviewed the above diagnosis with the patient today. Patient continues to have ongoing symptoms refractory to conservative management consisting of: History, exam, and imaging consistent with symptomatic femoral acetabular impingement. We discussed options including continuing with nonoperative treatment such as further physical therapy, anti-inflammatories, intraarticular steroid injection, activity modification or considering surgery: Right hip arthroscopy, labral repair, acetabuloplasty, and osteochondroplasty of the femoral neck. Risks, benefits, and alternatives to the procedure were discussed at length with the patient. Risks discussed included but were not limited to bleeding, infection, damage to neurovascular structures, pain after surgery, incomplete or transient symptom relief, progression of arthritis, potential need for future total hip arthroplasty, transient or potentially permanent paresthesias/neurologic deficits, hip stiffness, heterotopic ossification, medical and anesthesia complications, and thromboembolic events. Reasonable expectations, postoperative restrictions, and typical rehab plan were discussed. Patient had a chance to have all questions answered today and wishes to move forward with surgical scheduling. Crutches will be provided. Elpidio Khan MD [address] [place] [address] [address], [place], [address], [facility] 05/22/2024 10:37:34 5 text/html Surgery: Right hip arthroscopic labral repair, femoroplasty, acetabuloplasty, capsule closure June 21, 2024Patient here today for post op visit. Patient reports they are doing well. Pain has been well controlled. Patient reports compliance with crutches and post op restrictions. PEPatient appears comfortable, no distressHip arthroscopic portal incisions clean, dry, intact with nylon sutures in placeSoft compressible compartments. No tenderness to palpation hip flexorsNo tenderness to palpation at the calfNeurovascularly intact distallyPROM: Hip Flexion: 90 degrees, IR: 30 degrees, ER: 30 degrees Intraoperative Findings: Labral tear repaired with 2 anchor construct, cam and pincer deformities. X-rays 3 views ordered, obtained, and reviewed today: AP pelvis, 45 degree Tran, and false profile views demonstrate postsurgical changes status post femoroplasty and acetabuloplasty with improved alpha angle. Plan: Reviewed post op rehab plan and restrictions. Patient will be 20 pounds, foot flat weightbearing on the operative extremity for the first 4 weeks. Continue with PT focusing on passive hip range of motion exercises, soft tissue mobilization, isometrics, stationary bike. Follow-up in 4 weeks. PT protocol available for review under clinical document from July 06, 2024 Elpidio Khan MD [address] [place] [address], [address], [facility] 07/06/2024 15:09:47 5 text/html I am seeing the patient today under the supervision of Dr. Heredia who was available but who did not see the patient. Procedure: Right hip arthroscopy Date of Surgery: 07/06/2024. History of Present Illness: This patient is a 23-year-old patient of Dr. Khan who is 5-6 weeks status post right hip arthroscopy. She is attending therapy. Continues to use a single crutch. She has been weaning from crutches and has been weightbearing as tolerated. Postoperative recovery complicated by DVT and she is currently anticoagulated. Continues to report some moderate achiness and discomfort about the hip and does not feel fully mobile just yet. Clinical Exam: The patient is well-appearing in no apparent distress. Incision(s) are benign, well-appearing and soft without erythema, redness or warmth. Patient able to ambulate without assistive device. Fully weightbearing. Minimal discomfort. No significant pain with seated hip rotation. No mechanical clicking or catching found. Intact strength of the hip and leg muscles. Lower extremity shows no edema or calf pain today. Foot and ankle move well. Assessment: Right hip pain with internal impingement and labral tear. Status post hip arthroscopy. Postoperative deep venous thrombosis right lower extremity Work Status/Plan: Patient currently remains out of work. Anticipate return to work at approximately 3 months postoperative. Physical Therapy Status: Continuing to attend formal physical therapy and doing home exercise program. We discussed progression to full weightbearing and gait training. Medication Prescriptions: No medications for hip pain at this time. Patient is taking Xarelto 20mg daily for 60 days Plan/Follow up: Patient reassured. Overall seems to be progressing fairly well with some postoperative complication. She will continue to improve function as tolerated. Recheck is arranged with Dr. Khan in 6 to 7 weeks. - Medical Practice speech recognition supervisor fabrication and assembly software was used to create portions of this document. An attempt at proofreading has been made to minimize errors. Please call for corrections. Franklyn Yo PA-C [address] [place] [address] [address], [place], [address], [facility] 08/15/2024 07:45:29 5 text/html Surgery: Right hip arthroscopic labral repair, femoroplasty, acetabuloplasty, capsule closure June 21, 2024HPI: Patient today for her 3-month follow-up visit. 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 She is following with surface water technician. Did have workup, has not been told she has any hypercoagulable conditions. She also developed POTS syndrome since surgery and has been following with engraver pantograph and started on oral medication. In respect to her hip she reports she is doing very well. She has been attending physical therapy and recently started advance strengthening and plyometric activities. PEPatient appears comfortable, no distressPortal incisions well-healed.Soft compressible compartments. No tenderness to palpation hip flexorsNo tenderness to palpation at the calfNeurovascularly intact distallyPROM: Hip Flexion: 110 degrees, IR: 20 degrees, ER: 40 degreesNegative FADIR, negative SAMIRA Intraoperative Findings: Labral tear repaired with 2 anchor construct, cam and pincer deformities. Imaging obtained at last visit: X-rays 3 views ordered, obtained, and reviewed today: AP pelvis, 45 degree Tran, and false profile views demonstrate postsurgical changes status post femoroplasty and acetabuloplasty with improved alpha angle. Plan: Patient continues to do well approximately 3 months out from surgery. Plan to continue with PT as per protocol. Continue with previous exercises, start running program, slide board exercises, agility drills, and hip rotational activities if pain-free. Continue on oral anticoagulation as per surface water technician recommendations for postoperative DVT/PE. She has no immediate plans to return to sport and reports minimal pain and good function at this time. At this point follow-up will be arranged as her symptoms dictate. Elpidio Khan MD [address] [place] [address] [address], [place], [address], [facility] 09/28/2024 12:51:28 OBGyn Episode No OBEpisode recorded.
--- OUTSIDE RECORDS SUMMARY | 2025-01-03 19:51 | XMS_ITS | Continuity of Care Document ---
Author Organization [facility] [address] [place] [address] Phone [phone] Care Team Providers Care Assistant Front Desk Manager Name Role Phone Lisa Rodriguez Care Team Information Staff Psychologist [phone] Problems Active Problems Provider Date Rogers thyroiditis [...] FT4 3.65 uIU/mL (0.4-4.2) Cortisol 02/28/2023 [facility] Cortisol 26.0 g/dL 1 1 [...] Referral Status Appt Cl Brar M.D. Created [address] [place] [address] Drive [address] [place] [address] [phone] Cl Almeida M.D. Closed [address] [place] [address] Drive [address] [place] [address] [phone] Cl Almeida M.D. Closed [address] [place] [address] Drive [address] [place] [address] [phone]
--- OUTSIDE RECORDS SUMMARY | 2025-01-03 19:51 | XMS_ITS | Encounter Summary ---
Author Organization [facility] Address [address] [place] [address] Phone Care Team Providers Care Parking Assistant Name Role Phone Provider, Danette BEST Primary Care Provider [phone] Encounter Details Date Type Department Care Team (Late st Contact Info) Description 07/25/2009 Documentation [facility] [place] [address] [place] [address] Family Medicine, Physician [address] [place], [place] [id number] Social History Tobacco Use Types Packs/Day Years [...] on filedocumented in this encounter Care Teams Parking Assistant Relationship Specialty Start Date End Date Provider, MD Danette [address] [place] [phone] PCP - General Pediatrics 10/22/21 08/15/22 documented as of this encounter
--- OUTSIDE RECORDS SUMMARY | 2025-01-03 19:51 | XMS_ITS | Encounter Summary ---
Author Organization [facility] Address [address] [place] [address] Phone Care Team Providers Care Can Feeder Name Role Phone Provider, Danette BEST Primary Care Provider [phone] Reason for Visit * Reason Comments Med Refill Encounter Details Date Type Department Care Team (Late st Contact Info) Description 07/23/2017 Refill [facility] - [address] [address] Dalila Suárez NP Encounter for other contraceptive [...] visit with Essence I had written that DEPUTY CLERK OF COURT was writing her OCPs - but in speaking with the pharmacist at [facility] we have been prescribing her OCPs. Last visit with DEPUTY CLERK OF COURT was 03/2017 - they discussed longer cycling [...] Primary documented in this encounter Care Teams Can Feeder Relationship Specialty Start Date End Date Provider, MD aDnette [address] [place] [address] PCP - General Pediatrics 10/22/21 08/15/22 documented as of this encounter
== END 2025-01-03 16:51 | disposition home or self-care (01) ==
LOC: HO.HMCC 15:59
PROVIDERS: PCP Internal Medicine; Visit Provider Internal Medicine
DX: Z23 Encounter for immunization (principal)

== ENCOUNTER → 2025-01-03 15:58 | Outpatient (BNVA) | payer BC, SELFPAY | PROVIDERS: PCP Internal Medicine; Visit Provider Internal Medicine | DX: Z00.01 Encounter for general adult medical examination with abnormal findings (principal); Z23 Encounter for immunization; S83.105D Unspecified dislocation of left knee, subsequent encounter; E06.3 Autoimmune thyroiditis; G90.A Postural orthostatic tachycardia syndrome [POTS]; Z86.718 Personal history of other venous thrombosis and embolism; Z86.711 Personal history of pulmonary embolism; Z79.01 Long term (current) use of anticoagulants; Z79.899 Other long term (current) drug therapy; Z13.31 Encounter for screening for depression; Z13.39 Encounter for screening examination for other mental health and behavioral disorders | CPT/HCPCS: 90471; 90656; 96127 ==

== ENCOUNTER 2025-01-04 08:30 | Outpatient (REF) | payer BC, SELFPAY ==
--- NOTE | ~2025-01-04 | XR_ITS ---
EXAMINATION: XR KNEE, LEFT CLINICAL INFORMATION: M25.562 - Pain in left knee COMPARISON: December 20, 2024. TECHNIQUE: AP view in standing position both knees. Lateral and sunrise view of the left knee. FINDINGS: No acute cortical disruption or malalignment. Mild joint involving the medial compartment of the knees. No gross suprapatellar bursa joint effusion. No lytic or blastic lesions. No soft tissue calcifications. XR/XR knee LT 3V IMPRESSION: No acute fracture or dislocation. Mild medial compartment osteoarthrosis/osteoarthritis. Electronically signed by: Clint Ballesteros MD 01/04/2025 09:57 AM EDT
--- OUTSIDE RECORDS SUMMARY | 2025-01-04 08:49 | XMS_ITS | Encounter Summary ---
Author Organization [facility] Address [address] [place] [address] Phone Care Team Providers Care Animal Laboratory Technician Name Role Phone Provider, Danette BEST Primary Care Provider [phone] Encounter Details Date Type Department Care Team (Late st Contact Info) Description 07/25/2009 Documentation [facility] [place] [address] [place] [address] Family Medicine, Physician [address] [place], [place] [phone] Social History Tobacco Use Types Packs/Day Years [...] on filedocumented in this encounter Care Teams Animal Laboratory Technician Relationship Specialty Start Date End Date Provider, MD Danette [address] [place] [phone] PCP - General Pediatrics 10/22/21 08/15/22 documented as of this encounter
--- OUTSIDE RECORDS SUMMARY | 2025-01-04 08:49 | XMS_ITS | Encounter Summary ---
Author Organization [facility] Address [address] [place] [address] Phone Care Team Providers Care Patient Observation Assistant Name Role Phone Provider, Danette BEST Primary Care Provider [phone] Encounter Details Date Type Department Care Team (Late st Contact Info) Description 06/07/2016 Documentation [facility] [place] [address] [place] [address] Family Medicine, Physician [address] [place], [place] [phone] Social History Tobacco Use Types Packs/Day Years [...] on filedocumented in this encounter Care Teams Patient Observation Assistant Relationship Specialty Start Date End Date Provider, MD Danette [address] [place] [phone] PCP - General Pediatrics 10/22/21 08/15/22 documented as of this encounter
--- OUTSIDE RECORDS SUMMARY | 2025-01-04 08:49 | XMS_ITS | Encounter Summary ---
Author Organization [facility] Address [address] [place] [address] Phone Care Team Providers Care Taxation Inspector Name Role Phone Provider, Danette BEST Primary Care Provider [phone] Encounter Details Date Type Department Care Team (Late st Contact Info) Description 11/25/2016 Conversion Encounter [facility] [address] [phone] Social History Tobacco Use Types Packs/Day Years [...] on filedocumented in this encounter Care Teams Taxation Inspector Relationship Specialty Start Date End Date Provider, MD Danette [address] [place] [address] PCP - General Pediatrics 10/22/21 08/15/22 documented as of this encounter
--- OUTSIDE RECORDS SUMMARY | 2025-01-04 08:49 | XMS_ITS | Encounter Summary ---
Author Organization [facility] Address [address] [place] [address] Phone Care Team Providers Care Batting Machine Operator Name Role Phone Provider, Danette BEST Primary Care Provider Reason for Visit * Reason Comments Med Refill Encounter Details Date Type Department Care Team (Late st Contact Info) Description 07/23/2017 Refill [facility] - [address] [address] Dalila Suárez NP Encounter for other contraceptive [...] visit with Essence I had written that COLLECTOR OF PORT was writing her OCPs - but in speaking with the pharmacist at [facility] we have been prescribing her OCPs. Last visit with COLLECTOR OF PORT was 03/2017 - they discussed longer cycling [...] Primary documented in this encounter Care Teams Batting Machine Operator Relationship Specialty Start Date End Date Provider, MD Danette [address] [place] [address] PCP - General Pediatrics 10/22/21 08/15/22 documented as of this encounter
--- OUTSIDE RECORDS SUMMARY | 2025-01-04 08:49 | XMS_ITS | Clinical Summary ---
Author Organization [facility] Address [address] [place] [phone] Phone Care Team Providers Care Inpatient Nursing Aide Name Role Phone Lisa Rodriguez MD Primary Care Provider [phone] Allergies No known active allergies Medications rivaroxaban [...] 2000 Cervical Cancer Screening: Pap Smear 2021 Depression Screening 04/11/2024 HIV Screening 07/11/2024 Hepatitis C Screening 07/11/2024 Social Influencers of Health Screening 07/11/2024 COVID-19 Vaccine ( season) 2024 04/07/2023, 04/08/2022, 04/15/2021, Additional history exists Influenza Vaccine (#1) 2024 , 04/08/2022, 02/17/2021, Additional history exists DTaP,Tdap,and Td Vaccines (8 - Td or Tdap) 10/29/2031 10/28/2021, 10/05/2011, 10/15/2004, Additional history exists RSV Immunization Adult Patients (1 - 1-dose 75+ series) 10/02/2075 HIB Vaccines Completed 01/12/2002, 03/12, 01/27/2001, Additional [...] patient's age to complete this topic Insurance [facility] Advance Directives * Full Code [...] Agents on File Name Relationship Healthcare Agent [facility] Communication Dorothy Garvey [facility] Care Agent Care Teams Inpatient Nursing Aide Relationship Specialty Start Date End Date Lisa Rodriguez MD [address] [place] [address] PCP - General Internal Medicine 07/11/24
--- OUTSIDE RECORDS SUMMARY | 2025-01-04 08:49 | XMS_ITS | Encounter Summary ---
Author Organization [facility] Address [address] [place] [address] Phone Care Team Providers Care Sales Enablement Specialist Name Role Phone Provider, Danette BEST Primary Care Provider [phone] Encounter Details Date Type Department Care Team (Late st Contact Info) Description 06/03/2016 Documentation [facility] [place] [address] [place] [address] Family Medicine, Physician [address] [place], [place] [phone] Social History Tobacco Use Types Packs/Day Years [...] on filedocumented in this encounter Care Teams Sales Enablement Specialist Relationship Specialty Start Date End Date Provider, MD Danette [address] [place] [phone] PCP - General Pediatrics 10/22/21 08/15/22 documented as of this encounter
--- OUTSIDE RECORDS SUMMARY | 2025-01-04 08:49 | XMS_ITS | Clinical Summary ---
Author Organization [facility] Address [address] [place] [address] Phone Care Team Providers Care Lining Mechanic Name Role Phone Lisa Rodriguez MD Primary [...] Description 12/25/2024 12:00 PM EDT Office Visit [facility] [address], [address] [place], [place] [phone] Gavino Rice, POTS (postural orthostatic tachycardia syndrome) (Primary Dx); Ventricular premature depolarization; Deep vein thrombosis (DVT) of left lower extremity, unspecified chronicity, unspecified vein 12/18/2024 Refill [facility] [address], [address] [place], [place] [phone] Gavino Rice, Medication Refill 11/21/2024 Refill [facility] [address], [address] [place], [place] [phone] Tatum Miller, NIXON Medication Refill from Last [...] Description 09/24/2025 9:30 AM EDT Office Visit [facility] [address] [place] [address] [address]rd [facility], [address] [place] [address] Gavino Rice, [address] [place] [address] [place] [address] Health Maintenance Due Date Last Done Comments [...] Devices Not on file [place] [address] [place] [address] [place] [address] [place] [address] [place] [address] [place] [address] Care Teams Lining Mechanic Relationship Specialty Start Date End Date Lisa Rodriguez MD [address] [place] [address] PCP - General Internal Medicine 07/23/24 Additional Source Comments The information contained in this document represents components of the legal health record. It is not the complete legal health record.[facility]
--- OUTSIDE RECORDS SUMMARY | 2025-01-04 08:49 | XMS_ITS | Clinical Summary ---
Author Organization [facility] Address [address] [place] [address] Phone Care Team Providers Care Decorator Mannequin Name Role Phone Unavailable Primary Care Provider [...] and OCPs, topical refilled, OCPs prescribed by SECRETARY ADMINISTRATIVE ASSISTANT. Assessment & Plan (10/04/2017 4:40 PM EDT): [...] oral contraceptive Overview (10/29/2021): Followed by adult SECRETARY ADMINISTRATIVE ASSISTANT Pt with hx of severe cramping and long menses treated successfully after several OCP attempts and visit to SECRETARY ADMINISTRATIVE ASSISTANT with long cycling apri (spitting 1st and 2nd inactive weeks) with improvement in cramping and normally no breakthrough bleeding. Continue f/u with SECRETARY ADMINISTRATIVE ASSISTANT. Followed by adult SECRETARY ADMINISTRATIVE ASSISTANT. Pt was put on refrigerated probiotic that was about $100/3 mo supply Stopped taking it once sx resolved Wondering if she should take it proactively - SECRETARY ADMINISTRATIVE ASSISTANT hadn't specifically said Assessment & Plan (10/29/2021 9:57 AM EDT): Seeing Raw Stock Drier Tender now- on OCP Assessment & Plan (10/28/2019 11:13 PM EDT): Continue to follow with SECRETARY ADMINISTRATIVE ASSISTANT Did not repeat urine GC/Chlamydia testing today due to recent testing at SECRETARY ADMINISTRATIVE ASSISTANT Not SA so low risk Discussed could try another refrigerated probiotic, typically I recommend a single organism Follow up with SECRETARY ADMINISTRATIVE ASSISTANT if needed if any issues with menses/discharge Assessment & Plan (10/04/2017 4:41 PM EDT): Refilled with the prolonged cycling, proper use, no risky behaviors, no further testing needed. Resolved Problems Problem Noted Date Diagnosed Date Resolved Date Vaginal discharge 03/12/2020 10/27/2021 Overview (03/12/2020): Chronic complaints, pt has been treated for BV and then had ongoing concerns with neg vag swab. Was referred to SECRETARY ADMINISTRATIVE ASSISTANT for further evaluation after 10/2018 recurrent sx Has been pt of [facility] and at last visit (virtual) they recommended Boric Acid 600mg per vagina nightly x 3 weeks, then f/u with [facility] for recheck. Cough 03/30/2018 10/28/2019 Assessment & Plan (04/07/2018 12:55 PM EST): Cough for 2.[address] Seen at [facility] and had Neg strept and neg mono. [...] of Thrombophilia, No family history of Sudden /MA under age 55, No family history of [...] Completed 04/10/2019, 10/05/2018 Procedures * Due to [facility] law, this organization might not be sharing sensitive test results. Procedure Name Priority Date/Time Associated Diagnosis Comments CHLAMYDIA AND GONORRHEA, AMPLIFIED Routine 10/28/2021 1:51 PM EDT Encounter for screening examination for chlamydial infection from Last 3 Months or Most Recently Relevant to Health Maintenance Results * Due to [facility] law, this organization might not be sharing sensitive test results. * Chlamydia and Gonorrhoea, Amplified (10/28/2021 1:51 PM EDT) Chlamydia Trachomatis, DNA Probe NEGATIVE (NEG) [facility] Comment: No Chlamydia Trachomatis RNA detected in this patient's sample (REFERENCE RANGE/NORMAL VALUE: NOT DETECTED) Note: This test uses microwave oven assembler- mediated amplification method to detect rRNA from C. Trachomatis URINE GC AMP PROBE NEGATIVE (NEG) [facility] Comment: No Neisseria Gonorrhoeae RNA detected in this patient's sample (REFERENCE RANGE/NORMAL VALUE: NOT DETECTED) NOTE: This test uses microwave oven assembler-mediated amplification method to detect rRNA from N.Gonorrhoeae. [...] without risk of sexual abuse. Consult the [facility] if needed. Contact phone number . Therapeutic failure or success cannot be determined with the Aptima Combo2 assay since nucleic acid may persist following appropriate antimicrobial therapy. The Centers for Disease Control and Prevention (CDC) recommends confirmatory retesting using culture or a different nucleic acid amplification test when positive results occur, if indicated. Testing performed or reported by [facility], a Service of [facility], [address] [place] [address] Javier Garcia MD, Glaze Maker [facility]# [id number] Urine (Urine) 10/28/2021 1:5 1 PM EDT 10/28/2021 10:22 PM EDT us Anni Zavaleta DO LAB MICROBIOLOGY - GENERAL ORDER EMILY Final Result [facility] from Last 3 Months or Most Recently Relevant to Health Maintenance
--- OUTSIDE RECORDS SUMMARY | 2025-01-04 08:49 | XMS_ITS | Clinical Summary ---
Author Organization [facility] Address [address] [place] [address] Care Team Providers Care Forestry Workers Name Role Phone Lisa Rodriguez MD Primary [...] patient's age to complete this topic Insurance [facility] Care Teams Forestry Workers Relationship Specialty Start Date End Date Lisa Rodriguez MD [address] [place] [address] PCP - General Internal Medicine 03/04/23
== END 2025-01-04 08:31 | disposition home or self-care (01) ==
LOC: HO.HOSX 08:30
PROVIDERS: Visit Provider Physician Assistant
DX: S83.005A Unspecified dislocation of left patella, initial encounter (principal); X58.XXXA Exposure to other specified factors, initial encounter
CPT/HCPCS: 73562

== ENCOUNTER 2025-01-04 09:38 | Outpatient (AMB) | payer BC, SELFPAY ==
--- NOTE | 2025-01-04 09:55 | MHC.OFFVIS ---
Vital Signs 01/04/25 09:59 Height 5 ft 9 in Weight 180 lb BMI 26.6 Intake Visit Reasons: ED F/U-Left patella displaced Intake Note: Essence is a 24 year old female who presents today as a new patient visit for an ER follow up of a left knee dislocation, DOI: 12/20/24. Per ED note patient presented at [facility] with 10 out of 10 pain in the left knee after she felt a pop while moving mats. Patient reports her left patella was reduced in ER and placed in knee immobilize, crutches were given. States she was doing well, no complaints of pain until she had to remove brace to have x-rays. Allergies No Known Allergies Allergy (Verified 01/04/25 10:03) [facility] ED F/U-Left patella displaced: Details: 24 to female presents to the office today for an injury she sustained to her left knee on 12/20/24. She states she was pushing gymnastic mats and felt her patella dislocate. She had to go to the ED for reduction. She was placed in a knee immobilizer. She states she has been wearing the knee immobilizer at all times for the last 2 weeks. She denies ho dislocations, denies h/o other joint abnormalities. She is s/p rt hip surgery in june 2024 Dr Fagan, resulted DVT and PE She is on xarelto for another week [facility] Medical History (Updated 01/04/25 @ 10:19 by Dell Horowitz PA-C) POTS (postural orthostatic tachycardia syndrome) Right hip pain Syncope and collapse History of pulmonary embolus (PE) History of DVT (deep vein thrombosis) Uses control Rogers's thyroiditis Protrusion of intervertebral disc of lumbosacral region Hamstring muscle strain Chronic lumbosacral pain Chronic fatigue Hyperkalemia Tingling in extremities Family history of Rogers thyroiditis Family history of diabetes mellitus Intermittent palpitations Surgical History (Updated 01/04/25 @ 09:58 by KEITH Diehl) History of hip surgery No pertinent past surgical history Family History (Updated 01/03/25 @ 16:37 by Lisa Rodriguez MD) Maternal Aunt Breast cancer Mother Hypothyroidism due to Rogers's thyroiditis Type 1 diabetes mellitus Other Ronda-Danlos syndrome Social History (Updated 01/04/25 @ 10:04 by Day Sandoval Ashley Housing: House Patient Tobacco Use Status: Never used Tobacco e-Cigarette/Vaping Use: Never Used Advance Directives Date on File: 12/28/23 service: No Current occupational status: employed 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 Cognitive needs: No Hearing needs: No Vision needs: No Female Reproductive History Menstrual Age of Menarche: 12 Review of Systems Const All systems reviewed & are unremarkable except as noted in HPI and below Physical Exam Vital Signs: BMI result Body Mass Index 26.6 Const General: cooperative and no acute distress Orientation/consciousness: patient oriented x3 Resp Effort & Inspection: normal respiratory effort and able to speak in complete sentences Cardio Peripheral pulses: Peripheral pulses 2+ throughout Neuro General: patient oriented x3 Extrem Other: Left knee is normal to inspection there is no joint effusion present. She can fully extend the knee but can passively flex to 30 degrees. She is significantly guarded with active flexion. She has medial retropatellar tenderness. No gross instability. Calf supple nontender neurovascularly intact. Results Reviewed Results Reviewed: X-rays of the left knee obtained in the office today and reviewed by me show a shallow patellar groove. Assessment & Plan Assessment & Plan (1) Dislocation of left patella: Code(s): S83.005A - Unspecified dislocation of left patella, initial encounter Category: Medical Plan: I discussed with the patient and her mom in the office today the extent of her injury and options going forward. I encouraged her to remove the knee immobilizer and start working on range of motion. We did work on some passive motion in the office which she was not able to fully tolerate. I was only able to get her to about 30-35 degrees. I stressed the importance of working on this on her own at home but it is important to allow for hip and quad relaxation to allow for this to happen. I did place an order for physical therapy and since she has gone to [facility] in [place] before she is going to return. I did explain this needs to be done sooner than later. She was also fit for a Maik Pull patellar stabilizing brace in the office today which she will wear with activities. Going forward if she experiences ongoing instability or discomfort she can contact our office otherwise she will follow up as needed. Orders: Orders XR knee LT 3V Today M25.562 - Pain in left knee PT Evaluation and Treatment Today S83.005A - Unspecified dislocation of left patella, initial encounter Coding Level of Care Code New Pt Level 3 (43857) Complex EM visit Add On G2211 Diagnoses Dislocation of left patella S83.005A
[2025-01-04 09:59] VITALS: BMI 26.6
--- OUTSIDE RECORDS SUMMARY | 2025-01-04 10:40 | XMS_ITS | Continuity of Care Document ---
Author Organization [facility] [address] [place] [address] Phone [phone] Care Team Providers Care Oxygen Therapy Teacher Name Role Phone Lisa Rodriguez Care Team Information Ski Binding Fitter And Repairer [phone] Problems Active Problems Provider Date Rogers thyroiditis [...] To FT4 3.65 uIU/mL (0.4-4.2) Cortisol 02/28/2023 [facility] Cortisol 26.0 g/dL 1 [...] Referral Status Appt Cl Brar M.D. Created [address] [place] [address] Drive [address] [place] [address] [phone] Cl Almeida M.D. Closed [address] [place] [address] Drive [address] [place] [phone] Cl Almeida M.D. Closed [address] [place] [address] Drive [address] [place] [address] [phone]
== END 2025-01-04 12:07 | disposition home or self-care (01) ==
LOC: HO.HOS 09:39
PROVIDERS: PCP Internal Medicine; Visit Provider Physician Assistant
DX: S83.005A Unspecified dislocation of left patella, initial encounter (principal)
CPT/HCPCS: 99203

== ENCOUNTER → 2025-01-04 09:41 | Outpatient (BNV) | payer BC, SELFPAY | PROVIDERS: Visit Provider Radiology Diagnostic Radiology | DX: M17.12 Unilateral primary osteoarthritis, left knee (principal) | CPT/HCPCS: 73562 ==

== ENCOUNTER 2025-01-14 10:26 | Outpatient (REF) | payer BC, SELFPAY ==
--- OUTSIDE RECORDS SUMMARY | 2025-01-14 12:14 | XMS_ITS | Clinical Summary ---
Author Organization [facility] Address [address] [place] [address] Phone Care Team Providers Care Steam Cleaning Machine Operator Name Role Phone Lisa Rodriguez MD [...] Description 12/25/2024 12:00 PM EDT Office Visit [facility] [address], [address] [place], [place] [phone] Gavino Rice, POTS (postural orthostatic tachycardia syndrome) (Primary Dx); Ventricular premature depolarization; Deep vein thrombosis (DVT) of left lower extremity, unspecified chronicity, unspecified vein 12/18/2024 Refill [facility] [address], [address] [place], [place] [phone] Gavino Rice, Medication Refill 11/21/2024 Refill [facility] [address], [address] [place], [place] [address] Tatum Miller, NIXON Medication Refill from Last [...] Description 09/24/2025 9:30 AM EDT Office Visit [facility] [address] [place] [address] [address]rd [facility], [address] [place] [address] Gavino Rice, [address] [place] [address] [place] [phone] [email or web address] Health Maintenance Due Date Last Done Comments CREATININE LEVEL 2000 DEPRESSION SCREENING 2012 SMOKING Hx and SMOKELESS TOBACCO SCREENING 2013 HPV VACCINES (1 - 3-dose series) 10/02/2015 CHLAMYDIA SCREENING 2016 HEPATITIS C SCREENING 2018 HIV ONE-TIME SCREENING (18-6 5 YEARS) 2018 PAP SMEAR 2021 INFLUENZA VACCINE (#1) 2024 COVID-19 VACCINE (2024-2 6 season) 2024 Adult Td,Tdap Booster 10/29/2031 10/28/2021 [...] topic Medical Devices Not on file [place] [address] [address] [place] [address] [place] [address] [place] [address] [place] [address] [place] [address] Care Teams Steam Cleaning Machine Operator Relationship Specialty Start Date End Date Lisa Rodriguez MD [address] [place] [address] PCP - General Internal Medicine 07/23/24 Additional Source Comments The information contained in this document represents components of the legal health record. It is not the complete legal health record.[facility]
--- OUTSIDE RECORDS SUMMARY | 2025-01-14 12:14 | XMS_ITS | Encounter Summary ---
Author Organization [facility] Address [address] [place] [address] Phone Care Team Providers Care Branch Lead Name Role Phone Provider, Danette BEST Primary Care Provider [phone] Encounter Details Date Type Department Care Team (Late st Contact Info) Description 07/25/2009 Documentation [facility] [place] [address] [place] [address] Family Medicine, Physician [address] [place], [place] [phone] Social History Tobacco Use Types Packs/Day Years [...] on filedocumented in this encounter Care Teams Branch Lead Relationship Specialty Start Date End Date Provider, MD Danette [address] [place] [phone] PCP - General Pediatrics 10/22/21 08/15/22 documented as of this encounter
--- OUTSIDE RECORDS SUMMARY | 2025-01-14 12:15 | XMS_ITS | Encounter Summary ---
Author Organization [facility] Address [address] [place] [address] Phone Care Team Providers Care Pets Salesperson Name Role Phone Provider, Danette BEST Primary Care Provider [phone] Encounter Details Date Type Department Care Team (Late st Contact Info) Description 06/03/2016 Documentation [facility] [place] Family Medicine [address] [place] [address] Family Medicine, Physician [address] [place], [place] [id number] Social History Tobacco Use Types Packs/Day Years [...] on filedocumented in this encounter Care Teams Pets Salesperson Relationship Specialty Start Date End Date Provider, MD Danette [address] [place] [phone] PCP - General Pediatrics 10/22/21 08/15/22 documented as of this encounter
--- OUTSIDE RECORDS SUMMARY | 2025-01-14 12:15 | XMS_ITS | Encounter Summary ---
Author Organization [facility] Address [address] [place] [address] Phone Care Team Providers Care Site Promotion Agent Name Role Phone Provider, Danette BEST Primary Care Provider [phone] Encounter Details Date Type Department Care Team (Late st Contact Info) Description 06/07/2016 [place]ation [facility] [place] [address] [place] [address] Family Medicine, Physician [address] [place], [place] [phone] Social History Tobacco Use Types Packs/Day Years [...] on filedocumented in this encounter Care Teams Site Promotion Agent Relationship Specialty Start Date End Date Provider, MD Danette [address] [place] [phone] PCP - General Pediatrics 10/22/21 08/15/22 documented as of this encounter
--- OUTSIDE RECORDS SUMMARY | 2025-01-14 12:15 | XMS_ITS | Clinical Summary ---
Author Organization [facility] Address [address] [place] [phone] Phone Care Team Providers Care Mobile Lounge Driver Name Role Phone Lisa Rodriguez MD Primary Care Provider [phone] Allergies No known active allergies Medications rivaroxaban [...] Safety Answer Date Record ed Physical Abuse Unrecognized value 07/22/2024 Verbal Abuse Unrecognized value 07/22/2024 Comments Unknown Sex and Gender Information [...] patient's age to complete this topic Insurance [facility] Advance Directives * Full Code [...] Agents on File Name Relationship Healthcare Agent [facility] Communication Dorothy Felipe [facility] Care Agent Care Teams Mobile Lounge Driver Relationship Specialty Start Date End Date Lisa Rodriguez MD [address] [place] [address] PCP - General Internal Medicine 07/11/24
--- OUTSIDE RECORDS SUMMARY | 2025-01-14 12:15 | XMS_ITS | Encounter Summary ---
Author Organization [facility] Address [address] [place] [address] Phone Care Team Providers Care Compensation Adjuster Name Role Phone Provider, Danette BEST Primary Care Provider [phone] Encounter Details Date Type Department Care Team (Late st Contact Info) Description 11/25/2016 Conversion Encounter [facility] [address] [id number] Social History Tobacco Use Types Packs/Day Years [...] on filedocumented in this encounter Care Teams Compensation Adjuster Relationship Specialty Start Date End Date Provider, MD Danette [address] [place] [phone] PCP - General Pediatrics 10/22/21 08/15/22 documented as of this encounter
--- OUTSIDE RECORDS SUMMARY | 2025-01-14 12:15 | XMS_ITS | Clinical Summary ---
Author Organization [facility] Address [address] [place] [address] Care Team Providers Care Makeup Sales Advisor Name Role Phone Lisa Rodriguez MD Primary [...] patient's age to complete this topic Insurance [facility] - HMO Care Teams Makeup Sales Advisor Relationship Specialty Start Date End Date Lisa Rodriguez MD [address] [place] [address] PCP - General Internal Medicine 03/04/23
--- OUTSIDE RECORDS SUMMARY | 2025-01-14 12:15 | XMS_ITS | Clinical Summary ---
Author Organization [facility] Address [address] [place] [phone] Phone Care Team Providers Care Stock Preparer Name Role Phone Unavailable Primary Care Provider [...] and OCPs, topical refilled, OCPs prescribed by ORGAN TUNER. Assessment & Plan (10/04/2017 4:40 PM EDT): [...] oral contraceptive Overview (10/29/2021): Followed by adult ORGAN TUNER Pt with hx of severe cramping and long menses treated successfully after several OCP attempts and visit to ORGAN TUNER with long cycling apri (spitting 1st and 2nd inactive weeks) with improvement in cramping and normally no breakthrough bleeding. Continue f/u with ORGAN TUNER. Followed by adult ORGAN TUNER. Pt was put on refrigerated probiotic that was about $100/3 mo supply Stopped taking it once sx resolved Wondering if she should take it proactively - ORGAN TUNER hadn't specifically said Assessment & Plan (10/29/2021 9:57 AM EDT): Seeing Joinery Patternmaker now- on OCP Assessment & Plan (10/28/2019 11:13 PM EDT): Continue to follow with OR[facility] T[facility] Did not repeat urine GC/Chlamydia testing today due to recent testing at [facility] Not SA so low risk Discussed could try another refrigerated probiotic, typically I recommend a single organism Follow up with ORGAN TUNER if needed if any issues with menses/discharge Assessment & Plan (10/04/2017 4:41 PM EDT): Refilled with the prolonged cycling, proper use, no risky behaviors, no further testing needed. Resolved Problems Problem Noted Date Diagnosed Date Resolved Date Vaginal discharge 03/12/2020 10/27/2021 Overview (03/12/2020): Chronic complaints, pt has been treated for BV and then had ongoing concerns with neg vag swab. Was referred to [facility] T[facility] for further evaluation after 10/2018 recurrent sx Has been pt of [facility] and at last visit (virtual) they recommended Boric Acid 600mg per vagina nightly x 3 weeks, then f/u with [facility] for recheck. Cough 03/30/2018 10/28/2019 Assessment & Plan (04/07/2018 12:55 PM EST): Cough for 2.[address] Seen at [facility] and had Neg strept and neg mono. [...] of Thrombophilia, No family history of Sudden /NH under age 55, No family history of [...] Completed 04/10/2019, 10/05/2018 Procedures * Due to [facility] law, this organization might not be sharing sensitive test results. Procedure Name Priority Date/Time Associated Diagnosis Comments CHLAMYDIA AND GONORRHEA, AMPLIFIED Routine 10/28/2021 1:51 PM EDT Encounter for screening examination for chlamydial infection from Last 3 Months or Most Recently Relevant to Health Maintenance Results * Due to [facility] law, this organization might not be sharing sensitive test results. * Chlamydia and Gonorrhoea, Amplified (10/28/2021 1:51 PM EDT) Chlamydia Trachomatis, DNA Probe NEGATIVE (NEG) [facility] Comment: No Chlamydia Trachomatis RNA detected in this patient's sample (REFERENCE RANGE/NORMAL VALUE: NOT DETECTED) Note: This test uses first sampler- mediated amplification method to detect rRNA from C. Trachomatis URINE GC AMP PROBE NEGATIVE (NEG) [facility] Comment: No Neisseria Gonorrhoeae RNA detected in this patient's sample (REFERENCE RANGE/NORMAL VALUE: NOT DETECTED) NOTE: This test uses first sampler-mediated amplification method to detect rRNA from N.Gonorrhoeae. [...] without risk of sexual abuse. Consult the [facility] if [...] if indicated. Testing performed or reported by [facility], a Service of [facility], [address] [place] [address] Javier Garcia MD, Test Equipment Mechanic [facility]# [id number] Urine (Urine) 10/28/2021 1:5 1 PM EDT 10/28/2021 10:22 PM EDT us Anni Zavaleta DO LAB MICROBIOLOGY - GENERAL ORDER EMILY Final Result [facility] from Last 3 Months or Most Recently Relevant to Health Maintenance
--- OUTSIDE RECORDS SUMMARY | 2025-01-14 12:15 | XMS_ITS | Continuity of Care Document ---
Author Organization [facility] [address] [place] [address] Phone [phone] Care Team Providers Care School Director Name Role Phone Lisa Rodriguez Care Team Information Pipe Organ Builder [phone] Problems Active Problems Provider Date Rogers thyroiditis [...] To FT4 3.65 uIU/mL (0.4-4.2) Cortisol 02/28/2023 [facility] Cortisol 26.0 g/dL 1 [...] Referral Status Appt Cl Brar M.D. Created [address] [place] [address] Drive [address] [place] [address] [phone] Cl Almeida M.D. Closed [address] [place] [address] Drive [address] [place] [phone] Cl Almeida M.D. Closed [address] [place] [address] Drive [address] [place] [address] [phone]
--- OUTSIDE RECORDS SUMMARY | 2025-01-14 12:15 | XMS_ITS | Encounter Summary ---
Author Organization [facility] Address [address] [place] [address] Phone Care Team Providers Care Emery Wheel Molder Name Role Phone Provider, Danette BEST Primary Care Provider [phone] Reason for Visit * Reason Comments Med Refill Encounter Details Date Type Department Care Team (Late st Contact Info) Description 07/23/2017 Refill [facility] - [address] [address] Dalila Suárez NP Encounter for other contraceptive [...] visit with Essence I had written that CARE DIRECTOR RN was writing her OCPs - but in speaking with the pharmacist at [facility] we have been prescribing her OCPs. Last visit with CARE DIRECTOR RN was 03/2017 - they discussed longer cycling [...] Primary documented in this encounter Care Teams Emery Wheel Molder Relationship Specialty Start Date End Date Provider, MD Danette [address] [place] [phone] PCP - General Pediatrics 10/22/21 08/15/22 documented as of this encounter
[2025-01-14 13:28] LABS: MANUAL DIFF FLAG NO
[2025-01-14 13:31] LABS: Hematocrit 38.5 % (37.0-47.0); Hemoglobin 12.7 g/dl (12.0-16.0); Imm Gran Abs Auto 0.01 X10*3/uL (0.00-0.03); Imm Gran Pct Auto 0.1 % (0.0-0.4); Lymphocytes Absolute Auto 2.3 X10*3/uL (1.2-4.9); Mean Corpuscular HGB Conc 33.0 g/dl (31.0-35.0); Mean Corpuscular Hemoglobin 27.3 pg (27.0-33.0); Mean Corpuscular Volume 82.8 fL (80.0-98.0); NRBC Abs Auto 0.000 X10*3/uL (0.0-0.012); NRBC Pct Auto 0.0 /100WBC (0.0-0.2); Platelet Count 491 X10*3/uL (160-400); Red Blood Count 4.65 X10*6/uL (4.20-5.50); White Blood Count 7.5 X10*3/uL (4.8-10.8)
[2025-01-14 13:57] LABS: Alanine Aminotransferase 21 U/L (0-31); Anion Gap 11 (12-20); Aspartate Amino Transferase 16 U/L (5-31); Blood Urea Nitrogen 13 mg/dL (9-16); Calcium 9.5 mg/dL (8.4-10.2); Carbon Dioxide 25 mmol/L (22-29); Chloride 109 mmol/L (96-108); Cholesterol 179 mg/dL (<200); Estimated Glomerular Filt Rate > 60; HDL Cholesterol 54 mg/dL (>40); Potassium 4.2 mmol/L (3.3-5.1); Sodium 141 mmol/L (135-145); Triglycerides 36 mg/dL (<150)
[2025-01-14 14:18] LABS: Free T4 (Free Thyroxine) 1.05 ng/dL (0.71-1.85); Thyroid Stimulating Hormone 3.05 uIU/mL (0.32-4.0)
== END 2025-01-14 10:27 | disposition home or self-care (01) ==
LOC: HO.HMGCLDS 10:26
PROVIDERS: PCP Internal Medicine; Visit Provider Internal Medicine
DX: E06.3 Autoimmune thyroiditis (principal); G90.A Postural orthostatic tachycardia syndrome [POTS]; Z86.718 Personal history of other venous thrombosis and embolism; Z86.711 Personal history of pulmonary embolism
CPT/HCPCS: 36415; 80048; 80061; 82306; 84439; 84443; 84450; 84460; 85025; 86376

== ENCOUNTER → 2025-03-21 18:33 | Outpatient (BNV) | payer BC, SELFPAY | PROVIDERS: PCP Internal Medicine; Visit Provider Radiology Diagnostic Ultrasound | DX: S83.005A Unspecified dislocation of left patella, initial encounter (principal); S83.412A Sprain of medial collateral ligament of left knee, initial encounter; M25.462 Effusion, left knee | CPT/HCPCS: 73721 ==

== ENCOUNTER 2025-03-21 18:41 | Outpatient (REF) | payer BC, SELFPAY ==
--- NOTE | ~2025-03-21 | MR_ITS ---
EXAMINATION: MR KNEE WITHOUT CONTRAST, LEFT CLINICAL INFORMATION: Unspecified dislocation of left patella COMPARISON: X-ray 01/04/2025 TECHNIQUE: MRI of the knee without contrast was performed using routine sequences on a high-field scanner. FINDINGS: MENISCI: Medial Meniscus: Intact Lateral Meniscus: Intact LIGAMENTS: Cruciate: Intact Collateral: Grade 2 sprain MCL. Intact LCL complex. EXTENSOR MECHANISM: Quadriceps and patellar tendon are intact. ARTICULAR CARTILAGE/BONE: Patellofemoral Compartment: Marrow edema in the patella, including involving the medial patella. There is a partial-thickness chondral loss/fissuring in the central and medial patella facet. Mild MPF L sprain. Prominent edema in the lateral femoral condyle. The constellation of findings are consistent with the reported patellar dislocation. Medial Compartment: No significant chondral loss Lateral Compartment: No significant chondral loss JOINT FLUID AND BURSAE: Small effusion. No significant Ibanez's cyst. MR/MR knee LT wo con IMPRESSION: * Prominent edema in the lateral femoral condyle, patellar edema. Sprain ATFL. Constellation of findings consistent with the clinical history of patellar dislocation. There is partial-thickness patellar chondral loss. * Grade 2 sprain MCL. * Small effusion. * Additional findings as above. Electronically signed by: Maikol Barboza MD 03/22/2025 09:58 AM JUSTICE
--- OUTSIDE RECORDS SUMMARY | 2025-03-21 23:32 | XMS_ITS | Clinical Summary ---
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 Communication Dorothy Garvey [facility] Care Agent Care Teams Electronic Test Technician Relationship Specialty Start Date End Date Lisa Rodriguez MD [address] [place] [address] PCP - General Internal Medicine 07/11/24
--- OUTSIDE RECORDS SUMMARY | 2025-03-21 23:32 | XMS_ITS | Clinical Summary ---
Author Organization [facility] Address [address] [place] [address] Care Team Providers Care Corporate Strategy Intern Name Role Phone Lisa Rodriguez MD Primary [...] patient's age to complete this topic Insurance [facility] - HMO Care Teams Corporate Strategy Intern Relationship Specialty Start Date End Date Lisa Rodriguez MD [address] [place] [address] PCP - General Internal Medicine 03/04/23
--- OUTSIDE RECORDS SUMMARY | 2025-03-21 23:32 | XMS_ITS | Clinical Summary ---
Author Organization [facility] Address [address] [place] [phone] Phone Care Team Providers Care Incinerator Plant General Supervisor Name Role Phone Unavailable Primary Care Provider [...] and OCPs, topical refilled, OCPs prescribed by BICYCLE REPAIRMAN. Assessment & Plan (10/04/2017 4:40 PM EDT): [...] oral contraceptive Overview (10/29/2021): Followed by adult BICYCLE REPAIRMAN Pt with hx of severe cramping and long menses treated successfully after several OCP attempts and visit to BICYCLE REPAIRMAN with long cycling apri (spitting 1st and 2nd inactive weeks) with improvement in cramping and normally no breakthrough bleeding. Continue f/u with BICYCLE REPAIRMAN. Followed by adult BICYCLE REPAIRMAN. Pt was put on refrigerated probiotic that was about $100/3 mo supply Stopped taking it once sx resolved Wondering if she should take it proactively - BICYCLE REPAIRMAN hadn't specifically said Assessment & Plan (10/29/2021 9:57 AM EDT): Seeing Public Defender now- on OCP Assessment & Plan (10/28/2019 11:13 PM EDT): Continue to follow with BICYCLE REPAIRMAN Did not repeat urine GC/Chlamydia testing today due to recent testing at BICYCLE REPAIRMAN Not SA so low risk Discussed could try another refrigerated probiotic, typically I recommend a single organism Follow up with BICYCLE REPAIRMAN if needed if any issues with menses/discharge Assessment & Plan (10/04/2017 4:41 PM EDT): Refilled with the prolonged cycling, proper use, no risky behaviors, no further testing needed. Resolved Problems Problem Noted Date Diagnosed Date Resolved Date Vaginal discharge 03/12/2020 10/27/2021 Overview (03/12/2020): Chronic complaints, pt has been treated for BV and then had ongoing concerns with neg vag swab. Was referred to BICYCLE REPAIRMAN for further evaluation after 10/2018 recurrent sx Has been pt of [facility] and at last visit (virtual) they recommended Boric Acid 600mg per vagina nightly x 3 weeks, then f/u with [facility] for recheck. Cough 03/30/2018 10/28/2019 Assessment & Plan (04/07/2018 12:55 PM EST): Cough for 2.[address] Seen at [facility] and had Neg strept and neg mono. [...] of Thrombophilia, No family history of Sudden /RI under age 55, No family history of [...] Completed 04/10/2019, 10/05/2018 Procedures * Due to [facility] law, this organization might not be sharing sensitive test results. Procedure Name Priority Date/Time Associated Diagnosis Comments CHLAMYDIA AND GONORRHEA, AMPLIFIED Routine 10/28/2021 1:51 PM EDT Encounter for screening examination for chlamydial infection from Last 3 Months or Most Recently Relevant to Health Maintenance Results * Due to [facility] law, this organization might not be sharing sensitive test results. * Chlamydia and Gonorrhoea, Amplified (10/28/2021 1:51 PM EDT) Chlamydia Trachomatis, DNA Probe NEGATIVE (NEG) [facility] Comment: No Chlamydia Trachomatis RNA detected in this patient's sample (REFERENCE RANGE/NORMAL VALUE: NOT DETECTED) Note: This test uses steerer- mediated amplification method to detect rRNA from C. Trachomatis URINE GC AMP PROBE NEGATIVE (NEG) [facility] Comment: No Neisseria Gonorrhoeae RNA detected in this patient's sample (REFERENCE RANGE/NORMAL VALUE: NOT DETECTED) NOTE: This test uses steerer-mediated amplification method to detect rRNA from N.Gonorrhoeae. [...] without risk of sexual abuse. Consult the [facility] if needed. Contact phone number . Therapeutic failure or success cannot be determined with the Aptima Combo2 assay since nucleic acid may persist following appropriate antimicrobial therapy. The Centers for Disease Control and Prevention (CDC) recommends confirmatory retesting using culture or a different nucleic acid amplification test when positive results occur, if indicated. Testing performed or reported by [facility], a Service of [facility], [address] [place] [address] Javier Garcia MD, Paint Technician [facility]# [id number] Urine (Urine) 10/28/2021 1:5 1 PM EDT 10/28/2021 10:22 PM EDT us Anni Zavaleta DO LAB MICROBIOLOGY - GENERAL ORDER EMILY Final Result [facility] from Last 3 Months or Most Recently Relevant to Health Maintenance
--- OUTSIDE RECORDS SUMMARY | 2025-03-21 23:32 | XMS_ITS | Clinical Summary ---
Author Organization [facility] Address [address] [place] [address] Phone Care Team Providers Care Senior Cytotechnologist Name Role Phone Lisa Rodriguez MD Primary [...] Description 12/25/2024 12:00 PM EDT Office Visit [facility] [address] [place] [address] [address] Floor, [address] [place] [address] Gavino Rice DO POTS (postural orthostatic tachycardia syndrome) (Primary Dx); Ventricular premature depolarization; Deep vein thrombosis (DVT) of left lower extremity, unspecified chronicity, unspecified vein from Last 3 Months Social History Tobacco [...] Description 09/24/2025 9:30 AM EDT Office Visit [facility] [address] [place] [address] [address] Floor, [address] [place] [address] Gavino Rice DO [address] [place] [address] [place] [phone] [email or web address] Health Maintenance Due Date Last Done Comments CREATININE LEVEL 2000 DEPRESSION SCREENING 2012 SMOKING Hx and SMOKELESS TOBACCO SCREENING 2013 HPV VACCINES (1 - 3-dose series) 10/02/2015 CHLAMYDIA SCREENING 2016 HEPATITIS C SCREENING 2018 HIV ONE-TIME SCREENING (18-6 5 YEARS) 2018 PAP SMEAR 2021 INFLUENZA VACCINE (#1) 2024 COVID-19 VACCINE ( - 2024-2 6 season) 2024 Adult Td,Tdap Booster 10/29/2031 [...] topic Medical Devices Not on file Insurance [place] [address] [place] [address] [place] [address] [facility] Care Teams Senior Cytotechnologist Relationship Specialty Start Date End Date Lisa Rodriguez MD [address] [place] [place] [address] PCP - General Internal Medicine 07/23/24 Additional Source Comments The information contained in this document represents components of the legal health record. It is not the complete legal health record.[facility]
--- OUTSIDE RECORDS SUMMARY | 2025-03-21 23:32 | XMS_ITS | Data Portability ---
Author Organization JOHANA - Gus Valero [facility], [facility] Address [address] [place] [address] Care Team Providers Care Cold Type Artist Name Role Phone CASSANDRA WILSON Primary Care Provider [phone] Assessment No assessment recorded. Plan of Treatment Reminders Order Date Submit Date Provider Last Modified By Organization Details Last Modified Time Details Appointments None recorded. Lab None recorded. Referral None recorded. Procedures None recorded. Surgeries None recorded. Imaging XR, hip + pelvis, unilateral, 2 or 3 view - RIGHT HIP ARTHROSCOPY DR. KHAN PROTOCOL [email or web address] [facility] Office, [address] [facility] [address], [place], [address], 5 11:11:42 Medication Orders None recorded. Patient TargetsNo targets recorded. Patient InstructionsNo instructions recorded. Reason for Referral None Reported. Results Created Date Observation Date Name Description Value Unit Range Abnormal Flag Note LastModifiedBy Organization Detail LastModifiedTime 06/23/1906/21/2024 XR, hip + pelvi s, unila teral , 2 or 3 view No observ ation record ed. [facility] (Scheduling) [address] [place], [address], 06/22/2024 09:22:16 06/27/1906/22/2024 XR, hip + pelvi s, unila teral , 2 or 3 view No observ ation record ed. [facility] (Scheduling) [address] [place], [address], 06/26/2024 11:53:22 07/07/19 25 07/06/2024 XR, hip + pelvi s, unila teral , 2 or 3 view http:/ [email or web address] ?Encry pted=s hAaTro YD8dLq bEUv6g %2BXZw aYqtaq 0bqfl% 2Fg9IQ a4ajBk vP9nXo QUaueC m3YtLR FvZlgJ JJ8mAn HZtai3 4h5954 AC0KqY nSFUqO mKiQtr MwF INTERFACE [facility] [address], [place], [address], 07/06/2024 14:02:38 07/07/19 25 07/06/2024 XR, hip + pelvi s, unila teral , 2 or 3 view http:/ [email or web address] ?Encry pted=s hAaTro YD8dLq bEUv6g %2BXZw aYqtaq 0bqfl% 2Fg9IQ a4ajBk vP9nXo QUaueC m3YtLR FvZlgJ JJ8mAn HZtai3 2a4588 AC0KqY nSFUqO mKiQtr MwF INTERFACE [facility] [address], [place], [address], 07/06/2024 14:02:40 07/12/19 25 07/11/2024 US, martin mckeon, [facility] mity No observ ation record ed. [facility] [address], [place], [address], 07/12/2024 16:36:32 08/14/19 25 08/09/2024 , martin mckeon, [facility] mity No observ ation record ed. [facility] [address], [place], [address], 08/13/2024 13:22:20 02/01/20 01/31/2025 US, peg x, martin s, lower extre mity No observ ation record ed. [facility] [address], [place], [address], 01/31/2025 17:29:04 Result Notes Documentation Provider Name and Address Organization Details Recorded Time Xr, Hip + Pelvis, Unilateral, 2 Or 3 View : [email or web address] Encrypted=pqWiIdkJU7rEcrH Uv6g%0SYAnrPpuud9erfo%2Fg 0JCt8ufFelB3sLuIHipiTc2Bm HQPcNhcFXY3oZyQZwpg16o237 5PQ6VeTlTDLdDrPnPrwHsW Not Available [facility] 07/06/2024 14:02: 39 Xr, Hip + Pelvis, Unilateral, 2 Or 3 View : [email or web address] Encrypted=blLdVehHL7dLonU Uv6g%3LKEnaPlqcr1gyxq%2Fg 3HHd7bbJdsH9jZvGDcswXe4Ch TANaMigXMM3zMiLLdib61h340 2VF4CqFdWGXsNjFePzcOaZ Not Available [facility] 07/06/2024 14:02: 41 Problems Name Problem SNOMED Code Status Onset Date Resolution Date Notes Provider Name and Address Organization Details Recorded Time Hamstring injury 213831691 Active 2023 Sam Arias PA-C [address], [place], [address], [facility] 4 09:36:07 Acetabular labrum tear 982158418 Active 2023 Franklyn Yo PA-C [address], [place], [address], [facility] 5 07:45:14 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 Procedures Surgical History Date Name Laterality Status Provider Name and Address Organization Details Recorded Time 5 arthroscopy of hip completed MOHAMUD ZAPIEN [facility] 08/07/2024 14:38:54 5 Hip Kenalog Injection, L/R w/US completed Sam Arias PA-C [address] [facility] [address], [place], [address], [facility] 04/23/2024 13:26:35 Imaging Results None recorded. Procedure [...] Updated DateTime 04/23/2024 172.72 cm 26.6 kg/m2 42156.66 g Sam Arias PA-C [address] [place] [address] [address], [place], [address], [facility] 04/23/2024 12:59:28 Date Recorded Body height Body mass index (BMI) Body weight Provider Name and Address Organization Details Last Updated DateTime 05/22/2024 172.72 cm 26.6 kg/m2 00742.66 g COLE CORDERO [facility] 05/22/2024 09:58:55 Date Recorded Body height Body mass index (BMI) Body weight Provider Name and Address Organization Details Last Updated DateTime 07/06/2024 172.72 cm 26.6 kg/m2 97807.66 g Dalila Chris [facility] 07/06/2024 13:54:23 Date Recorded Body height Body mass index (BMI) Body weight Provider Name and Address Organization Details Last Updated DateTime 08/09/2024 172.72 cm 26.6 kg/m2 48250.66 g MOHAMUD ZAPIEN [facility] 08/09/2024 13:55:21 Date Recorded Body height Body mass index (BMI) Body weight Provider Name and Address Organization Details Last Updated DateTime 09/28/2024 172.72 cm 26.6 kg/m2 58122.66 g Dalila Chris [facility] 09/28/2024 11:39:09 Social History None recorded. Functional Status None recorded. Mental Status None recorded. Family History Nothing Reported. Medical History Condition Response Allergies/Hayfever N Coronary Artery Disease N Breathing or lung disorders N Anxiety/Depression N Emphysema N Nerve Disorders N Thyroid Problems N COPD N Pacemaker N Kidney/Bladder Problems N Anemia N Vascular Disease N Heart Trouble N Heart Attack (MN) N Gastrointestinal Disease N Cholesterol N Diabetes N Autoimmune disease N Inflammatory Joint disease N Bleeding Disorder N Orthotics N Seizures/Epilepsy N Arthritis N Blood Clot Y AIDS/HIV N Congestive Heart Failure (CHF) N Acid Reflux (GERD) N Cancer N Stroke N Asthma N Circulation Problems N Peripheral Vascular Disease N Sleep Apnea N Hepatitis N Heart Disease N Rheumatoid Arthritis N Pulmonary Embolism N Arrhythmia N Headaches N Fibromyalgia N Hypertension N Osteoporosis N Gynecological HistoryNo gynecological history recorded. Obstetrics History GPAL:G 0 P 0 0 0 0 Past Encounters Encounter ID Performer Location Encounter Start Date Encounter Closed Date Diagnosis/Indication Diagnosis SNOMED-CT Code Diagnosis ICD10 Code Diagnosis IMO Codes Diagnosis Note [id number] ANAIS Asher [address] floor [address] [place] [address] 01/30/2024 08:52:50 02/16/2024 15:33:25 Hamstring injury 270494661 S76.301D [id number] ANAIS Asher [address] floor [address] [place] [address] 02/22/2024 09:56:57 03/13/2024 11:03:01 Hamstring injury 740929571 S76.301D 87372514 [id number] ANAIS Asher 3[address] floor [address] [place] [address] 03/27/2024 13:50:18 04/20/2024 16:23:48 Acetabular labrum tear 438368536 S73.191A 03146587 [id number] Elpidio Khan MD [facility] [address] [address] 04/12/2024 14:05:52 04/30/2024 11:43:30 Pain of right hip joint 4424602658 07360 M25.551 587198 Sprain of right hip 1178 906287 5180171 S73.191D [id number] ANAIS Asher - [facility] [address] [place] [address] 04/23/2024 12:38:42 05/07/2024 13:31:38 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 5447251937 004153 M25.851 [id number] MD MAGALIS Cali [facility] [address] [place] [address] 05/22/2024 09:55:26 06/11/2024 15:50:38 Acetabular labrum tear 526574718 S73.191D [id number] [id number] MD MAGALIS Cali [facility] [address] [place] [address] 07/06/2024 13:14:14 07/24/2024 19:38:20 History of operative procedure on hip 856374438 Z98.890 [id number] ANAIS Hastings - [facility] [address] [place] [address] 08/09/2024 13:49:30 08/27/2024 11:05:52 Acetabular labrum tear 761262434 S73.191D [id number] [facility] [address] [place] [address] 09/28/2024 11:09:19 10/16/2024 09:11:20 Sprain of right hip 6979932129 9587901 S73.191D [id number] Health Concerns Section Related Observation LastModified by Organization Detai ls LastModified Time None Recorded Concern Status LastModified by Organization Details LastModified Time None Recorded Advance Directives Directive None Recorded Payers Insurance Date Sequence Insurance Name Policy Number Policy Cat Covered Member ID Cat Member ID Guarantor Name 10/16/2024 1 [place] [facility] [id number] Hernandez Garvey [id number] Essence Garvey Notes Date Note Type Note Provider Name and Address Organization Details Recorded Time 01/13/202 5 text/html I am seeing the patient [...] oriented x3. Normal insight, affect, and grooming BAND BUILDER: Gross motor coordination is intact. No spasticity [...] candidacy for hip arthroscopy. Sam Arias PA-C [address] [place] [address] [address], [place], [address], [facility] 04/23/2024 13:27:02 5 text/html Chief complaint: Right [...] without significant improvement. She has been using lqtv-ulq-rqwdvgp anti-inflammatories. Has not had any injections. Interval [...] Crutches will be provided. Elpidio Khan MD [address] [facility] [address], [place], [address], [facility] 05/22/2024 10:37:34 5 text/html Surgery: Right hip [...] from July 06, 2024 Elpidio Khan MD [address] [facility] [address], [place], [address], [facility] 07/06/2024 15:09:47 5 text/html I am seeing [...] 7 weeks. - Medical Practice speech recognition jail officer software was used to create portions of this document. An attempt at proofreading has been made to minimize errors. Please call for corrections. Franklyn Yo PA-C [address] [place] [address], [place], [address], [facility] 08/15/2024 07:45:29 5 text/html Surgery: Right hip arthroscopic labral repair, femoroplasty, acetabuloplasty, capsule closure June 21, 2024HPI: Patient today for her 3-month follow-up visit. 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 She is following with globe cleaner. Did have workup, has not been told she has any hypercoagulable conditions. She also developed POTS syndrome since surgery and has been following with dethistler operator and started on oral medication. In respect [...] pain-free. Continue on oral anticoagulation as per globe cleaner recommendations for postoperative DVT/PE. She has no immediate plans to return to sport and reports minimal pain and good function at this time. At this point follow-up will be arranged as her symptoms dictate. Elpidio Khan MD [address] [place] [address] [address], [place], [address], [facility] 09/28/2024 12:51:28 OBGyn Episode No OBEpisode recorded.
--- OUTSIDE RECORDS SUMMARY | 2025-03-21 23:32 | XMS_ITS | Encounter Summary ---
Author Organization [facility] Address [address] [place] [address] Phone Care Team Providers Care Rug Setter Axminster Name Role Phone Provider, Danette BEST Primary Care Provider [phone] Encounter Details Date Type Department Care Team (Late st Contact Info) Description 07/25/2009 Documentation [facility] [address] [place] [address] Family Medicine, Physician [address] [place], [place] [phone] Social History Tobacco Use Types Packs/Day Years [...] on filedocumented in this encounter Care Teams Rug Setter Axminster Relationship Specialty Start Date End Date Provider, MD Danette [address] [place] [address] PCP - General Pediatrics 10/22/21 08/15/22 documented as of this encounter
--- OUTSIDE RECORDS SUMMARY | 2025-03-21 23:32 | XMS_ITS | Continuity of Care Document ---
Author Organization [facility] [address] [facility] [address] [place] [address] Phone [phone] Care Team Providers Care Engineer Soils Name Role Phone Lisa Rodriguez Care Team Information Bin Worker [phone] Problems Active Problems Provider Date Rogers thyroiditis Cl Almeida M.D. On set: 02/28/2023 Hypothyroidism Cl Almeida M.D. Onset: 1 04/30/2022 Social History Type Date Description Comments Sex Female Sex Unknown Tobacco Use Start: Unknown Never Smoked Cigarettes ETOH Use Occasionally consumes alcoho l Allergies [...] 0.82-1.77 TSH With Reflex To FT4 02/28/2023 [facility] TSH With Reflex To FT4 3.65 uIU/mL (0.4-4.2) Cortisol 02/28/2023 [facility] Cortisol 26.0 g/dL 1 1 [...] hypothyroidism Mindi Almeida M.D. Plan of Treatment No Information Available Functional Status Description No Information Available Mental Status Description No Information Available Referrals Refer to Dr Reason for Referral Status Appt Dewayne e Cl Almeida M.D. Created [address] [place] [address] Drive [address] [place] [address] [phone] Cl Almeida M.D. Closed [address] [place] [address] Drive [address] [place] [address] [phone] Cl Almeida M.D. Closed [address] [place] [address] Drive [address] [place] [address] [phone]
--- OUTSIDE RECORDS SUMMARY | 2025-03-21 23:33 | XMS_ITS | Encounter Summary ---
Author Organization [facility] Address [address] [place] [address] Phone Care Team Providers Care Director Bioinformatics Name Role Phone Provider, Danette BEST Primary Care Provider Reason for Visit * Reason Comments Med Refill Encounter Details Date Type Department Care Team (Late st Contact Info) Description 07/23/2017 Refill [facility] - [address] [address] Dalila Suárez NP Encounter for other contraceptive [...] visit with Essence I had written that [facility] CORRESPONDENT was writing her OCPs - but in speaking with the pharmacist at [facility] we have been prescribing her OCPs. Last visit with NEWS CORRESPONDENT was 03/2017 - they discussed longer cycling [...] Primary documented in this encounter Care Teams Director Bioinformatics Relationship Specialty Start Date End Date Provider, MD Danette [address] [place] [address] PCP - General Pediatrics 10/22/21 08/15/22 documented as of this encounter
--- OUTSIDE RECORDS SUMMARY | 2025-03-21 23:33 | XMS_ITS | Encounter Summary ---
Author Organization [facility] Address [address] [place] [address] Phone Care Team Providers Care Custom Feed Corn Operator Name Role Phone Provider, Danette BEST Primary Care Provider [phone] Encounter Details Date Type Department Care Team (Late st Contact Info) Description 06/07/2016 Documentation [facility] Family Medicine [address] [place] [address] Family Medicine, Physician [address] [place], [place] [id number] Social History Tobacco Use Types Packs/Day Years [...] on filedocumented in this encounter Care Teams Custom Feed Corn Operator Relationship Specialty Start Date End Date Provider, MD Danette [address] [place] [address] PCP - General Pediatrics 10/22/21 08/15/22 documented as of this encounter
--- OUTSIDE RECORDS SUMMARY | 2025-03-21 23:33 | XMS_ITS | Encounter Summary ---
Author Organization [facility] Address [address] [place] [address] Phone Care Team Providers Care Flue Tile Press Operator Name Role Phone Provider, Danette BEST Primary Care Provider [phone] Encounter Details Date Type Department Care Team (Late st Contact Info) Description 11/25/2016 Conversion Encounter [facility] [address] [id number] Social History Tobacco Use Types Packs/Day Years [...] on filedocumented in this encounter Care Teams Flue Tile Press Operator Relationship Specialty Start Date End Date Provider, MD Danette [address] [place] [address] PCP - General Pediatrics 10/22/21 08/15/22 documented as of this encounter
--- OUTSIDE RECORDS SUMMARY | 2025-03-21 23:33 | XMS_ITS | Encounter Summary ---
Author Organization [facility] Address [address] [place] [address] Phone Care Team Providers Care Telegraph Printer Mechanic Name Role Phone Provider, Danette BEST Primary Care Provider [phone] Encounter Details Date Type Department Care Team (Late st Contact Info) Description 06/03/2016 Documentation [facility] Family Medicine [address] [place] [address] Family Medicine, Physician [address] [place], [place] [phone] Social History Tobacco Use Types Packs/Day Years [...] on filedocumented in this encounter Care Teams Telegraph Printer Mechanic Relationship Specialty Start Date End Date Provider, MD Danette [address] [place] [address] PCP - General Pediatrics 10/22/21 08/15/22 documented as of this encounter
== END 2025-03-21 18:42 | disposition home or self-care (01) ==
LOC: HO.MRI 18:41
PROVIDERS: PCP Internal Medicine; Visit Provider Physician Assistant
DX: S83.005A Unspecified dislocation of left patella, initial encounter (principal)
CPT/HCPCS: 73721